=== PATIENT | female | born 1975 | race African-American/Black ===

== ENCOUNTER 2019-11-12 03:53 | Emergency (ER) | payer MEDICAID, SELFPAY ==
[2019-11-12 03:54] VITALS: PULSE 124; RESP 18; TEMP 36.4; O2SAT 97; BMI 33.3
--- NOTE | 2019-11-12 04:14 | EKG12_ITS ---
Test Reason : N AND VOMIT Blood Pressure : / mmHG Vent. Rate : 113 BPM Atrial Rate : 113 BPM P-R Int : 132 ms QRS Dur : 092 ms QT Int : 358 ms P-R-T Axes : 061 042 051 degrees QTc Int : 491 ms Sinus tachycardia Biatrial enlargement Nonspecific ST and T wave abnormality Abnormal ECG Confirmed by SARAH LADD, EILSHA ([id number]), image editor MARSHAL EWING ([id number]) on 11/14/2019 12:24:58 PM Referred By: Stalin Montes De Oca Confirmed By:ELISHA SMITH MD
--- NOTE | 2019-11-12 04:15 | ED.VIS.GEN ---
History of Present Illness Chief Complaint: Weakness Informant: Patient Narrative: She stated she felt lightheaded at home weak and fatigued. Denies vertigo. Came in for further evaluation. She does drink alcohol daily. She drinks approximately 4 to 5 24 ounce cans of beer. That is her normal per patient. She denies any abdominal pain. She had nausea with one episode of emesis upon arrival. She denies headache. She denies any respiratory symptoms. She has not had a cold. Current severity is mild. She feels much better after having emesis. She has had near syncopal dizzy symptoms in the past. She has chronic hypertension and takes medication for this. She stated 2 weeks ago she had dental extractions and has not been eating or drinking well afterwards. She feels like she is dehydrated Past Medical History - Allergies and Home Meds Allergies/Adverse Reactions: Allergies No Known Allergies Allergy (Verified 11/12/19 03:54) Primary Care Physician: Stalin Montes De Oca DO [Primary Care Provider] - Prior records reviewed: Yes Past Medical History: - - Tension, alcoholism Surgical History: - - Dental extractions Lives: With Family Smoking Status: Current every day smoker Alcohol: None Drugs: None Review of Systems General: Denies: Chills, Fever, Sweats Eyes: Denies: Visual changes - bilaterally, Diplopia ENT: Denies: Rhinorrhea, Sore throat Cardiovascular: Denies: Chest pain, Palpitations Respiratory: Denies: Dyspnea, Cough, Dyspnea on exertion Gastrointestinal: Reports: Nausea. Denies: Abdominal pain, Vomiting, Diarrhea, Melena, Hematochezia Genitourinary: Denies: Dysuria, Hematuria, Frequency Musculoskeletal: Denies: Back pain, Extremity Pain Skin: Denies: Rash, Wounds Neurological: Reports: Weakness. Denies: Headache, Numbness Physical Exam Vital Signs/Narrative: Vital Signs Temp Pulse Resp Pulse Ox 11/12/19 03:54 97.5 F L 124 H 18 97 General: Well nourished, Well developed, No Acute Distress Head: Normocephalic, Atraumatic Eyes: Perrl, EOMI ENT: Moist mucous membranes, No rhinorrhea Neck: Supple, Nontender Cardiovascular: Regular rhythm, No murmurs, Tachycardia. Negative for: Regular rate Respiratory: No distress, CTA bilaterally, Chest nontender Abdomen: Soft, Nontender, Nondistended, Normal bowel sounds Back: Nontender, Normal Inspection Extremities: Nontender, No edema Skin: Normal color, No rash Neurological: Alert, Oriented x3, Cranial nerves II-XII grossly intact, Normal Strength, Normal Sensation Psychological: Normal affect, Normal Mood Diagnostic/Tx/Re-eval Laboratory Results 11/12/19 11/12/19 11/12/19 04:08 04:08 04:08 WBC 5.2 RBC 4.43 Hgb 14.5 Hct 39.7 MCV 89.6 MCH 32.7 H MCHC 36.5 H RDW Std Deviation 41.1 RDW Coeff of Paco 12.4 Plt Count 258 MPV 10.7 Immature Gran % (Auto) 0.400 Neut % (Auto) 35.2 L Lymph % (Auto) 52.0 H Glascock % (Auto) 10.1 H Eos % (Auto) 1.9 Baso % (Auto) 0.4 Absolute Neuts (auto) 1.8 L Absolute Lymphs (auto) 2.68 Nucleated RBC % 0 Sodium 128 L Potassium 2.4 L* Chloride 85 L Carbon Dioxide 29.0 Anion Gap 14 BUN 2 L Creatinine 0.80 Estim Creat Clear Calc 66.31 Est GFR (MDRD) Af Amer 100 Est GFR (MDRD) Non-Af 82 BUN/Creatinine Ratio 2.5 L Glucose 222 H Calcium 8.7 Total Bilirubin 0.60 AST 42 H ALT 34 Alkaline Phosphatase 66 Troponin I < 0.015 Total Protein 9.1 H Albumin 3.3 Globulin 5.8 H Albumin/Globulin Ratio 0.6 L Ethyl Alcohol 42.0 - Medical Decision Making Patient given IV fluid bolus and Zofran. Lab work and EKG obtained. Patient has hyponatremia hypochloremia and hypokalemia. I suspect this is from decreased oral intake and drinking alcohol. Patient stated she is been binge drinking over the last few weeks. Patient felt better after 2 L of fluid. She tolerated oral potassium 40 mEq. She stated she supposed to be taking potassium as an outpatient but stated she did not feel like taking it as it made her nauseous intermittently without food. She has not taken it for years. Patient has no renal insufficiency. Slightly elevated AST secondary to her alcohol drinking. At this time I discussed admission with the patient. I also discussed detox. She does not want either these. She would like to go home and take potassium and continue to drink electrolyte beverages. She will try to hold off on drinking alcohol. She will return if she worsens. Her EKG shows sinus tachycardia at 113. No acute arrhythmias. No U waves. On reevaluation her heart rate is down to 89. I suspect her sodium and chloride will have been replaced with IV fluids as well. ED Disposition - Plan for ED Patient: Disposition: Home or Assisted Living Diagnosis: Hypokalemia, Hyponatremia, Hypochloremia, Alcoholism Instructions: Hypokalemia Prescriptions: Potassium Chloride [K-Dur] 20 meq PO BID #15 tab Prescription Printed Ondansetron [Zofran Odt] 4 mg PO Q8H PRN PRN #10 tab PRN Reason: Nausea Prescription Printed Referrals: Stalin Montes De Oca DO [Primary Care Provider] -
[2019-11-12] MEDS: 0.9% Normal Saline 1,000 ML 1000 ML IV ×2 (04:31→05:21)
[2019-11-12] MEDS: Ondansetron 4 MG/2 ML Vial IV (04:31)
[2019-11-12 04:34] LABS: Absolute Lymphocyte Count 2.68 X10^3/uL (0.83-4.51); Absolute Neutrophil Count 1.8 X10^3/uL (2.0-7.7); Basophil# 0.02 X10^3/uL; Basophil% 0.4 % (0-1); Eosinophils% 1.9 % (0-5); Hematocrit 39.7 % (37-47); Hemoglobin 14.5 g/dL (12.0-15.0); Lymphocyte # 2.68 X10^3/ul (4.0); Mean Corp Hgb Conc 36.5 g/dL (32-36); Mean Corpuscular Hgb 32.7 pg (27.0-32.0); Mean Corpuscular Volume 89.6 fL (81-99); Mean Platelet Vol. 10.7 fl (6.2-12.0); Monocyte# 0.52 X10^3/uL; Monocyte% 10.1 % (0-10); NRBC Flagged by Analyzer 0 % (0-5); Neutrophil # 1.81 X10^3/uL (2.7-7.7); Neutrophil % 35.2 % (47-70); Platelet Count 258 K/mm3 (150-450); RBC Distribution Width CV 12.4 % (11.6-14.6); RBC Distribution Width SD 41.1 fl (35.1-43.9); Red Blood Count 4.43 M/mm3 (4.2-5.4); White Blood Count 5.2 K/mm3 (4.4-11.0)
[2019-11-12 05:02] LABS: ALB/GLOB Ratio 0.6 RATIO (0.9-2.4); AST(SGOT) 42 U/L (15-37); Alanine Aminotransfer ALT/SGPT 34 U/L (13-56); Albumin, Serum 3.3 g/dL (3.2-5.0); Alkaline Phosphatase 66 U/L (45-117); Anion Gap 14 (5-15); BUN 2 mg/dL (7-18); BUN/Creat Ratio 2.5 RATIO (10-20); Calcium,Total 8.7 mg/dL (8.5-10.1); Chloride 85 mmol/L (98-107); EST Glomerular Filtration Rate 82 mL/min (>60); Est Glom Filt Rate - Afr Amer 100 mL/min (>60); Estimated Creatinine Clearance 66.31 ml/min; Globulin 5.8 g/dL (2.2-4.2); Glucose 222 mg/dL (74-106); Potassium 2.4 mmol/L (3.5-5.1); Protein, Total 9.1 g/dL (6.4-8.2); Sodium Level 128 mmol/L (136-145)
[2019-11-12 05:54] VITALS: BP 185/98; PULSE 89; RESP 14; O2SAT 94
[2019-11-12 06:16] VITALS: BP 176/92; PULSE 88; RESP 19; O2SAT 95
== END 2019-11-12 06:32 | disposition home or self-care (01) ==
PROVIDERS: Emergency Provider Emergency Medicine; PCP Student in an Organized Health Care Education/Training Program; Referring Provider Student in an Organized Health Care Education/Training Program
DX: E87.6 Hypokalemia (principal); E87.1 Hypo-osmolality and hyponatremia; E87.8 Other disorders of electrolyte and fluid balance, not elsewhere classified; F10.20 Alcohol dependence, uncomplicated; Y90.9 Presence of alcohol in blood, level not specified; Z98.818 Other dental procedure status; I10 Essential (primary) hypertension; Z79.899 Other long term (current) drug therapy; F17.200 Nicotine dependence, unspecified, uncomplicated
CPT/HCPCS: 80053; 80320; 84484; 85025; 93005; 96361; 96374; 99284; J7030; A4216; G0480; J2405

== ENCOUNTER 2021-09-27 21:33 | Emergency (ER) | payer MEDICAID, SELFPAY ==
[2021-09-27 21:33] VITALS: BP 238/110; PULSE 106; RESP 15; TEMP 36.2; O2SAT 97; BMI 34.0
[2021-09-27] MEDS: Acetaminophen 500 MG Tablet 1000 MG PO (22:30)
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
== END 2021-09-27 22:34 | disposition home or self-care (01) ==
LOC: ED 22:21
PROVIDERS: Emergency Provider Emergency Medicine; PCP Student in an Organized Health Care Education/Training Program
DX: S39.012A Strain of muscle, fascia and tendon of lower back, initial encounter (principal); V89.2XXA Person injured in unspecified motor-vehicle accident, traffic, initial encounter; Y93.9 Activity, unspecified; Y92.9 Unspecified place or not applicable; I10 Essential (primary) hypertension; Z79.899 Other long term (current) drug therapy; F17.210 Nicotine dependence, cigarettes, uncomplicated
CPT/HCPCS: 99283

== ENCOUNTER 2021-12-30 16:52 | Emergency (ER) | payer MEDICAID, SELFPAY ==
[2021-12-30 16:53] VITALS: BP 230/117; PULSE 93; RESP 17; TEMP 36.1; O2SAT 96; BMI 37.8
--- NOTE | 2021-12-30 17:53 | EDS_ITS ---
HPI History of Present Illness Chief Complaint: Hypertension Informant: patient Narrative Narrative: Patient Donell with high blood pressure. She checked her blood pressure this morning was very high although she does not recall the numbers. It is 230/117 now. She states she feels absolutely fine. She sometimes gets very anxious but is not anxious now. She does take 50 mg a day of hydrochlorothiazide but sometimes does not take it. She also drinks a fair a mount of beer. She is cut back to low-carb beer because she is also being worked up for diabetes. She had an A1c on a recent blood draw that was 7.2. She showed me these labs. Her blood sugars been running 140. I also found out that she was recently prescribed losartan. This is because her blood pressures were only going down to about 150. But she saw that the losartan just had potassium on it so she stopped taking it because she thought it was just potassium. She does not have headaches dyspnea neurologic symptoms chest pain or other complaints. There is no visual complaints. I also looked at blood work that was done about 2 months ago. She had normal renal function. Overall electrolytes and CBC were normal. Her A1c was about 7.2. [facility] Medical History Hypertension Home Medications hydrochlorothiazide 50 mg PO DAILY 11/12/19 [History Last Taken Unknown] loratadine 10 mg PO PRN PRN 09/27/21 [History Last Taken Unknown] losartan 25 mg PO DAILY 12/30/21 [History Last Taken Unknown] Allergy/AdvReac Type Severity Reaction Status Date / Time No Known Allergies Allergy Verified 12/30/21 16:53 Social History Smoking Status: Current every day smoker tobacco type: cigarettes ROS ROS ED Constitutional Constitutional ED: Denies chills or fever(s) Eyes Eyes: Denies blurry vision, change in vision or diplopia ENT ENT ED: Denies rhinorrhea Cardiovascular Cardiovascular: Denies chest pain, palpitations or racing heartbeat Respiratory/Chest Respiratory/Chest: Denies cough or dyspnea Gastrointestinal Gastrointestinal: Denies nausea or vomiting Genitourinary Genitourinary ED: Denies dysuria, hematuria or urinary frequency Musculoskeletal Musculoskeletal: Denies myalgias Integumentary Denies rash Neurologic Neurologic: Denies headache(s) or weakness Psychiatric Psychiatric: Reports anxiety; Denies depression Endocrine Endocrinology: Denies polydipsia or polyuria Allergic/Immunologic Allergic/Immunologic ED: Denies mouth swelling or urticaria EXAM Physical Exam Const Vital Signs: 12/30/21 16:53 12/30/21 17:39 Temperature 97.0 F L Temperature Source Temporal Pulse Rate 93 Respiratory Rate 17 Respiratory Pattern Normal Blood Pressure 230/117 H Blood Pressure Mean 154 Pulse Ox 96 Oxygen Delivery Method Room Air Positive well nourished and well developed General Appearance ED: well developed and NAD; Negative for cyanotic or diaphoretic HEENT Reports moist mucous membranes Negative for trauma or tenderness Eyes PERRL and EOMs intact bilaterally Neck supple and no JVD Chest Wall inspection of chest normal Resp normal respiratory effort and clear to auscultation bilaterally Effort and Inspection: Negative for pain with movement Auscultation: Negative for rales, rhonchi or wheezes Cardio regular rate and regular rhythm GI normal to inspection, nondistended, normoactive bowel sounds Back/Spine no CVA tenderness Neuro oriented x3 and CN's II-XII intact bilaterally Sensorium / Orientation: alert; Negative for orientation impaired, lethargic or stuporous Motor Exam: strength 5/5 throughout Psych mental status grossly normal Skin no rashes or lesions noted MDM MDM MDM Narrative Medical decision making narrative: I had a long talk with the patient. She has had recent blood work. We discussed that we could repeat this but she would prefer not to. I think the patient needs to take her hydrochlorothiazide and losartan as prescribed. This should bring down her blood pressure medicine appropriately. Evidently was running about 150 when she took the meds. Although it still may need to be lower than that this can be done as an outpatient. I do not think we require x-rays CTs blood work here is the patient is asymptomatic. She is comfortable and would prefer this plan. Discharge Plan Triage Chief Complaint: Hypertension ED Provider: Wale Conde Dx/Rx/DC Orders Clinical Impression: Hypertension, Non compliance w medication regimen Instructions: ED Hypertension, Established Prescriptions: No Action hydrochlorothiazide 25 MG tablet 50 mg PO DAILY RF: 0 loratadine 10 mg tablet 10 mg PO PRN PRN (Reason: Allergic Reaction) RF: 0 losartan 25 mg tablet 25 mg PO DAILY RF: 0 Primary Care Provider: Stalin Montes De Oca Referrals: Stalin Montes De Oca DO [Primary Care Provider] - 3-5 Days Disposition Disposition: Home, Self Care
[2021-12-30 18:13] VITALS: RESP 16
== END 2021-12-30 18:14 | disposition home or self-care (01) ==
PROVIDERS: Emergency Provider Emergency Medicine; PCP Student in an Organized Health Care Education/Training Program; Visit Provider Emergency Medicine
DX: I10 Essential (primary) hypertension (principal); F17.210 Nicotine dependence, cigarettes, uncomplicated; Z91.14 Patient's other noncompliance with medication regimen; Z79.899 Other long term (current) drug therapy
CPT/HCPCS: 99282

== ENCOUNTER 2022-05-03 15:17 | Emergency (ER) | payer MEDICAID, SELFPAY ==
[2022-05-03 15:18] VITALS: BP 168/119; PULSE 105; RESP 16; TEMP 36.9; O2SAT 98; BMI 35.5
--- NOTE | 2022-05-03 15:47 | EDS_ITS ---
HPI History of Present Illness Chief Complaint: General Illness Informant: patient Onset/Context/Timing Onset: Days Context: Gradual Onset Timing: Continuous Current Severity: Mild Maximum Severity: Mild Narrative Narrative: 46-year-old female says she has had sore throat and mild headache for the last 3 days. Headache is resolved with Tylenol. She has history of hypertension diabetes. Also has a nonproductive cough. She denies vomiting or diarrhea. No dysuria. Prior similar symptoms: Yes Recent Illness/Hospitalization: No PFSH PFSH Medical History Hypertension Home Medications hydrochlorothiazide 25 mg tablet 50 mg PO DAILY 11/12/19 [History Last Taken Unknown] loratadine 10 mg tablet 10 mg PO PRN PRN Allergic Reaction 09/27/21 [History Last Taken Unknown] losartan 25 mg tablet 25 mg PO DAILY 12/30/21 [History Last Taken Unknown] Allergy/AdvReac Type Severity Reaction Status Date / Time No Known Allergies Allergy Verified 05/03/22 15:21 Social History Smoking Status: Current every day smoker tobacco type: cigarettes ROS ROS ED ROS Narrative Sore throat. Nonproductive cough. Denies fever. Review of Systems ROS Unobtainable: Denies due to encephalopathy Constitutional Constitutional ED: Denies chills or fever(s) Eyes Eyes: Denies blurry vision ENT ENT ED: Reports sore throat; Denies ear pain or rhinorrhea Cardiovascular Cardiovascular: Denies chest pain Respiratory/Chest Respiratory/Chest: Reports cough; Denies dyspnea Gastrointestinal Gastrointestinal: Denies abdominal pain, constipation, diarrhea, melena, nausea or vomiting Genitourinary Genitourinary ED: Denies dysuria or hematuria Musculoskeletal Musculoskeletal: Denies arthralgias Integumentary Denies abscess Neurologic Neurologic: Reports headache(s) Psychiatric Psychiatric: Denies anxiety Endocrine Endocrinology: Denies cold intolerance Hematologic/Lymphatic Hematologic/Lymphatic: Reports none Allergic/Immunologic Allergic/Immunologic ED: Denies mouth swelling or tongue swelling EXAM Physical Exam Narrative Exam Narrative: 46-year-old female no acute distress. Vital signs stable. Initial blood pressure elevated 168/119 she has a history of hypertension. Pulse ox 90% on room air no hypoxia. H EENT exam posterior pharynx unremarkable. No trouble swallowing or breathing. No significant erythema or exudate. No stridor or drooling. Neck nontender no lymphadenopathy. Lungs are clear equal symmetrical bilaterally. Heart regular rate and rhythm no murmur. Abdomen soft nontender. Otherwise exam unremarkable. Const Vital Signs: 05/03/22 15:18 05/03/22 15:30 Temperature 98.4 F Temperature Source Temporal Pulse Rate 105 H Respiratory Rate 16 Respiratory Effort Normal Non-Labored Respiratory Pattern Normal Blood Pressure 168/119 H Blood Pressure Mean 135 Pulse Ox 98 Oxygen Delivery Method Room Air Positive well nourished and well developed; Negative for cachectic, contractures or unkempt General Appearance ED: well developed; Negative for unkempt, cachectic, contractures or pallor Nutritional Appearance: Negative for cachectic HEENT Reports moist mucous membranes; Denies dry mucous membranes Negative for trauma Mouth ED: No dry mucous membranes Mouth: No dry mucous membranes Eyes PERRL and EOMs intact bilaterally General Eye ED: Negative for pale conjunctiva Neck no lymphadenopathy, supple and no JVD General: Negative for tenderness Chest Wall inspection of chest normal and palpation of chest normal Resp normal respiratory effort and clear to auscultation bilaterally Effort and Inspection: Negative for retractions Auscultation: Negative for rales, rhonchi or wheezes Cardio regular rate, regular rhythm, S1 normal heart sound, S2 normal heart sound and no murmurs Palpation: Negative for palpable S3 Rate: Negative for bradycardia Rhythm: Negative for abnormal rhythm GI normal to inspection, nondistended, normoactive bowel sounds, non-tender, non- distended and no masses Inspection: Negative for abdominal distention Auscultation: normoactive bowel sounds Palpation: soft; Negative for tender, guarding or splenomegaly Back/Spine no CVA tenderness General Back: Negative for CVA tenderness Cervical Spine: Negative for cervical spine tenderness Thoracic Spine / Upper Back: Negative for thoracic spinal tenderness Lumbar Spine / Lower Back: Negative for lumbar spinal tenderness Extremity normal to inspection General Extremety ED: Negative for edema or tenderness General Extremity: Negative for edema Neuro oriented x3 Sensorium / Orientation: alert; Negative for orientation impaired, lethargic or stuporous Motor Exam: strength 5/5 throughout; Negative for general weakness or strength abnormal Psych mental status grossly normal Appearance: Negative for unkempt Attitude: No agitated Mood & Affect: Negative for depressed Skin no rashes or lesions noted and no wounds General Skin Exam: Negative for jaundice or pallor Lesions: No lesion noted Rashes: No rashes noted Trauma: Negative for abrasion Wounds: Negative for wounds noted MDM MDM MDM Narrative Medical decision making narrative: Radial female URI symptoms. COVID test and rapid strep are being obtained. She has to go home to let someone and somata call her with the results. She will be written off work today. Treated as a viral URI. Both the rapid COVID and rapid strep test were negative. Treated as a viral syndrome. I will call the patient with results. Lab Data Attestation: I reviewed the patient's lab results. Lab results narrative: Rapid COVID test was negative. Rapid strep test was negative. Discharge Plan Triage Chief Complaint: General Illness ED Provider: Deuce Back Dx/Rx/DC Orders Clinical Impression: Viral syndrome, History of hypertension, History of diabetes mellitus Instructions: ED Viral Syndrome (Adult) Prescriptions: No Action hydrochlorothiazide 25 MG tablet 50 mg PO DAILY loratadine 10 mg tablet 10 mg PO PRN PRN (Reason: Allergic Reaction) losartan 25 mg tablet 25 mg PO DAILY Label Comments: TAKE 1 TABLET BY MOUTH EVERY DAY Primary Care Provider: Stalin Montes De Oca Referrals: Stalin Montes De Oca, [Primary Care Provider] - As Needed Activity Restrictions/Additional Instructions: Warm salt water gargling. Plenty of fluids and rest. Tylenol and Motrin as needed. Follow-up with your doctor if not improving. Disposition Disposition: Home, Self Care Discharge Date/Time: 05/03/22 16:02
== END 2022-05-03 16:02 | disposition home or self-care (01) ==
PROVIDERS: Emergency Provider Emergency Medicine; PCP Student in an Organized Health Care Education/Training Program; Visit Provider Emergency Medicine
DX: B34.9 Viral infection, unspecified (principal); E11.9 Type 2 diabetes mellitus without complications; F17.210 Nicotine dependence, cigarettes, uncomplicated; R51.9 Headache, unspecified; I10 Essential (primary) hypertension; Z79.899 Other long term (current) drug therapy; J02.9 Acute pharyngitis, unspecified; R05.9 Cough, unspecified
CPT/HCPCS: 87811; 87880; 99281; 99282

== ENCOUNTER 2022-12-31 07:21 | Emergency (ER) | payer MEDICAID, SELFPAY ==
[2022-12-31 07:22] VITALS: BP 148/67; PULSE 71; RESP 14; TEMP 36.1; O2SAT 98; BMI 34.1
--- NOTE | 2022-12-31 07:31 | EKG12_ITS ---
Test Reason : GENERAL WEAKNESS Blood Pressure : / mmHG Vent. Rate : 070 BPM Atrial Rate : 070 BPM P-R Int : 124 ms QRS Dur : 100 ms QT Int : 426 ms P-R-T Axes : 065 062 100 degrees QTc Int : 460 ms Normal sinus rhythm Minimal voltage criteria for LVH, may be normal variant ( Sokolow-Spencer ) ST & T wave abnormality, consider lateral ischemia Prolonged QT Abnormal ECG Confirmed by ROBINSON LADD, CAROL ([id number]), copy editor MARCOS FONSECA ([id number]) on 01/02/2023 6:58:28 AM Referred By: EMILY Confirmed By:PIETER BOWERS MD
--- NOTE | 2022-12-31 07:33 | EDS_ITS ---
HPI History of Present Illness Chief Complaint: General Illness Detail of Chief Complaint: Chest pain, cough, diarrhea Informant: patient Onset/Context/Timing Onset: Days Narrative Narrative: Patient presents with cough and congestion that has been ongoing for about a week. She is bringing up clear-colored phlegm. Over the last 3 days or so she has had burning sensation in her right upper chest. She does not feel short of breath. She has had some chills but no fever. She has had some diarrhea and recently started taking Pepto for this. [facility] Medical History Diabetes mellitus Hx of gastroesophageal reflux (GERD) Hypertension Home Medications hydrochlorothiazide 25 mg tablet 50 mg PO DAILY 11/12/19 [History Last Taken Unknown] loratadine 10 mg tablet 10 mg PO PRN PRN Allergic Reaction 09/27/21 [History Last Taken Unknown] losartan 25 mg tablet 25 mg PO DAILY 12/30/21 [History Last Taken Unknown] doxycycline monohydrate 100 mg capsule 100 mg PO BID #20 CAPSULES 12/31/22 [Rx Last Taken Unknown] Allergy/AdvReac Type Severity Reaction Status Date / Time No Known Allergies Allergy Verified 12/31/22 07:22 Social History Smoking Status: Current every day smoker tobacco type: cigarettes ROS ROS ED Constitutional Constitutional ED: Reports chills; Denies fever(s) Eyes Eyes: Denies change in vision or discharge from eye(s) ENT ENT ED: Denies discharge from eye(s), rhinorrhea or sore throat Cardiovascular Cardiovascular: Reports chest pain; Denies palpitations Respiratory/Chest Respiratory/Chest: Reports cough; Denies dyspnea Gastrointestinal Gastrointestinal: Reports abdominal pain, diarrhea and nausea; Denies vomiting Genitourinary Genitourinary ED: Denies difficulty urinating or dysuria Musculoskeletal Musculoskeletal: Denies back pain or extremity pain Integumentary Denies Abrasions or rash Neurologic Neurologic: Denies headache(s) or weakness Psychiatric Psychiatric: Denies anxiety or depression Allergic/Immunologic Allergic/Immunologic ED: Denies lip swelling or urticaria EXAM Physical Exam Const Vital Signs: 12/31/22 07:22 12/31/22 07:51 Temperature 97 F L Temperature Source Temporal Pulse Rate 71 Respiratory Rate 14 Respiratory Effort Normal Non-Labored Respiratory Pattern Normal Blood Pressure 148/67 H Blood Pressure Mean 94 Pulse Ox 98 Oxygen Delivery Method Room Air Positive well nourished and well developed General Appearance ED: well developed HEENT Reports normocephalic and head/scalp atraumatic Eyes PERRL and EOMs intact bilaterally Neck supple Chest Wall inspection of chest normal and palpation of chest normal Resp normal respiratory effort and clear to auscultation bilaterally Cardio regular rate and regular rhythm GI non-tender Auscultation: hypoactive bowel sounds Palpation: soft Extremity normal to inspection Neuro oriented x3 and no sensory deficits noted Sensorium / Orientation: alert Motor Exam: strength 5/5 throughout Psych Mood & Affect: anxious Skin no rashes or lesions noted MDM MDM MDM Narrative Medical decision making narrative: Patient is placed on fios 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 EKG obtained to evaluate for cardiac arrhythmia/ischemia. Chest x-ray obtained to evaluate for acute lung pathology, cardiac size, or mediastinal abnormality. Labwork obtained to evaluate for leukocytosis, anemia, and electrolyte derangement. Troponin obtained to evaluat e for cardiac ischemia. D-dimer obtained to evaluate for possible blood clot. Swabs for COVID and influenza obtained. Patient treated with Toradol and Zofran along with IV fluids. Lab Data Attestation: I reviewed the patient's lab results. Labs: Laboratory Results - last 24 hr 12/31/22 12/31/22 12/31/22 07:45 07:45 07:45 WBC 6.1 RBC 4.06 L Hgb 13.2 Hct 38.2 MCV 94.1 MCH 32.5 H MCHC 34.6 RDW Std Deviation 43.9 RDW Coeff of Paco 12.7 Plt Count 236 MPV 10.6 Immature Gran % (Auto) 0.300 Neut % (Auto) 51.4 Lymph % (Auto) 34.2 Redwood % (Auto) 11.8 H Eos % (Auto) 2.0 Baso % (Auto) 0.3 Absolute Neuts (auto) 3.2 Absolute Lymphs (auto) 2.09 Nucleated RBC % 0 D-Dimer Quant (PE/DVT) < 0.27 L Sodium 135 L Potassium 3.2 L Chloride 98 Carbon Dioxide 30.0 Anion Gap 7 BUN 8 Creatinine 0.89 Estim Creat Clear Calc 57.70 Est GFR (MDRD) Af Amer 86 Est GFR (MDRD) Non-Af 71 BUN/Creatinine Ratio 8.9 L Glucose 163 H Calcium 9.5 Total Bilirubin 0.60 Direct Bilirubin 0.16 AST 28 ALT 26 Alkaline Phosphatase 68 Troponin I High Sens 25 Total Protein 8.2 Albumin 3.3 Globulin 4.9 H Radiography Chest X-Ray - ED: 1 View, Read by ED Physician, Normal, Heart, Lungs and Mediastinum Diagnostic Testing: Clinical Impression(s) from Imaging Studies Chest X-Ray 12/31/22 08:09 IMPRESSION: No acute cardiopulmonary disease. Electronically Signed: Paulie Castro MD at 8:31 EDT , EKG Initial EKG: Attestation: I personally reviewed and interpreted this EKG as follows: Interpretation: Sinus Rhythm (Sinus at [address] depression in the lateral precordial leads. 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 EKG reveals some chronic changes but no evidence of acute ischemia. CBC and chemistry studies are remarkable only for slightly low potassium at 3.2. This was replaced orally. D-dimer is negative at less than 0.27. Troponin is normal at 25. Chest x-ray shows no evidence of acute infiltrate per my interpretation. Swab for COVID and influenza is negative. Because patient has had symptoms for 5 to 7 days I will treat her with doxycycline for bronchitis. She is comfortable with this plan. Return instructions have been given. Discharge Plan Triage Chief Complaint: General Illness ED Provider: Dinora Denis Dx/Rx/DC Orders Clinical Impression: Bronchitis Instructions: ED Upper Resp Infec Abx Tx Prescriptions: New doxycycline monohydrate 100 mg capsule 100 mg PO BID Qty: 20 0RF No Action hydrochlorothiazide 25 MG tablet 50 mg PO DAILY loratadine 10 mg tablet 10 mg PO PRN PRN (Reason: Allergic Reaction) losartan 25 mg tablet 25 mg PO DAILY Label Comments: TAKE 1 TABLET BY MOUTH EVERY DAY Primary Care Provider: Stalin Montes De Oca Referrals: Stalin Montes De Oca DO [Primary Care Provider] - 1-2 Weeks Disposition Disposition: Home, Self Care
[2022-12-31] MEDS: 0.9% Normal Saline 1,000 ML 150 ML IV (07:46)
[2022-12-31] MEDS: Ondansetron 4 MG/2 ML Vial IV (07:55)
[2022-12-31] MEDS: Ketorolac 15 MG/ML Vial IV (07:55)
[2022-12-31 07:58] LABS: Absolute Lymphocyte Count 2.09 X10^3/uL (0.83-4.51); Absolute Neutrophil Count 3.2 X10^3/uL (2.0-7.7); Basophil# 0.02 X10^3/uL; Basophil% 0.3 % (0-1); Eosinophil# 0.12 X10^3/uL; Hematocrit 38.2 % (37-47); Hemoglobin 13.2 g/dL (12.0-15.0); Lymphocyte # 2.09 X10^3/ul (0.83-4.51); Lymphocyte % 34.2 % (19-41); Mean Corp Hgb Conc 34.6 g/dL (32-36); Mean Corpuscular Hgb 32.5 pg (27.0-32.0); Mean Corpuscular Volume 94.1 fL (81-99); Mean Platelet Vol. 10.6 fl (6.2-12.0); Monocyte# 0.72 X10^3/uL; Monocyte% 11.8 % (0-10); NRBC Flagged by Analyzer 0 % (0-5); Neutrophil # 3.15 X10^3/uL (2.7-7.7); Neutrophil % 51.4 % (47-70); Platelet Count 236 K/mm3 (150-450); RBC Distribution Width CV 12.7 % (11.6-14.6); RBC Distribution Width SD 43.9 fl (35.1-43.9); Red Blood Count 4.06 M/mm3 (4.2-5.4); White Blood Count 6.1 K/mm3 (4.4-11.0)
--- NOTE | 2022-12-31 08:09 | RAD_ITS ---
EXAM: XR CHEST, 1 VIEW CLINICAL INDICATION: pain TECHNIQUE: Frontal view of the chest. This report was created using [employer] report generation technology. COMPARISON: None. FINDINGS: LUNGS AND PLEURAL SPACES: Normal. No consolidation or edema. No pneumothorax. No effusion. HEART: Normal heart size. MEDIASTINUM: No mediastinal or hilar mass. BONES/JOINTS: No acute abnormality. SOFT TISSUES: Normal. RAD/Chest 1 View (Portable) IMPRESSION: No acute cardiopulmonary disease. Electronically Signed: Paulie Castro MD at 8:31 EDT ,
[2022-12-31 08:12] LABS: AST(SGOT) 28 U/L (15-37); Alanine Aminotransfer ALT/SGPT 26 U/L (13-56); Albumin, Serum 3.3 g/dL (3.2-5.0); Alkaline Phosphatase 68 U/L (45-117); Anion Gap 7 (5-15); BUN 8 mg/dL (7-18); BUN/Creat Ratio 8.9 RATIO (10-20); Bilirubin, Direct 0.16 mg/dL (0.00-0.30); Calcium,Total 9.5 mg/dL (8.5-10.1); Chloride 98 mmol/L (98-107); Creatinine, Serum 0.89 mg/dL (0.55-1.02); EST Glomerular Filtration Rate 71 mL/min (>60); Est Glom Filt Rate - Afr Amer 86 mL/min (>60); Globulin 4.9 g/dL (2.2-4.2); Glucose 163 mg/dL (74-106); Potassium 3.2 mmol/L (3.5-5.1); Protein, Total 8.2 g/dL (6.4-8.2); Sodium Level 135 mmol/L (136-145); Troponin-I HS 25 pg/mL (3.0-54.0)
[2022-12-31] MEDS: Potassium Chloride Oral Tablet 20 MEQ 40 MEQ PO (08:18)
[2022-12-31 08:19] LABS: D-Dimer Quantitative (DVT/PE) < 0.27 FEU/ug/m (0.27-0.49)
[2022-12-31 09:59] VITALS: BP 155/84; PULSE 61; RESP 16; O2SAT 99
== END 2022-12-31 10:01 | disposition home or self-care (01) ==
PROVIDERS: Emergency Provider Emergency Medicine; PCP Student in an Organized Health Care Education/Training Program; Visit Provider Emergency Medicine
DX: J40 Bronchitis, not specified as acute or chronic (principal); F17.210 Nicotine dependence, cigarettes, uncomplicated; I10 Essential (primary) hypertension
CPT/HCPCS: 71045; 80048; 80076; 84484; 85025; 85379; 87428; 93005; 96374; 96375; 99285; A4216; J2405

== ENCOUNTER 2023-10-26 02:07 | Emergency (ER) | payer MEDICAID, SELFPAY ==
[2023-10-26] VITALS (7 sets, daily range): BP systolic 136–230; BP diastolic 81–112; PULSE 72–86; RESP 14–16; TEMP 36.4; O2SAT 96–97; BMI 34.1
--- NOTE | 2023-10-26 02:44 | EKG12_ITS ---
Test Reason : Blood Pressure : / mmHG Vent. Rate : 069 BPM Atrial Rate : 069 BPM P-R Int : 134 ms QRS Dur : 120 ms QT Int : 422 ms P-R-T Axes : 061 041 036 degrees QTc Int : 452 ms Normal sinus rhythm Left ventricular hypertrophy with QRS widening ( Sokolow-Spencer , [place] product ) Nonspecific T wave abnormality Abnormal ECG Confirmed by SARAH LADD, ELISHA ([id number]), communications editor MARCOS FONSECA ([id number]) on 10/27/2023 9:55:04 AM Referred By: Confirmed By:ELISHA SMITH MD
--- OUTSIDE RECORDS SUMMARY | 2023-10-26 02:44 | XMS RPT_ITS | CCD ---
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 use: No BP 152/88 Pulse 86 Temp 36.4 C (97.5 F) (Tympanic) Resp 18 Wt 84.4 kg (186 lb) LMP 03/01/2018 SpO2 96% BMI 34.02 kg/m Review of Systems Constitutional: Negative for chills, fever and malaise/fatigue. HENT: Positive for congestion, ear pain and sore throat. Negative for ear discharge and sinus pain. Eyes: Negative for blurred vision, pain, discharge and redness. Respiratory: Negative for cough, hemoptysis, sputum production, shortness of breath, wheezing and stridor. Cardiovascular: Negative for chest pain. Gastrointestinal: Negative for abdominal pain, diarrhea, nausea and vomiting. Musculoskeletal: Negative for myalgias. Skin: Negative for itching and rash. Neurological: Negative for dizziness and headaches. Objective Physical Exam Vitals and nursing note reviewed. Constitutional: General: She is not in acute distress. Appearance: She is not diaphoretic. HENT: Head: Normocephalic and atraumatic. Jaw: No trismus, tenderness, swelling or malocclusion. Right Ear: Hearing, tympanic membrane, ear canal and external ear normal. No decreased hearing noted. No drainage, swelling or tenderness. No mastoid tenderness. Tympanic membrane is not perforated, erythematous or bulging. Left Ear: Hearing, tympanic membrane, ear canal and external ear normal. No decreased hearing noted. No drainage, swelling or tenderness. No mastoid tenderness. Tympanic membrane is not perforated, erythematous or bulging. Ears: Comments: Clear fluid noted behind bilateral TMs. Nose: Congestion and rhinorrhea present. Mouth/Throat: Lips: [place]. Mouth: Mucous membranes are moist. Pharynx: Oropharynx is clear. Uvula midline. Posterior oropharyngeal erythema present. No pharyngeal swelling, oropharyngeal exudate or uvula swelling. Eyes: General: Right eye: No discharge. Left eye: No discharge. Conjunctiva/sclera: Conjunctivae normal. Pupils: Pupils are equal, round, and reactive to light. Cardiovascular: Rate and Rhythm: Normal rate and regular rhythm. Heart sounds: Normal heart sounds. Pulmonary: Effort: Pulmonary effort is normal. No tachypnea, accessory muscle usage or respiratory distress. Breath sounds: Normal breath sounds. No stridor. No wheezing, rhonchi or rales. Chest: Chest wall: No tenderness. Abdominal: Palpations: Abdomen is soft. Tenderness: There is no abdominal tenderness. Musculoskeletal: General: No tenderness. Normal range of motion. Cervical back: Normal range of motion and neck supple. No rigidity or tenderness. Lymphadenopathy: Head: Right side of head: No submental, submandibular, tonsillar, preauricular, posterior auricular or occipital adenopathy. Left side of head: No submental, submandibular, tonsillar, preauricular, posterior auricular or occipital adenopathy. Cervical: No cervical adenopathy. Right cervical: No superficial or posterior cervical adenopathy. Left cervical: No superficial or posterior cervical adenopathy. Skin: General: Skin is warm and dry. Findings: No rash. Neurological: Mental Status: She is alert and oriented to person, place, and time. ASSESSMENT/PLAN: 1. Pharyngitis, unspecified etiology - ICD9: 462, ICD10: J02.9 (primary diagnosis) - STREP A MOLECULAR (POC) 2. Viral illness - ICD9: 079.99, ICD10: B34.9 - COVID WITH FLUA+B, ROUTINE Strep test negative. COVID-19 test ordered. Results pending. Alternative diagnosis discussed. Home quarantining recommended. Work note provided. Patient was educated on supportive therapies. Patient will follow up with primary care provider in 2 to 3 days for repeat evaluation of BP. Atient was instructed to immediately proceed to emergency room for any new, worsening, or symptoms lasting longer than anticipated. The patient's clinical presentation is otherwise unremarkable at this time. Based on exam and clinical finding, the patient is stable for discharge. Plan of care was discussed with patient. Patient verbalizes understanding and agrees to plan of care. This note was generated using [employer] software. It may contain errors in wording, punctuation, or spelling. Channing Benton APRN.RAFA documented in this encounter [facility] documented as of this encounter (statuses as of 02/19/2022) [facility]12-[facility]2012 History of Past illness Narrative* Problem Noted Date Resolved Date Bleeding in early 10/06/201201/2018 Overview: [facility] 10/04: 2087 at [facility], [facility]12 pending U/S 10/06/12: Clots and possible POC in lower segment, cervix. Cervical Os closed today on exam Poor support system complicating 09/0201/20/2018 Overview: 09/02/2012 She no longer has a relationship with the father of the baby. He is unaware that she is because she hasn't decided yet if she wants to keep the baby. He is not the father of any of her other children. I offered to schedule an appointment with Dr. Quach for patient to discuss her options. Patient refused appointment at this time stating that she believes she wanted to continue the , but will call us if she does decide on an . Advanced maternal age in 09/02/2012 01/20/2018 Overview: 09/02/2012 She is 37 years old.Advanced maternal age discussed. [facility] handouts on Genetic Amniocentesis, CVS, Quad marker screen and early screening in given and discussed. Level II ultrasound and 's services discussed. Tobacco use in 09/02/2012 018 Overview: 09/02/2012Pt smokes one pack a day of cigarettes. Discussed risks of smoking during . Advised pt to quit. documented as of this encounter (statuses as of 02/20/2022) [facility] History of Past illness Narrative* Problem Noted Date Resolved Date Bleeding in early 10/06/201201/2018 Overview: [facility] 10/04: 2087 at [facility], [facility]/12 pending U/S 10/06/12: Clots and possible POC in lower segment, cervix. Cervical Os closed today on exam Poor support system complicating 09/0201/20/2018 Overview: 09/02/2012 She no longer has a relationship with the father of the baby. He is unaware that she is because she hasn't decided yet if she wants to keep the baby. He is not the father of any of her other children. I offered to schedule an appointment with Dr. Quach for patient to discuss her options. Patient refused appointment at this time stating that she believes she wanted to continue the , but will call us if she does decide on an . Advanced maternal age in 09/02/2012 01/20/2018 Overview: 09/02/2012 She is 37 years old.Advanced maternal age discussed. [facility] handouts on Genetic Amniocentesis, CVS, Quad marker screen and early screening in given and discussed. Level II ultrasound and 's services discussed. Tobacco use in 09/02/2012 018 Overview: 09/02/2012Pt smokes one pack a day of cigarettes. Discussed risks of smoking during . Advised pt to quit. documented as of this encounter (statuses as of 03/27/2022) [facility] History of Past illness Narrative* Problem Noted Date Resolved Date Bleeding in early 10/06/201201/2018 Overview: [facility] 10/04: 2088 at [facility], Repeat [facility] 10/06/12 pending U/S 10/06/12: Clots and possible POC in lower segment, cervix. Cervical Os closed today on exam Poor support system complicating 09/0201/20/2018 Overview: 09/02/2012 She no longer has a relationship with the father of the baby. He is unaware that she is because she hasn't decided yet if she wants to keep the baby. He is not the father of any of her other children. I offered to schedule an appointment with Dr. Quach for patient to discuss her options. Patient refused appointment at this time stating that she believes she wanted to continue the , but will call us if she does decide on an . Advanced maternal age in 09/02/2012 01/20/2018 Overview: 09/02/2012 She is 37 years old.Advanced maternal age discussed. [facility] handouts on Genetic Amniocentesis, CVS, Quad marker screen and early screening in given and discussed. Level II ultrasound and 's services discussed. Tobacco use in 09/02/2012 018 Overview: 09/02/2012Pt smokes one pack a day of cigarettes. Discussed risks of smoking during . Advised pt to quit. documented as of this encounter (statuses as of 10/31/2022) [facility] History of Past illness Narrative* Problem Noted Date Resolved Date Bleeding in early 10/06/2012 04/0 01/2018 Overview: [facility] 10/04: 2088 at [facility], Repeat [facility] 10/06/12 pending U/S 10/06/12: Clots and possible POC in lower segment, cervix. Cervical Os closed today on exam Poor support system complicating 09/0201/20/2018 Overview: 09/02/2012 She no longer has a relationship with the father of the baby. He is unaware that she is because she hasn't decided yet if she wants to keep the baby. He is not the father of any of her other children. I offered to schedule an appointment with Dr. Quach for patient to discuss her options. Patient refused appointment at this time stating that she believes she wanted to continue the , but will call us if she does decide on an . Advanced maternal age in 09/02/2012 01/20/2018 Overview: 09/02/2012 She is 37 years old.Advanced maternal age discussed. [facility] handouts on Genetic Amniocentesis, CVS, Quad marker screen and early screening in given and discussed. Level II ultrasound and 's services discussed. Tobacco use in 09/02/2012 018 Overview: 09/02/2012Pt smokes one pack a day of cigarettes. Discussed risks of smoking during . Advised pt to quit. documented as of this encounter (statuses as of 12/03/2022) [facility] History of Past illness Narrative* Problem Noted Date Resolved Date Bleeding in early 10/06/201201/2018 Overview: [facility] 10/04: 8 at [facility], Repeat [facility] 10/06/12 pending U/S 10/06/12: Clots and possible POC in lower segment, cervix. Cervical Os closed today on exam Poor support system complicating 09/0201/20/2018 Overview: 09/02/2012 She no longer has a relationship with the father of the baby. He is unaware that she is because she hasn't decided yet if she wants to keep the baby. He is not the father of any of her other children. I offered to schedule an appointment with Dr. Quach for patient to discuss her options. Patient refused appointment at this time stating that she believes she wanted to continue the , but will call us if she does decide on an . Advanced maternal age in 09/02/2012 01/20/2018 Overview: 09/02/2012 She is 37 years old.Advanced maternal age discussed. [facility] handouts on Genetic Amniocentesis, CVS, Quad marker screen and early screening in given and discussed. Level II ultrasound and 's services discussed. Tobacco use in 09/02/2012 018 Overview: 09/02/2012Pt smokes one pack a day of cigarettes. Discussed risks of smoking during . Advised pt to quit. documented as of this encounter (statuses as of 12/15/2022) [facility] History of Past illness Narrative* Problem Noted Date Resolved Date Bleeding in early 10/06/201201/2018 Overview: [facility] 10/04: 8 at [facility], Repeat [facility] 10/06/12 pending U/S 10/06/12: Clots and possible POC in lower segment, cervix. Cervical Os closed today on exam Poor support system complicating 09/0201/20/2018 Overview: 09/02/2012 She no longer has a relationship with the father of the baby. He is unaware that she is because she hasn't decided yet if she wants to keep the baby. He is not the father of any of her other children. I offered to schedule an appointment with Dr. Quach for patient to discuss her options. Patient refused appointment at this time stating that she believes she wanted to continue the , but will call us if she does decide on an . Advanced maternal age in 09/02/2012 01/20/2018 Overview: 09/02/2012 She is 37 years old.Advanced maternal age discussed. [facility] handouts on Genetic Amniocentesis, CVS, Quad marker screen and early screening in given and discussed. Level II ultrasound and 's services discussed. Tobacco use in 09/02/2012 018 Overview: 09/02/2012Pt smokes one pack a day of cigarettes. Discussed risks of smoking during . Advised pt to quit. documented as of this encounter (statuses as of 04/09/2023) [facility] History of Past illness Narrative* Problem Noted Date Diagnosed Date Resolved Date Bleeding in early 10/06/2012 01/20/2018 Overview: [facility] 10/04: 8 at [facility], Repeat [facility] 10/06/12 pending U/S 10/06/12: Clots and possible POC in lower segment, cervix. Cervical Os closed today on exam Poor support system complicating 09/02/2012 01/20/2018 Overview: 09/02/2012 She no longer has a relationship with the father of the baby. He is unaware that she is because she hasn't decided yet if she wants to keep the baby. He is not the father of any of her other children. I offered to schedule an appointment with Dr. Quach for patient to discuss her options. Patient refused appointment at this time stating that she believes she wanted to continue the , but will call us if she does decide on an . Advanced maternal age in 09/02/2012 01/20/2018 Overview: 09/02/2012 She is 37 years old.Advanced maternal age discussed. [facility] handouts on Genetic Amniocentesis, CVS, Quad marker screen and early screening in given and discussed. Level II ultrasound and 's services discussed. Tobacco use in 09/02/201201/2018 Overview: 09/02/2012Pt smokes one pack a day of cigarettes. Discussed risks of smoking during . Advised pt to quit. documented as of this encounter (statuses as of 09/18/2023) [facility]12[facility] History of Past illness Narrative* Problem Noted Date Diagnosed Date Resolved Date Bleeding in early 10/06/2012 01/20/2018 Overview: [facility] 10/04: 2088 at [facility], [facility] 10/[facility]/12 pending U/S 10/06/12: Clots and possible POC in lower segment, cervix. Cervical Os closed today on exam Poor support system complicating 09/02/2012 01/20/2018 Overview: 09/02/2012 She no longer has a relationship with the father of the baby. He is unaware that she is because she hasn't decided yet if she wants to keep the baby. He is not the father of any of her other children. I offered to schedule an appointment with Dr. Quach for patient to discuss her options. Patient refused appointment at this time stating that she believes she wanted to continue the , but will call us if she does decide on an . Advanced maternal age in 09/02/2012 01/20/2018 Overview: 09/02/2012 She is 37 years old.Advanced maternal age discussed. [facility] handouts on Genetic Amniocentesis, CVS, Quad marker screen and early screening in given and discussed. Level II ultrasound and 's services discussed. Tobacco use in 09/02/201201/2018 Overview: 09/02/2012Pt smokes one pack a day of cigarettes. Discussed risks of smoking during . Advised pt to quit. documented as of this encounter (statuses as of 09/29/2023) [facility]12-[facility]-2012 History of Past illness Narrative* Problem Noted Date Diagnosed Date Resolved Date Bleeding in early 10/06/2012 01/20/2018 Overview: [facility] 10/04: 2088 at [facility], Repeat [facility] 10/06/12 pending U/S 10/06/12: Clots and possible POC in lower segment, cervix. Cervical Os closed today on exam Poor support system complicating 09/02/2012 01/20/2018 Overview: 09/02/2012 She no longer has a relationship with the father of the baby. He is unaware that she is because she hasn't decided yet if she wants to keep the baby. He is not the father of any of her other children. I offered to schedule an appointment with Dr. Quach for patient to discuss her options. Patient refused appointment at this time stating that she believes she wanted to continue the , but will call us if she does decide on an . Advanced maternal age in 09/02/2012 01/20/2018 Overview: 09/02/2012 She is 37 years old.Advanced maternal age discussed. [facility] handouts on Genetic Amniocentesis, CVS, Quad marker screen and early screening in given and discussed. Level II ultrasound and 's services discussed. Tobacco use in 09/02/201201/2018 Overview: 09/02/2012Pt smokes one pack a day of cigarettes. Discussed risks of smoking during . Advised pt to quit. documented as of this encounter (statuses as of 10/03/2023) [facility] note* Diagnosis Pharyngitis, unspecified etiology- Primary Viral illness Unspecified viral infection, in conditions classified elsewhere and of unspecified site documented in this encounter [facility] note* Diagnosis New onset type 2 diabetes mellitus (HCC) documented in this encounter [facility] note* Diagnosis Porokeratosis- Primary Other specified congenital anomaly of skin documented in this encounter [facility] note* Diagnosis Encounter for screening mammogram for breast cancer documented in this encounter [facility] note* Diagnosis New onset type 2 diabetes mellitus (HCC)- Primary Well adult exam Routine general medical examination at a health care facility documented in this encounter [facility] note* Diagnosis Acute hip pain, right- Primary Hip tendonitis, right Coxa profunda Atherosclerosis Generalized and unspecified atherosclerosis documented in this encounter [facility] note* Diagnosis Atherosclerosis- Primary Generalized and unspecified atherosclerosis documented in this encounter [facility] note* Diagnosis Inconclusive mammogram- Primary [facility] Diagnostic Procedure Only (Routine) - Pending Review Specialty Diagnoses / Procedures Referred By Burak chang Referred To Contact [facility] Diagnoses Encounter for screening mammogram for breast cancer Procedures YIN SCREENING SCREENING MAMMOGRAPHY BI 2-VIEW BREAST INC CAD Stalin Arora DO [address] [place] [address] [facility] [address] [place] [address] Referral ID Status Reason Start Date Expiration Date Visits Requested Visits Authorized [id number] Pending Review Auto-Generat ed Referral 12/10/2022 01/09/2024 1 1 [facility] Diagnostic Procedure Only (Urgent) - Closed Specialty Diagnoses / Procedures Referred By Burak chang Referred To Contact X[facility] IMAGING Diagnoses Acute hip pain, right Procedures XR HIP GENERAL 3V PELV/AP/LAT RIGHT RADEX HIP UNILATERAL WITH PELVIS 2-3 VIEWS Dariel Escudero MD [address] [place] [address] [place] [address] Referral ID Status Reason Start Date Expiration Date V isits Requested Visits Authorized [id number] Closed Auto-Generate d Referral 09/18/2023 10/17/2024 1 1 [facility] for referral (narrative)* Outpatient Procedure (Routine) - Authorized Specialty Diagnoses / Procedures Referred By Singhac t Referred To Contact [facility] Diagnoses Atherosclerosis Procedures US CAROTID ARTERIES [facility] DUPLEX SCAN EXTRACRANIAL ART COMPL BI STUDY Mary Toledo APRN.[employer] [address] [place] [address] [facility] [place] [address] [place] [address] Referral ID Status Reason Start Date Expiration Date Visits Requested Visits Authorized [id number] Authorized Auto-Generat ed Referral 3 09/27/2024 1 1 [facility] for referral (narrative)* Diagnostic Procedure Only (Routine) - Pending Review Specialty Diagnoses / Procedures Referred By Burak t Referred To Contact [facility] Diagnoses Inconclusive mammogram Procedures US BREAST LTD RIGHT US BREAST UNI REAL TIME WITH IMAGE LIMITED Elvia Cash APRN.[employer] [address] [place] [address] [facility] [address] [place] [address] Referral ID Status Reason Start Date Expiration Date Visits Requested Visits Authorized [id number] Pending Review Auto-Generat ed Referral 3 10/31/2024 1 1 * Diagnostic Procedure Only (Routine) - Pending Review Specialty Diagnoses / Procedures Referred By Burak t Referred To Contact [facility] Diagnoses Inconclusive mammogram Procedures YIN DIAGNOSTIC RIGHT DIAGNOSTIC MAMMOGRAPHY COMPUTER-AIDED DETCJ UNI Elvia Cash APRN.[employer] [address] [place] [address] [facility] [address] [place] [address] Referral ID Status Reason Start Date Expiration Date Visits Requested Visits Authorized [id number] Pending Review Auto-Generat ed Referral 3 10/31/2024 1 1 [facility] Summary Purpose Family History No Family History Records Found Advance Directives No Advanced Directives Records Found Additional Source Comments Source Comments (unrecognize d section and content) In the event this informatio n is protected by the Federal Confidentiality of Alcohol and Drug Abuse Patient Records regulations: The Federal rules restrict any use of the information to criminally investigate or prosecute any alcohol or drug abuse patient.[facility] the event this information is protected by the Federal Confidentiality of Alcohol and Drug Abuse Patient Records regulations: The Federal rules restrict any use of the information to criminally investigate or prosecute any alcohol or drug abuse patient.[facility] the event this information is protected by the Federal Confidentiality of Alcohol and Drug Abuse Patient Records regulations: The Federal rules restrict any use of the information to criminally investigate or prosecute any alcohol or drug abuse patient.[facility] the event this information is protected by the Federal Confidentiality of Alcohol and Drug Abuse Patient Records regulations: The Federal rules restrict any use of the information to criminally investigate or prosecute any alcohol or drug abuse patient.[facility] the event this information is protected by the Federal Confidentiality of Alcohol and Drug Abuse Patient Records regulations: The Federal rules restrict any use of the information to criminally investigate or prosecute any alcohol or drug abuse patient.[facility] Center[facility] the event this information is protected by the Federal Confidentiality of Alcohol and Drug Abuse Patient Records regulations: The Federal rules restrict any use of the information to criminally investigate or prosecute any alcohol or drug abuse patient.[facility] Center[facility] the event this information is protected by the Federal Confidentiality of Alcohol and Drug Abuse Patient Records regulations: The Federal rules restrict any use of the information to criminally investigate or prosecute any alcohol or drug abuse patient.[facility] the event this information is protected by the Federal Confidentiality of Alcohol and Drug Abuse Patient Records regulations: The Federal rules restrict any use of the information to criminally investigate or prosecute any alcohol or drug abuse patient.[facility] CenterIn the event this information is protected by the Federal Confidentiality of Alcohol and Drug Abuse Patient Records regulations: The Federal rules restrict any use of the information to criminally investigate or prosecute any alcohol or drug abuse patient.[facility] CenterIn the event this information is protected by the Federal Confidentiality of Alcohol and Drug Abuse Patient Records regulations: The Federal rules restrict any use of the information to criminally investigate or prosecute any alcohol or drug abuse patient.[facility] Reason for Visit (unrecogniz ed section and content) Reason Comments Results Reason Onset Date Comments Refill Request 03/27/2022 Reason Onset Date Comments Refill Request 10/31/2022 they send 100 ev mark 30 days Reason Comments New Pain Callous Reason Onset Date Comments Refill Request 04/06/2023 Reason Comments Leg Cramps Right leg Reason Comments Results Appointment Care Teams (unrecognized sec tion and content) Clinical Nurse Relationship Specialty Start Date End Date Stalin Arora, DO [address] [place] [address] PCP - General Family Practice 02/10/13 Clinical Nurse Relationship Specialty Start Date End Date Stalin Arora, DO [address] [place] [address] PCP - General Family Practice 02/10/13 Clinical Nurse Relationship Specialty Start Date End Date Stalin Arora, DO [address] [place] [address] PCP - General Family Medicine 02/10/13 Clinical Nurse Relationship Specialty Start Date End Date Stalin Arora, DO [address] [place] [address] PCP - General Family Medicine 02/10/13 Clinical Nurse Relationship Specialty Start Date End Date Stalin Arora, DO [address] [place] [address] PCP - General Family Medicine 02/10/13 Clinical Nurse Relationship Specialty Start Date End Date Stalin Arora, DO [address] [place] [address] PCP - General Family Medicine 02/10/13 Clinical Nurse Relationship Specialty Start Date End Date Stalin Arora DO [address] [place] [address] PCP - General Family Medicine 02/10/13 Clinical Nurse Relationship Specialty Start Date End Date Stalin Arora DO [address] [place] [address] PCP - General Family Medicine 02/10/13 Clinical Nurse Relationship Specialty Start Date End Date Stalin Arora DO [address] [place] [address] PCP - General Family Medicine 02/10/13 INFORMATION SOURCE (unrecogn ized section and content) FOR RECORDS PERTAINING TO PATIENTS WHO ARE OR HAVE BEEN ENROLLED IN A CHEMICAL DEPENDENCY/SUBSTANCEABUSE PROGRAM, SOME INFORMATION MAY BE OMITTED. This clinical summary was aggregated from multiple sources. Caution should be exercised in using it in the provision of clinical care. This summary normalizes information from multiple sources, and as a consequence, information in this document may materially change the coding, format and clinical context of patient data. In addition, data may be omitted in some cases. CLINICAL DECISIONS SHOULD BE BASED ON THE PRIMARY CLINICAL RECORDS. [employer] provides no warranty or guarantee of the accuracy or completeness of information in this document.
[2023-10-26 03:06] LABS: Absolute Lymphocyte Count 2.87 X10^3/uL (0.83-4.51); Absolute Neutrophil Count 1.8 X10^3/uL (2.0-7.7); Basophil# 0.04 X10^3/uL; Basophil% 0.7 % (0-1); Eosinophil# 0.12 X10^3/uL; Eosinophils% 2.2 % (0-5); Hematocrit 37.9 % (37-47); Hemoglobin 13.7 g/dL (12.0-15.0); Lymphocyte # 2.87 X10^3/ul (0.83-4.51); Lymphocyte % 52.7 % (19-41); Mean Corp Hgb Conc 36.1 g/dL (32-36); Mean Corpuscular Hgb 32.8 pg (27.0-32.0); Mean Corpuscular Volume 90.7 fL (81-99); Mean Platelet Vol. 10.5 fl (6.2-12.0); NRBC Flagged by Analyzer 0 % (0-5); Neutrophil # 1.81 X10^3/uL (2.7-7.7); Neutrophil % 33.2 % (47-70); Platelet Count 262 K/mm3 (150-450); RBC Distribution Width CV 12.8 % (11.6-14.6); RBC Distribution Width SD 42.1 fl (35.1-43.9); Red Blood Count 4.18 M/mm3 (4.2-5.4); White Blood Count 5.5 K/mm3 (4.4-11.0)
[2023-10-26] MEDS: cloNIDine HCl 0.1 MG Tablet 0.100000000000000006 MG PO (03:21)
[2023-10-26] MEDS: Labetalol (Prefilled) 20 MG/4 ML 10 MG IV (03:22)
[2023-10-26 03:32] LABS: Anion Gap 7 (5-15); BUN 4 mg/dL (7-18); BUN/Creat Ratio 6.2 RATIO (10-20); Chloride 94 mmol/L (98-107); Creatinine, Serum 0.64 mg/dL (0.55-1.02); EST Glomerular Filtration Rate 104 mL/min (>60); Est Glom Filt Rate - Afr Amer 126 mL/min (>60); Estimated Creatinine Clearance 79.36 ml/min; Glucose 122 mg/dL (74-106); Potassium 2.5 mmol/L (3.5-5.1); Sodium Level 133 mmol/L (136-145); Troponin-I HS 24 pg/mL (3.0-54.0)
--- NOTE | 2023-10-26 04:46 | EDS_ITS ---
HPI History of Present Illness Chief Complaint: Hypertension Informant: patient Narrative Narrative: Patient is a 48-year-old female with past medical history of hypertension who states she takes hydrochlorothiazide twice a day. She states that she used to be on losartan but could not tolerate it so this was stopped. She also reports that she drinks 3-6 beers daily and smokes cigarettes. She states this evening she just felt off and checked her blood pressure at home and it was elevated. She states then she waited a little while but was nervous and anxious and then rechecked it and it was even higher which concerned her and therefore she comes in for evaluation. She denies any headache or change in vision or chest pain associated with this and she denies any excessive stimulant or illicit drug use [facility] Medical History Diabetes mellitus Hx of gastroesophageal reflux (GERD) Hypertension Home Medications hydrochlorothiazide 25 mg tablet 50 mg PO DAILY 11/12/19 [History Last Taken Unknown] loratadine 10 mg tablet 10 mg PO PRN PRN Allergic Reaction 09/27/21 [History Last Taken Unknown] metoprolol succinate 25 mg tablet,extended release 24 hr 25 mg PO DAILY 30 days #30 tabs 10/26/23 [Rx Last Taken Unknown] potassium chloride 20 mEq tablet,extended release 20 meq PO DAILY 30 days #30 tabs 10/26/23 [Rx Last Taken Unknown] Allergy/AdvReac Type Severity Reaction Status Date / Time No Known Allergies Allergy Verified 10/26/23 02:07 Social History Smoking Status: Current every day smoker tobacco type: cigarettes ROS ROS ED Constitutional Constitutional ED: Denies chills or fever(s) Eyes Eyes: Denies change in vision ENT ENT ED: Denies sore throat Cardiovascular Cardiovascular: Denies chest pain or palpitations Respiratory/Chest Respiratory/Chest: Denies cough or dyspnea Gastrointestinal Gastrointestinal: Denies abdominal pain, diarrhea, nausea or vomiting Genitourinary Genitourinary ED: Denies dysuria Musculoskeletal Musculoskeletal: Denies myalgias Integumentary Denies rash Neurologic Neurologic: Denies headache(s), paresthesias or weakness Psychiatric Psychiatric: Reports anxiety Hematologic/Lymphatic Hematologic/Lymphatic: Denies easy bleeding or easy bruising EXAM Physical Exam Const Vital Signs: 10/26/23 02:08 10/26/23 02:11 10/26/23 02:24 Temperature 97.5 F L Temperature Source Temporal Pulse Rate 86 Respiratory Rate 16 Blood Pressure 225/112 H 230/107 H 205/99 H Blood Pressure Mean 149 148 134 Pulse Ox 96 Oxygen Delivery Method 10/26/23 04:03 10/26/23 04:17 10/26/23 04:33 Temperature Temperature Source Pulse Rate 72 Respiratory Rate 15 Blood Pressure 190/91 H 176/82 H 136/81 H Blood Pressure Mean 124 113 99 Pulse Ox 97 Oxygen Delivery Method Room Air 10/26/23 04:57 Temperature Temperature Source Pulse Rate 85 Respiratory Rate 14 Blood Pressure 156/82 H Blood Pressure Mean 106 Pulse Ox 97 Oxygen Delivery Method Positive well nourished, well developed and obese General Appearance ED: well developed Nutritional Appearance: obese HEENT HEENT Narrative: Normocephalic atraumatic Eyes PERRL and EOMs intact bilaterally General Eye ED: Negative for scleral icterus Neck supple Chest Wall palpation of chest normal Resp normal respiratory effort and clear to auscultation bilaterally Cardio regular rate and regular rhythm Rate: other Other Details: No murmurs rubs or gallops noted Radial and carotid pulses are equal and symmetric GI normal to inspection, nondistended, normoactive bowel sounds, non-tender, non- distended and no masses GI Narrative: No pulsatile mass Auscultation: normoactive bowel sounds Palpation: soft Extremity normal to inspection Extremity Narrative: No asymmetric edema no pitting edema negative Homans' sign bilaterally Neuro oriented x3, CN's II-XII intact bilaterally and no sensory deficits noted Neuro Narrative: No pronator drift no dysmetria no truncal ataxia NIH stroke scale score of 0 Sensorium / Orientation: alert Motor Exam: strength 5/5 throughout Psych Psych Narrative: Patient has a nervous/anxious affect Skin no rashes or lesions noted General Skin Exam: Negative for jaundice MDM MDM MDM Narrative Medical decision making narrative: Patient presented to the ER hypertensive but otherwise with stable vitals. Based on her hypertension there is concern for endorgan damage such as acute kidney injury or acute coronary syndrome. She does not have headache change in vision or altered mental status so my concern for hypertensive encephalopathy or acute CVA secondary to hypertension is low and I do not feel there is a need for head CT. An EKG was obtained which revealed no signs of ischemia or cardiac dysrhythmia and basic blood work was obtained which shows no signs of acute kidney injury. Patient's potassium is low at 2.5 but chart review reveals that has been this low in the past and as she is on hydrochlorothiazide and drinks beer daily it is a not uncommon for it to be low. Therefore she was given 40 mEq by mouth in the ER. After being treated with labetalol and clonidine the patient's blood pressure improved to 156/82 which is actually above the 25% threshold and for an reduction in the ER. On reevaluation however she remains awake and alert with normal neurologic exam and reports feeling better with reduction in the hypertension. Therefore at this time as workup reveals no signs of endorgan damage her blood pressure has been reduced and she is not having symptoms from her hypokalemia there is no need for inpatient workup and to be given potassium supplementation and new/additional hypertensive medications and will follow-up with family doctor on an outpatient basis History & Record Review Discussion w/independent historian: Patient Lab Data Attestation: I reviewed the patient's lab results. Labs: Laboratory Results - last 24 hr 10/26/23 02:10 WBC 5.5 RBC 4.18 L Hgb 13.7 Hct 37.9 MCV 90.7 MCH 32.8 H MCHC 36.1 H RDW Std Deviation 42.1 RDW Coeff of Paco 12.8 Plt Count 262 MPV 10.5 Immature Gran % (Auto) 0.200 Neut % (Auto) 33.2 L Lymph % (Auto) 52.7 [place] % (Auto) 11.0 H Eos % (Auto) 2.2 Baso % (Auto) 0.7 Absolute Neuts (auto) 1.8 L Absolute Lymphs (auto) 2.87 Nucleated RBC % 0 Sodium 133 L Potassium 2.5 L* Chloride 94 L Carbon Dioxide 32.0 Anion Gap 7 BUN 4 L Creatinine 0.64 Estim Creat Clear Calc 79.36 Est GFR (MDRD) Af Amer 126 Est GFR (MDRD) Non-Af 104 BUN/Creatinine Ratio 6.2 L Glucose 122 H Calcium 9.0 Troponin I High Sens 24 Discharge Plan Triage Chief Complaint: Hypertension ED Provider: Derian Pimentel Dx/Rx/DC Orders Clinical Impression: Accelerated hypertension, Acute hypokalemia, Alcohol abuse, Tobacco use Instructions: Hypokalemia Dc, ED Hypertension, Established Prescriptions: New potassium chloride 20 mEq tablet extended release 20 meq PO DAILY 30 Days Qty: 30 0RF metoprolol succinate 25 mg tablet extended release 24 hr 25 mg PO DAILY 30 Days Qty: 30 1RF No Action hydrochlorothiazide 25 MG tablet 50 mg PO DAILY loratadine 10 mg tablet 10 mg PO PRN PRN (Reason: Allergic Reaction) Primary Care Provider: Stalin Montes De Oca Referrals: Stalin Montes De Oca, [Primary Care Provider] - Activity Restrictions/Additional Instructions: Please continue your hydrochlorothiazide as directed by your doctor but add the metoprolol once a day in the evening for improved blood pressure control. Because of your persistently low potassium from your hydrochlorothiazide take the potassium supplement once a day as directed. Follow-up with your family doctor for repeat laboratory studies and to discuss refills of your medications if they are helping and return to the ER should you have any further concerns Disposition Disposition: Home, Self Care Discharge Date/Time: 10/26/23 04:57
[2023-10-26] MEDS: Potassium Chloride Oral Tablet 20 MEQ 40 MEQ PO (04:53)
== END 2023-10-26 04:57 | disposition home or self-care (01) ==
PROVIDERS: Emergency Provider Emergency Medicine; PCP Student in an Organized Health Care Education/Training Program; Visit Provider Emergency Medicine
DX: I10 Essential (primary) hypertension (principal); E11.9 Type 2 diabetes mellitus without complications; E87.6 Hypokalemia; F10.10 Alcohol abuse, uncomplicated; F17.210 Nicotine dependence, cigarettes, uncomplicated; Z79.899 Other long term (current) drug therapy
CPT/HCPCS: 80048; 84484; 85025; 93005; 96374; 99283; A4216

== ENCOUNTER 2024-03-09 21:20 | Emergency (ER) | payer MEDICAID, SELFPAY ==
[2024-03-09 21:21] VITALS: BP 218/97; PULSE 114; RESP 18; TEMP 35.8; O2SAT 97; BMI 33.5
--- NOTE | 2024-03-09 22:18 | EKG12_ITS ---
Test Reason : DYSRHYTHMIA Blood Pressure : / mmHG Vent. Rate : 096 BPM Atrial Rate : 096 BPM P-R Int : 134 ms QRS Dur : 120 ms QT Int : 386 ms P-R-T Axes : 059 024 082 degrees QTc Int : 487 ms Normal sinus rhythm Possible Left atrial enlargement Left ventricular hypertrophy with QRS widening ( Sokolow-Spencer , [place] product ) Nonspecific ST and T wave abnormality Abnormal ECG Confirmed by Navjot Dove ([id number]), pictures editor LINWOOD SUERO ([id number]) on 03/10/2024 12:00:27 PM Referred By: JACOB Confirmed By:Navjot Dove
--- NOTE | 2024-03-09 22:19 | EDS_ITS ---
HPI History of Present Illness Chief Complaint: Palpitations Informant: patient Narrative Narrative: 48-year-old female having episodes of palpitations started yesterday, she had 1 episode, today she is been having brief 1 minute or so episodes all day. They have made her lightheaded but no syncope or near syncope, she denies any chest pain, diaphoresis, dyspnea with this, no recent illness or cough/vomiting/diarrhea. She is on blood pressure medicine and recently she was diagnosed with some peripheral arterial disease in her left carotid and as a result within the last month or 2 she was placed on aspirin and a statin medication, she is been having nausea with taking it so she has been pausing it on occasion to see if it helped and her doctor told her to take it at night. She is on metoprolol but not taking that, she states it was only for at night, she is taking HCTZ twice daily. [facility] Medical History Hyperlipidemia Alcohol abuse Hx of gastroesophageal reflux (GERD) Diabetes mellitus Hypertension Home Medications ?Medication ?Instructions ?Recorded ?Last Taken ?Type hydrochlorothiazide 25 mg tablet 50 mg PO DAILY 11/12/19 Unknown History loratadine 10 mg tablet 10 mg PO PRN PRN Allergic Reaction 09/27/21 Unknown History metoprolol succinate 25 mg 25 mg PO DAILY 30 days #30 tabs 10/26/23 Unknown Rx tablet,extended release 24 hr aspirin 81 mg tablet,delayed 81 mg PO DAILY 03/09/24 Unknown History release cholecalciferol (vitamin D3) 1,250 1,250 mcg PO QWEEK 03/09/24 Unknown History mcg (50,000 unit) capsule lisinopril 10 mg tablet 10 mg PO DAILY #30 tabs 03/09/24 Unknown Rx Allergy/AdvReac Type Severity Reaction Status Date / Time No Known Allergies Allergy Verified 03/09/24 21:23 Social History Smoking Status: Current every day smoker tobacco type: cigarettes ROS ROS ED Constitutional Constitutional ED: Denies chills or fever(s) Eyes Eyes: Denies change in vision or diplopia ENT ENT ED: Denies rhinorrhea or sore throat Cardiovascular Cardiovascular: Reports lightheadedness and palpitations; Denies chest pain or syncope Respiratory/Chest Respiratory/Chest: Denies cough or dyspnea Gastrointestinal Gastrointestinal: Denies abdominal pain, diarrhea, nausea or vomiting Genitourinary Genitourinary ED: Denies dysuria or hematuria Musculoskeletal Musculoskeletal: Denies back pain or neck pain Integumentary Denies abscess or rash Neurologic Neurologic: Denies headache(s), paresthesias or weakness Psychiatric Psychiatric: Denies anxiety or suicidal thoughts EXAM Physical Exam Const Vital Signs: 03/09/24 21:21 03/09/24 21:51 03/09/24 22:20 Temperature 96.4 F L Temperature Source Temporal Pulse Rate 114 H 81 Respiratory Rate 18 15 Respiratory Effort Normal Non-Labored Blood Pressure 218/97 H 179/83 H Blood Pressure Mean 137 115 Pulse Ox 97 99 Oxygen Delivery Method Room Air 03/09/24 22:21 03/09/24 23:00 Temperature Temperature Source Pulse Rate 72 Respiratory Rate 17 Respiratory Effort Blood Pressure 159/77 H Blood Pressure Mean 104 Pulse Ox 96 Oxygen Delivery Method Room Air Room Air Positive well nourished and well developed General Appearance ED: well developed and NAD HEENT Reports moist mucous membranes normocephalic and atraumatic Eyes PERRL and EOMs intact bilaterally Neck full ROM and supple Resp normal respiratory effort and clear to auscultation bilaterally Cardio regular rate, regular rhythm and no murmurs GI non-tender and non-distended Auscultation: normoactive bowel sounds Palpation: soft Back/Spine no CVA tenderness General Back: other FROM Extremity normal to inspection General Extremety ED: Negative for edema, pulses abnormal or tenderness General Extremity: Negative for edema or pulses abnormal Neuro oriented x3, CN's II-XII intact bilaterally and no sensory deficits noted Sensorium / Orientation: awake and alert Motor Exam: strength 5/5 throughout Skin no rashes or lesions noted and no wounds MDM MDM MDM Narrative Medical decision making narrative: EKG shows a nonspecific interventricular conduction delay likely related to LVH, it is unchanged compared with her prior. She is having some symptomatic PVCs that are not infrequent, but she is having no runs of them or dysrhythmias. Her sodium and potassium are both low, she does not need be admitted for this, but I did replace her potassium orally and IV over an hour, as it may be contributing to her ectopy. Sodium at least is probably related to her HCTZ. Advised to follow-up with her doctor regarding this. Additionally her blood pressure was very high. 218/97 on triage, and after a couple readings, she was still around 200 systolic. Not actively symptomatic from this, but it may be contributing to the ectopy as well. She has metoprolol on her medication list, so I gave her a dose of metoprolol tartrate 25 mg, and subsequently her blood pressure was 159/77 so we held off on giving her any more medication such as clonidine. Her blood pressure remained more stable. I recommend going back on her metoprolol succinate every night until she follows up with her doctor, holding her hydrochlorothiazide until she follows up, and will Rx her lisinopril 10mg. Lab Data Attestation: I reviewed the patient's lab results. Labs: Laboratory Results - last 24 hr 03/09/24 21:40 WBC 5.3 RBC 3.70 L Hgb 11.8 L Hct 33.4 L MCV 90.3 MCH 31.9 MCHC 35.3 RDW Std Deviation 42.3 RDW Coeff of Paco 12.8 Plt Count 243 MPV 10.6 Immature Gran % (Auto) 0.400 Neut % (Auto) 49.5 Lymph % (Auto) 36.3 [place] % (Auto) 11.9 H Eos % (Auto) 1.3 Baso % (Auto) 0.6 Absolute Neuts (auto) 2.6 Absolute Lymphs (auto) 1.92 Nucleated RBC % 0 Sodium 128 L Potassium 2.9 L Chloride 88 L Carbon Dioxide 27.0 Anion Gap 13 BUN 4 L Creatinine 0.58 Estim Creat Clear Calc 111.50 Est GFR (MDRD) Af Amer 141 Est GFR (MDRD) Non-Af 117 BUN/Creatinine Ratio 6.9 L Glucose 88 Calcium 9.6 Troponin I High Sens 20 Rhythm Strip Rhythm Strip: Sinus Rhythm Rate: 85 Ectopy: PVC(s) (Occasional, causing patient to have recurrent brief symptoms) EKG Initial EKG: Attestation: I personally reviewed and interpreted this EKG as follows: Interpretation: Sinus Rhythm and No Acute Injury Pattern Comments: LVH Prior EKG tracings: available for review Prior: Unchanged Discharge Plan Triage Chief Complaint: Palpitations ED Provider: Grzegorz Beaver Dx/Rx/DC Orders Clinical Impression: Palpitations, Frequent PVCs, Accelerated hypertension, Hyponatremia, Hypokalemia Instructions: PVCs, ED High Blood Pressure Hypertension, ED Hypokalemia Prescriptions: New lisinopril 10 mg tablet 10 mg PO DAILY Qty: 30 0RF Continued loratadine 10 mg tablet 10 mg PO PRN PRN (Reason: Allergic Reaction) metoprolol succinate 25 mg tablet extended release 24 hr 25 mg PO DAILY 30 Days Qty: 30 1RF aspirin 81 mg tablet,delayed release (DR/EC) 81 mg PO DAILY cholecalciferol (vitamin D3) 1,250 mcg (50,000 unit) capsule 1,250 mcg PO QWEEK Held hydrochlorothiazide 25 MG tablet 50 mg PO DAILY Hold Instructions: until you follow up with your doctor Primary Care Provider: Stalin Montes De Oca Referrals: Stalin Montes De Oca, [Primary Care Provider] - As soon as possible Print Language: French Disposition Disposition: Home, Self Care
[2024-03-09 22:20] VITALS: BP 179/83; PULSE 81; RESP 15; O2SAT 99
[2024-03-09 22:34] LABS: Absolute Lymphocyte Count 1.92 X10^3/uL (0.83-4.51); Absolute Neutrophil Count 2.6 X10^3/uL (2.0-7.7); Basophil# 0.03 X10^3/uL; Basophil% 0.6 % (0-1); Eosinophil# 0.07 X10^3/uL; Eosinophils% 1.3 % (0-5); Hematocrit 33.4 % (37-47); Hemoglobin 11.8 g/dL (12.0-15.0); Lymphocyte # 1.92 X10^3/ul (0.83-4.51); Lymphocyte % 36.3 % (19-41); Mean Corp Hgb Conc 35.3 g/dL (32-36); Mean Corpuscular Hgb 31.9 pg (27.0-32.0); Mean Corpuscular Volume 90.3 fL (81-99); Mean Platelet Vol. 10.6 fl (6.2-12.0); Monocyte# 0.63 X10^3/uL; Monocyte% 11.9 % (0-10); NRBC Flagged by Analyzer 0 % (0-5); Neutrophil # 2.62 X10^3/uL (2.7-7.7); Neutrophil % 49.5 % (47-70); Platelet Count 243 K/mm3 (150-450); RBC Distribution Width CV 12.8 % (11.6-14.6); RBC Distribution Width SD 42.3 fl (35.1-43.9); White Blood Count 5.3 K/mm3 (4.4-11.0)
[2024-03-09 23:00] VITALS: BP 159/77; PULSE 72; RESP 17; O2SAT 96
[2024-03-09] MEDS: Metoprolol Tartrate 25 MG Tablet PO (23:02)
[2024-03-09 23:08] LABS: Anion Gap 13 (5-15); BUN 4 mg/dL (7-18); BUN/Creat Ratio 6.9 RATIO (10-20); Calcium,Total 9.6 mg/dL (8.5-10.1); Chloride 88 mmol/L (98-107); Creatinine, Serum 0.58 mg/dL (0.55-1.02); EST Glomerular Filtration Rate 117 mL/min (>60); Est Glom Filt Rate - Afr Amer 141 mL/min (>60); Glucose 88 mg/dL (74-106); Potassium 2.9 mmol/L (3.5-5.1); Sodium Level 128 mmol/L (136-145); Troponin-I HS 20 pg/mL (3.0-54.0)
[2024-03-09] MEDS: Potassium Chloride 10mEq/100mL 10 MEQ/100 ML IV.SOLN. 100 MEQ IV BOLUS (23:45)
[2024-03-09] MEDS: Potassium Chloride Oral Tablet 20 MEQ 40 MEQ PO (23:46)
[2024-03-10] VITALS: BP 181/80; PULSE 65; RESP 17; O2SAT 100
[2024-03-10 00:04] VITALS: BP 181/80; PULSE 66; RESP 15; TEMP 36.6; O2SAT 100
== END 2024-03-10 01:20 | disposition home or self-care (01) ==
PROVIDERS: Emergency Provider Emergency Medicine; PCP Student in an Organized Health Care Education/Training Program; Visit Provider Emergency Medicine
DX: R00.2 Palpitations (principal); E11.9 Type 2 diabetes mellitus without complications; E87.1 Hypo-osmolality and hyponatremia; F17.210 Nicotine dependence, cigarettes, uncomplicated; E87.6 Hypokalemia; I10 Essential (primary) hypertension; E78.5 Hyperlipidemia, unspecified; Z79.899 Other long term (current) drug therapy; Z79.82 Long term (current) use of aspirin
CPT/HCPCS: 80048; 84484; 85025; 93005; 96360; 99285; J7030; A4216

== ENCOUNTER 2025-03-07 01:54 | Emergency (ER) | payer MEDICAID, SELFPAY ==
[2025-03-07 01:55] VITALS: BP 224/70; PULSE 79; RESP 18; TEMP 36.5; O2SAT 100
[2025-03-07 02:00] VITALS: BP 209/69
--- NOTE | 2025-03-07 02:26 | EX.ED.DYSGE1 ---
HPI History of Present Illness Chief Complaint: Numb/Ting Informant: patient Narrative Narrative: Patient is a 49-year-old female with past medical of hypertension and hyperlipidemia. She states that she noticed when she was at work this morning that there was mild numbness/tingling and pain in her left arm. She states she did not think much of it. She states this evening she was lying down to go to sleep and she states that she typically lays on that left side. She states that she noticed as there was more pressure on the left arm/shoulder region that there was increased numbness and pain into the left arm. She states this made her feel anxious and had concern for potential stroke or blood clot and with this she comes in for evaluation. [facility] Medical History Hyperlipidemia Alcohol abuse Hx of gastroesophageal reflux (GERD) Diabetes mellitus Hypertension Home Medications ?Medication ?Instructions ?Recorded ?Last Taken ?Type loratadine 10 mg tablet 10 mg PO PRN PRN Allergic Reaction 09/27/21 Unknown History metoprolol succinate 25 mg 25 mg PO DAILY 30 days #30 tabs 10/26/23 Unknown Rx tablet,extended release 24 hr aspirin 81 mg tablet,delayed 81 mg PO DAILY 03/09/24 Unknown History release cholecalciferol (vitamin D3) 1,250 1,250 mcg PO QWEEK 03/09/24 Unknown History mcg (50,000 unit) capsule atorvastatin 40 mg tablet 40 mg PO QHS cholesterol 03/07/25 Unknown History losartan 50 mg tablet 50 mg PO DAILY 03/07/25 Unknown History Allergy/AdvReac Type Severity Reaction Status Date / Time No Known Allergies Allergy Verified 03/07/25 02:01 Social History Smoking Status: Current every day smoker tobacco type: cigarettes ROS ROS ED Constitutional Constitutional ED: Denies chills or fever(s) Eyes Eyes: Denies blurry vision or change in vision ENT ENT ED: Denies sore throat Cardiovascular Cardiovascular: Denies chest pain, palpitations or racing heartbeat Respiratory/Chest Respiratory/Chest: Denies cough or dyspnea Gastrointestinal Gastrointestinal: Denies abdominal pain, diarrhea, nausea or vomiting Genitourinary Genitourinary ED: Denies dysuria Musculoskeletal Musculoskeletal: Reports other Details: Positive neck stiffness and left arm pain Integumentary Denies Abrasions or rash Neurologic Neurologic: Reports paresthesias; Denies headache(s) or weakness Psychiatric Psychiatric: Reports anxiety Hematologic/Lymphatic Hematologic/Lymphatic: Denies easy bleeding or easy bruising EXAM Physical Exam Const Vital Signs: 03/07/25 01:55 03/07/25 02:00 Temperature 97.7 F L Temperature Source Oral Pulse Rate 79 Respiratory Rate 18 Blood Pressure 224/70 H 209/69 H Blood Pressure Mean 121 115 Pulse Ox 100 Oxygen Delivery Method Room Air Positive well nourished, well developed and obese General Appearance ED: well developed; Negative for pallor Nutritional Appearance: obese HEENT HEENT Narrative: Normocephalic atraumatic Eyes PERRL and EOMs intact bilaterally General Eye ED: Negative for scleral icterus Neck Neck Narrative: No bony deformity or step-off of the cervical spine no midline tenderness to palpation Negative Spurling sign bilaterally There is left paracervical tension and spasm noted Resp normal respiratory effort and clear to auscultation bilaterally Cardio regular rate and regular rhythm Rate: other Other Details: Heart is regular rate and rhythm Radial and carotid pulses are equal and symmetric No carotid bruit Extremity Extremity Narrative: Left upper extremity is neurovascularly intact; AIN/PIN are intact and normal. All compartments are soft and compressible going against compartment syndrome No signs of abscess in the axilla noted. Neuro oriented x3, CN's II-XII intact bilaterally and no sensory deficits noted Neuro Narrative: GCS of 15 Cranial nerves II through XII are grossly intact without focal neurologic deficit No pronator drift no dysmetria no truncal ataxia NIH stroke scale score of 0 Sensorium / Orientation: alert Motor Exam: strength 5/5 throughout Psych Mood & Affect: anxious Skin no rashes or lesions noted and no wounds General Skin Exam: Negative for jaundice or pallor MDM MDM MDM Narrative Medical decision making narrative: Patient arrived to the ER hypertensive but has a past medical history of this. She also reported being anxious which would increase her blood pressure. Otherwise vitals are stable. Her history and exam is most consistent with superficial cervical radiculopathy most likely related to muscle tension and spasm. She denied any recent bouts of vomiting or diarrhea which could indicate an electrolyte abnormality. Pulses in the arm and neck on both sides are equal and symmetric going against a vascular steal syndrome. Compartments are soft and compressible going against compartment syndrome. There is no asymmetric edema or erythema or warmth going against cellulitis abscess or DVT. I discussed with patient that we could perform an EKG to rule out a cardiac event as the cause. We also could check basic labs to ensure that there is no clinically significant electrolyte abnormality. Moreover we could perform a CT scan of the neck to check for cervical compression. The patient states that she does note there is worsening of symptoms with different positions of her left arm and therefore she agrees this is most likely superficial nerve compression from the tight muscles. She states she will continue with [id number] Tylenol and ibuprofen as well as heat. She states that as her exam does not indicate this is cardiac or a DVT or stroke that she does not want any testing performed and would prefer just to be discharged. Therefore at this time patient remains hypertensive but this is improved from initial evaluation. Her neurologic exam is normal and there is no signs of acute infection or loss of neurovascular status. Therefore she will be discharged as requested and can follow-up as an outpatient for continued care History & Record Review Discussion w/independent historian: Patient Discharge Plan Triage Chief Complaint: Numb/Ting Other Complaint: Upper Extremity Injury ED Provider: Derian Pimentel Dx/Rx/DC Orders Clinical Impression: Cervical radiculopathy, Hypertension, Hyperlipidemia Instructions: Cervical Radiculopathy Prescriptions: No Action loratadine 10 mg tablet 10 mg PO PRN PRN (Reason: Allergic Reaction) metoprolol succinate 25 mg tablet extended release 24 hr 25 mg PO DAILY 30 Days Qty: 30 1RF aspirin 81 mg tablet,delayed release (DR/EC) 81 mg PO DAILY cholecalciferol (vitamin D3) 1,250 mcg (50,000 unit) capsule 1,250 mcg PO QWEEK losartan 50 mg tablet 50 mg PO DAILY atorvastatin 40 mg tablet 40 mg PO QHS Primary Care Provider: Stalin Montes De Oca Referrals: Stalin Montes De Oca DO [Primary Care Provider] - Activity Restrictions/Additional Instructions: Your history and exam indicate that you have tight muscles in your neck and shoulder girdle region which have led to superficial compression of the nerves that innervate your arm. This is known as cervical radiculopathy. Continue to stretch and heat the area to reduce pain and speed healing and continue to use [id number] Tylenol and/or Motrin for pain control. Return to the ER should you have any further concerns or worsening of symptoms Print Language: Kazakh Disposition Disposition: Home, Self Care Discharge Date/Time: 03/07/25 02:33
== END 2025-03-07 02:33 | disposition home or self-care (01) ==
PROVIDERS: Emergency Provider Emergency Medicine; PCP Student in an Organized Health Care Education/Training Program; Visit Provider Emergency Medicine
DX: R20.0 Anesthesia of skin (principal); E11.9 Type 2 diabetes mellitus without complications; I10 Essential (primary) hypertension; E78.5 Hyperlipidemia, unspecified; M54.12 Radiculopathy, cervical region; Z79.82 Long term (current) use of aspirin; Z79.899 Other long term (current) drug therapy; F17.210 Nicotine dependence, cigarettes, uncomplicated
CPT/HCPCS: 99283

== ENCOUNTER 2025-04-11 23:06 | Observation (INO) | payer MEDICAID, SELFPAY ==
[2025-04-11 23:06] VITALS: BP 118/84; PULSE 60; RESP 24; TEMP 36.4; O2SAT 99
--- NOTE | 2025-04-11 23:43 | ED.VIS.CHEST ---
HPI History of Present Illness Chief Complaint: Chest Pain Informant: patient Onset/Context/Timing Onset: Today and Hours Activity at onset: sudden Timing: Continuous Quality: Positive for Burning Location: Substernal Worsened By: Nothing Relieved By: Nothing Associated Symptoms: Positive for Diaphoresis, Lightheadedness and Palpitations; Negative for Nausea, Vomiting, Dyspnea, Cough, Fever or Acid Reflux Narrative Narrative: Patient presents with chest pain that began tonight. Patient states it began rather suddenly. Patient states it is constant. Patient describes it as burning. Patient states it is over the substernal area. Patient states nothing makes it worse and nothing makes it better. Patient states she did break into a sweat. Patient also admits to some lightheadedness and palpitations with the pain. Patient denies any fevers or chills. Patient denies any shortness of breath or cough. CVD Risk Factors: Positive for Hypertension, Diabetes and Smoking; Negative for Hypercholesterolemia or Family History 1' </=55 PE Risk Factors: Positive for Prior DVT or PE; Negative for Recent Travel/Surgery, Recent Immobilization, Cancer or OCP + Smoking + >/=35 PFSH [facility] Medical History (Updated 04/12/25 @ 03:[address] Veronika Alves MD) Allergic rhinitis GERD (gastroesophageal reflux disease) Obesity Iron deficiency anemia Hyperlipidemia Alcohol abuse Diabetes mellitus Hypertension Home Medications ?Medication ?Instructions ?Recorded ?Last Taken ?Type loratadine 10 mg tablet 10 mg PO PRN PRN Allergic Reaction 09/27/21 Unknown History metoprolol succinate 25 mg 25 mg PO DAILY 30 days #30 tabs 10/26/23 Unknown Rx tablet,extended release 24 hr aspirin 81 mg tablet,delayed 81 mg PO DAILY 03/09/24 Unknown History release cholecalciferol (vitamin D3) 1,250 1,250 mcg PO QWEEK 03/09/24 Unknown History mcg (50,000 unit) capsule atorvastatin 40 mg tablet 40 mg PO QHS cholesterol 03/07/25 Unknown History losartan 50 mg tablet 50 mg PO DAILY 03/07/25 Unknown History Allergy/AdvReac Type Severity Reaction Status Date / Time No Known Allergies Allergy Verified 04/11/25 23:06 Surgical History no surgical history no surgical history Social History Smoking Status: Current every day smoker tobacco type: cigarettes ROS ROS ED Constitutional Constitutional ED: Denies chills or fever(s) Eyes Eyes: Denies blurry vision or change in vision ENT ENT ED: Denies rhinorrhea or sore throat Cardiovascular Cardiovascular: Reports chest pain and palpitations Respiratory/Chest Respiratory/Chest: Denies cough or dyspnea Gastrointestinal Gastrointestinal: Denies nausea or vomiting Genitourinary Genitourinary ED: Denies dysuria or hematuria Musculoskeletal Musculoskeletal: Denies back pain or neck pain Integumentary Denies abscess or rash Neurologic Neurologic: Reports headache(s); Denies weakness Allergic/Immunologic Allergic/Immunologic ED: Denies mouth swelling or urticaria EXAM Physical Exam Const Vital Signs: 04/11/25 23:06 04/11/25 23:23 04/12/25 00:14 Temperature 97.6 F L Temperature Source Temporal Pulse Rate 60 Respiratory Rate 24 H Respiratory Effort Normal Non-Labored Blood Pressure 118/84 H Blood Pressure Mean 95 Pulse Ox 99 Oxygen Delivery Method Room Air Room Air 04/12/25 01:00 04/12/25 02:00 04/12/25 03:00 Temperature Temperature Source Pulse Rate 71 73 68 Respiratory Rate 16 16 16 Respiratory Effort Blood Pressure 122/70 H 115/63 150/74 H Blood Pressure Mean 87 80 99 Pulse Ox 96 95 97 Oxygen Delivery Method Room Air Room Air Room Air Positive well nourished and well developed General Appearance ED: well developed and NAD HEENT Reports moist mucous membranes Neck supple and no JVD Resp normal respiratory effort and clear to auscultation bilaterally Cardio regular rate and regular rhythm GI soft to palpation, non-tender and non-distended Extremity normal to inspection General Extremety ED: Negative for edema or tenderness General Extremity: Negative for edema Neuro oriented x3, CN's II-XII intact bilaterally and no sensory deficits noted Sensorium / Orientation: awake and alert Motor Exam: strength 5/5 throughout Psych mental status grossly normal Heart Score History: Slightly/Non-Suspicious ECG: Nonspecific Repolarization Age: >45 - <65 years Risk Factors: >/= 3 Risk Factors or History of CAD Score: 4 MDM MDM MDM Narrative Medical decision making narrative: Differential diagnosis includes cardiac dysrhythmia, cardiac ischemia, pneumonia, bronchitis, electrolyte abnormality, pulmonary embolism, gastroesophageal reflux disease, and anxiety. EKG will be obtained to assess for cardiac dysrhythmia and cardiac ischemia. Chest x-ray will be obtained to assess for pneumonia and bronchitis. CBC will be obtained to assess for leukocytosis and anemia. Basic metabolic profile will be obtained to assess for electrolyte abnormality and renal function. High-sensitivity troponin will be obtained to assess for cardiac ischemia. 2-hour repeat high-sensitivity troponin will be obtained to assess for ongoing cardiac ischemia. D-dimer will be obtained to assess for pulmonary embolism. Lab Data Attestation: I reviewed the patient's lab results. Lab results narrative: CBC was reviewed. There is a mild leukocytosis of 12.0. There is a mild anemia with a hemoglobin of 11.3 and hematocrit of 32.9. Platelets were normal. The D-dimer was reviewed and was normal at 0.28. Basic metabolic profile was reviewed. Potassium was slightly low at 3.2. Glucose was slightly elevated at 120. Initial high-sensitivity troponin was reviewed and was less than 6. 2-hour repeat high-sensitivity troponin was reviewed and was slightly elevated at 18. Labs: Laboratory Results - last 24 hr 04/11/25 04/12/25 23:20 02:20 WBC 12.0 H RBC 3.62 L Hgb 11.3 L Hct 32.9 L MCV 90.9 MCH 31.2 MCHC 34.3 RDW Std Deviation 48.2 H RDW Coeff of Paco 14.6 Plt Count 231 MPV 11.6 Immature Gran % (Auto) 0.200 Neut % (Auto) 41.9 L Lymph % (Auto) 47.9 H [place] % (Auto) 7.3 Eos % (Auto) 2.4 Baso % (Auto) 0.3 Absolute Neuts (auto) 5.0 Absolute Lymphs (auto) 5.74 H Nucleated RBC % 0 Atypical Lymphocytes 1+ Platelet Estimate ADEQUATE RBC Morphology NORM C+C D-Dimer Quant (PE/DVT) 0.28 Sodium 137 Potassium 3.2 L Chloride 99 Carbon Dioxide 22.3 Anion Gap 16 H BUN 11 Creatinine 0.73 Est GFR (MDRD) Non-Af 99 BUN/Creatinine Ratio 14.3 Glucose 120 H Calcium 9.6 Troponin T High Sens < 6 Troponin T Hi Sens 2 Hr 18 H Radiography Diagnostic Testing: Clinical Impression(s) from Imaging Studies Chest X-Ray 04/12/25 00:40 IMPRESSION: No evidence for acute abnormality. Reading [facility] [address] Portable 1 view chest x-ray was obtained. On my independent interpretation, lung cramer are clear. There is normal cardiac silhouette. Bony thorax is normal. There is no acute process noted. Radiologist also interpreted the x-ray and agrees. EKG Initial EKG: Attestation: I personally reviewed and interpreted this EKG as follows: Interpretation: Sinus Rhythm (74) and Non-Specific ST Changes Comments: EKG was obtained. On my independent interpretation, it showed a normal sinus rhythm with a rate of 74. ID interval, QRS interval, and QTc intervals were all normal. Dexter was normal. There there is left ventricular hypertrophy with nonspecific ST-T wave changes. Prior EKG tracings: available for review Prior: Unchanged (03/09/2024) Management Discussion w/another healthcare provider: Hospitalist Treatment and Re-Evaluation :: Patient was given aspirin and sublingual nitroglycerin. Patient was advised of her findings. Patient was sleeping on reevaluation. Because of the increase of the troponin, I recommended admission to the hospital. Patient is agreeable with this. Case was discussed with the hospitalist. She will admit the patient to her service. Patient understood and was agreeable with the plan. All questions were answered. Discharge Plan Dx/Rx/DC Orders Clinical Impression: Chest pain, Elevated troponin, Hypertension Disposition Disposition: Acute Care Hospital [facility]
[2025-04-12] VITALS (11 sets, daily range): BP systolic 115–174; BP diastolic 59–82; PULSE 59–76; RESP 15–18; TEMP 36.4–37.1; O2SAT 94–99; BMI 35.4; BMI 31.1; BMI 32.1
--- NOTE | 2025-04-12 00:14 | EKG12_ITS ---
Test Reason : CP Blood Pressure : */* mmHG Vent. Rate : 74 BPM Atrial Rate : 74 BPM P-R Int : 134 ms QRS Dur : 118 ms QT Int : 394 ms P-R-T Axes : 62 49 -75 degrees QTcB Int : 437 ms Normal sinus rhythm Left ventricular hypertrophy with QRS widening and repolarization abnormality ( Sokolow-Spencer ) Abnormal ECG When compared with ECG of 09-Mar-2024 21:28, ST now depressed in Inferior leads ST now depressed in Anterior leads T wave inversion now evident in Inferior leads Confirmed by SARAH LADD, ELISHA ([id number]), international editorial producer MARCOS FONSECA ([id number]) on 04/13/2025 9:54:04 AM Referred By: CAMERON Confirmed By: ELISHA SMITH MD
[2025-04-12 00:28] LABS: Absolute Lymphocyte Count 5.74 X10^3/uL (0.83-4.51); Basophil# 0.03 X10^3/uL; Basophil% 0.3 % (0-1); Differential Indicated SCAN CRITERIA MET; Eosinophil# 0.29 X10^3/uL; Eosinophils% 2.4 % (0-5); Hematocrit 32.9 % (37-47); Hemoglobin 11.3 g/dL (12.0-15.0); Lymphocyte # 5.74 X10^3/ul (0.83-4.51); Lymphocyte % 47.9 % (19-41); Mean Corp Hgb Conc 34.3 g/dL (32-36); Mean Corpuscular Hgb 31.2 pg (27.0-32.0); Mean Corpuscular Volume 90.9 fL (81-99); Mean Platelet Vol. 11.6 fl (6.2-12.0); Monocyte# 0.87 X10^3/uL; Monocyte% 7.3 % (0-10); NRBC Flagged by Analyzer 0 % (0-5); Neutrophil # 5.04 X10^3/uL (2.7-7.7); Neutrophil % 41.9 % (47-70); POSITIVE DIFFERENTIAL YES; POSITIVE MORPHOLOGY YES; Platelet Count 231 K/mm3 (150-450); RBC Distribution Width CV 14.6 % (11.6-14.6); RBC Distribution Width SD 48.2 fl (35.1-43.9); Red Blood Count 3.62 M/mm3 (4.2-5.4)
--- OUTSIDE RECORDS SUMMARY | 2025-04-12 00:30 | XMS RPT_ITS | CCD ---
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 Stalin Montes De Oca DO Primary Care Provider Dr. Derian Pimentel DO Emergency Provider Derian Pimentel Attending Unavailable Stalin Montes De Oca Primary Care Unavailable Ranjeet WIRE FRAME MAKER.Mariaelena CRAIG Unavailable STALIN MONTES DE OCA Referring Unavailable STALIN MONTES DE OCA Primary Care Unavailable KAVITHA HERRING Referring Unavailable STALIN MONTES DE OCA Primary Care Unavailable BETHANY TAVERAS Attending Unavailable TSALIN MONTES DE OCA Primary Care Unavailable MARIELLA SKINNER Attending Unavailable STALIN MONTES DE OCA Primary Care Unavailable ASI, KHALED Referring Unavailable STALIN MONTES DE OCA Primary Care Unavailable STALIN MONTES DE OCA Referring Unavailable STALIN MONTES DE OCA Primary Care Unavailable ABHI FU Attending Unavailable SELF Referring Unavailable STALIN MONTES DE OCA Primary Care Unavailable STALIN MONTES DE OCA Attending Unavailable STALIN MONTES DE OCA Primary Care Unavailable STALIN MONTES DE OCA Primary Care Unavailable STALIN MONTES DE OCA Attending Unavailable STALIN MONTES DE OCA Primary Care Unavailable PODLOGAR, CHEYANNE Attending Unavailable STALIN MONTES DE OCA Primary Care Unavailable KHAILOGCHEYANNE TRUJILLO Referring Unavailable STALIN MONTES DE OCA Primary Care Unavailable STALIN MONTES DE OCA Referring Unavailable STALIN MONTES DE OCA Primary Care Unavailable KAVITHA HERRING Referring Unavailable STALIN MONTES DE OCA Primary Care Unavailable KAVITHA HERRING Referring Unavailable MONTES DE OCASTALIN ASTUDILLO Primary Care Unavailable STALIN MONTES DE OCA Attending Unavailable STALIN MONTES DE OCA Primary Care Unavailable Allergies Allergy Classification Reported Allergen(s) Allergy Type Date of Onset Reaction(s) Facility Angiotensin Converting Enzyme (JEAN PIERRE) Inhibitors (4 sources) Lisinopril Drug Allergy 11-25-2021 Other: See Comments [facility] Work Phone: (20 sources) Lisinopril; Translations: [LISINOPRIL] Drug Allergy 11-25-2021 Other: See Comments [facility] Work Phone: (20 sources) aMILoride / hydroCHLOROthiaz susan; Translations: [AMILORIDE-HYDRO CHLOROTHIAZIDE] Drug Allergy 04-25-2024 Other: See Comments [facility] Medications Current Medications Medication Drug Class(es) Dates Sig (Normalized) Sig (Original) aspirin 81 mg delayed release oral tablet (20 sources) Platelet Aggregation Inhibitor, Nonsteroidal Anti-inflammatory Drug Start: 01-05-2024 End: 04-03-2026 take 1 tablet by mouth once daily aspirin, enteric coated (ASPIRIN, ENTERIC COATED) 81 mg EC tablet Take 1 tablet by mouth once daily. 30 tablet 11 04/03/2025 04/03/2026 Active Comment on above: Take 1 tablet by dee dee th once daily. atorvastatin 40 mg oral tablet (20 sources) HMG-CoA Reductase Inhibitor Start: 08-17-2024 End: 01-18-2025 take 1 tablet by mouth once daily at bedtime for hyperlipidemia atorvastatin (LIPITOR) 40 mg tablet Indications: Dyslipidemia Take 1 tablet by mouth daily at bedtime. For cholesterol. 90 tablet 1 01/18/2025 Active Start: 01-05-2024 End: 08-17-2024 take 1 tablet by mouth once daily atorvastatin (LIPITOR) 80 mg tablet Take 1 tablet by mouth once daily. 90 tablet 3 01/05/2024 08/17/2024 Discontinued Comment on above: Take 1 tablet by dee dee th once daily. B.animalis,bifid,i nfantis,long (PROBIOTIC 4X) 10-15 mg TbEC (3 sources) Start: 04-03-2025 take 1 tablet by mouth once daily B.animalis,bifid,infan tis,long (PROBIOTIC 4X) 10-15 mg TbEC Indications: Chronic constipation Take 1 tablet by mouth once daily. 28 tablet 11 04/03/2025 Active Start: 04-03-2025 End: 04-03-2025 take 1 tablet by mouth once daily B.animalis,bifid,infantis,long (PROBIOTI C 4X) 10-15 mg TbEC Indications: Chronic constipation Take 1 tablet by mouth once daily. 28 tablet 11 04/03/2025 04/03/2025 Discontinued benzonatate 100 mg oral capsule (1 source) Non-narcotic Antitussive Start: 11-23-2024 End: 11-30-2024 take 1 capsule by mouth three times daily as needed for cough benzonatate (TESSALON PERLE) 100 mg capsule Indications: Acute cough Take 1 capsule by mouth three times a day as needed for cough for up to 7 days. 21 capsule 11/23/2024 11/30/2024 Active Blood Pressure Monitor (BLOOD PRESSURE KIT) (20 sources) Start: 11-25-2021 Blood Pressure Monitor (BLOOD PRESSURE KIT) Indications: Essential hypertension 1 Each as directed. Dx: HTN essential 1 Kit 1 11/25/2021 Active Comment on above: 1 Each as directed. Dx: HTN essential Blood-Glucose Meter monitoring kit (1 source) Start: 09-28-2023 End: 09-29-2023 Blood-Glucose Meter monitoring kit Indications: New onset type 2 diabetes mellitus (HCC) Glucose Meter of Choice - Kit - Dx: Type 2 DM - Controlled E11.9 1 Each 0 09/28/2023 09/29/2023 Active Comment on above: Glucose Meter of Cho ice - Kit - Dx: Type 2 DM - Controlled E11.9 cholecalciferol 1.25 mg oral capsule (20 sources) Vitamin D Start: 03-09-2024 take 1 capsule by mouth every week Cholecalciferol (Vitamin D3) 1,250 mcg (50,000 unit) capsule Active 1250 ug PO EVERY WEEK March 09, 2024 12:00am Start: 11-23-2023 End: 12-05-2024 take 1 capsule by mouth every week cholecalciferol, Vitamin D3, (VITAMIN D3) 1,250 mcg (50,000 unit) cap capsule Indications: Vitamin D deficiency Take 1 capsule by mouth one time a week. 12 capsule 1 06/08/2024 Active Comment on above: Take 1 capsule by mo [facility] one time a week. COMPOUNDED PRESCRIPTION (20 sources) Start: 06-08-2019 COMPOUNDED PRESCRIPTION Indications: Essential hypertension BLOOD PRESSURE CUFF FOR HOME USE. DX: LABILE BLOOD PRESSURE 1 Device 06/08/2019 Active Start: 06-08-2019 COMPOUNDED PRE SCRIPTION Indications: Essential hypertension BLOOD PRESSURE CUFF FOR HOME USE. DX: LABILE BLOOD PRESSURE 1 Device 0 06/08/2019 Active Comment on above: BLOOD PRESSURE CUFF FOR HOME USE. DX: LABILE BLOOD PRESSURE IBUPROFEN, BULK, MISC (20 sources) IBUPROFEN, BULK, MISC 200 mg. Active IBUPROFEN, BULK, MISC 200 mg. 0 Active Comment on above: 200 mg. loratadine 10 mg oral tablet (20 sources) Start: End: take 1 tablet by mouth once loratadine (CLARITIN) 10 mg tablet Indications: Environmental allergies Take 1 tablet by mouth every afternoon. 30 tablet 10 01/18/2025 Active Comment on above: Take 1 tablet by dee dee th once daily. TAKE 1 TABLET BY DEE DEE TH EVERY DAY losartan potassium 50 mg oral tablet (20 sources) Angiotensin 2 Receptor Bryan Start: 4 End: 5 take 1 tablet by mouth once daily losartan (COZAAR) 50 mg tablet Indications: Essential hypertension Take 1 tablet by mouth once daily. 90 tablet 1 01/18/2025 Active Start: 12-18-2021 End: 03-07-2025 take 1 tablet by mouth once daily Losartan 25 mg tablet Discontinued 25 mg PO DAILY March 10, 2024 12:00am March 07, 2025 2:01am Comment on above: TAKE 1 TABLET BY DEE DEE TH EVERY DAY Take 1 tablet by dee dee th once daily. magnesium oxide 500 mg oral tablet (3 sources) Start: 04-03-20 End: 04-03-20 take 1 tablet by mouth once daily at bedtime Magnesium Oxide 500 mg magnesium tab Indications: Chronic constipation Take 1 tablet by mouth daily at bedtime. 90 tablet 3 04/03/2025 Active metFORMIN hydrochloride 500 mg oral tablet (20 sources) Biguanide Start: 11-25-19 End: 02-23-20 take 1 tablet by mouth once daily at breakfast metFORMIN (GLUCOPHAGE) 500 mg tablet Indications: Type 2 diabetes mellitus without complication, without long-term current use of insulin (HCC) TAKE 1 TABLET BY MOUTH EVERY DAY WITH BREAKFAST 90 tablet 1 12/23/2023 Active Comment on above: Take 1 tablet by dee dee th daily with breakfast. TAKE 1 TABLET BY DEE DEE TH EVERY DAY WITH BREAKFAST 24 hr metoprolol succinate 50 mg extended release oral tablet (20 sources) beta-Adrenergic Bryan Start: 04-03-20 End: 07-02-20 take 1 tablet by mouth every hour metoprolol succinate ER (TOPROL XL) 50 mg 24 hr tablet Indications: Essential hypertension Take 1 tablet by mouth every afternoon. 90 tablet 1 04/03/2025 07/02/2025 Active Start: 10-26-2023 End: 04-18-2025 take 1 tablet by mouth every hour metoprolol succinate ER (TOPROL XL) 25 mg 24 hr tablet Indications: Essential hypertension Take 1 tablet by mouth every afternoon. 90 tablet 1 04/03/2025 04/03/2025 Discontinued Start: 10-26-2023 take 1 tablet by dee dee th once daily Metoprolol Succinate 25 mg tablet extended release 24 hr Active 25 mg PO DAILY October 26, 2023 1:00am Comment on above: Take 1 tablet by dee dee th every afternoon. metroNIDAZOLE 0.0075 mg/mg vaginal gel (1 source) Nitroimidazole Antimicrobial Start: 11-25-19 End: 11-30-19 metroNIDAZOLE (METROGEL) 0.75 % (37.5mg/5 gram) Vaginal Gel Indications: BV (bacterial vaginosis) Use 1 Applicatorful vaginally daily at bedtime for 5 days. 70 g 0 11/25/2023 11/30/2023 Active Comment on above: Use 1 Applicatorful vaginally daily at bedtime for 5 days. MV and Min#11-Folic Acid 5 mg tab (3 sources) Start: 04-03-20 take 1 tablet by mouth once daily MV and Min#11-Folic Acid 5 mg tab Indications: Chronic constipation Take 1 tablet by mouth once daily. 90 tablet 3 04/03/2025 Active Start: 04-03-2025 End: 04-03-2025 take 1 tablet by mouth once daily MV and Min#11-Folic Acid 5 mg tab Indications: Chronic constipation Take 1 tablet by mouth once daily. 90 tablet 3 04/03/2025 04/03/2025 Discontinued naproxen 500 mg oral tablet (3 sources) Nonsteroidal Anti-inflammatory Drug Start: 09-18-2023 End: 10-03-2023 take 1 tablet by mouth twice daily at mealtime as needed for pain naproxen (NAPROSYN) 500 mg tablet Indications: Acute hip pain, right , Hip tendonitis, right Take 1 tablet by mouth two times a day as needed for pain (for pain/inflammation) for up to 15 days. Take with food. 30 tablet 0 09/18/2023 10/03/2023 Active Comment on above: Take 1 tablet by dee dee th two times a day as needed for pain (for pain/inflammation) for up to 15 days. Take with food. potassium chloride 20 meq extended release oral tablet (20 sources) Start: 10-26-2023 End: 03-09-2024 take 1 tablet by mouth once potassium chloride 20 mEq TbER Take 1 tablet by mouth every afternoon. 10/26/2023 Active Comment on above: Take 1 tablet by dee dee th every afternoon. triamcinolone acetonide 1 mg/ml topical cream (20 sources) Corticosteroid Start: 09-28-2023 triamcinolone acetonide (KENALOG) 0.1 % cream Indications: Arm lesion , Leg lesion Apply 1 application to affected area three times a day. Apply sparingly to area for rash/itching. 80 g 1 09/28/2023 Active Comment on above: Apply 1 application to affected area three times a day. Apply sparingly to area for rash/itching. Completed/Discontinued Medications Medication Drug Class(es) Dates Sig (Normalized) Sig (Original) doxycycline monohydrate 100 mg oral capsule (3 sources) Tetracycline- class Drug Start: 3 End: take 1 capsule by mouth twice daily Doxycycline Monohydrate 100 mg capsule Discontinued 100 mg PO TWICE A DAY December 31, 2022 12:00am October 26, 2023 3:07am hydroCHLOROthiazide 25 mg oral tablet (20 sources) Thiazide Diuretic Start: 3 End: 4 take 2 tablets by mouth once daily hydroCHLOROthiazide 25 mg tablet Indications: Essential hypertension take 2 tablets by mouth every day 60 tablet 10 02/09/2024 04/25/2024 Discontinued (Discontinued by another Health Care Provider) Start: 11-12-2019 End: 03-07-2025 take 2 tablets by mouth once daily hydroCHLOROthiazide (HYDRODIURIL, ESIDRIX) 25 mg tablet Indications: Essential hypertension Take 2 tablets by mouth once daily. 60 tablet 5 11/25/2021 Active Start: 11-12-2019 take 50 mg by mouth once daily Hydrochlorothiazide Active 50 MG PO DAILY November 12, 2019 12:00am Comment on above: Take 2 tablets by mo ut once daily. TAKE 2 TABLETS BY MO [facility] EVERY DAY isopropyl alcohol 0.7 ml/ml medicated pad (10 sources) Start: 03-09-2024 End: 03-09-2024 Alcohol Swabs pads, medicated Discontinued 1 NMA TOPICAL DAILY March 09, 2024 12:00am March 09, 2024 9:58pm Start: 03-27-2022 End: 10-31-2023 alcohol swabs (ALCOHOL PREP PADS) Apply 1 Each to affected area once daily. 100 Each 11 10/31/2022 10/31/2023 Active Comment on above: Apply 1 Each to affe cted area once daily. iv contrast (will be provided with radiology test) (20 sources) Start: 03-11-20 End: 08-17-20 inject 1 dose intravenously once iv contrast (will be provided with radiology test) CTA Head/Neck W No IV access, insert saline lock prior to the sedation, infusion, injection for imaging exam. Discontinue saline lock post exam. If Pt. has a central line or IVAD, may access for administration according to line specific nursing protocol. Once exam is complete flush line and de-access according to line specific nursing protocol in the CT contrast administration guidelines link. 1 Each 03/11/2024 08/17/2024 Discontinued Start: 03-11-2024 inject 1 dose intravenously on ce iv contrast (will be provided with radiology test) CTA Head/Neck W No IV access, insert saline lock prior to the sedation, infusion, injection for imaging exam. Discontinue saline lock post exam. If Pt. has a central line or IVAD, may access for administration according to line specific nursing protocol. Once exam is complete flush line and de-access according to line specific nursing protocol in the CT contrast administration guidelines link. 1 Each 03/11/2024 Active Start: 03-11-2024 inject 1 dose intravenously on ce iv contrast (will be provided with radiology test) CTA Head/Neck W No IV access, insert saline lock prior to the sedation, infusion, injection for imaging exam. Discontinue saline lock post exam. If Pt. has a central line or IVAD, may access for administration according to line specific nursing protocol. Once exam is complete flush line and de-access according to line specific nursing protocol in the CT contrast administration guidelines link. 1 Each 0 03/11/2024 Active Start: 01-05-2024 End: 01-06-2024 inject 1 dose intravenously once iv contrast (will be provided with radiology test) CTA Head/Neck W No IV access, insert saline lock prior to the sedation, infusion, injection for imaging exam. Discontinue saline lock post exam. If Pt. has a central line or IVAD, may access for administration according to line specific nursing protocol. Once exam is complete flush line and de-access according to line specific nursing protocol in the CT contrast administration guidelines link. 1 Each 0 01/05/2024 01/06/2024 Start: 01-05-2024 End: 01-06-2024 inject 1 dose intravenously once iv contrast (will be provided with radiology test) CTA Head/Neck W No IV access, insert saline lock prior to the sedation, infusion, injection for imaging exam. Discontinue saline lock post exam. If Pt. has a central line or IVAD, may access for administration according to line specific nursing protocol. Once exam is complete flush line and de-access according to line specific nursing protocol in the CT contrast administration guidelines link. 1 Each 0 01/05/2024 01/06/2024 Active Comment on above: CTA Head/Neck W No I V access, insert saline lock prior to the sedation, infusion, injection for imaging exam. Discontinue saline lock post exam. If Pt. has a central line or IVAD, may access for administration according to line specific nursing protocol. Once exam is complete flush line and de-access according to line specific nursing protocol in the CT contrast administration guidelines link. 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; Translations: [Cerebral infarction due to unspecified occlusion or stenosis of right carotid arteries] Onset: 4 05-30-2024 Chronic Adjustment disorders (3 sources) Stress; Translations: [Reaction to severe stress, unspecified] Onset: 5 04-03-2025 Chronic Alcohol-related disorders (20 sources) Alcohol abuse; Translations: [Alcohol abuse, uncomplicated] Onset: 2 10-14-2021 Chronic Allergic reactions (2 sources) Environmental allergy; Translations: [Other allergy status, other than to drugs and biological substances] 02-08-2024 Episodic Aortic; peripheral; and visceral artery aneurysms (20 sources) Dissection of carotid artery; Translations: [Dissection of carotid artery] Onset: 4 04-11-2024 Chronic Cardiac dysrhythmias (1 source) Multiple premature ventricular complexes; Translations: [Ventricular premature depolarization] 03-18-2024 Chronic Chronic obstructive pulmonary disease and bronchiectasis (3 sources) Bronchitis; Translations: [Bronchitis, not specified as acute or chronic] 12-31-2022 Episodic Complication of device; implant or graft (1 source) 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; Translations: [Atherosclerosis of autologous vein bypass graft(s) of the extremities with intermittent claudication, bilateral legs] 04-29-2024 Chronic Diabetes mellitus without complication (20 sources) Type 2 diabetes mellitus; Translations: [Type 2 diabetes mellitus without complications] Onset: 2 12-02-2021 Chronic Disorders of lipid metabolism (16 sources) Hyperlipidemia; Translations: [Hyperlipidemia, unspecified] Onset: 4 04-29-2024 Chronic Essential hypertension (20 sources) Essential hypertension; Translations: [Essential (primary) hypertension] Onset: 2 12-02-2021 Chronic Genitourinary symptoms and ill-defined conditions (20 sources) Genuine stress incontinence; Translations: [Stress incontinence (female) (male)] Onset: 3 09-30-2023 Chronic Inflammatory diseases of female pelvic organs (1 source) Bacterial vaginosis; Translations: [Acute vaginitis] 11-25-2023 Episodic Nonmalignant breast conditions (1 source) Abscess of breast; Translations: [Abscess of the breast and nipple] 02-24-2024 Episodic Nutritional deficiencies (18 sources) Vitamin D deficiency; Translations: [Vitamin D deficiency, unspecified] Onset: 4 11-23-2023 Chronic Occlusion or stenosis of precerebral arteries (20 sources) Left carotid artery stenosis; Translations: [Occlusion and stenosis of left carotid artery] Onset: 4 11-13-2023 Chronic Other circulatory disease (4 sources) H/O: hypertension; Translations: [Personal history of other diseases of the circulatory system] 05-11-2022 Episodic Other congenital anomalies (2 sources) Porokeratosis; Translations: [Other specified congenital malformations of skin] Chronic Other connective tissue disease (1 source) Tendinitis of right hip; Translations: [Other specified enthesopathies of right lower limb, excluding foot] 09-18-2023 Episodic Other connective tissue disease (1 source) Pain in left foot; Translations: [Pain in left foot] 11-01-2024 Episodic Other gastrointestinal disorders (3 sources) Chronic constipation; Translations: [Other constipation] Onset: 5 04-03-2025 Episodic Other gastrointestinal disorders (1 source) Other constipation; Translations: [Chronic constipation] Onset: 5 Episodic Other lower respiratory disease (1 source) Dyspnea on exertion; Translations: [Other forms of dyspnea] 04-11-2024 Episodic Other lower respiratory disease (1 source) Cough; Translations: [Acute cough] 11-23-2024 Episodic Other nervous system disorders (1 source) Anesthesia of skin; Translations: [Anesthesia of skin] Onset: 5 Episodic Other non-traumatic joint disorders (1 source) Disorder of hip joint; Translations: [Other specific joint derangements of unspecified hip, not elsewhere classified] 09-18-2023 Chronic Other non-traumatic joint disorders (2 sources) Hip pain; Translations: [Pain in right hip] 09-18-2023 Episodic Other nutritional; endocrine; and metabolic disorders (20 sources) Obesity; Translations: [Obesity, unspecified] Onset: 2 10-14-2021 Chronic Other nutritional; endocrine; and metabolic disorders (4 sources) H/O: diabetes mellitus; Translations: [Personal history of other endocrine, nutritional and metabolic disease] 05-11-2022 Episodic Other skin disorders (1 source) Changes in skin texture; Translations: [Other skin changes] 03-24-2024 Episodic Other upper respiratory infections (2 sources) Pharyngitis; Translations: [Acute pharyngitis, unspecified] Episodic Peripheral and visceral atherosclerosis (20 sources) Arteriosclerotic vascular disease; Translations: [Unspecified atherosclerosis] Onset: 4 09-18-2023 Chronic Residual codes; unclassified (4 sources) Noncompliance with medication regimen; Translations: [Patient's other noncompliance with medication regimen] 01-07-2022 Episodic Residual codes; unclassified (1 source) Tobacco use and exposure - finding; Translations: [Tobacco use] 11-03-2023 Episodic Sickle cell anemia (20 sources) Sickle cell trait; Translations: [Sickle-cell trait] Onset: 2 10-14-2021 Chronic Spondylosis; intervertebral disc disorders; other back problems (1 source) Cervical radiculopathy; Translations: [Radiculopathy, cervical region] 03-07-2025 Episodic Sprains and strains (4 sources) Lower back injury; Translations: [Strain of muscle, fascia and tendon of lower back, initial encounter] 10-05-2021 Episodic Substance-related disorders (1 source) Nicotine dependence; Translations: [Nicotine dependence, unspecified, uncomplicated] 03-03-2024 Chronic Transient cerebral ischemia (2 sources) Multiple AND bilateral precerebral artery stenosis; Translations: [Multiple and bilateral precerebral artery syndromes] 03-11-2024 Chronic Unclassified (1 source) Established Patient Onset: 4 Viral infection (5 sources) Viral disease; Translations: [Viral infection, unspecified] Episodic Past or Other Problems Problem Classification Problem Date Documented Da te Episodic/Chronic Cardiac dysrhythmias (20 sources) Palpitations; Translations: [Palpitations] Onset: 03-03-2024 03-03-2024 Episodic Fluid and electrolyte disorders (20 sources) Hyponatremia; Translations: [Hypo-osmolality and hyponatremia] Onset: 09-30-2023 11-13-2019 Episodic Hemorrhage during ; abruptio placenta; placenta previa (20 sources) Antepartum hemorrhage; Translations: [Hemorrhage in early , unspecified] Onset: 10-06-2012 Resolved: 01-20-2018 10-14-2021 Episodic Other complications of ; puerperium affecting management of mother (20 sources) Advanced maternal age ; Translations: [Advanced maternal age in ] Onset: 09-02-2012 Resolved: 01-20-2018 10-14-2021 Episodic Other complications of (20 sources) High risk ; Translations: [Supervision of high risk due to social problems, unspecified trimester] Onset: 09-02-2012 Resolved: 01-20-2018 10-14-2021 Episodic Other complications of (20 sources) Maternal tobacco use in ; Translations: [Smoking (tobacco) complicating , unspecified trimester] Onset: 09-02-2012 Resolved: 01-20-2018 10-14-2021 Episodic Other screening for suspected conditions (not mental disorders or infectious disease) (20 sources) Patient encounter status; Translations: [Encounter for screening mammogram for malignant neoplasm of breast] Onset: 09-30-2023 Episodic Phlebitis; thrombophlebitis and thromboembolism (20 sources) Thromboembolism of vein; Translations: [Acute embolism and thrombosis of unspecified deep veins of unspecified lower extremity] Onset: 01-21-2013 01-21-2013 Episodic Residual codes; unclassified (20 sources) Tobacco user; Translations: [Tobacco use] Onset: 01-20-2018 01-20-2018 Episodic Results Test Name Value Interpretation Reference Range Facility [facility] CIARA VILLALTA ([id number]) 1975 F Date Time Provider Department 04/05/25 STALIN MONTES DE OCA [facility] During your visit today, we recorded the following information about you: Stalin Montes De Oca, 04/05/2025 10:06 PM Signed Please inform patient that her labs are much improved. Her cholesterol is better, her A1c is at 6.3%. she just needs to increase iron rich foods since her hemoglobin is on the border of anemia. /DO Kari Granados Linda M, LPN 04/06/2025 8:38 AM Signed Left message to return call. Evelin Villafuerte LPN 04/07/2025 9:30 AM Signed Spoke with pt gave information provided. Pt voices understanding. Allergies As of Date: 04/05/2025 Noted Allergy Reaction HCTZ (AMILORIDE-HYDROCHLOROT HIAZI*04/25/2024 14 - Other: See Comments Comments: Hyponatremia LISINOPRIL 11/25/2021 14 - Other: See Comments Comments: Feels terrible Date Reviewed: 04/03/2025 Reviewed by: Shari Perales LPN - Fully Assessed Prescriptions as of 04/07/2025 - metoprolol succinate ER (TOPROL XL) 50 mg 24 hr tablet Take 1 tablet by mouth every afternoon. - MV and Min#11-Folic Acid 5 mg tab Take 1 tablet by mouth once daily. - Magnesium Oxide 500 mg magnesium tab Take 1 tablet by mouth daily at bedtime. - B.animalis,bifid, is,long (PROBIOTIC 4X) 10-15 mg TbEC Take 1 tablet by mouth once daily. - aspirin, enteric coated (ASPIRIN, ENTERIC COATED) 81 mg EC tablet Take 1 tablet by mouth once daily. - atorvastatin (LIPITOR) 40 mg tablet Take 1 tablet by mouth daily at bedtime. For cholesterol. - Lancets Test blood sugar(s) 1 times daily. Dx: Type 2 DM - Controlled E11.9 Insulin: Yes - loratadine (CLARITIN) 10 mg tablet Take 1 tablet by mouth every afternoon. - losartan (COZAAR) 50 mg tablet Take 1 tablet by mouth once daily. - cholecalciferol, Vitamin D3, (VITAMIN D3) 1,250 mcg (50,000 unit) cap capsule Take 1 capsule by mouth one time a week. - IBUPROFEN, BULK, MISC 200 mg. - metFORMIN (GLUCOPHAGE) 500 mg tablet TAKE 1 TABLET BY MOUTH EVERY DAY WITH BREAKFAST - potassium chloride 20 mEq TbER Take 1 tablet by mouth every afternoon. - blood sugar diagnostic (BLOOD GLUCOSE TEST) test strip Test blood sugar(s) 1 times daily. Dx: Type 2 DM - Controlled E11.9 Insulin: Yes - triamcinolone acetonide (KENALOG) 0.1 % cream Apply 1 application to affected area three times a day. Apply sparingly to area for rash/itching. - Blood Pressure Monitor (BLOOD PRESSURE KIT) 1 Each as directed. Dx: HTN essential - COMPOUNDED PRESCRIPTION BLOOD PRESSURE CUFF FOR HOME USE. DX: LABILE BLOOD PRESSURE Problem List As Of Date 04/05/2025 Noted Resolved Poor support system complicating [O09*09/02/2012 01/20/2018 Advanced maternal age in [SGY6446] 09/02/2012 01/20/2018 Alcohol abuse [F10.10] 09/02/2012 Tobacco use in [O99.330] 09/02/2012 01/20/2018 Sickle cell trait (HCC) [D57.3] 09/02/2012 Obesity, unspecified [E66.9] 09/02/2012 Bleeding in early [O20.9] 10/06/2012 01/20/2018 Acute venous embolism and thrombosis of unspeci*01/21/2013 Essential hypertension [I10] Tobacco abuse [Z72.0] 01/20/2018 Type 2 diabetes mellitus without complication, *12/02/2021 Elevated TSH [R79.89] 09/30/2023 Hypokalemia [E87.6] 09/30/2023 Stress incontinence [N39.3] 09/30/2023 Palpitations [R00.2] 03/03/2024 Atherosclerosis of [place] artery of both lower *03/03/2024 Carotid stenosis, asymptomatic, left [I65.22] 03/03/2024 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 Hyponatremia [E87.1] 08/17/2024 Dyslipidemia [E78.5] 08/17/2024 Vitamin D deficiency [E55.9] 08/17/2024 Chronic constipation [K59.09] 04/03/2025 Situational stress [F43.9] 04/03/2025 Encounter Status:Closed by EVELIN VILLAFUERTE on 04/07/25 Normal [facility] 25-hydroxyvitamin D3 [Mass/Vol] 49.3 ng/mL Normal 31.0-80.0 [facility] Comment on above: Order Comment: Jeremy tang Type: BLOOD SPECIMEN Ordering Facility: [facility] Address: [address] [place] [address] Result Comment: Clas sification of 25 [place] Vitamin D status: Deficiency/Insufficiency: < or = 30 ng/ml. Sufficiency/Optimal Levels: 31-80 ng/mL Toxicity: > 100 ng/mL. Test performed by chemiluminescent immunoassay. Performed By: #### 1 989-3 #### [facility] CLIA [id number] [address] [place] [address] [place] ALBUMIN/CREATININE RATIO, UR INEon 04-03-2025 Albumin DL <= 20 mg/L (U) [Mass/Vol] mg/dL Normal [facility] Comment on above: Order Comment: Jeremy tang Type: BLOOD SPECIMEN Ordering Facility: [facility] Address: [address] [place] [address] Performed By: #### 5 7021-8 #### [facility] CLIA [id number] [address] [place] [address] [place] Albumin/Creatinine (U) [Mass ratio] Normal [facility] Comment on above: Order Comment: Jeremy tang Type: BLOOD SPECIMEN Ordering Facility: [facility] Address: [address] [place] [address] Result Comment: Not calculated Adult Male and Female Nephrotic Criteria: <30 mg/g is considered normal to mildly increased 30-300 mg/g is considered moderately increased >300 mg/g is considered severely increased KDIGO. (2013). KDIGO 2012 Clinical Practice Guideline for the Evaluation and Management of Chronic Kidney Disease. Official Journal of the International Society of Nephrology, 3(1), 1-150. Performed By: #### 5 7021-8 #### [facility] CLIA [id number] [address] [place] [address] [place] Creatinine (U) [Mass/Vol] 22.5 mg/dL Normal 20.0-300.0 [facility] Comment on above: Order Comment: Speci men Type: BLOOD SPECIMEN Ordering Facility: [facility] Address: [address] [place] [address] Performed By: #### 5 7021-8 #### [facility] CLIA [id number] [address] [place] [address] [place] [address] [place] CBC W Auto Differential pane l (Bld)on 04-03-2025 Basophils (Bld) [#/Vol] 0.04 10*3/uL [facility] Basophils/100 WBC (Bld) 0.5 % [facility] Differential cell count method Nom (Bld) Auto [facility] Eosinophils (Bld) [#/Vol] 0.23 10*3/uL [facility] Eosinophils/100 WBC (Bld) 3.1 % [facility] Erythrocyte distribution width (RBC) [Ratio] 14.2 % 11.5 - 15.0 % [facility] Hematocrit (Bld) [Volume fraction] 34.8 % Low 36.0 - 46.0 % [facility] Hemoglobin (Bld) [Mass/Vol] 11.7 g/dL 11.5 - 15.5 g/dL [facility] Immature granulocytes (Bld) [#/Vol] [facility] Immature granulocytes/100 WBC (Bld) 0.3 % [facility] Interpretation and review of laboratory results Abnormal [facility] Lymphocytes (Bld) [#/Vol] 2.84 10*3/uL [facility] Lymphocytes/100 WBC (Bld) 38.4 % [facility] MCH (RBC) [Entitic mass] 30.5 pg 26.0 - 34.0 pg [facility] MCHC (RBC) [Mass/Vol] 33.6 g/dL 30.5 - 36.0 g/dL [facility] MCV (RBC) [Entitic vol] 90.6 fL 80.0 - 100.0 fL [facility] Monocytes (Bld) [#/Vol] 0.77 10*3/uL [facility] Monocytes/100 WBC (Bld) 10.4 % [facility] Neutrophils (Bld) [#/Vol] 3.5 10*3/uL [facility] Neutrophils/100 WBC (Bld) 47.3 % [facility] Nucleated RBC (Bld) [#/Vol] NINF [facility] Nucleated RBC/100 WBC (Bld) [Ratio] 0 % /100 WBC [facility] Platelet mean volume (Bld) [Entitic vol] 11.7 fL 9.0 - 12.7 fL [facility] Platelets (Bld) [#/Vol] 268 10*3/uL [facility] RBC (Bld) [#/Vol] 3.84 10*6/uL Low 3.90 - 5.2 0 m/uL [facility] WBC (Bld) [#/Vol] 7.4 10*3/uL [facility] Basophils (Bld) [#/Vol] 0.04 10*3/uL Normal <0.11 [facility] Comment on above: Order Comment: Speci men Type: BLOOD SPECIMEN Ordering Facility: [facility] Address: [address] [place] [address] Performed By: #### 5 7021-8 #### [facility] CLIA [id number] [address] [place] [address] [place] Basophils/100 WBC (Bld) 0.5 % Normal [facility] Comment on above: Order Comment: Speci men Type: BLOOD SPECIMEN Ordering Facility: [facility] Address: [address] [place] [address] Performed By: #### 5 7021-8 #### [facility] CLIA [id number] [address] [place] [address] [place] Differential cell count method Nom (Bld) Auto Normal [facility] Comment on above: Order Comment: Speci men Type: BLOOD SPECIMEN Ordering Facility: [facility] Address: [address] [place] [address] Performed By: #### 5 7021-8 #### [facility] CLIA [id number] [address] [place] [address] [place] Eosinophils (Bld) [#/Vol] 0.23 10*3/uL Normal <0.46 [facility] Comment on above: Order Comment: Speci men Type: BLOOD SPECIMEN Ordering Facility: [facility] Address: [address] [place] [address] Performed By: #### 5 7021-8 #### [facility] CLIA [id number] [address] [place] [address] [place] Eosinophils/100 WBC (Bld) 3.1 % Normal [facility] Comment on above: Order Comment: Speci men Type: BLOOD SPECIMEN Ordering Facility: [facility] Address: [address] [place] [address] Performed By: #### 5 7021-8 #### [facility] CLIA [id number] [address] [place] [address] [place] Erythrocyte distribution width (RBC) [Ratio] 14.2 % Normal 11.5-15.0 [facility] Comment on above: Order Comment: Speci men Type: BLOOD SPECIMEN Ordering Facility: [facility] Address: [address] [place] [address] Performed By: #### 5 7021-8 #### [facility] CLIA [id number] [address] [place] [address] [place] Hematocrit (Bld) [Volume fraction] 34.8 % Low 36.0-46.0 [facility] Comment on above: Order Comment: Speci men Type: BLOOD SPECIMEN Ordering Facility: [facility] Address: [address] [place] [address] Performed By: #### 5 7021-8 #### [facility] CLIA [id number] [address] [place] [address] [place] Hemoglobin (Bld) [Mass/Vol] 11.7 g/dL Normal 11.5-15.5 [facility] Comment on above: Order Comment: Speci men Type: BLOOD SPECIMEN Ordering Facility: [facility] Address: [address] [place] [address] Performed By: #### 5 7021-8 #### [facility] CLIA [id number] [address] [place] [address] [place] Immature granulocytes (Bld) [#/Vol] 10*3/uL Normal <0.10 [facility] Comment on above: Order Comment: Speci men Type: BLOOD SPECIMEN Ordering Facility: [facility] Address: [address] [place] [address] Performed By: #### 5 7021-8 #### [facility] CLIA [id number] [address] [place] [address] [place] Immature granulocytes/100 WBC (Bld) 0.3 % Normal [facility] Comment on above: Order Comment: Speci men Type: BLOOD SPECIMEN Ordering Facility: [facility] Address: [address] [place] [address] Performed By: #### 5 7021-8 #### [facility] CLIA [id number] [address] [place] [address] [place] Lymphocytes (Bld) [#/Vol] 2.84 10*3/uL Normal 1.00-4.00 [facility] Comment on above: Order Comment: Speci men Type: BLOOD SPECIMEN Ordering Facility: [facility] Address: [address] [place] [address] Performed By: #### 5 7021-8 #### [facility] CLIA [id number] [address] [place] [address] [place] Lymphocytes/100 WBC (Bld) 38.4 % Normal [facility] Comment on above: Order Comment: Speci men Type: BLOOD SPECIMEN Ordering Facility: [facility] Address: [address] [place] [address] Performed By: #### 5 7021-8 #### [facility] CLIA [id number] [address] [place] [address] [place] MCH (RBC) [Entitic mass] 30.5 pg Normal 26.0-34.0 [facility] Comment on above: Order Comment: Speci men Type: BLOOD SPECIMEN Ordering Facility: [facility] Address: [address] [place] [address] Performed By: #### 5 7021-8 #### [facility] CLIA [id number] [address] [place] [address] [place] MCHC (RBC) [Mass/Vol] 33.6 g/dL Normal 30.5-36.0 [facility] Comment on above: Order Comment: Speci men Type: BLOOD SPECIMEN Ordering Facility: [facility] Address: [address] [place] [address] Performed By: #### 5 7021-8 #### [facility] CLIA [id number] [address] [place] [address] [place] MCV (RBC) [Entitic vol] 90.6 fL Normal 80.0-100.0 [facility] Comment on above: Order Comment: Speci men Type: BLOOD SPECIMEN Ordering Facility: [facility] Address: [address] [place] [address] Performed By: #### 5 7021-8 #### [facility] CLIA [id number] [address] [place] [address] [place] Monocytes (Bld) [#/Vol] 0.77 10*3/uL Normal <0.87 [facility] Comment on above: Order Comment: Speci men Type: BLOOD SPECIMEN Ordering Facility: [facility] Address: [address] [place] [address] Performed By: #### 5 7021-8 #### [facility] CLIA [id number] [address] [place] [address] [place] Monocytes/100 WBC (Bld) 10.4 % Normal [facility] Comment on above: Order Comment: Speci men Type: BLOOD SPECIMEN Ordering Facility: [facility] Address: [address] [place] [address] Performed By: #### 5 7021-8 #### [facility] CLIA [id number] [address] [place] [address] [place] Neutrophils (Bld) [#/Vol] 3.50 10*3/uL Normal 1.45-7.50 [facility] Comment on above: Order Comment: Speci men Type: BLOOD SPECIMEN Ordering Facility: [facility] Address: [address] [place] [address] Performed By: #### 5 7021-8 #### [facility] CLIA [id number] [address] [place] [address] [place] Neutrophils/100 WBC (Bld) 47.3 % Normal [facility] Comment on above: Order Comment: Speci men Type: BLOOD SPECIMEN Ordering Facility: [facility] Address: [address] [place] [address] Performed By: #### 5 7021-8 #### [facility] CLIA [id number] [address] [place] [address] [place] Nucleated RBC (Bld) [#/Vol] 10*3/uL Normal <0.01 [facility] Comment on above: Order Comment: Speci men Type: BLOOD SPECIMEN Ordering Facility: [facility] Address: [address] [place] [address] Performed By: #### 5 7021-8 #### [facility] CLIA [id number] [address] [place] [address] [place] Nucleated RBC/100 WBC (Bld) [Ratio] 0.0 /100 WBC Normal [facility] Comment on above: Order Comment: Speci men Type: BLOOD SPECIMEN Ordering Facility: [facility] Address: [address] [place] [address] Performed By: #### 5 7021-8 #### [facility] CLIA [id number] [address] [place] [address] [place] Platelet mean volume (Bld) [Entitic vol] 11.7 fL Normal 9.0-12.7 [facility] Comment on above: Order Comment: Speci men Type: BLOOD SPECIMEN Ordering Facility: [facility] Address: [address] [place] [address] Performed By: #### 5 7021-8 #### [facility] CLIA [id number] [address] [place] [address] [place] Platelets (Bld) [#/Vol] 268 10*3/uL Normal 150-400 [facility] Comment on above: Order Comment: Speci men Type: BLOOD SPECIMEN Ordering Facility: [facility] Address: [address] [place] [address] Performed By: #### 5 7021-8 #### [facility] CLIA [id number] [address] [place] [address] [place] RBC (Bld) [#/Vol] 3.84 10*6/uL Low 3.90-5.20 [facility] Comment on above: Order Comment: Speci men Type: BLOOD SPECIMEN Ordering Facility: [facility] Address: [address] [place] [address] Performed By: #### 5 7021-8 #### [facility] CLIA [id number] [address] [place] [address] [place] WBC (Bld) [#/Vol] 7.40 10*3/uL Normal 3.70-11.00 [facility] Comment on above: Order Comment: Speci men Type: BLOOD SPECIMEN Ordering Facility: [facility] Address: [address] [place] [address] Performed By: #### 5 7021-8 #### [facility] CLIA [id number] [address] [place] [address] [place] CNOVon 04-03-2025 CNOV Office Visit (FAMPWS ) CIARA VILLALTA ([id number]) 1975 F Date Time Provider Department 04/03/25 9:20 AM STALIN MONTES DE OCA FAMPWS During your visit today, we recorded the following information about you: Temperature Pulse Respiration Blood pressure 96.3 degrees 64/minute 20/minute 146/80 Weight 85.7 kg Stalin Montes De Oca, DO 04/03/2025 11:07 AM Signed Subjective Ciara Villalta is a 49-year-old female with a history of HTN and diabetes, presenting for follow-up. Hypertension: - Currently taking metoprolol. - Reports episodes of elevated blood pressure associated with stress. - Recent ER visit for left arm pain and paresthesia; BP recorded at 209/69 mmHg. - Denies current arm pain. Diabetes: - Making dietary changes to manage diabetes, including consuming whole grain and keto bread, and preparing homemade salads. - Expresses interest in dietary guidance to improve management. - Denies current use of multivitamins or supplements. 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 - Expresses dissatisfaction with current job and financial stress due to low income. - Considering alternative employment opportunities, including [id number]-jlhu positions. - Receives food assistance through food stamps. - Experiencing stress related to financial difficulties and upcoming travel for father's in May. - Denies depression, suicidal or homicidal ideation, and feels she is managing stress without the need for medication. Gastrointestinal: (+) constipation Psychiatric: (+) stress, (-) depressed mood, (-) suicidal ideation, (-) homicidal ideation Objective Blood pressure 146/80, pulse 64, temperature (!) 35.7 ?C (96.3 ?F), temperature source Left Tympanic, resp. rate 20, weight 85.7 kg (189 lb), last menstrual period 03/01/2018. GENERAL: NAD, alert and oriented SKIN: unremarkable, no rash or skin lesions. HEAD: normocephalic EYES: PERRLA, EOMI, conjunctiva clear EARS: external ears normal, canals clear, TM's normal. NOSE/SINUSES: Nares normal. Septum midline. OROPHARYNX: lips, mucosa, and tongue normal, good dentition. No oral lesions noted. NECK: Supple, no lymphadenopathy, normal thyroid, no carotid bruits. LUNGS: Clear to auscultation bilaterally, no wheezes/rhonchi/rales. HEART: Regular rate and rhythm, no murmurs. No ectopy. EXTREMITIES: Normal, No deformities, No skin discoloration, No edema. NEURO: Awake, alert and oriented x3, cranial nerves II-XII grossly intact, normal gait, no involuntary motions Assessment AND Plan 1. Essential hypertension (I10) - Blood pressure readings have been elevated, with a recent measurement of 146 mmHg systolic in the office and a previous reading of 209/69 mmHg during an ER visit. - Current medication regimen includes Metoprolol at a low dose. - Increased Metoprolol dosage to 50 mg to achieve better blood pressure control and prevent potential complications such as kidney disease and heart disease. - Discussed the importance of maintaining blood pressure within target range to reduce the risk of long-term complications. 2. Type 2 diabetes mellitus without complication, without long-term current use of insulin (HCC) (E11.9) - Diabetes management has shown improvement with dietary changes. - Ordered blood work to assess current glycemic control. - Provided dietary guidelines focusing on low-carbohydrate options, including sourdough bread, keto bread, protein wraps, and egg wraps. - Emphasized the importance of regular monitoring and adherence to dietary recommendations to maintain optimal blood glucose levels. 3. Dyslipidemia (E78.5) - Discussed the role of dietary modifications in managing dyslipidemia. - Provided dietary guidelines that align with both diabetes and dyslipidemia management. - Ordered blood work to assess lipid profile. 4. Vitamin D deficiency (E55.9) - No specific treatment changes discussed during this visit. 5. Hypokalemia (E87.6) - No specific treatment changes discussed during this visit. 6. Hyponatremia (E87.1) - No specific treatment changes discussed during this visit. 7. Elevated TSH (R79.89) - No specific treatment changes discussed during this visit. 8. Chronic constipation (K59.09) - Recent onset of constipation over the past week. - Recommended increasing intake of fruits and vegetables. - Prescribed magnesium supplement to be taken in the evening to aid bowel movements. - Discussed the potential addition of a probiotic if constipation persists. 9. Situational stress (F43.9) - Experiencing stress related to financial concerns, job dissatisfaction, and upcoming family obligations. 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 - Encouraged exploring part-time job opportunities to alleviate financial (more content not included)... Normal [facility] Comprehensive metabolic 2000 panelon 04-03-2025 Albumin [Mass/Vol] 4.2 g/dL Normal 3.9-4.[address] [facility] Comment on above: Order Comment: Speci men Type: BLOOD SPECIMEN Ordering Facility: [facility] Address: [address] [place] [address] Performed By: #### 5 7021-8 #### [facility] CLIA [id number] [address] [place] [address] [place] ALP [Catalytic activity/Vol] 112 U/L Normal 34-123 [facility] Comment on above: Order Comment: Speci men Type: BLOOD SPECIMEN Ordering Facility: [facility] Address: [address] [place] [address] Performed By: #### 5 7021-8 #### [facility] CLIA [id number] [address] [place] [address] [place] ALT [Catalytic activity/Vol] 15 U/L Normal 7-38 [facility] Comment on above: Order Comment: Speci men Type: BLOOD SPECIMEN Ordering Facility: [facility] Address: [address] [place] [address] Performed By: #### 5 7021-8 #### [facility] CLIA [id number] [address] [place] [address] [place] Anion gap [Moles/Vol] 11 mmol/L Normal 8-15 [facility] Comment on above: Order Comment: Speci men Type: BLOOD SPECIMEN Ordering Facility: [facility] Address: [address] [place] [address] Performed By: #### 5 7021-8 #### [facility] CLIA [id number] [address] [place] [address] [place] AST [Catalytic activity/Vol] 19 U/L Normal 13-35 [facility] Comment on above: Order Comment: Speci men Type: BLOOD SPECIMEN Ordering Facility: [facility] Address: [address] [place] [address] Performed By: #### 5 7021-8 #### [facility] CLIA [id number] [address] [place] [address] [place] Bilirubin [Mass/Vol] 0.2 mg/dL Normal 0.2-1.3 [facility] Comment on above: Order Comment: Speci men Type: BLOOD SPECIMEN Ordering Facility: [facility] Address: [address] [place] [address] Performed By: #### 5 7021-8 #### [facility] CLIA [id number] [address] [place] [address] [place] Calcium [Mass/Vol] 9.8 mg/dL Normal 8.5-10.[address] [facility] Comment on above: Order Comment: Speci men Type: BLOOD SPECIMEN Ordering Facility: [facility] Address: [address] [place] [address] Performed By: #### 5 7021-8 #### [facility] CLIA [id number] [address] [place] [address] [place] Chloride [Moles/Vol] 103 mmol/L Normal 98-107 [facility] Comment on above: Order Comment: Speci men Type: BLOOD SPECIMEN Ordering Facility: [facility] Address: [address] [place] [address] Performed By: #### 5 7021-8 #### [facility] CLIA [id number] [address] [place] [address] [place] CO2 [Moles/Vol] 25 mmol/L Normal 22-30 [facility] Comment on above: Order Comment: Speci men Type: BLOOD SPECIMEN Ordering Facility: [facility] Address: [address] [place] [address] Performed By: #### 5 7021-8 #### [facility] CLIA [id number] [address] [place] [address] [place] Creatinine [Mass/Vol] 0.72 mg/dL Normal 0.58-0.96 [facility] Comment on above: Order Comment: Jeremy men Type: BLOOD SPECIMEN Ordering Facility: [facility] Address: [address] [place] [address] Performed By: #### 5 7021-8 #### [facility] CLIA [id number] [address] [place] [address] [place] Creatinine and Glomerular filtration rate.predicted panel (S/P/Bld) 101 mL/min/1.73m??? Normal >=60 [facility] Comment on above: Order Comment: Jeremy tang Type: BLOOD SPECIMEN Ordering Facility: [facility] Address: [address] [place] [address] Result Comment: Dinora mated Glomerular Filtration Rate (eGFR) is calculated using the 2020 CKD-EPI creatinine equation. This equation utilizes serum creatinine, sex, and age as parameters. The creatinine assay has traceable calibration to isotope dilution-mass spectrometry. Refer to KDIGO guidelines for clinical interpretation. In patients with unstable renal function, e.g. those with acute kidney injury, the eGFR may not accurately reflect actual GFR. Performed By: #### 5 7021-8 #### [facility] CLIA [id number] [address] [place] [address] [place] Glucose [Mass/Vol] 124 mg/dL High 74-[address] [facility] Comment on above: Order Comment: Jeremy tang Type: BLOOD SPECIMEN Ordering Facility: [facility] Address: [address] [place] [address] Result Comment: The [place] Diabetes Association (ADA) provides guidance for cutoff values for fasting glucose and random glucose. The ADA defines fasting as no caloric intake for at least 8 hours. Fasting plasma glucose results between 100 to 125 mg/dL indicate increased risk for diabetes (prediabetes). Fasting plasma glucose results greater than or equal to 126 mg/dL meet the criteria for diagnosis of diabetes. In the absence of unequivocal hyperglycemia, results should be confirmed by repeat testing. In a patient with classic symptoms of hyperglycemia or hyperglycemic crisis, random plasma glucose results greater than or equal to 200 mg/dL meet the criteria for diagnosis of diabetes. Reference: Standards of Medical Care in Diabetes 2016, [place] Diabetes Association. Diabetes Care. 2016.39(Suppl 1). Performed By: #### 5 7021-8 #### [facility] CLIA [id number] [address] [place] [address] [place] Potassium [Moles/Vol] 4.5 mmol/L Normal 3.7-5.1 [facility] Comment on above: Order Comment: Speci men Type: BLOOD SPECIMEN Ordering Facility: [facility] Address: [address] [place] [address] Performed By: #### 5 7021-8 #### [facility] CLIA [id number] [address] [place] [address] [place] Protein [Mass/Vol] 8.0 g/dL Normal 6.3-8.[address] [facility] Comment on above: Order Comment: Speci men Type: BLOOD SPECIMEN Ordering Facility: [facility] Address: [address] [place] [address] Performed By: #### 5 7021-8 #### [facility] CLIA [id number] [address] [place] [address] [place] Sodium [Moles/Vol] 139 mmol/L Normal 136-[address] [facility] Comment on above: Order Comment: Speci men Type: BLOOD SPECIMEN Ordering Facility: [facility] Address: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 focal dissection of the left ICA short segment along the C1. Most significant segment is seen on CTA source images series 1 image 327. Etiology for dissection is unclear. No pseudoaneurysm or dissection flap identified. Irregularity of vessels with vascular calcification suggests atherosclerosis. Most significant disease is at cavernous carotids with left supraclinoid ICA 30% luminal narrowing. No additional significant luminal narrowing. Remaining extra/intracranial carotids, vertebrobasilar and cerebral arteries are normal in course, caliber & branching without hemodynamically significant disease. [facility] * * *Final Report* * * DATE OF EXAM: Mar 01 2024 1:51PM [facility] 0024 - CTA NECK W IVCON / PROCEDURE REASON: I65.29-Occlusion and stenosis of unspecified carotid artery * * * * Physician Interpretation * * * * COMPARISON: None. HISTORY: Carotid artery occlusion. TECHNIQUE: Intra/extracranial CTA with contrast. 3-D reconstructions. MQ: CTABPlus_3 Contrast: IV 80 ml of Omnipaque 350 CT Radiation dose: Integrated Dose-length product (DLP) for this visit = 495 mGy*cm CT Dose Reduction Employed: Automated exposure control(AEC) and iterative recon RESULTS: CT ARTERIOGRAM: Age-expected soft tissues, upper lungs, mediastinum & bones. No collections or pathological adenopathy or abnormal enhancement. CIRCULATION: Bovine arch. Direct origin of the left vertebral artery from the aortic arch. These are normal variants of no major clinical significance. Origin of bilateral common carotid, subclavian, vertebral and right innominate arteries are without significant disease. Origins of internal carotid arteries reveal 0% narrowing (by NASCET). Segment of the extracranial carotid arteries is not visualized related to motion. Pathology in that region cannot be excluded. Smooth narrowing at left ICA at C1 level not extending into petrous segment with decrease in caliber of the ICA by approximately 40% which suggests focal dissection of the left ICA short segment along the C1. Most significant segment is seen on CTA source images series 1 image 327. Etiology for dissection is unclear. No pseudoaneurysm or dissection flap identified. Irregularity of vessels with vascular calcification suggests atherosclerosis. Most significant disease is at cavernous carotids with left supraclinoid ICA 30% luminal narrowing. No additional significant luminal narrowing. Remaining extra/intracranial carotids, vertebrobasilar and cerebral arteries are normal in course, caliber & branching without hemodynamically significant disease. IMPRESSION IMPRESSION: 1. 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 2. Additional atherosclerosis. 3. Patent remaining extra/intracranial CTA circulation. Arterial blood flow was measured to detect acute large vessel occlusion by computer aided detection software: Not Performed. Discovery Manager: PSCB Transcribe Date/Time: Mar 01 2024 2:12P Dictated by : IMTIAZ BRASHER MD This examination was interpreted and the report reviewed and electronically signed by: IMTIAZ BRASHER MD on Mar 01 2024 2:18PM [facility] CTA HEAD W IVCONon 4 CTA HEAD W IVCON * * *Final Report* * * DATE OF EXAM: Mar 01 2024 1:51PM [facility] 0022 - CTA HEAD W IVCON / PROCEDURE REASON: I65.29-Occlusion and stenosis of unspecified carotid artery * * * * Physician Interpretation * * * * COMPARISON: None. HISTORY: Carotid artery occlusion. TECHNIQUE: Intra/extracranial CTA with contrast. 3-D reconstructions. MQ: CTABPlus_3 Contrast: IV 80 ml of Omnipaque 350 CT Radiation dose: Integrated Dose-length product (DLP) for this visit = 495 mGy*cm CT Dose Reduction Employed: Automated exposure control(AEC) and iterative recon RESULTS: CT ARTERIOGRAM: Age-expected soft tissues, upper lungs, mediastinum and bones. No collections or pathological adenopathy or abnormal enhancement. CIRCULATION: Bovine arch. Direct origin of the left vertebral artery from the aortic arch. These are normal variants of no major clinical significance. Origin of bilateral common carotid, subclavian, vertebral and right innominate arteries are without significant disease. Origins of internal carotid arteries reveal 0% narrowing (by NASCET). Segment of the extracranial carotid arteries is not visualized related to motion. Pathology in that region cannot be excluded. Smooth narrowing at left ICA at C1 level not extending into petrous segment with decrease in caliber of the ICA by approximately 40% which suggests focal dissection of the left ICA short segment along the C1. Most significant segment is seen on CTA source images series 1 image 327. Etiology for dissection is unclear. No pseudoaneurysm or dissection flap identified. Irregularity of vessels with vascular calcification suggests atherosclerosis. Most significant disease is at cavernous carotids with left supraclinoid ICA 30% luminal narrowing. No additional significant luminal narrowing. Remaining extra/intracranial carotids, vertebrobasilar and cerebral arteries are normal in course, caliber and branching without hemodynamically significant disease. IMPRESSION: 1. 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 2. Additional atherosclerosis. 3. Patent remaining extra/intracranial CTA circulation. Arterial blood flow was measured to detect acute large vessel occlusion by computer aided detection software: Not Performed. Discovery Manager: PSCLencho Transcribe Date/Time: Mar 01 2024 2:12P Dictated by : IMTIAZ BRASHER MD This examination was interpreted and the report reviewed and electronically signed by: IMTIAZ BRASHER MD on Mar 01 2024 2:18PM EST [id number] [facility] CTA Head Arteries W contrast Tameka 03-01-2024 * * *Final Report* * * DATE OF EXAM: Mar 01 2024 1:51PM [facility] 0022 - CTA HEAD W IVCON / PROCEDURE REASON: I65.29-Occlusion and stenosis of unspecified carotid artery * * * * Physician Interpretation * * * * COMPARISON: None. HISTORY: Carotid artery occlusion. TECHNIQUE: Intra/extracranial CTA with contrast. 3-D reconstructions. MQ: CTABPlus_3 Contrast: IV 80 ml of Omnipaque 350 CT Radiation dose: Integrated Dose-length product (DLP) for this visit = 495 mGy*cm CT Dose Reduction Employed: Automated exposure control(AEC) and iterative recon RESULTS: CT ARTERIOGRAM: Age-expected soft tissues, upper lungs, mediastinum & bones. No collections or pathological adenopathy or abnormal enhancement. CIRCULATION: Bovine arch. Direct origin of the left vertebral artery from the aortic arch. These are normal variants of no major clinical significance. Origin of bilateral common carotid, subclavian, vertebral and right innominate arteries are without significant disease. Origins of internal carotid arteries reveal 0% narrowing (by NASCET). Segment of the extracranial carotid arteries is not visualized related to motion. Pathology in that region cannot be excluded. Smooth narrowing at left ICA at C1 level not extending into petrous segment with decrease in caliber of the ICA by approximately 40% which suggests focal dissection of the left ICA short segment along the C1. Most significant segment is seen on CTA source images series 1 image 327. Etiology for dissection is unclear. No pseudoaneurysm or dissection flap identified. Irregularity of vessels with vascular calcification suggests atherosclerosis. Most significant disease is at cavernous carotids with left supraclinoid ICA 30% luminal narrowing. No additional significant luminal narrowing. Remaining extra/intracranial carotids, vertebrobasilar and cerebral arteries are normal in course, caliber & branching without hemodynamically significant disease. [facility] RADIOLOGY Provider, [facility] - 03/01/2024 * * *Final Report* * * DATE OF EXAM: Mar 01 2024 1:51PM [facility] 0022 - CTA HEAD W IVCON / PROCEDURE REASON: I65.29-Occlusion and stenosis of unspecified carotid artery * * * * Physician Interpretation * * * * COMPARISON: None. HISTORY: Carotid artery occlusion. TECHNIQUE: Intra/extracranial CTA with contrast. 3-D reconstructions. MQ: CTABPlus_3 Contrast: IV 80 ml of Omnipaque 350 CT Radiation dose: Integrated Dose-length product (DLP) for this visit = 495 mGy*cm CT Dose Reduction Employed: Automated exposure control(AEC) and iterative recon RESULTS: CT ARTERIOGRAM: Age-expected soft tissues, upper lungs, mediastinum & bones. No collections or pathological adenopathy or abnormal enhancement. CIRCULATION: Bovine arch. Direct origin of the left vertebral artery from the aortic arch. These are normal variants of no major clinical significance. Origin of bilateral common carotid, subclavian, vertebral and right innominate arteries are without significant disease. Origins of internal carotid arteries reveal 0% narrowing (by NASCET). Segment of the extracranial carotid arteries is not visualized related to motion. Pathology in that region cannot be excluded. Smooth narrowing at left ICA at C1 level not extending into petrous segment with decrease in caliber of the ICA by approximately 40% which suggests focal dissection of the left ICA short segment along the C1. Most significant segment is seen on CTA source images series 1 image 327. Etiology for dissection is unclear. No pseudoaneurysm or dissection flap identified. Irregularity of vessels with vascular calcification suggests atherosclerosis. Most significant disease is at cavernous carotids with left supraclinoid ICA 30% luminal narrowing. No additional significant luminal narrowing. Remaining extra/intracranial carotids, vertebrobasilar and cerebral arteries are normal in course, caliber & branching without hemodynamically significant disease. IMPRESSION IMPRESSION: 1. 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 2. Additional atherosclerosis. 3. Patent remaining extra/intracranial CTA circulation. Arterial blood flow was measured to detect acute large vessel occlusion by computer aided detection software: Not Performed. Discovery Manager: PSCB Transcribe Date/Time: Mar 01 2024 2:12P Dictated by : IMTIAZ BRASHER MD This examination was interpreted and the report reviewed and electronically signed by: IMTIAZ BRASHER MD on Mar 01 2024 2:18PM [facility] CTA NECK W IVCONon 4 CTA NECK W IVCON * * *Final Report* * * DATE OF EXAM: Mar 01 2024 1:51PM [facility] 0024 - CTA NECK W IVCON / PROCEDURE REASON: I65.29-Occlusion and stenosis of unspecified carotid artery * * * * Physician Interpretation * * * * COMPARISON: None. HISTORY: Carotid artery occlusion. TECHNIQUE: Intra/extracranial CTA with contrast. 3-D reconstructions. MQ: CTABPlus_3 Contrast: IV 80 ml of Omnipaque 350 CT Radiation dose: Integrated Dose-length product (DLP) for this visit = 495 mGy*cm CT Dose Reduction Employed: Automated exposure control(AEC) and iterative recon RESULTS: CT ARTERIOGRAM: Age-expected soft tissues, upper lungs, mediastinum and bones. No collections or pathological adenopathy or abnormal enhancement. CIRCULATION: Bovine arch. Direct origin of the left vertebral artery from the aortic arch. These are normal variants of no major clinical significance. Origin of bilateral common carotid, subclavian, vertebral and right innominate arteries are without significant disease. Origins of internal carotid arteries reveal 0% narrowing (by NASCET). Segment of the extracranial carotid arteries is not visualized related to motion. Pathology in that region cannot be excluded. Smooth narrowing at left ICA at C1 level not extending into petrous segment with decrease in caliber of the ICA by approximately 40% which suggests focal dissection of the left ICA short segment along the C1. Most significant segment is seen on CTA source images series 1 image 327. Etiology for dissection is unclear. No pseudoaneurysm or dissection flap identified. Irregularity of vessels with vascular calcification suggests atherosclerosis. Most significant disease is at cavernous carotids with left supraclinoid ICA 30% luminal narrowing. No additional significant luminal narrowing. Remaining extra/intracranial carotids, vertebrobasilar and cerebral arteries are normal in course, caliber and branching without hemodynamically significant disease. IMPRESSION: 1. 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 2. Additional atherosclerosis. 3. Patent remaining extra/intracranial CTA circulation. Arterial blood flow was measured to detect acute large vessel occlusion by computer aided detection software: Not Performed. Discovery Manager: PSCB Transcribe Date/Time: Mar 01 2024 2:12P Dictated by : IMTIAZ BRASHER MD This examination was interpreted and the report reviewed and electronically signed by: IMTIAZ BRASHER MD on Mar 01 2024 2:18PM EST [id number] [facility] NURSING PROGon 03-01-2024 NURSING PROG HNO ID: [id number] Author: RADHA NYE RN Service: Nursing Author Type: Registered Nurse Type: Nursing Progress Note Filed: 03/01/2024 13:35 Note Text: Radiology Service Progress Note DATE OF SERVICE: March 01, 2024 TIME: 1:35 PM PATIENT WEIGHT: 182 LBS PATIENT IDENTITY VERIFICATION COMPLETED USING TWO (2) STANDARD IDENTIFIERS: Name and Date of confirmed by patient verbally. FALL SCREENING: Has the patient had 2 falls in the last year or 1 fall with injury or currently using an Ambulatory Assistive Device (Walker, Cane, Wheelchair, Crutches, etc.)? No PATIENT GENDER DATA: Female. status: : No status: NO. ALLERGIES: Reviewed and unchanged CONTRAST ALLERGY: No EXAM: CT -CONTRAST INDUCED NEPHROPATHY RISK FACTORS: Not applicable CREATININE: Creatinine Date Value Ref Range Status 02/29/2024 0.52 (L) 0.58 - 0.96 mg/dL Final 11/11/2023 0.81 0.58 - 0.96 mg/dL Final 10/31/2021 0.63 0.58 - 0.96 mg/dL Final Estimated Glomerular Filtration Rate Date Value Ref Range Status 02/29/2024 113 >=60 mL/min/1.73m? Final Comment: Estimated Glomerular Filtration Rate (eGFR) is calculated using the 2020 CKD-EPI creatinine equation. This equation utilizes serum creatinine, sex, and age as parameters. The creatinine assay has traceable calibration to isotope dilution-mass spectrometry. Refer to KDIGO guidelines for clinical interpretation. In patients with unstable renal function, e.g. those with acute kidney injury, the eGFR may not accurately reflect actual GFR. eGFR- Date Value Ref Range Status 10/31/2021 >60 Final P.O.C.T. RESULTS: POC done: Yes, See Lab Tab March 01, 2024 TREATMENT: N/A IV SITE: Ambulatory: A peripheral IV was started in the Left with a Angio cath: 20 gauge. IV SITE APPEARANCE: Clean,Dry and Intact SIGNATURE: Radha Nye RN PATIENT NAME: Ciara Villalta DATE: March 01, 2024 TIME: 1:35 PM [facility] No Panel Informationon 03-01 IMPRESSION: 1. 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 2. Additional atherosclerosis. 3. Patent remaining extra/intracranial CTA circulation. Arterial blood flow was measured to detect acute large vessel occlusion by computer aided detection software: Not Performed. Discovery Manager: PSCB Transcribe Date/Time: Mar 01 2024 2:12P Dictated by : IMTIAZ BRASHER MD This examination was interpreted and the report reviewed and electronically signed by: IMTIAZ BRASHER MD on Mar 01 2024 2:18PM [facility] RADIOLOGY Radiology Study observation (narrative) [facility] No Panel InformationOrdered By: Ccf Provider on 03-01-2024 [facility] US Breast - right limitedon 02-24-2024 IMPRESSION: BENIGN FINDING There is no sonographic evidence of malignancy. The 4 cm x 0.6 cm x 1.5 cm oval fluid collection resembles an abscess and is benign. The fluid collection is either chronic or recurrent. The patient states that this was aspirated since the prior study. Surgical consultation is suggested. Pam jaquez/tamy:02/24/2024 11:36:27 Inclusion Intern(s): Julia Dickson [facility] Ultrasound BI-RADS: 2 Benign finding Multiple national specialty organizations have released breast cancer screening guidelines for women at average risk for developing breast cancer - guidelines that are based on both evidence and opinion, yet differ on when to start and how often to screen for breast cancer. With representation from Breast Imaging, Internal Medicine, Women's Health, Family Medicine, and Medical/Surgical Oncology, the [facility] has carefully reviewed the data and reached the following consensus: 1) All women should engage in shared decision-making with their providers to decide when to start and how often to screen; 2) All women should have the opportunity to start screening mammography at age 40; 3) For women ages 45-55, we recommend annual screening mammograms; 4) For women ages 55 and over, we support both the transition from an annual to a biennial interval if this aligns more with patient's values and preferences, or continuation with annual screening; 5) All women should discuss with their providers when to stop screening mammograms. Discovery Manager: Tamy Transcribe Date/Time: Feb 24 2024 11:17A Dictated by : PAM PAZ MD This examination was interpreted and the report reviewed and electronically signed by: PAM PAZ MD on Feb 24 2024 11:36AM [facility] DIVISION OF RADIOLOGY * * *Final Report* * * DATE OF EXAM: Feb 24 2024 11:29AM [facility] 0594 - [facility] [employer] BREAST LTD RT / PROCEDURE REASON: Abnormal mammogram * * * * Physician Interpretation * * * * #[id number] - [facility] US BREAST LTD RT LIMITED ULTRASOUND OF RIGHT BREAST: 02/24/2024 HISTORY: Abnormal Mammogram. RESULT: No prior exams were available for comparison. Color flow and real-time ultrasound of the right breast were performed. Mclean scale images of the real-time examination were reviewed. There is a benign 4 cm x 0.6 cm x 1.5 cm oval fluid collection in the right axillary tail. This oval fluid collection is hypoechoic with internal echoes. Color flow imaging demonstrates that there is no vascularity present. DIVISION OF RADIOLOGY Provider, Alex Guidry - 02/24/2024 * * *Final Report* * * DATE OF EXAM: Feb 24 2024 11:29AM U 0594 - [facility] [employer] BREAST LTD RT / PROCEDURE REASON: Abnormal mammogram * * * * Physician Interpretation * * * * #[id number] - [facility] US BREAST LTD RT LIMITED ULTRASOUND OF RIGHT BREAST: 02/24/2024 HISTORY: Abnormal Mammogram. RESULT: No prior exams were available for comparison. Color flow and real-time ultrasound of the right breast were performed. Mclean scale images of the real-time examination were reviewed. There is a benign 4 cm x 0.6 cm x 1.5 cm oval fluid collection in the right axillary tail. This oval fluid collection is hypoechoic with internal echoes. Color flow imaging demonstrates that there is no vascularity present. IMPRESSION IMPRESSION: BENIGN FINDING There is no sonographic evidence of malignancy. The 4 cm x 0.6 cm x 1.5 cm oval fluid collection resembles an abscess and is benign. The fluid collection is either chronic or recurrent. The patient states that this was aspirated since the prior study. Surgical consultation is suggested. Pam jaquez/tamy:02/24/2024 11:36:27 Inclusion Intern(s): Julia Dickson [facility] Ultrasound BI-RADS: 2 Benign finding Multiple national specialty organizations have released breast cancer screening guidelines for women at average risk for developing breast cancer - guidelines that are based on both evidence and opinion, yet differ on when to start and how often to screen for breast cancer. With representation from Breast Imaging, Internal Medicine, Women's Health, Family Medicine, and Medical/Surgical Oncology, the [facility] has carefully reviewed the data and reached the following consensus: 1) All women should engage in shared decision-making with their providers to decide when to start and how often to screen; 2) All women should have the opportunity to start screening mammography at age 40; 3) For women ages 45-55, we recommend annual screening mammograms; 4) For women ages 55 and over, we support both the transition from an annual to a biennial interval if this aligns more with patient's values and preferences, or continuation with annual screening; 5) All women should discuss with their providers when to stop screening mammograms. Discovery Manager: Tamy Transcribe Date/Time: Feb 24 2024 11:17A Dictated by : PAM PAZ MD This examination was interpreted and the report reviewed and electronically signed by: PAM PAZ MD on Feb 24 2024 11:36AM EST [facility] Radiology Study observation (narrative) [facility] US Breast - right limitedOrd ered By: Ccf Provider on 02-24-2024 [facility] Absolute lymphocyte countOrd ered By: Derian Pimentel on 10-26-2023 Lymphocytes Auto (Unsp spec) [#/Vol] 2.87 10*3/uL 0.83-4.51 [facility] Basophil percentageOrdered B y: Derian Pimentel on 10-26-2023 Basophils/100 WBC (Bld) 0.7 % 0-1 [facility] Chloride [Moles/Vol] 94 mmol/L 98-107 [facility] Eosinophils/100 WBC (Bld) 2.2 % 0-5 [facility] Glucose [Mass/Vol] 122 mg/dL 74-106 [facility] Comment on above: Fasting Glucose resu lt from 100 to 125 mg/dL suggests IMPAIRED HOMEOSTASIS per A.D.A. criteria. Neutrophils (Bld) [#/Vol] 1.8 10*3/uL 2.0-7.7 [facility] Neutrophils/100 WBC (Bld) 33.2 % 47-70 [facility] Potassium [Moles/Vol] 2.5 mmol/L 3.5-5.1 [facility] Sodium [Moles/Vol] 133 mmol/L 136-145 [facility] WBC (Bld) [#/Vol] 5.5 10*3/uL 4.4-11.0 [facility] Blood erythrocytes count (nu mber/volume)Ordered By: Derian Pimentel on 10-26-2023 RBC (Bld) [#/Vol] 4.18 10*6/uL 4.2-5.4 [facility] Blood hemoglobin measurement (mass/volume)Ordered By: Derian Pimentel on 10-26-2023 Hemoglobin (Bld) [Mass/Vol] 13.7 g/dL 12.0-15.0 [facility] Blood lymphocytes/100 leukoc ytesOrdered By: Derian Pimentel on 10-26-2023 Lymphocytes/100 WBC (Bld) 52.7 % 19-41 [facility] Blood monocytes/100 leukocyt esOrdered By: Derian Pimentel on 10-26-2023 Monocytes/100 WBC (Bld) 11.0 % 0-10 [facility] Blood platelet mean volumeOr dered By: Derian Pimentel on 10-26-2023 Platelet mean volume (Bld) [Entitic vol] 10.5 fL 6.2-12.0 [facility] Determination of erythrocyte mean corpuscular volume (MCV)Ordered By: Derian Pimentel on 10-26-2023 MCV (RBC) [Entitic vol] 90.7 fL 81-99 [facility] Hematocrit Auto (Bld) [Volum e fraction]Ordered By: Derian Pimentel on 10-26-2023 Hematocrit (Bld) [Volume fraction] 37.9 % 37-47 [facility] Laboratory - Chemistry and C hemistry - challengeOrdered By: Derian Pimentel on 10-26-2023 CO2 [Moles/Vol] 32.0 mmol/L 21.0-32.0 [facility] Urea nitrogen/Creatinine [Mass ratio] 6.2 mg/mg 10-20 [facility] Laboratory - Hematology and Cell countsOrdered By: Derian Pimentel on 10-26-2023 Erythrocyte distribution width (RBC) [Entitic vol] 42.1 fL 35.1-43.9 [facility] Erythrocyte distribution width (RBC) [Ratio] 12.8 % 11.6-14.6 [facility] Immature granulocytes/100 WBC (Bld) 0.200 % 0.0-0.9 [facility] Comment on above: IG% - Immature Granu locytes (promyelocytes, myelocytes and metamyelocytes) > 1% indicates that a LEFT SHIFT is Present. MCH (RBC) [Entitic mass] 32.8 pg 27.0-32.0 [facility] Nucleated RBC/100 WBC (Bld) [Ratio] 0 % 0-5 [facility] MCHC Auto (RBC) [Mass/Vol]Or dered By: Derian Pimentel on 10-26-2023 MCHC (RBC) [Mass/Vol] 36.1 g/dL 32-36 [facility] No Panel InformationOrdered By: Derian Pimentel on 10-26-2023 Estimated Creatinine Clearance Calc 79.36 ml/min [facility] Estimated GFR (MDRD) Amer 126 mL/min >60 [facility] Comment on above: GFR Calc Estimated GFR (MDRD) Non-Af Amer 104 mL/min >60 [facility] Comment on above: Non- GFR Calc Troponin I High Sensitivity 24 pg/mL 3.0-54.0 [facility] Comment on above: Critical Result(s) C alled at: 03:31:23 10/26/2023 by: Juan Rosas. to LSparr RN (ed) Results read back by same. Please Note: New Test Units and Gender Specific Reference Ranges. For more information see Policy Stat Procedure [place] High Sensitivity Troponin (TNIH) and attachments. Platelets bldOrdered By: Kin Pimentel on 10-26-2023 Platelets (Bld) [#/Vol] 262 10*3/uL 150-450 [facility] Serum or plasma calcium aleks urement (mass/volume)Ordered By: Derian Pimentel on 10-26-2023 Calcium [Mass/Vol] 9.0 mg/dL 8.5-10.1 [facility] Serum or plasma creatinine m easurement (mass/volume)Ordered By: Derian Pimentel on 10-26-2023 Creatinine [Mass/Vol] 0.64 mg/dL 0.55-1.02 [facility] Comment on above: The validity of the calculated GFR & GFRAA in patients over 70 years has not been determined. Clinical correlation is essential. Serum or plasma urea nitroge n measurement (mass/volume)Ordered By: Derian Pimentel on 10-26-2023 Urea nitrogen [Mass/Vol] 4 mg/dL 7-18 [facility] Thin prep Papanicolaou smear with manual screeningOrdered By: Derian Pimentel on 10-26-2023 Thin prep Papanicolaou smear with manual screening 7 5-15 [facility] XR HIP GENERAL 3V PELV/AP/LA T RIGHTon 09-18-2023 [facility] XR Pelvis and Hip - right AP and Lateral frogon 09-18-2023 IMPRESSION: No acute osseous findings. 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 Acute hip pain, right . TECHNIQUE: XR HIP 3V PELV+ AP/LAT RT Laterality: RIGHT Number of different views (projections): 3 M: XB_1 COMPARISON: None RESULT: 3 images. No identified acute osseous abnormality or femoral head avascular necrosis. Slight rotational distortion but apparent bilateral coxa profunda more obvious on the right than the left. Unremarkable SI joints and pubic symphysis. Prominent intramuscular fat planes diffusely. There is a coarse 15 mm linear calcification soft tissues adjacent to the base of the right femoral neck medially. Severe atherosclerosis. DIVISION OF RADIOLOGY Provider, [facility] - 09/18/2023 * * *Final Report* * * DATE OF EXAM: Sep 18 2023 2:54PM [facility]OX [id number] - XR HIP 3V PELV+ AP/LAT RT / PROCEDURE REASON: Acute hip pain, right * * * * Physician Interpretation * * * * EXAMINATION: XR HIP 3V PELV+ AP/LAT RT HISTORY: Acute right hip pain, no known injury. Acute hip pain, right . TECHNIQUE: XR HIP 3V PELV+ AP/LAT RT Laterality: RIGHT Number of different views (projections): 3 M: XB_1 COMPARISON: None RESULT: 3 images. No identified acute osseous abnormality or femoral head avascular necrosis. Slight rotational distortion but apparent bilateral coxa profunda more obvious on the right than the left. Unremarkable SI joints and pubic symphysis. Prominent intramuscular fat planes diffusely. There is a coarse 15 mm linear calcification soft tissues adjacent to the base of the right femoral neck medially. Severe atherosclerosis. IMPRESSION IMPRESSION: No acute osseous findings. 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 Denis on 12-31-2022 Lymphocytes Auto (Unsp spec) [#/Vol] 2.09 10*3/uL 0.83-4.51 [facility] Basophil percentageOrdered B y: Dr. Denis on 12-31-2022 Basophils/100 WBC (Bld) 0.3 % 0-1 [facility] Bilirubin [Mass/Vol] 0.60 mg/dL 0.20-1.00 [facility] Comment on above: For patients on eltr ombopag therapy, use of Dimension [place] TBIL is not recommended. Chloride [Moles/Vol] 98 mmol/L 98-107 [facility] Eosinophils/100 WBC (Bld) 2.0 % 0-5 [facility] Glucose [Mass/Vol] 163 mg/dL 74-106 [facility] Comment on above: Fasting Glucose resu lt greater than or equal to 126 mg/dL suggests DIABETES MELLITUS per A.D.A. criteria. Neutrophils (Bld) [#/Vol] 3.2 10*3/uL 2.0-7.7 [facility] Neutrophils/100 WBC (Bld) 51.4 % 47-70 [facility] Potassium [Moles/Vol] 3.2 mmol/L 3.5-5.1 [facility] Protein [Mass/Vol] 8.2 g/dL 6.4-8.2 [facility] Sodium [Moles/Vol] 135 mmol/L 136-145 [facility] WBC (Bld) [#/Vol] 6.1 10*3/uL 4.4-11.0 [facility] Blood erythrocytes count (nu mber/volume)Ordered By: Dr. Denis on 12-31-2022 RBC (Bld) [#/Vol] 4.06 10*6/uL 4.2-5.4 [facility] Blood hemoglobin measurement (mass/volume)Ordered By: Dr. Denis on 12-31-2022 Hemoglobin (Bld) [Mass/Vol] 13.2 g/dL 12.0-15.0 [facility] Blood lymphocytes/100 leukoc ytesOrdered By: Dr. Denis on 12-31-2022 Lymphocytes/100 WBC (Bld) 34.2 % 19-41 [facility] Blood monocytes/100 leukocyt esOrdered By: Dr. Denis on 12-31-2022 Monocytes/100 WBC (Bld) 11.8 % 0-10 [facility] Blood platelet mean volumeOr dered By: Dr. Denis on 12-31-2022 Platelet mean volume (Bld) [Entitic vol] 10.6 fL 6.2-12.0 [facility] Determination of erythrocyte mean corpuscular volume (MCV)Ordered By: Dr. Denis on 12-31-2022 MCV (RBC) [Entitic vol] 94.1 fL 81-99 [facility] Direct bilirubinOrdered By: Dr. Denis on 12-31-2022 Bilirubin.direct [Mass/Vol] 0.16 mg/dL 0.00-0.30 [facility] Hematocrit Auto (Bld) [Volum e fraction]Ordered By: Dr. Denis on 12-31-2022 Hematocrit (Bld) [Volume fraction] 38.2 % 37-47 [facility] Influenza virus A and B and SARS-CoV-2 (COVID-19) Ag panel - Upper respiratory specimOrdered By: Dr. Denis on 12-31-2022 SARS-CoV-2 (COVID-19) RNA TRINA+probe Ql (Resp) [facility] Laboratory - Chemistry and C hemistry - challengeOrdered By: Dr. Denis on 12-31-2022 ALP [Catalytic activity/Vol] 68 U/L 45-117 [facility] ALT [Catalytic activity/Vol] 26 U/L 13-56 [facility] CO2 [Moles/Vol] 30.0 mmol/L 21.0-32.0 [facility] Globulin (S) [Mass/Vol] 4.9 g/dL 2.2-4.2 [facility] Urea nitrogen/Creatinine [Mass ratio] 8.9 mg/mg 10-20 [facility] Laboratory - Hematology and Cell countsOrdered By: Dr. Denis on 12-31-2022 Erythrocyte distribution width (RBC) [Entitic vol] 43.9 fL 35.1-43.9 [facility] Erythrocyte distribution width (RBC) [Ratio] 12.7 % 11.6-14.6 [facility] Immature granulocytes/100 WBC (Bld) 0.300 % 0.0-0.9 [facility] Comment on above: IG% - Immature Granu locytes (promyelocytes, myelocytes and metamyelocytes) > 1% indicates that a LEFT SHIFT is Present. MCH (RBC) [Entitic mass] 32.5 pg 27.0-32.0 [facility] Nucleated RBC/100 WBC (Bld) [Ratio] 0 % 0-5 [facility] MCHC Auto (RBC) [Mass/Vol]Or dered By: Dr. Denis on 12-31-2022 MCHC (RBC) [Mass/Vol] 34.6 g/dL 32-36 [facility] No Panel InformationOrdered By: Dr. Denis on 12-31-2022 D-Dimer Quantitative (PE/DVT) < 0.27 FEU/ug/m 0.27-0.49 [facility] Comment on above: NORMAL D-Dimer level (<0.50) indicates no DVT or PE. Estimated Creatinine Clearance Calc 57.70 ml/min [facility] Estimated GFR (MDRD) Amer 86 mL/min >60 [facility] Comment on above: GFR Calc Estimated GFR (MDRD) Non-Af Amer 71 mL/min >60 [facility] Comment on above: Non- GFR Calc Troponin I High Sensitivity 25 pg/mL 3.0-54.0 [facility] Comment on above: Please Note: [place] t Units and Gender Specific Reference Ranges. For more information see Policy Stat Procedure [place] High Sensitivity Troponin (TNIH) and attachments. Platelets bldOrdered By: Dr. Denis on 12-31-2022 Platelets (Bld) [#/Vol] 236 10*3/uL 150-450 [facility] Serum or plasma albumin aleks urement (mass/volume)Ordered By: Dr. Denis on 12-31-2022 Albumin [Mass/Vol] 3.3 g/dL 3.2-5.0 [facility] Serum or plasma calcium aleks urement (mass/volume)Ordered By: Dr. Denis on 12-31-2022 Calcium [Mass/Vol] 9.5 mg/dL 8.5-10.1 [facility] Serum or plasma creatinine m easurement (mass/volume)Ordered By: Dr. Denis on 12-31-2022 Creatinine [Mass/Vol] 0.89 mg/dL 0.55-1.02 [facility] Comment on above: The validity of the calculated GFR & GFRAA in patients over 70 years has not been determined. Clinical correlation is essential. Serum or plasma urea nitroge n measurement (mass/volume)Ordered By: Dr. Denis on 12-31-2022 Urea nitrogen [Mass/Vol] 8 mg/dL 05-05 [facility] Thin prep Papanicolaou smear with manual screeningOrdered By: Dr. Denis on 12-31-2022 Thin prep Papanicolaou smear with manual screening 28 U/L [facility] Thin prep Papanicolaou smear with manual screening 7 03-02 [facility] STREP A MOLECULAR (POC)on Procedural Control Valid [facility] Strep A (POCT) Negative Negative [facility] Vital Signs Date Time Vital Sign Value Performing Clinician Facility 04-03-2025 09:24-0400 Body mass index (BMI) [Ratio] 34.34 kg/m2 Stalin Montes De Oca DO Work Phone: [facility] 04-03-2025 09:24-0400 Body temperature 96.3 [degF] Stalin Montes De Oca DO Work Phone: [facility] 04-03-2025 09:24-0400 Body weight 85.73 kg Stalin Montes De Oca DO Work Phone: [facility] 04-03-2025 09:24-0400 Diastolic blood pressure 80 mm[Hg] Stalin Montes De Oca DO Work Phone: [facility] 04-03-2025 09:24-0400 Heart rate 64 /min Stalin Montes De Oca DO Work Phone: [facility] 04-03-2025 09:24-0400 Respiratory rate 20 /min Stalin Montes De Oca DO Work Phone: [facility] 04-03-2025 09:24-0400 Systolic blood pressure 146 mm[Hg] Stalin Montes De Oca DO Work Phone: [facility] 03-07-2025 14:00-0400 Diastolic blood pressure 69 mm[Hg] Dr. Stalin Montes De Oca DO Work Phone: [facility] 03-07-2025 14:00-0400 Systolic blood pressure 209 mm[Hg] Dr. Stalin Montes De Oca DO Work Phone: [facility] 03-07-2025 01:55-0400 Body height 154.[address] Stalin Montes De Oca DO Work Phone: [facility] 03-07-2025 01:55-0400 Body temperature 97.7 [degF] Dr. Stalin Montes De Oca DO Work Phone: [facility] 03-07-2025 01:55-0400 Heart rate 79 /min Dr. Stalin Montes De Oca DO Work Phone: [facility] 03-07-2025 01:55-0400 Respiratory rate 18 /min Dr. Stalin Montes De Oca DO Work Phone: [facility] 03-07-2025 01:55-0400 SaO2% (BldA) [Mass fraction] 100 % Dr. Stalin Montes De Oca DO Work Phone: [facility] 11-23-2024 08:27-0500 Body mass index (BMI) [Ratio] 33.73 kg/m2 Matthew Whitehead APRN.[employer] Work Phone: [facility] 11-23-2024 08:27-0500 Body temperature 98.71 [degF] Matthew Whitehead APRN.[employer] Work Phone: [facility] 11-23-2024 08:27-0500 Body weight 84.2 kg Matthew Whitehead APRN.[employer] Work Phone: [facility] 11-23-2024 08:27-0500 Diastolic blood pressure 82 mm[Hg] Matthew Whitehead APRN.[employer] Work Phone: [facility] 11-23-2024 08:27-0500 Heart rate 113 /min Matthew Whitehead APRN.[employer] Work Phone: [facility] 11-23-2024 08:27-0500 Respiratory rate 18 /min Matthew Whitehead APRN.[employer] Work Phone: [facility] 11-23-2024 08:27-0500 SaO2% (BldA) [Mass fraction] 95 % Matthew Whitehead APRN.[employer] Work Phone: [facility] 11-23-2024 08:27-0500 Systolic blood pressure 132 mm[Hg] Matthew Whitehead APRN.[employer] Work Phone: [facility] 11-01-2024 11:06-0500 Diastolic blood pressure 80 mm[Hg] Stalin Montes De Oca DO Work Phone: [facility] 11-01-2024 11:06-0500 Systolic blood pressure 144 mm[Hg] Stalin Montes De Oca DO Work Phone: [facility] 11-01-2024 09:49-0500 Body height 158 cm Stalin Montes De Oca DO Work Phone: [facility] 11-01-2024 09:49-0500 Body mass index (BMI) [Ratio] 33.43 kg/m2 Stalin Montes De Oca DO Work Phone: [facility] 11-01-2024 09:49-0500 Body temperature 98.01 [degF] Stalin Montes De Oca DO Work Phone: [facility] 11-01-2024 09:49-0500 Body weight 83.46 kg Stalin Montes De Oca DO Work Phone: [facility] 11-01-2024 09:49-0500 Heart rate 84 /min Stalin Montes De Oca DO Work Phone: [facility] 11-01-2024 09:49-0500 Respiratory rate 16 /min Stalin Montes De Oca DO Work Phone: [facility] 08-17-2024 08:26-0400 Body height 156.5 cm Stalin Montes De Oca DO Work Phone: [facility] 08-17-2024 08:26-0400 Body mass index (BMI) [Ratio] 33.64 kg/m2 Stalin Montes De Oca DO Work Phone: [facility] 08-17-2024 08:26-0400 Body temperature 97.3 [degF] Stalin Montes De Oca DO Work Phone: [facility] 08-17-2024 08:26-0400 Body weight 82.4 kg Stalin Montes De Oca DO Work Phone: [facility] 08-17-2024 08:26-0400 Diastolic blood pressure 80 mm[Hg] Stalin Montes De Oca DO Work Phone: [facility] 08-17-2024 08:26-0400 Heart rate 80 /min Stalin Montes De Oca DO Work Phone: [facility] 08-17-2024 08:26-0400 Respiratory rate 20 /min Stalin Montes De Oca DO Work Phone: [facility] 08-17-2024 08:26-0400 Systolic blood pressure 146 mm[Hg] Stalin Montes De Oca DO Work Phone: [facility] 05-11-2024 10:08-0400 Diastolic blood pressure 92 mm[Hg] Mariella Shailesh [employer] Work Phone: [facility] Comment on above: recheck 05-11-2024 10:08-0400 Systolic blood pressure 146 mm[Hg] Mariella Shailesh [employer] Work Phone: [facility] Comment on above: recheck 05-11-2024 09:25-0400 Body mass index (BMI) [Ratio] 34.62 kg/m2 Mariella Shailesh [employer] Work Phone: [facility] 05-11-2024 09:25-0400 Body weight 83.1 kg Mariella Shailesh [employer] Work Phone: [facility] 05-11-2024 09:25-0400 Heart rate 89 /min Mariella Tsangman [employer] Work Phone: [facility] 05-11-2024 09:25-0400 Respiratory rate 16 /min Mariella Tsangman [employer] Work Phone: [facility] 05-11-2024 09:25-0400 SaO2% (BldA) [Mass fraction] 98 % Mariella Skinner [employer] Work Phone: [facility] 04-28-2024 14:45-0400 Diastolic blood pressure 96 mm[Hg] Bethany Taveras MD Work Phone: [facility] 04-28-2024 14:45-0400 Heart rate 94 /min Bethany Taveras MD Work Phone: [facility] 04-28-2024 14:45-0400 Systolic blood pressure 178 mm[Hg] Bethany Taveras MD Work Phone: [facility] 04-25-2024 11:35-0400 Diastolic blood pressure 88 mm[Hg] Cheyanne Podlogar [employer] Work Phone: [facility] Comment on above: TASHI BP 04-25-2024 11:35-0400 Heart rate 84 /min Cheyanne Podlogar [employer] Work Phone: [facility] 04-25-2024 11:35-0400 Systolic blood pressure 172 mm[Hg] Cheyanne Podlogar [employer] Work Phone: [facility] Comment on above: TASHI BP 04-25-2024 11:11-0400 Body mass index (BMI) [Ratio] 34.58 kg/m2 Cheyanne Podlogar [employer] Work Phone: [facility] 04-25-2024 11:11-0400 Body weight 83.01 kg Cheyanne Podlogar [employer] Work Phone: [facility] 04-25-2024 11:11-0400 Respiratory rate 18 /min Cheyanne Dowd [employer] Work Phone: [facility] 04-25-2024 11:11-0400 SaO2% (BldA) [Mass fraction] 94 % Cheyanne Dowd [employer] Work Phone: [facility] 04-11-2024 11:08-0400 Body height 154.9 cm Jake Darnell MD Work Phone: [facility] Comment on above: Patient reports. 04-11-2024 11:08-0400 Body mass index (BMI) [Ratio] 34.24 kg/m2 Jake Darnell MD Work Phone: [facility] 04-11-2024 11:08-0400 Body weight 82.19 kg Jake Darnell MD Work Phone: [facility] Comment on above: Fully clothed with shoes on. 04-11-2024 11:08-0400 Diastolic blood pressure 90 mm[Hg] Jake Darnell MD Work Phone: [facility] 04-11-2024 11:08-0400 Heart rate 103 /min Jake Darnell MD Work Phone: [facility] 04-11-2024 11:08-0400 SaO2% (BldA) [Mass fraction] 96 % Jake Darnell MD Work Phone: [facility] 04-11-2024 11:08-0400 Systolic blood pressure 154 mm[Hg] Jake Darnell MD Work Phone: [facility] 03-22-2024 10:05-0400 Body height 154.9 cm Evelin Chacon MD Work Phone: [facility] 03-22-2024 10:05-0400 Body mass index (BMI) [Ratio] 33.48 kg/m2 Evelin Chacon MD Work Phone: [facility] 03-22-2024 10:05-0400 Body temperature 97.3 [degF] Evelin Chacon MD Work Phone: [facility] 03-22-2024 10:05-0400 Body weight 80.38 kg Evelin Chacon MD Work Phone: [facility] 03-22-2024 10:05-0400 Diastolic blood pressure 98 mm[Hg] Evelin Chacon MD Work Phone: [facility] 03-22-2024 10:05-0400 Heart rate 129 /min Evelin Chacon MD Work Phone: [facility] 03-22-2024 10:05-0400 SaO2% (BldA) [Mass fraction] 98 % Evelin Chacon MD Work Phone: [facility] 03-22-2024 10:05-0400 Systolic blood pressure 162 mm[Hg] Evelin Chacon MD Work Phone: [facility] 03-03-2024 10:04-0400 Diastolic blood pressure 84 mm[Hg] Jake Darnell MD Work Phone: [facility] Comment on above: nurse recheck 03-03-2024 10:04-0400 Systolic blood pressure 182 mm[Hg] Jake Darnell MD Work Phone: [facility] Comment on above: nurse recheck 03-03-2024 10:03-0400 Heart rate 110 /min Jake Darnell MD Work Phone: [facility] 03-03-2024 10:03-0400 SaO2% (BldA) [Mass fraction] 98 % Jake Darnell MD Work Phone: [facility] 01-05-2024 10:59-0400 Diastolic blood pressure 104 mm[Hg] Kavitha Herring DO Work Phone: [facility] 01-05-2024 10:59-0400 Systolic blood pressure 220 mm[Hg] Kavitha Herring DO Work Phone: [facility] 01-05-2024 10:57-0400 Heart rate 95 /min Kavithasaira Lernerle DO Work Phone: [facility] 01-05-2024 10:57-0400 SaO2% (BldA) [Mass fraction] 98 % Kavitha Herring DO Work Phone: [facility] 10-26-2023 04:57-0500 Diastolic blood pressure 82 mm[Hg] [facility] 10-26-2023 04:57-0500 Heart rate 85 /min [facility] 10-26-2023 04:57-0500 Respiratory rate 14 /min [facility] 10-26-2023 04:57-0500 SaO2% (BldA) [Mass fraction] 97 % [facility] 10-26-2023 04:57-0500 Systolic blood pressure 156 mm[Hg] [facility] 10-26-2023 02:08-0500 Body height 154.94 cm [facility] 10-26-2023 02:08-0500 Body mass index (BMI) [Ratio] 34.1 kg/m2 [facility] 10-26-2023 02:08-0500 Body temperature 97.5 [degF] [facility] 10-26-2023 02:08-0500 Body weight 81.9 kg [facility] 09-18-2023 14:20-0500 Body temperature 98.1 [degF] Dariel Escudero MD Work Phone: [facility] 09-18-2023 14:20-0500 Body weight 82.19 kg Dariel Escudero MD Work Phone: [facility] 09-18-2023 14:20-0500 Diastolic blood pressure 90 mm[Hg] Dariel Escudero MD Work Phone: [facility] 09-18-2023 14:20-0500 Heart rate 106 /min Dariel Escudero MD Work Phone: [facility] 09-18-2023 14:20-0500 Respiratory rate 18 /min Dariel Escudero MD Work Phone: [facility] 09-18-2023 14:20-0500 SaO2% (BldA) [Mass fraction] 97 % Dariel Escudero MD Work Phone: [facility] 09-18-2023 14:20-0500 Systolic blood pressure 148 mm[Hg] Dariel Escudero MD Work Phone: [facility] 12-31-2022 09:59-0400 Diastolic blood pressure 84 mm[Hg] [facility] 12-31-2022 09:59-0400 Heart rate 61 /min [facility] 12-31-2022 09:59-0400 Respiratory rate 16 /min [facility] 12-31-2022 09:59-0400 SaO2% (BldA) [Mass fraction] 99 % [facility] 12-31-2022 09:59-0400 Systolic blood pressure 155 mm[Hg] [facility] 12-31-2022 07:22-0400 Body height 154.94 cm [facility] 12-31-2022 07:22-0400 Body mass index (BMI) [Ratio] 34.1 kg/m2 [facility] 12-31-2022 07:22-0400 Body temperature 97 [degF] [facility] 12-31-2022 07:22-0400 Body weight 81.9 kg [facility] 05-03-2022 15:18-0400 Body height 154.94 cm [facility] Work Phone: 05-03-2022 15:18-0400 Body mass index (BMI) [Ratio] 35.5 kg/m2 [facility] Work Phone: 05-03-2022 15:18-0400 Body temperature 98.4 [degF] [facility] Work Phone: 05-03-2022 15:18-0400 Body weight 85.27 kg [facility] Work Phone: 05-03-2022 15:18-0400 Diastolic blood pressure 119 mm[Hg] [facility] Work Phone: 05-03-2022 15:18-0400 Heart rate 105 /min [facility] Work Phone: 05-03-2022 15:18-0400 Respiratory rate 16 /min [facility] Work Phone: 05-03-2022 15:18-0400 SaO2% (BldA) [Mass fraction] 98 % [facility] Work Phone: 05-03-2022 15:18-0400 Systolic blood pressure 168 mm[Hg] [facility] Work Phone: 02-19-2022 14:38-0400 Body temperature 97.5 [degF] Channing Pendlebury [employer] Work Phone: [facility] 02-19-2022 14:38-0400 Body weight 84.37 kg Channing Pendlebury [employer] Work Phone: [facility] 02-19-2022 14:38-0400 Diastolic blood pressure 88 mm[Hg] Channing Pendlebury [employer] Work Phone: [facility] 02-19-2022 14:38-0400 Heart rate 86 /min Channing Pendlebury [employer] Work Phone: [facility] 02-19-2022 14:38-0400 Respiratory rate 18 /min Channing Pendlebury [employer] Work Phone: [facility] 02-19-2022 14:38-0400 SaO2% (BldA) [Mass fraction] 96 % Channing Pendlebury [employer] Work Phone: [facility] 02-19-2022 14:38-0400 Systolic blood pressure 152 mm[Hg] Channing Pendlebury [employer] Work Phone: [facility] Encounters Encounter Date Encounter Type Care Provider Facility Start: 04-05-2025 End: 04-07-2025 Telephone encounter Stalin Montes De Oca DO Work Phone: [facility] Start: 04-03-2025 End: 04-03-2025 ambulatory STALIN JERNIGANON Facility:[facility] Start: 04-03-2025 End: 04-03-2025 ambulatory STALIN L MONTES DE OCA Facility:[facility] Start: 04-03-2025 End: 04-03-2025 Patient encounter procedure Stalin Boothrison DO Work Phone: [facility] Comment on above: Type 2 diabetes jennifer itus without complication, without long- term current use of insulin (HCC) (Primary Dx); Essential hypertension; Dyslipidemia; Vitamin D deficiency; Hypokalemia; Hyponatremia; Elevated TSH; Chronic constipation; Situational stress Start: 03-07-2025 End: 03-07-2025 Emergency department patient visit Dr. Stalin Montes De Oca DO Work Phone: -Emergency Department Work Phone: Start: 01-31-2025 End: 01-31-2025 Refill Stalin Montes De Oca DO Work Phone: [facility] Comment on above: Refill Request Start: 01-18-2025 End: 01-18-2025 Refill Stalin Montes De Oca DO Work Phone: [facility] Comment on above: Refill Request Start: 11-23-2024 End: 11-23-2024 ambulatory STALIN MONTES DE OCA Facility:[facility] Start: 11-23-2024 End: 11-23-2024 Patient encounter procedure Matthew Whitehead APRN.[employer] ASSISTANT [employer]ET[employer] Work Phone: [facility] Comment on above: URI, acute (Primary Dx); Acute cough Start: 11-01-2024 End: 11-01-2024 Patient encounter status Stalin Esther Montes De Oca DO Work Phone: [facility] Start: 11-01-2024 End: 11-01-2024 ambulatory STALIN MONTES DE OCA Facility:[facility] Start: 11-01-2024 Encounter for genera l adult medical examination without abnormal findings STALIN MONTES DE OCA [facility] Start: 11-01-2024 End: 11-01-2024 ambulatory ABHI FU Facility:[facility] Start: 11-01-2024 End: 11-01-2024 Patient encounter procedure Stalin Montes De Oca DO Work Phone: [facility] [place] Comment on above: Well adult exam ([facility] Dx); Vitamin D deficiency; Hyponatremia; Hypokalemia; Essential hypertension; Type 2 diabetes mellitus without complication, without long-term current use of insulin (HCC); Elevated TSH; Dyslipidemia Porokeratosis (Prima ry Dx); Left foot pain Start: 09-30-2024 End: 09-30-2024 ambulatory STALIN BOOTHRISON Facility:[facility] Start: 09-30-2024 End: 09-30-2024 Subsequent hospital visit by physician Screen Mammo [facility] Comment on above: Encounter for screen ing mammogram for malignant neoplasm of breast [Z12.31] Start: 08-18-2024 End: 08-18-2024 Telephone encounter Stalin Montes De Oca DO Work Phone: [facility] [place] Start: 08-17-2024 End: 08-17-2024 ambulatory STALIN MONTES DE OCA Facility:[facility] Start: 08-17-2024 End: 08-17-2024 ambulatory STALIN BOOTHRISON Facility:[facility] Start: 08-17-2024 End: 08-17-2024 Patient encounter procedure Stalin Jerniganon DO Work Phone: [facility] [place] Comment on above: Type 2 diabetes jennifer itus without complication, without long- term current use of insulin (HCC) (Primary Dx); Essential hypertension; Hyponatremia; Hypokalemia; Vitamin D deficiency; Elevated TSH; Dyslipidemia; Encounter for screening mammogram for malignant neoplasm of breast; Stenosis of left carotid artery Start: 06-16-2024 End: 06-16-2024 ambulatory KAREN MOONEY Facility:[facility] Start: 06-16-2024 End: 06-16-2024 Subsequent hospital visit by physician Mri Radio [facility] (I-Stat/1.5t) Work Phone: Radiology Comment on above: 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) [I63.231] Start: 06-08-2024 End: 06-08-2024 Refill Mariella Skinner APRN.CNP Work Phone: [facility] [place] Comment on above: Refill Request Start: 06-08-2024 End: 06-08-2024 Refill Stalin Montes De Oca DO Work Phone: Family Medicine [place] Comment on above: Refill Request Start: 05-30-2024 End: 05-30-2024 ambulatory KAREN MOONEY Facility:[facility] Start: 05-30-2024 End: 05-30-2024 Office outpatient new 30 minutes Karen Mooney MD Work Phone: NEUROLOGY Comment on above: 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) (Primary Dx); Stenosis of left internal carotid artery Start: 05-16-2024 Telephone encounter Neurology Provid er Neurology Comment on above: Future Appointment ( [facility] any) Start: 05-16-2024 End: 05-16-2024 ambulatory KAVITHA HERRING Facility:[facility] Start: 05-16-2024 ambulatory KAVITHA HERRING Facili ty:[facility] Start: 05-16-2024 End: 05-16-2024 Subsequent hospital visit by physician Injection Nm [facility] Work Phone: Nuclear Medicine Comment on above: Encounter for screen ing for cardiovascular disorders [Z13.6] Start: 05-11-2024 End: 05-11-2024 ambulatory MARIELLA SKINNER Facility:[facility] Start: 05-11-2024 End: 05-11-2024 Patient encounter procedure Mariella Skinner APRN.[employer] ASS[employer] Work Phone: Family Medicine [place] Comment on above: Essential hypertensi on (Primary Dx) Start: 05-10-2024 ambulatory Nurse Card Adm in [facility] Work Phone: Cardiology Comment on above: Stress Test Instruct ions for 05/16/24 Start: 05-10-2024 E-mail encounter fro m caregiver Nurse Card Admin [facility] Work Phone: Cardiology Start: 05-09-2024 Refill Mariella mcclain WIRE FRAME MAKER.[employer] ASSISTANT [employer]ET[employer] Work Phone: Family Medicine [place] Comment on above: Refill Request Start: 04-28-2024 End: 04-28-2024 ambulatory BETHANY TAVERAS Facility:[facility] Start: 04-28-2024 End: 04-28-2024 Office outpatient visit 25 minutes Bethany Taveras MD Work Phone: Vascular Surg Dept Comment on above: Stenosis of left car otid artery (Primary Dx); Tobacco abuse; ETOH abuse; Primary hypertension; Hyperlipidemia, unspecified hyperlipidemia type; Controlled type 2 diabetes mellitus without complication, without long-term current use of insulin (HCC); 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) Start: 04-25-2024 End: 04-25-2024 Patient encounter procedure Cheyanne Sternlogabimael WIRE FRAME MAKERWaqasPROMOTIONS ASSISTANT SALES MARKETING Work Phone: [facility] [place] Comment on above: Essential hypertensi on (Primary Dx); Hyponatremia; Hypokalemia Start: 04-25-2024 End: 04-25-2024 ambulatory CHEYANNE STERNLOGABIMAEL Facility:[facility] Start: 04-19-2024 Telephone encounter Stalin gonzalez DO Work Phone: [facility] [place] Comment on above: Patient Question Rx sent to wrong pha rmacy; Pt asking for new medication Start: 04-18-2024 Refill Stalin choe DO Work Phone: [facility] [place] Comment on above: Refill Request Start: 04-11-2024 Patient encounter status Jake Darnell MD Work Phone: [facility] Start: 04-11-2024 Telephone encounter Jake choe MD Work Phone: [facility] Comment on above: Plastic Surgery Coordinator - O ther Start: 04-11-2024 End: 04-11-2024 ambulatory JAKE DARNELL Facility:[facility] Start: 04-11-2024 End: 04-11-2024 Patient encounter procedure Jake Darnell MD Work Phone: [facility] Comment on above: Atherosclerosis of n ative artery of both lower extremities with intermittent claudication (HCC) (Primary Dx); Essential hypertension; Tobacco abuse; Carotid stenosis, asymptomatic, left; Dissection of intracranial carotid artery (HCC) Start: 04-07-2024 Telephone encounter Jake choe MD Work Phone: Vascular Surgery Start: 04-01-2024 End: 04-01-2024 Subsequent hospital visit by physician Ct [facility] (I-Stat) Work Phone: Cat Scan Comment on above: Occlusion and stenos is of unspecified carotid artery [I65.29] Start: 03-22-2024 End: 03-22-2024 Patient encounter procedure Evelin Chacon MD Work Phone: General Surgery Comment on above: Abnormal ultrasound of breast; Postinflammatory skin changes Start: 03-11-2024 Telephone encounter Chapito Joseph [facility] [place] Comment on above: Patient Update 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); Occlusion and stenosis of unspecified carotid artery Start: 03-09-2024 ambulatory Tomeka Rashid RN [facility] [place] Comment on above: Procedure Instructio ns 03/11/2024 Start: 03-09-2024 E-mail encounter romaine reyes caregiver Tome[facility] [place] Start: 03-09-2024 Telephone encounter [facility] Comment on above: Smoking Cessation Start: 03-03-2024 End: 03-03-2024 Patient encounter procedure Jake Darnell MD Work Phone: Vascular Surgery Comment on above: Carotid artery steno sis, asymptomatic, bilateral (Primary Dx); Atherosclerosis of [place] artery of both lower extremities with intermittent claudication (HCC); Palpitations; Nicotine use disorder; Essential hypertension; Tobacco abuse; Type 2 diabetes mellitus without complication, without long-term current use of insulin (HCC); Alcohol abuse Start: 03-01-2024 ambulatory KAVITHA Mendoza ty:[facility] Start: 03-01-2024 End: 03-01-2024 Subsequent hospital visit by physician [facility] Radiology Comment on above: Occlusion and stenos is of unspecified carotid artery [I65.29] Start: 02-24-2024 Admission to [facility] Jake Darnell MD Work Phone: Vascular Surgery Comment on above: CTA testing Start: 02-24-2024 E-mail encounter romaine reyes caregiver Jake Darnell MD Work Phone: Vascular Surgery Start: 02-24-2024 Telephone encounter Mariella Newman APRN.CNP Work Phone: [facility] Comment on above: Results; Appointment Start: 02-24-2024 End: 02-24-2024 Subsequent hospital visit by physician [facility] Work Phone: Radiology Comment on above: Abnormal mammogram [ R92.8] Start: 02-08-2024 Refill Shelley carey PA-C Work Phone: [facility] Comment on above: Refill Request Start: 01-21-2024 Telephone encounter Kavitha Isabella Herring DO Work Phone: Vascular Surgery Comment on above: Orders Start: 01-05-2024 Telephone encounter Kaivtha Isabella Herring DO Work Phone: Vascular Surgery Comment on above: Patient Update Start: 01-05-2024 End: 01-05-2024 Patient encounter procedure Kavitha Isabella Herring DO Work Phone: Vascular Surgery Comment on above: Occlusion and stenos is of unspecified carotid artery (Primary Dx); Stenosis of left carotid artery; Encounter for screening for cardiovascular disorders; Primary hypertension; Peripheral arterial disease (HCC); Screening for nephropathy Start: 12-23-2023 Refill Mariella mcclain WIRE FRAME MAKER.[employer] ASSISTANT [employer] MARKETING Work Phone: [facility] Comment on above: Med Change Request Start: 11-23-[address] bowser WIRE FRAME MAKER.[employer] ASSISTANT [employer] MARKETING Work Phone: [facility] Comment on above: Results Start: 11-13-[address] bowser WIRE FRAME MAKER.[employer]OT[employer] ASSISTANT [employer] MARKETING Work Phone: [facility] Comment on above: Results; Appointment Start: 10-26-2023 End: 10-26-2023 Emergency department patient visit [facility] Work Phone: Start: 10-02-[address] bowser WIRE FRAME MAKER.[employer] ASSISTANT [employer] MARKETING Work Phone: [facility] Comment on above: Results; Appointment Start: 09-28-2023 Orders Only Mary Toledo WIRE FRAME MAKER.PROMOT[employer] ASSISTANT [employer] MARKETING Work Phone: [facility] Comment on above: Atherosclerosis (Sanjuana zaheer Dx) Start: 09-18-2023 End: 09-18-2023 Subsequent hospital visit by physician Xr [facility] Work Phone: Radiology Comment on above: Acute hip pain, righ t [M25.551] Start: 09-18-2023 End: 09-18-2023 Patient encounter procedure Dariel Escudero MD Work Phone: [facility] Comment on above: Acute hip pain, righ t (Primary Dx); Hip tendonitis, right; Coxa profunda; Atherosclerosis Start: 04-06-2023 Patient encounter status Mila Montes De Oca DO Work Phone: [facility] Start: 04-06-2023 Refill Stalin choe DO Work Phone: [facility] Comment on above: Refill Request Start: 12-31-2022 End: 12-31-2022 [facility] Start: 12-10-2022 ambulatory Stalin Hicks son DO Work Phone: Internal Medicine [facility] Start: 12-03-2022 End: 12-03-2022 Patient encounter procedure Abhi Fu Work Phone: Podiatry Comment on above: Porokeratosis (Prima ry Dx) Start: 10-31-2022 Refill Stalin Hicks son DO Work Phone: [facility] Comment on above: Refill Request (they send 100 every 30 days) Start: 05-03-2022 End: 05-03-2022 [facility] Start: 03-27-2022 Refill Stalin Hicks son DO Work Phone: [facility] Comment on above: Refill Request Start: 02-20-2022 Telephone encounter Stalin gonzalez DO Work Phone: [facility] Comment on above: Results Start: 02-19-2022 End: 02-19-2022 Office outpatient visit 15 minutes Channing Benton APRN.PROMOTIONS ASSISTANT [employer] MARKETING Work Phone: [facility] Comment on above: Pharyngitis, unspeci fied etiology (Primary Dx); Viral illness Procedures Date Procedure Procedure Detail Performing Clinician Start: 06-16-2024 Mri brain brain stem w/o contrast material Karen Mooney MD Work Phone: Start: 04-01-2024 Ct angiography head w/contrast/noncontrast Jake Darnell MD Work Phone: Start: 04-01-2024 Ct angiography neck w/contrast/noncontrast aJke Darnell MD Work Phone: Start: 03-01-2024 Ct angiography head w/contrast/noncontrast Kavitha Herring DO Work Phone: Start: 03-01-2024 Ct angiography neck w/contrast/noncontrast Kavitha Herring DO Work Phone: Start: 02-24-2024 Us breast uni real t abdi with image limited Mariella Weeksutzman WIRE FRAME MAKER.[employer] ASSISTANT [employer] MARKETING Work Phone: Start: 09-18-2023 Radex hip unilateral with pelvis 2-3 views Dariel Escudero MD Work Phone: Start: 12-31-2022 Plain chest X-ray Start: 02-19-2022 STREP A MOLECULAR (POC) Channing Benton APRN.[employer] ASSISTANT [employer] MARKETING Work Phone: Start: 01-22-2021 Adult depression scr eening assessment Channing Benton APRN.[employer]OT[employer] ASSISTANT [employer] MARKETING Work Phone: Start: 05-27-2019 Mammography Channing sauceda WIRE FRAME MAKER.[employer]OTIONS ASSISTANT SAL[employer] MARKETING Work Phone: SARS-CoV-2 & FLU Ant igen (Rapid) Plan of Treatment Date Care Activity Detail Author Start: 11-11-2028 Screening for malignant neoplasm of cervix [facility] Start: 11-20-2026 Screening for malignant neoplasm of colon [facility] Start: 04-03-2026 Annual PCP Team Chronic Disease Visit Annual PCP Team Chronic Disease Visit [facility] Start: 04-03-2026 Hepatitis B screening Urine Albumin:Creatinine Ratio [facility] Start: 04-03-2026 Hepatitis B surface antibody level LDL Cholesterol [facility] Start: 11-01-2025 Annual PCP Team Chronic Disease Visit Annual PCP Team Chronic Disease Visit [facility] Start: 11-01-2025 Diabetic foot examination Diabetic Foot Exam [facility] Start: 10-03-2025 Hemoglobin A1c measurement HbA1C [facility] Start: 09-30-2025 Screening for malignant neoplasm of breast Mammogram Screening [facility] Start: 08-29-2025 End: 08-29-2025 Patient encounter procedure 08/29/2025 1:40 PM EST Office Visit [facility] [place] [address] [place] [address] Stalin Montes De Oca DO [address] [place] [address] 6 month follow up [facility] [place] Comment on above: 6 month follow up Start: 08-17-2025 Annual PCP Team Chronic Disease Visit Annual PCP Team Chronic Disease Visit [facility] Start: 07-04-2025 End: 10-03-2025 Cobalamin (Vitamin B12) [Mass/volume] in Serum or Plasma VITAMIN B12 Lab Routine Type 2 diabetes mellitus without complication, without long-term current use of insulin (HCC) Expected: 07/04/2025, Expires: 10/03/2025 [facility] Comment on above: Expected: 07/04/2025, Expires: Start: 07-04-2025 End: 07-04-2025 ambulatory 07/04/2025 12:15 PM EDT Results Only [facility] [address] [place] [address] [facility] Start: 06-19-2025 Influenza vaccination Influenza Vaccine (Season Ended) [facility] Start: 05-11-2025 Annual PCP Team Chronic Disease Visit Annual PCP Team Chronic Disease Visit [facility] Start: 04-25-2025 Annual PCP Team Chronic Disease Visit Annual PCP Team Chronic Disease Visit [facility] Start: 04-17-2025 Influenza vaccination Influenza Vaccine (#1) [facility] Comment on above: Postponed from 06/19/2024 (Declined at t his time) Start: 04-03-2025 End: 2025 Thyroxine (T4) free [Mass/volume] in Serum or Plasma [facility] Work Phone: Comment on above: Expected: 04/03/2025, Expires: Start: 03-07-2025 [facility] Start: 02-15-2025 Hemoglobin A1c measurement HbA1C [facility]onia Start: 02-08-2025 End: 02-08-2025 Patient encounter procedure 02/08/2025 12:40 PM EDT Office Visit [facility] [place] [address] [facility], [place] [id number] Stalin Montes De Oca DO [address] [facility], [place] [address] 3 month follow up [facility] Comment on above: 3 month follow up Start: 01-30-2025 End: 05-01-2025 25-hydroxyvitamin D3 [Mass/volume] in Serum or Plasma VITAMIN D 25 HYDROXY Lab Routine Type 2 diabetes mellitus without complication, without long-term current use of insulin (HCC) Expected: 01/30/2025, Expires: 05/01/2025 [facility] Comment on above: Expected: 01/30/2025, Expires: Start: 01-30-2025 End: 05-01-2025 CBC panel - Blood by Automated count COMPLETE BLOOD COUNT Lab Routine Essential hypertension Type 2 diabetes mellitus without complication, without long-term current use of insulin (HCC) Dyslipidemia Expected: 01/30/2025, Expires: 05/01/2025 [facility] Comment on above: Expected: 01/30/2025, Expires: Start: 01-30-2025 End: 05-01-2025 Comprehensive metabolic 2000 panel - Serum or Plasma COMPREHENSIVE METABOLIC PANEL Lab Routine Essential hypertension Type 2 diabetes mellitus without complication, without long-term current use of insulin (HCC) Dyslipidemia Expected: 01/30/2025, Expires: 05/01/2025 [facility] Work Phone: Comment on above: Expected: 01/30/2025, Expires: Start: 01-30-2025 End: 05-01-2025 Hemoglobin A1c in Blood HEMOGLOBIN A1C Lab Routine Type 2 diabetes mellitus without complication, without long-term current use of insulin (HCC) Expected: 01/30/2025, Expires: 05/01/2025 [facility] Comment on above: Expected: 01/30/2025, Expires: Start: 01-30-2025 End: 05-01-2025 Lipid 1996 panel - Serum or Plasma LIPID PANEL BASIC Lab Routine Dyslipidemia Expected: 01/30/2025, Expires: 05/01/2025 [facility] Comment on above: Expected: 01/30/2025, Expires: Start: 01-30-2025 End: 05-01-2025 Magnesium [Mass/volume] in Serum or Plasma MAGNESIUM Lab Routine Type 2 diabetes mellitus without complication, without long-term current use of insulin (HCC) Expected: 01/30/2025, Expires: 05/01/2025 [facility] Comment on above: Expected: 01/30/2025, Expires: Start: 01-30-2025 End: 05-01-2025 Microalbumin/Creatinine [Mass Ratio] in Urine ALBUMIN/CREATININE RATIO, URINE Lab Routine Type 2 diabetes mellitus without complication, without long-term current use of insulin (HCC) Expected: 01/30/2025, Expires: 05/01/2025 [facility] Comment on above: Expected: 01/30/2025, Expires: Start: 01-30-2025 End: 05-01-2025 Thyrotropin [Units/volume] in Serum or Plasma THYROID STIMULATING HORMONE Lab Routine Type 2 diabetes mellitus without complication, without long-term current use of insulin (HCC) Expected: 01/30/2025, Expires: 05/01/2025 [facility] Comment on above: Expected: 01/30/2025, Expires: Start: 11-11-2024 Annual PCP Team Chronic Disease Visit Annual PCP Team Chronic Disease Visit [facility] Start: 11-11-2024 Hepatitis B screening Urine Albumin:Creatinine Ratio [facility] Start: 11-11-2024 Hepatitis B surface antibody level LDL Cholesterol [facility] Start: 11-01-2024 End: 11-01-2024 Patient encounter procedure 11/01/2024 10:00 AM EST Office Visit [facility] [place] [address] [facility] [place] [address] Stalin Montes De Oca DO [address] [place] [address] Physical Family Medicine [place] Comment on above: Physical Start: 09-30-2024 Pneumococcal vaccination Pneumococcal Vaccine (1 of 2 - PCV) [facility] Comment on above: Postponed from 1979 (Declined at t his time) Start: 09-30-2024 Shingrix Vaccine (1 of 2) Shingrix Vaccine (1 of 2) [facility] Comment on above: Postponed from 2023 (Declined at t his time) Start: 09-30-2024 Urine microalbumin profile DTaP,Tdap,Td Vaccine (1 - Tdap) [facility] Comment on above: Postponed from 1992 (Declined at t his time) Start: 09-30-2024 End: 09-30-2024 Patient encounter procedure 09/30/2024 9:30 AM EST Appointment Mammogram [address] [place] [address] Encounter for screening mammogram for malignant neoplasm of breast [Z12.31] Mammogram Comment on above: Encounter for screening mammogram for ma lignant neoplasm of breast [Z12.31] Start: 09-29-2024 Screening for malignant neoplasm of breast Mammogram Screening [facility] Start: 09-28-2024 3 comp foot exam completed Diabetic Foot Exam [facility] Start: 09-28-2024 Annual PCP Team Chronic Disease Visit Annual PCP Team Chronic Disease Visit [facility] Start: 09-28-2024 Diabetic foot examination [facility]abetic Foot Ex[facility] Start: 08-17-2024 End: 11-16-2024 Comprehensive metabolic 2000 panel - Serum or Plasma [facility] Comment on above: Expected: 08/17/2024, Expires: Start: 08-17-2024 End: 11-16-[address] in Blood [facility] Work Phone: Comment on above: Expected: 08/17/2024, Expires: Start: 08-17-2024 End: 11-16-2024 Thyrotropin [Units/volume] in Serum or Plasma [facility] Comment on above: Expected: 08/17/2024, Expires: Start: 08-17-2024 End: 11-16-2024 Thyroxine (T4) free [Mass/volume] in Serum or Plasma [facility] Comment on above: Expected: 08/17/2024, Expires: Start: 08-17-2024 End: 11-16-2024 Triiodothyronine (T3) Free [Mass/volume] in Serum or Plasma [facility] Comment on above: Expected: 08/17/2024, Expires: Start: 08-17-2024 End: 08-17-2024 Patient encounter procedure 08/17/2024 8:20 AM EDT Office Visit [facility] [place] [address] [place] [address] Stalin Montes De Oca DO [address] [place] [address] Yearly, BP check [facility] [place] Comment on above: Yearly, BP check Start: 06-19-2024 Influenza vaccination [facility] Start: 06-16-2024 End: 06-16-2024 Patient encounter procedure 06/16/2024 10:40 AM EDT Appointment Radiology [address] [place] [address] MRI BRAIN WO IVCON Radiology Comment on above: MRI BRAIN WO IVCON Start: 05-30-2024 End: 05-30-2024 Patient encounter procedure 05/30/2024 10:00 AM EDT Office Visit NEUROLOGY [address] [id number] Karen Mooney MD [address] [place], [place] [id number] new Carotid artery disease per pt , lesion on brain needing stent NEUROLOGY Comment on above: new Carotid artery disease per pt , lesi on on brain needing stent Start: 05-16-2024 End: 05-16-2024 Nursing evaluation of patient and report 05/16/2024 9:45 AM EDT Nurse Visit Cardiology [address] [place] [id number] Wstr, Nurse Card Admin [facility] [address] [place] [address] Encounter for screening for cardiovascular disorders [Z13.6] Cardiology Comment on above: Encounter for screening for cardiovascul ar disorders [Z13.6] Start: 05-16-2024 End: 05-16-2024 Patient encounter procedure Nuclear Medi [facility] Comment on above: Encounter for screening for cardiovascul ar disorders [Z13.6] Start: 05-11-2024 Hemoglobin A1c measurement HbA1C [facility] Start: 05-11-2024 End: 05-11-2024 Patient encounter procedure 05/11/2024 9:20 AM EDT Office Visit [facility] [place] [address] [facility] [address] Mariella Skinner, WIRE FRAME MAKER.[employer] ASSIST[employer] [address] [place] [address] 2 week BP check Family Medicine [place] Comment on above: 2 week BP check Start: 05-10-2024 End: 05-10-2024 Patient encounter procedure 05/10/2024 8:40 AM EDT Office Visit Family Medicine [place] [address] [facility] [place] [address] Mariella Skinner, WIRE FRAME MAKER.[employer] ASSIST[employer] [address] [place] [address] 2 week BP check Family Medicine [place] Comment on above: 2 week BP check Start: 04-28-2024 End: 04-28-2024 Patient encounter procedure 04/28/2024 9:45 AM EDT Office Visit Vascular Surg Dept [address] [place] [address] Bethany Taveras MD [address] [place] [address] second opinion on cta results Vascular Surg Dept Comment on above: second opinion on cta results Start: 04-25-2024 End: 07-25-2024 Comprehensive metabolic 2000 panel - Serum or Plasma [facility] Work Phone: Comment on above: Expected: 04/25/2024, Expires: Start: 04-25-2024 End: 04-25-2024 Patient encounter procedure 04/25/2024 11:20 AM EDT Office Visit Family Medicine [place] [address] [place] [address] Cheyanne Dowd APRN.[employer] ASSIST[employer] [address] [place] [address] [facility] increased BP Family Medicine [place] Comment on above: [facility] increased BP Start: 04-20-2024 End: 04-20-2024 Patient encounter procedure 04/20/2024 9:40 AM EDT Office Visit Family [facility] [place] [address] [place] [address] Mariella Skinner APRN.[employer] [address] [place] [address] results Family Medicine [place] Comment on above: Discuss CT results Start: 04-17-2024 Influenza vaccination Influenza Vaccine (#1) [facility] Comment on above: Postponed from 06/19/2023 (Declined at t his time) Start: 04-07-2024 End: 04-07-2024 Patient encounter procedure 04/07/2024 10:15 AM EDT Office Visit Vascular Surgery [address] [address] Jake Darnell MD [address] [place] [address] FOLLOW UP TO CTA RESULTS Vascular Surgery Comment on above: FOLLOW UP TO CTA RESULTS Start: 04-01-2024 End: 04-01-2024 Patient encounter procedure 04/01/2024 8:40 AM EDT Appointment Cat Scan [address] [place] [address] CTA HEAD W IVCON Cat Scan Comment on above: CTA HEAD W IVCON Start: 03-28-2024 End: 03-28-2024 Patient encounter procedure Cardiology Comment on above: ECHO WITH AGITATED SALINE CONTRAST CCN APPROVED Start: 03-22-2024 End: 03-22-2024 Patient encounter procedure 03/22/2024 10:00 AM EDT Office Visit General Surgery [address] [place], [place] [address] Evelin Chacon MD [address] [place] [id number] R Breast consult General Surgery Comment on above: R Breast consult Start: 03-21-2024 End: 03-21-2024 Patient encounter procedure 03/21/2024 12:30 PM EDT Office Visit Pulmonary Medicine [address] [address] Bell Garcia, JANAE.[employer] ASSISTANT [employer] [address] [place] [address] Atherosclerosis of [place] artery of both lower extremities with intermittent claudication (HCC) [I70.213] Pulmonary Medicine Comment on above: Atherosclerosis of [place] artery of both lower extremities with intermittent claudication (HCC) [I70.213] Start: 03-11-2024 End: 03-11-2024 Slctv cath intrnl carotid art angio intrcrnl art SELECTIVE CATH PLACEMENT INTERNAL CAROTID ARTERY UNILATERAL W/ ANGIOGRAPHY OF THE IPSILATERAL INTRACRANIAL CAROTID CIRCULATION W/ ANGIOGRAPHY OF THE EXTRACRANIAL CAROTID AND CERVICOCEREBRAL ARCH Internal carotid artery stenosis, left 03/11/2024 8:01 PM EDT [facility] [place] Start: 03-11-2024 End: 03-11-2024 Slctv cath vertebral art angio vertebral artery SELECTIVE CATH PLACEMENT VERTEBRAL ARTERY UNILATERAL W/ ANGIOGRAPHY OF THE IPSILATERAL VERTEBRAL CIRCULATION W/ ANGIOGRAPHY OF THE CERVICOCEREBRAL ARCH Internal carotid artery stenosis, left 03/11/2024 8:01 PM EDT [facility] [place] Start: 03-11-2024 End: 03-11-2024 Admission to same day surgery center 03/11/2024 12:24 PM EDT - 03/11/2024 2:13 PM EDT Surgery [place] [address] Kayla Pathak MD [address] [place] [address] SELECTIVE CATH PLACEMENT VERTEBRAL ARTERY UNILATERAL W/ ANGIOGRAPHY OF THE IPSILATERAL VERTEBRAL CIRCULATION W/ ANGIOGRAPHY OF THE CERVICOCEREBRAL ARCH [facility] Comment on above: SELECTIVE CATH PLACEMENT VERTEBRAL ARTER Y UNILATERAL W/ ANGIOGRAPHY OF THE IPSILATERAL VERTEBRAL CIRCULATION W/ ANGIOGRAPHY OF THE CERVICOCEREBRAL ARCH Start: 03-11-2024 End: 03-11-2024 Slctv cath intrnl carotid art angio intrcrnl art [facility] Start: 03-11-2024 End: 03-11-2024 Slctv cath vertebral art angio vertebral artery [facility] Start: 03-11-2024 Subsequent hospital visit by physician 03/11/2024 12:24 PM EDT Hospital Encounter [place] [address] Kayla Pathak MD [address] [place] [address] Internal carotid artery stenosis, left [I65.22] [facility] Comment on above: Internal carotid artery stenosis, left [ I65.22] Start: 03-10-2024 End: 03-10-2024 Patient encounter procedure 03/10/2024 10:00 AM EDT Office Visit Pulmonary Medicine [address] [address] Julia Leblanc, WIRE FRAME MAKER.[employer] ASSISTANT [employer] [address] [address] Atherosclerosis of [place] artery of both lower extremities with intermittent claudication (HCC) [I70.213] Pulmonary Medicine Comment on above: Atherosclerosis of [place] artery of both lower extremities with intermittent claudication (HCC) [I70.213] Start: 03-03-2024 End: 03-03-2024 Patient encounter procedure 03/03/2024 9:30 AM EDT Office Visit Vascular Surgery [address] [address] Jake Darnell MD [address] [place] [address] follow up after testing Vascular Surgery Comment on above: follow up after testing Start: 03-01-2024 End: 03-01-2024 Patient encounter procedure 03/01/2024 1:30 PM EDT Appointment Radiology [address] [place] [address] Occlusion and stenosis of unspecified carotid artery [I65.29] Radiology Comment on above: Occlusion and stenosis of unspecified ca rotid artery [I65.29] Start: 02-24-2024 End: 02-24-2024 Patient encounter procedure 02/24/2024 11:30 AM EDT Appointment Radiology [address] [place] [address] Abnormal mammogram [R92.8] Radiology Comment on above: Abnormal mammogram [R92.8] Start: 01-05-2024 End: 04-05-2024 CREATININE BLD CREATININE BLD Lab Routine Screening for nephropathy Expected: 01/05/2024, Expires: 04/05/2024 [facility] Work Phone: Comment on above: Expected: 01/05/2024, Expires: Start: 10-26-2023 [facility] Start: 10-20-2023 Glaucoma screening Dilated Retinal Exam [facility] Start: 10-20-2023 Hepatitis C antibody, confirmatory test Dilated Retinal Exam [facility] Start: 10-19-2023 Behavioral Health Screening Behavioral Health Screening [facility] Start: 10-19-2023 Depression Assessment Depression Assessment [facility] Start: 2023 Shingrix Vaccine (1 of 2) Shingrix Vaccine (1 of 2) [facility] Start: 06-19-2023 Influenza vaccination [facility] Start: 04-06-2023 End: 08-18-2023 CBC W Auto Differential panel - Blood CBC + DIFF Lab Routine New onset type 2 diabetes mellitus (HCC) Expected: 04/06/2023 (Approximate), Expires: 08/18/2023 [facility] Work Phone: Comment on above: Expected: 04/06/2023 (Approximate), Expi res: 08/18/2023 Start: 04-06-2023 End: 08-18-2023 Comprehensive metabolic 2000 panel - Serum or Plasma COMP METABOLIC PANEL Lab Routine New onset type 2 diabetes mellitus (HCC) Expected: 04/06/2023 (Approximate), Expires: 08/18/2023 [facility] Work Phone: Comment on above: Expected: 04/06/2023 (Approximate), Expi res: 08/18/2023 Start: 04-06-2023 End: 08-18-2023 Hemoglobin A1c in Blood HGB A1C Lab Routine New onset type 2 diabetes mellitus (HCC) Expected: 04/06/2023 (Approximate), Expires: 08/18/2023 [facility] Work Phone: Comment on above: Expected: 04/06/2023 (Approximate), Expi res: 08/18/2023 Start: 04-06-2023 End: 08-18-2023 Lipid 1996 panel - Serum or Plasma LIPID PANEL BASIC Lab Routine New onset type 2 diabetes mellitus (HCC) Expected: 04/06/2023 (Approximate), Expires: 08/18/2023 [facility] Work Phone: Comment on above: Expected: 04/06/2023 (Approximate), Expi res: 08/18/2023 Start: 04-06-2023 End: 08-18-2023 Thyrotropin [Units/volume] in Serum or Plasma TSH BLD Lab Routine New onset type 2 diabetes mellitus (HCC) Expected: 04/06/2023 (Approximate), Expires: 08/18/2023 [facility] Work Phone: Comment on above: Expected: 04/06/2023 (Approximate), Expi res: 08/18/2023 Start: 11-25-2022 ANNUAL PCP TEAM CHRONIC DISEASE VISIT ANNUAL PCP TEAM CHRONIC DISEASE VISIT [facility] Start: 10-31-2022 Hepatitis B surface antibody level LDL CHOLESTEROL [facility] Start: 10-19-2022 DEPRESSION ASSESSMENT DEPRESSION ASSESSMENT [facility] Start: 06-19-2022 Influenza vaccination [facility] Start: 04-30-2022 Hemoglobin A1c measurement HbA1C [facility] Start: 04-30-2022 Hemoglobin A1c/Hemoglobin.total in Blood HBA1C [facility] Start: 01-22-2022 Adult depression screening assessment DEPRESSION SCREENING [facility] Start: 06-11-2020 HPV TESTING HPV TESTING [facility] Start: 06-11-2020 PAP TESTING PAP TESTING [facility] Start: 06-11-2020 Screening for malignant neoplasm of cervix [facility] Start: 05-27-2020 Mammography [facility] Start: 2018 COLOGUARD (FIT-DNA) COLOGUARD (FIT-DNA) [facility] Start: 2018 Colonoscopy COLONOSCOPY [facility] Start: 2018 COLORECTAL CANCER SCREENING COLORECTAL CANCER SCREENING [facility] Start: [address] COLONOGRAPHY [facility] Start: 2018 FECAL OCCULT BLOOD FECAL OCCULT BLOOD [facility] Start: 2018 Screening for malignant neoplasm of colon [facility] Start: 2018 SIGMOIDOSCOPY SIGMOIDOSCOPY [facility] Start: 1992 HEPATITIS B (1 of 3 - Risk 3-dose series) HEPATITIS B (1 of 3 - Risk 3-dose series) [facility] Start: 1992 Pneumococcal Vaccine: 50+ (1 of 2 - PCV) Pneumococcal Vaccine: 50+ (1 of 2 - PCV) [facility] Start: 1992 Urine microalbumin profile [facility] Start: 1991 Anxiety Screening Anxiety Screening [facility] Start: 1991 BP CONTROLLED (<130/80) BP CONTROLLED (<130/80) [facility] Start: 1991 Depression Screening Depression Screening [facility] Start: 1991 HEPATITIS C SCREENING HEPATITIS C SCREENING [facility] Start: 1991 Hepatitis C screening Hepatitis C Screening [facility] Start: 1989 ONE PNEUMOVAX PRIOR TO AGE 63 ONE PNEUMOVAX PRIOR TO AGE 63 [facility] Start: 1983 3 comp foot exam completed DIABETIC FOOT EXAM [facility] Start: 1983 Hepatitis B screening URINE ALBUMIN:CREATININE RATIO [facility] Start: 1983 Hepatitis C antibody, confirmatory test DILATED RETINAL EXAM [facility] Start: 1979 PNEUMOCOCCAL (1 - PCV) PNEUMOCOCCAL (1 - PCV) [facility] Start: 1979 Pneumococcal vaccination Pneumococcal Vaccine (1 - PCV) [facility] Start: 1978 COVID-19 VACCINE (#1) COVID-19 VACCINE (#1) [facility] Start: 1978 COVID-19 VACCINE (1) COVID-19 VACCINE (1) [facility] Start: 1973 COVID-19 VACCINE (#1) COVID-19 VACCINE (#1) [facility] Start: 1973 HEPATITIS B (1 of 3 - 3-dose series) HEPATITIS B (1 of 3 - 3-dose series) [facility] Start: 1973 Hepatitis B Vaccine (1 of 3 - 3-dose series) Hepatitis B Vaccine (1 of 3 - 3-dose series) [facility] End: 02-03-2025 CT Neck W contrast IV CTA NECK W IVCON Radiology Routine Occlusion and stenosis of unspecified carotid artery 1 Occurrences starting 01/05/2024 until 02/03/2025 [facility] Work Phone: Comment on above: 1 Occurrences starting 01/05/2024 until 02/03/2025 End: 04-10-2025 CT Neck W contrast IV CTA NECK W IVCON Radiology Routine Multiple and bilateral precerebral artery syndromes 1 Occurrences starting 03/11/2024 until 04/10/2025 [facility] Comment on above: 1 Occurrences starting 03/11/2024 until 04/10/2025 End: 02-03-2025 CTA Head Arteries W contrast IV CTA HEAD W IVCON Radiology Routine Occlusion and stenosis of unspecified carotid artery 1 Occurrences starting 01/05/2024 until 02/03/2025 [facility] Work Phone: Comment on above: 1 Occurrences starting 01/05/2024 until 02/03/2025 End: 04-10-2025 CTA Head Arteries W contrast IV CTA HEAD W IVCON Radiology Routine Occlusion and stenosis of unspecified carotid artery 1 Occurrences starting 03/11/2024 until 04/10/2025 [facility] Work Phone: Comment on above: 1 Occurrences starting 03/11/2024 until 04/10/2025 End: 09-16-2025 DBT Breast - bilateral screening YIN SCREENING W ZOFIA Radiology Routine Encounter for screening mammogram for malignant neoplasm of breast 1 Occurrences starting 08/17/2024 until 09/16/2025 [facility] Comment on above: 1 Occurrences starting 08/17/2024 until 09/16/2025 DBT Breast - bilater al screening YIN SCREENING W ZOFIA Radiology Routine Encounter for screening mammogram for malignant neoplasm of breast 09/30/2024 9:[address] [facility] Work Phone: End: 03-03-2025 ECHO WITH AGITATED SALINE CONTRAST ECHO WITH AGITATED SALINE CONTRAST Cardiology Routine Palpitations Essential hypertension 1 Occurrences starting 03/03/2024 until 03/03/2025 [facility] Comment on above: 1 Occurrences starting 03/03/2024 until 03/03/2025 Group A Streptococcu s Rapid Screen Group A Streptococcus Rapid Screen [facility] Work Phone: Influenza virus A an d B RNA and SARS-CoV-2 (COVID-19) N gene panel - Respiratory specimen by TRINA with probe detection COVID WITH FLUA+B, ROUTINE Microbiology Routine Viral illness Ordered: 02/19/2022 [facility] Work Phone: Comment on above: Ordered: 02/19/2022 End: 10-31-2024 YIN DIAGNOSTIC RIGHT YIN DIAGNOSTIC RIGHT Radiology Routine Inconclusive mammogram 1 Occurrences starting 10/02/2023 until 10/31/2024 [facility] Work Phone: Comment on above: 1 Occurrences starting 10/02/2023 until 10/31/2024 End: 01-09-2024 YIN SCREENING YIN SCREENING Radiology Routine Encounter for screening mammogram for breast cancer 1 Occurrences starting 12/10/2022 until 01/09/2024 [facility] Work Phone: Comment on above: 1 Occurrences starting 12/10/2022 until 01/09/2024 End: 06-29-2025 MR Brain WO contrast MRI BRAIN WO IVCON Radiology Routine 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) 1 Occurrences starting 05/30/2024 until 06/29/2025 [facility] Work Phone: Comment on above: 1 Occurrences starting 05/30/2024 until 06/29/2025 End: 02-03-2025 NM Heart Perfusion W multiple states of exercise NM CARDIAC PERF STRESS/EXERCISE Radiology Routine Encounter for screening for cardiovascular disorders Primary hypertension 1 Occurrences starting 01/05/2024 until 02/03/2025 [facility] Work Phone: Comment on above: 1 Occurrences starting 01/05/2024 until 02/03/2025 Patient Education [facility] Work Phone: Patient referral [facility] Work Phone: RFA Carotid artery - bilateral and Cerebral artery - bilateral Views W contrast IA IR CEREBRAL ANGIOGRAM CONSULT Radiology Routine Carotid artery stenosis, asymptomatic, bilateral Ordered: 03/03/2024 [facility] Work Phone: Comment on above: Ordered: 03/03/2024 SARS-CoV-2 (COVID-19 ) Ag [Presence] in Respiratory specimen by Rapid immunoassay [facility] Work Phone: SARS-CoV-2 Antigen (Rapid) SARS- CoV-2 Antigen (Rapid) [facility] Work Phone: Streptococcus pyogen es Ag [Presence] in Throat by Immunofluorescence [facility] Work Phone: End: 10-31-2024 US BREAST LTD RIGHT US BREAST LTD RIGHT Radiology Routine Inconclusive mammogram 1 Occurrences starting 10/02/2023 until 10/31/2024 [facility] Work Phone: Comment on above: 1 Occurrences starting 10/02/2023 until 10/31/2024 End: 09-28-2024 US CAROTID ARTERIES [facility] US CAROTID ARTERIES [facility] Vascular Lab Routine Atherosclerosis 1 Occurrences starting 09/28/2023 until 09/28/2024 [facility] Work Phone: Comment on above: 1 Occurrences starting 09/28/2023 until 09/28/2024 End: 01-04-2025 US Lower extremity artery - bilateral PVR LEG [facility] Vascular Lab Routine Peripheral arterial disease (HCC) 1 Occurrences starting 01/05/2024 until 01/04/2025 [facility] Work Phone: Comment on above: 1 Occurrences starting 01/05/2024 until 01/04/2025 [facility] Immunizations Immunization Date Immunization Notes Care Provider Shai butts 09-02-2012 influenza virus vaccine, unspecified formulation Channing Benton APRN.[facility] Work Phone: [facility] Work Phone: Payers Date Payer Category Payer Self-pay [id number] 2022 Unknown [id number] 2021 Medicaid [place] [employer] [employer] [id number] 2021-Present [phone] [address] Medicaid [id number] 2021 Medicaid [id number] Unknown [id number] Unknown [id number] Social History Date Type Detail Facility Start: 09-02-2012 End: 08-17-2024 Tobacco smoking status NHIS Smokes tobacco daily [facility] Work Phone: Start: 09-02-2012 End: 05-28-2023 Cigarettes smoked current (pack per day) - Reported 1 [facility] Start: 09-02-2012 End: 08-17-2024 Tobacco use and exposure Smokeless tobacco non-user [facility] Work Phone: Start: 02-19-2022 End: 04-03-2025 Alcohol intake Current drinker of alcohol (finding) [facility] Start: 01-22-2021 History SDOH Alcohol Frequency 5 [facility] Start: 01-22-2021 History SDOH Alcohol Std Drinks 2 [facility] Start: 06-11-2015 History SDOH Alcohol Comment 3- 24ounce beers per day. [facility] Start: 01-22-2021 History SDOH Social Connections Get Together 3 [facility] Start: 01-22-2021 History SDOH Social Connections Temple 1 [facility] Start: 01-22-2021 History SDOH Social Connections Living 7 [facility] Start: 01-22-2021 History SDOH Physica l Activity DPW 4 [facility] Start: 01-22-2021 History SDOH Physica l Activity MPS 6 [facility] Start: 1975 Sex Assigned At Female [facility] Start: 02-09-2022 End: 02-19-2022 Exposure to SARS-CoV-2 (event) Not sure [facility] Work Phone: Start: 03-15-2022 End: 03-25-2022 Exposure to SARS-CoV-2 (event) Unable to assess [facility] Work Phone: Start: 05-03-2022 End: 10-26-2023 Tobacco smoking status NHIS Unknown if ever smoked [facility] Start: 11-12-2019 None [facility] Start: 11-12-2019 With Family [facility] History of tobacco use Cigarette Smoker C [facility] Work Phone: Start: 01-22-2021 End: 05-28-2023 Social connection and isolation panel [facility] Active Member of [facility] bs or Organizations Not on file [facility] Are you now , , , , never or living with a partner? Never [facility] How often to you hav e a drink containing alcohol? 4 or more times a week [facility] How many standard drinks containing alcohol do you have on a typical day? 3 or 4 [facility] How often do you hav e 6 or more drinks on 1 occasion? Less than monthly [facility] Do you feel stress - tense, restless, nervous, or anxious, or unable to sleep at night because your mind is troubled all the time - these days [OSQ] Only a little [facility] The food that (I/we) bought just didn't last, and (I/we) didn't have money to get more. Sometimes true [facility] At any time in the p ast 12 months, were you homeless or living in residential [including now]? No [facility] Start: 11-25-2021 Gender identity Identifies as female gender (finding) [facility] Start: 11-25-2021 Sexual orientation Heterosexual (richi dodson) [facility] [facility] Has the [employer], or [employer] threatened to shut off services in your home in past 12Mo Yes [facility] How often do you hav e 6 or more drinks on 1 occasion? Daily or almost daily [facility] How hard is it for y ou to pay for the very basics like food, housing, medical care, and heating Somewhat hard [facility] Do you feel stress - tense, restless, nervous, or anxious, or unable to sleep at night because your mind is troubled all the time - these days [OSQ] To some extent [facility] NEGATED: Highlighted row [facility] Medical Equipment Procedure Code Equipment Code Equipment Original Text Equipment Identifier Dates [id number], [id number], [id number] Start: 11-25-2021 End: 01-18-2025 Comment on above: Test blood sugar(s) 1 times daily. Dx: Type 2 DM - Controlled E11.9 Insulin: No Use as instructed USE TO TEST BLOOD MCKAY GAR DAILY DIRECTED Test blood sugar(s) 1 times daily. Dx: Type 2 DM - Controlled E11.9 Insulin: Yes Goals Date Patient Goal Desired Activity /State Personal health goal Functional Status Date Assessment Result Facility 05-16-2015 Are you deaf, or do you have serious difficulty hearing No 05/16/2015 9:03 AM Stacia Watkins LPN No [facility] 05-16-2015 Are you blind, or do you have serious difficulty seeing, even when wearing glasses No 05/16/2015 9:03 AM Stacia Watkins LPN No [facility] 05-16-2015 Do you have serious difficulty walking or climbing stairs No 05/16/2015 9:03 AM EDT Stacia Be LPN No [facility] 05-16-2015 Do you have difficul ty dressing or bathing No 05/16/2015 9:03 AM EDT Stacia Be LPN No [facility] 05-16-2015 Because of a physica l, mental, or emotional condition, do you have difficulty doing errands alone such as visiting a physician's office or shopping No 05/16/2015 9:03 AM EDT Stacia Be LPN No [facility] Mental Status Date Assessment Result Facility 03-07-2025 Cognitive function Voice/Name [facility] Work Phone: 10-26-2023 Cognitive function Level Of Cons ciousness Awake;Alert;Appropriate [facility] Work Phone: 05-03-2022 Cognitive function Level Of Cons ciousness Awake;Alert;Appropriate [facility] Work Phone: 05-16-2015 Because of a physica l, mental, or emotional condition, do you have serious difficulty concentrating, remembering, or making decisions No 05/16/2015 9:03 AM EDT Stacia Be LPN No [facility] Clinical Notes 10-06-2012 to 04-07-2025 Telephone Encounter - Evelin Villafuerte LPN - 04/07/2025 9:29 AM EDTTelephone Encounter - Evelin Villafuerte LPN - 04/07/2025 9:29 AM EDTTelephone Encounter - Evelin Villafuerte LPN - 04/06/2025 8:16 AM EDT Note Date & Type Note Facility 04-07-2025 Telephone encounter Note Spoke with pt gave information provided. Pt voices understanding. [facility] 04-07-2025 Miscellaneous Notes Spoke with pt gave information provided. Pt voices understanding. Left message to return call. Please inform patient that her labs are much improved. Her cholesterol is better, her A1c is at 6.3%. she just needs to increase iron rich foods since her hemoglobin is on the border of anemia. /Stalin Montes De Oca DO documented in this encounter [facility] 04-06-2025 Telephone encounter Note Left message to return call. [facility] 04-05-2025 Telephone encounter Note Please inform patient that her labs are much improved. Her cholesterol is better, her A1c is at 6.3%. she just needs to increase iron rich foods since her hemoglobin is on the border of anemia. /Stalin Montes De Oca DO [facility] 04-03-2025 Note HNO ID: [id number] Author: STALIN MONTES DE OCA DO Service: ? Author Type: Physician Type: Progress Notes Filed: 04/03/2025 11:07 Note Text: Viki Villalta is a 49-year-old female with a history of HTN and diabetes, presenting for follow-up. Hypertension: - Currently taking metoprolol. - Reports episodes of elevated blood pressure associated with stress. - Recent ER visit for left arm pain and paresthesia; BP recorded at 209/69 mmHg. - Denies current arm pain. Diabetes: - Making dietary changes to manage diabetes, including consuming whole grain and keto bread, and preparing homemade salads. - Expresses interest in dietary guidance to improve management. - Denies current use of multivitamins or supplements. 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 - Expresses dissatisfaction with current job and financial stress due to low income. - Considering alternative employment opportunities, including [id number]-qfgt positions. - Receives food assistance through food stamps. - Experiencing stress related to financial difficulties and upcoming travel for father's in May. - Denies depression, suicidal or homicidal ideation, and feels she is managing stress without the need for medication. Gastrointestinal: (+) constipation Psychiatric: (+) stress, (-) depressed mood, (-) suicidal ideation, (-) homicidal ideation Objective Blood pressure 146/80, pulse 64, temperature (!) 35.7 ?C (96.3 ?F), temperature source Left Tympanic, resp. rate 20, weight 85.7 kg (189 lb), last menstrual period 03/01/2018. GENERAL: NAD, alert and oriented SKIN: unremarkable, no rash or skin lesions. HEAD: normocephalic EYES: PERRLA, EOMI, conjunctiva clear EARS: external ears normal, canals clear, TM's normal. NOSE/SINUSES: Nares normal. Septum midline. OROPHARYNX: lips, mucosa, and tongue normal, good dentition. No oral lesions noted. NECK: Supple, no lymphadenopathy, normal thyroid, no carotid bruits. LUNGS: Clear to auscultation bilaterally, no wheezes/rhonchi/rales. HEART: Regular rate and rhythm, no murmurs. No ectopy. EXTREMITIES: Normal, No deformities, No skin discoloration, No edema. NEURO: Awake, alert and oriented x3, cranial nerves II-XII grossly intact, normal gait, no involuntary motions Assessment AND Plan 1. Essential hypertension (I10) - Blood pressure readings have been elevated, with a recent measurement of 146 mmHg systolic in the office and a previous reading of 209/69 mmHg during an ER visit. - Current medication regimen includes Metoprolol at a low dose. - Increased Metoprolol dosage to 50 mg to achieve better blood pressure control and prevent potential complications such as kidney disease and heart disease. - Discussed the importance of maintaining blood pressure within target range to reduce the risk of long-term complications. 2. Type 2 diabetes mellitus without complication, without long-term current use of insulin (HCC) (E11.9) - Diabetes management has shown improvement with dietary changes. - Ordered blood work to assess current glycemic control. - Provided dietary guidelines focusing on low-carbohydrate options, including sourdough bread, keto bread, protein wraps, and egg wraps. - Emphasized the importance of regular monitoring and adherence to dietary recommendations to maintain optimal blood glucose levels. 3. Dyslipidemia (E78.5) - Discussed the role of dietary modifications in managing dyslipidemia. - Provided dietary guidelines that align with both diabetes and dyslipidemia management. - Ordered blood work to assess lipid profile. 4. Vitamin D deficiency (E55.9) - No specific treatment changes discussed during this visit. 5. Hypokalemia (E87.6) - No specific treatment changes discussed during this visit. 6. Hyponatremia (E87.1) - No specific treatment changes discussed during this visit. 7. Elevated TSH (R79.89) - No specific treatment changes discussed during this visit. 8. Chronic constipation (K59.09) - Recent onset of constipation over the past week. - Recommended increasing intake of fruits and vegetables. - Prescribed magnesium supplement to be taken in the evening to aid bowel movements. - Discussed the potential addition of a probiotic if constipation persists. 9. Situational stress (F43.9) - Experiencing stress related to financial concerns, job dissatisfaction, and upcoming family obligations. 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 - Encouraged exploring part-time job opportunities to alleviate financial stress. - Provided emotional support and validation of feelings. Recording using [employer] software for draft documentation of the visit was discussed with the patient/authorized territory account representative; all questions welcomed and answered. Patient/authorized territory account representative agreed to proceed [facility] 04-03-2025 History of Present illness Narrative Subjective Ciara Villalta is a 49-year-old female with a history of HTN and diabetes, presenting for follow-up. Hypertension: - Currently taking metoprolol. - Reports episodes of elevated blood pressure associated with stress. - Recent ER visit for left arm pain and paresthesia; BP recorded at 209/69 mmHg. - Denies current arm pain. Diabetes: - Making dietary changes to manage diabetes, including consuming whole grain and keto bread, and preparing homemade salads. - Expresses interest in dietary guidance to improve management. - Denies current use of multivitamins or supplements. 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 - Expresses dissatisfaction with current job and financial stress due to low income. - Considering alternative employment opportunities, including sraw-xqfe-nyeb positions. - Receives food assistance through food stamps. - Experiencing stress related to financial difficulties and upcoming travel for father's in May. - Denies depression, suicidal or homicidal ideation, and feels she is managing stress without the need for medication. Gastrointestinal: (+) constipation Psychiatric: (+) stress, (-) depressed mood, (-) suicidal ideation, (-) homicidal ideation Objective Blood pressure 146/80, pulse 64, temperature (!) 35.7 C (96.3 F), temperature source Left Tympanic, resp. rate 20, weight 85.7 kg (189 lb), last menstrual period 03/01/2018. GENERAL: NAD, alert and oriented SKIN: unremarkable, no rash or skin lesions. HEAD: normocephalic EYES: PERRLA, EOMI, conjunctiva clear EARS: external ears normal, canals clear, TM's normal. NOSE/SINUSES: Nares normal. Septum midline. OROPHARYNX: lips, mucosa, and tongue normal, good dentition. No oral lesions noted. NECK: Supple, no lymphadenopathy, normal thyroid, no carotid bruits. LUNGS: Clear to auscultation bilaterally, no wheezes/rhonchi/rales. HEART: Regular rate and rhythm, no murmurs. No ectopy. EXTREMITIES: Normal, No deformities, No skin discoloration, No edema. NEURO: Awake, alert and oriented x3, cranial nerves II-XII grossly intact, normal gait, no involuntary motions Assessment & Plan 1. Essential hypertension (I10) - Blood pressure readings have been elevated, with a recent measurement of 146 mmHg systolic in the office and a previous reading of 209/69 mmHg during an ER visit. - Current medication regimen includes Metoprolol at a low dose. - Increased Metoprolol dosage to 50 mg to achieve better blood pressure control and prevent potential complications such as kidney disease and heart disease. - Discussed the importance of maintaining blood pressure within target range to reduce the risk of long-term complications. 2. Type 2 diabetes mellitus without complication, without long-term current use of insulin (HCC) (E11.9) - Diabetes management has shown improvement with dietary changes. - Ordered blood work to assess current glycemic control. - Provided dietary guidelines focusing on low-carbohydrate options, including sourdough bread, keto bread, protein wraps, and egg wraps. - Emphasized the importance of regular monitoring and adherence to dietary recommendations to maintain optimal blood glucose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 malignant neoplasm of breast Other screening mammogram [facility] Diagnosis Well adult exam- Primary Routine general medical examination at a health care facility Vitamin D deficiency Unspecified vitamin D deficiency Hyponatremia Hyposmolality and/or hyponatremia Hypokalemia Hypopotassemia Essential hypertension Unspecified essential hypertension Type 2 diabetes mellitus without complication, without long-term current use of insulin (HCC) Elevated TSH Nonspecific abnormal results of thyroid function study Dyslipidemia Other and unspecified hyperlipidemia documented [facility] this [facility] Diagnosis Porokeratosis- Primary Other specified congenital anomaly of skin Left foot pain Pain in limb documented [facility] this [facility] Diagnosis URI, acute- Primary Acute upper respiratory infections of unspecified site Acute cough documented [facility] this [facility] Diagnosis Dyslipidemia Other and unspecified hyperlipidemia Type 2 diabetes mellitus without complication, without long-term current use of insulin (HCC) Environmental allergies Other allergy, other than to medicinal agents Essential hypertension Unspecified essential hypertension documented in this encounter [facility] Diagnosis Type 2 diabetes mellitus without complication, without long-term current use of insulin (HCC)- Primary Essential hypertension Unspecified essential hypertension Dyslipidemia Other and unspecified hyperlipidemia Vitamin D deficiency Unspecified vitamin D deficiency Hypokalemia Hypopotassemia Hyponatremia Hyposmolality and/or hyponatremia Elevated TSH Nonspecific abnormal results of thyroid function study Chronic constipation Unspecified constipation Situational stress Other psychological or physical stress, not elsewhere classified documented [facility] this encounter [facility] Additional Instructions Warm salt water gargling. Plenty of fluids and rest. Tylenol and Motrin as needed. Follow-up with your doctor if not improving.[facility] Work Phone: Hospital Discharge instructions Additional Instructions Please continue your hydrochlorothiazide as directed by your doctor but add the metoprolol once a day in the evening for improved blood pressure control. Because of your persistently low potassium from your hydrochlorothiazide take the potassium supplement once a day as directed. Follow-up with your family doctor for repeat laboratory studies and to discuss refills of your medications if they are helping and return to the ER should you have any further concernsWMer[facility] Work Phone: Hospital Discharge instructions Additional Instructions Your history and exam indicate that you have tight muscles in your neck and shoulder girdle region which have led to superficial compression of the nerves that innervate your arm. This is known as cervical radiculopathy. Continue to stretch and heat the area to reduce pain and speed healing and continue to use [id number] Tylenol and/or Motrin for pain control. Return to the ER should you have any further concerns or worsening of symptomsWMercy Health [facility] Work Phone: Reason for referral (narrative)* Diagnostic Procedure Only (Routine) - Pending Review Specialty Diagnoses / Procedures Referred By Burak chang Referred To Contact BR IMAGING Diagnoses Encounter for screening mammogram for breast cancer Procedures YIN SCREENING SCREENING MAMMOGRAPHY BI 2-VIEW BREAST INC Stalin Hardy, [address] [place] [address] Br Imaging [address] [place] [address] Referral ID Status Reason Start Date Expiration Date Visits Requested Visits Authorized [id number] Pending Review Auto-Generat ed Referral 12/10/2022 01/09/2024 1 1 [facility] for referral (narrative)* Diagnostic Procedure Only (Urgent) - Closed Specialty Diagnoses / Procedures Referred By Burak t Referred To Contact XR IMAGING Diagnoses Acute hip pain, right Procedures XR HIP GENERAL 3V PELV/AP/LAT RIGHT RADEX HIP UNILATERAL WITH PELVIS 2-3 VIEWS Dariel Escudero MD [address] [place] [address] [place] [address] Referral ID Status Reason Start Date Expiration Date V isits Requested Visits Authorized [id number] Closed Auto-Generate d Referral 09/18/2023 10/17/2024 1 1 [facility] for referral (narrative)* Outpatient Procedure (Routine) - Authorized Specialty Diagnoses / Procedures [facility] Ref[facility] To [facility] Diagnoses Atherosclerosis Procedures US CAROTID ARTERIES [facility] DUPLEX SCAN EXTRACRANIAL ART COMPL BI STUDY Mary Toledo, WIRE FRAME [employer]KER.[employer] [address] [place] [address] [facility] [place] [address] [place] [id number] Referral ID Status Reason Start Date Expiration Date Visits Requested Visits Authorized [id number] Authorized Auto-Generat ed Referral 09/27/2024 1 1 [facility] for referral (narrative)* Diagnostic Procedure Only (Routine) - Pending Review Specialty Diagnoses / Procedures [facility] Referred To Contact BR IMAGING Diagnoses Inconclusive mammogram Procedures US BREAST LTD RIGHT US BREAST UNI REAL TIME WITH IMAGE LIMITED Mariella Skinner APRN.[employer] [address] [place] [address] Br Imaging [address] [place] [address] Referral ID Status Reason Start Date Expiration Date Visits Requested Visits Authorized [id number] Pending Review Auto-Generat ed Referral 3 10/31/2024 1 1 * Diagnostic Procedure Only (Routine) - Pending Review Specialty Diagnoses / Procedures Referred By Contac t Referred To Contact BR IMAGING Diagnoses Inconclusive mammogram Procedures YIN DIAGNOSTIC RIGHT DIAGNOSTIC MAMMOGRAPHY COMPUTER-AIDED [facility]CJ [facility] Mariella Skinner APRN.CNP [address] [place] [address] Br Imaging [address] [place] [address] Referral ID Status Reason Start Date Expiration Date Visits Requested Visits Authorized [id number] Pending Review Auto-Generat ed Referral 3 10/31/2024 1 1 [facility] for referral (narrative)* Outpatient Procedure (Routine) - Authorized Specialty Diagnoses / Procedures Referred By Contac t Referred To Contact [facility] Diagnoses Peripheral arterial disease (HCC) Procedures PVR LEG [facility] NON-INVASIVE PHYSIOLOGIC STUDY EXTREMITY 3 RAZA Kavitha Herring DO [address] [place] [address] [facility] [address] [place] [address] Referral ID Status Reason Start Date Expiration Date Visits Requested Visits Authorized [id number] Authorized Auto-Generat ed Referral 01/05/2024 01/04/2025 1 1 * Diagnostic Procedure Only (Routine) - Pending Review Specialty Diagnoses / Procedures Referred By Contac t Referred To Contact MOLECULAR & FUNCTIONAL IMAGING Diagnoses Encounter for screening for cardiovascular disorders Primary hypertension Procedures NM CARDIAC PERF STRESS/EXERCISE MYOCARDIAL SPECT MULTIPLE STUDIES Kavitha Herring DO [address] [place] [address] [facility] [address] [place] [address] Referral ID Status Reason Start Date Expiration Date Visits Requested Visits Authorized [id number] Pending Review Auto-Generat ed Referral 01/05/2024 02/03/2025 1 1 * MRI/CT (Routine) - Pending Review Specialty Diagnoses / Procedures Referred By Singhac t Referred To Contact CT IMAGING Diagnoses Occlusion and stenosis of unspecified carotid artery Procedures CTA NECK W IVCON CT ANGIOGRAPHY NECK W/CONTRAST/NONCONTRAST Kavitha Herring DO [address] [place] [address] [place] [address] Referral ID Status Reason Start Date Expiration Date Visits Requested Visits Authorized [id number] Pending Review Auto-Generat ed Referral 01/05/2024 02/03/2025 1 1 * MRI/CT (Routine) - Pending Review Specialty Diagnoses / Procedures Referred By Burak t Referred To Contact CT IMAGING Diagnoses Occlusion and stenosis of unspecified carotid artery Procedures CTA HEAD W IVCON CT ANGIOGRAPHY HEAD W/CONTRAST/NONCONTRAST Kavitha Herring DO [address] [place] [address] [place] [address] Referral ID Status Reason Start Date Expiration Date Visits Requested Visits Authorized [id number] Pending Review Auto-Generat ed Referral 01/05/2024 02/03/2025 1 1 [facility] for referral (narrative)* Diagnostic Procedure Only (Routine) - Closed Specialty Diagnoses / Procedures Referred By Burak t Referred To Contact BR IMAGING Diagnoses Abnormal mammogram Procedures US BREAST LTD RIGHT US BREAST UNI REAL TIME WITH IMAGE LIMITED Mariella Skinner, JANAE.[employer] [address] [place] [address] Br Imaging [address] [place] [address] Referral ID Status Reason Start Date Expiration Date V isits Requested Visits Authorized [id number] Closed Auto-Generate d Referral 02/03/2024 12/03/2024 1 1 [facility] for referral (narrative)* Outpatient Procedure (Routine) - Pending Review Specialty Diagnoses / Procedures Referred By Singhac t Referred To Contact [facility] Diagnoses Palpitations Essential hypertension Procedures ECHO WITH AGITATED SALINE CONTRAST ECHO TRANSTHORAC R-T 2D W/WO M-MODE REC COMP Jake Darnell MD [address] [place] [address] [facility] [place]Note 2] Vascular [address] [address] Referral ID Status Reason Start Date Expiration Date Visits Requested Visits Authorized [id number] Pending Review Auto-Generat ed Referral 03/03/2024 03/03/2025 1 1 [facility] for referral (narrative)* Diagnostic Procedure Only (Urgent) - Closed Specialty Diagnoses / Procedures Referred By Burak Referred To Contact XR IMAGING Diagnoses Acute hip pain, right Procedures XR HIP GENERAL 3V PELV/AP/LAT RIGHT RADEX HIP UNILATERAL WITH PELVIS 2-3 VIEWS Dariel Escudero MD [address] [place] [address] [place] [address] Referral ID Status Reason Start Date Expiration Date V isits Requested Visits Authorized [id number] Closed Auto-Generate d Referral 09/18/2023 10/17/2024 1 1 [facility] for referral (narrative)* Diagnostic Procedure Only (Routine) - Authorized Specialty Diagnoses / Procedures Referred By Burak t Referred To Contact BR IMAGING Diagnoses Encounter for screening mammogram for malignant neoplasm of breast Procedures YIN SCREENING W ZOFIA SCREENING DIGITAL BREAST TOMOSYNTHESIS BI SCREENING MAMMOGRAPHY BI 2-VIEW BREAST INC CAD Stalin Montes De Oca DO [address] [place] [address] Br Imaging [address] [place] [address] Referral ID Status Reason Start Date Expiration Date Visits Requested Visits Authorized [id number] Authorized Auto-Generat ed Referral 09/16/2025 1 1 [facility] for referral (narrative)No reason for referral information availableWMercy Health St[facility] Work Phone: [facility] Narrative* Diagnostic Procedure Only (Routine) - Closed Specialty Diagnoses / Procedures Referred By Contac t Referred To Contact MOLECULAR & FUNCTIONAL IMAGING Diagnoses Encounter for screening for cardiovascular disorders Primary hypertension Procedures NM CARDIAC PERF STRESS/EXERCISE MYOCARDIAL SPECT MULTIPLE STUDIES Kavitha Herring DO [address] [place] [address] Molecular [facility] Functional Imaging [address] [place] [address] Referral ID Status Reason Start Date Expiration Date V isits Requested Visits Authorized [id number] Closed Auto-Generate d Referral 05/02/2024 06/01/2024 1 1 [facility] for visit Narrative* Diagnostic Procedure Only (Urgent) - Closed Specialty Diagnoses / Procedures Referred By Burak t Referred To Contact XR IMAGING Diagnoses Acute hip pain, right Procedures XR HIP GENERAL 3V PELV/AP/LAT RIGHT RADEX HIP UNILATERAL WITH PELVIS 2-3 VIEWS Dariel Escudero MD [address] [place] [address] [place] [address] Referral ID Status Reason Start Date Expiration Date V isits Requested Visits Authorized [id number] Closed Auto-Generate d Referral 09/18/2023 10/17/2024 1 1 [facility] for visit Narrative* Diagnostic Procedure Only (Routine) - Closed Specialty Diagnoses / Procedures Referred By Contac t Referred To Contact BR IMAGING Diagnoses Encounter for screening mammogram for malignant neoplasm of breast Procedures YIN SCREENING W ZOFIA SCREENING DIGITAL BREAST TOMOSYNTHESIS BI SCREENING MAMMOGRAPHY BI 2-VIEW BREAST INC Stalin Hardy DO [address] [place] [address] Br Imaging [address] [place] [address] Referral ID Status Reason Start Date Expiration Date V isits Requested Visits Authorized [id number] Closed Auto-Generate d Referral 08/17/2024 09/16/2025 1 1 [facility] Chief Complaint and Reason for Visit Chief Complaint GENERAL ILLNESS Chief Complaint GENERAL Chief Complaint HTN Chief Complaint Admit Date left arm pain March 07, 2025 1:54a m Advance Directives No Advanced Directives Records Found Advance Directive Response Recorded Date/ Time Living Will No May 03, 2022 3:29pm Power of Garbage Collection Supervisor No May 03 3:29pm Advance Directive Response Recorded Date/ Time Living Will No December 31, 2022 7:51am Power of Garbage Collection Supervisor No December 31 7:51am Advance Directive Response Recorded Date/ Time Living Will No October 26 2:08am Power of Garbage Collection Supervisor No October 26 2:08am Advance Directive Response Recorded Date/ Time Do you have a Healthcare Power of Garbage Collection Supervisor? No March 07, 2025 2:03am Reason for Referral Specialty Diagnoses / Procedures Referred By Contac t Referred To Contact Vascular Surgery Diagnoses Stenosis of left carotid artery Procedures CONSULT TO VASCULAR SURGERY OFFICE/OUTPATIENT [facility] 60 MINUTES Mariella Skinner, [employer] [address] [place] [address] Referral ID Status Reason Start Date Expiration Date Visits Requested Visits Authorized [id number] Authorized PCP Requested Referral 11/13/2023 11/12/2024 1 1 Specialty Diagnoses / Procedures Referred By Contac t Referred To Contact General Surgery Diagnoses Abscess of breast, right Procedures CONSULT TO GENERAL SURGERY OFFICE/OUTPATIENT [facility] 60 MINUTES Mariella Skinner, [employer]KER.[employer] [address] [place] [address] Referral ID Status Reason Start Date Expiration Date Visits Requested Visits Authorized [id number] Authorized PCP Requested Referral 02/24/2024 02/23/2025 1 1 Specialty Diagnoses / Procedures Referred By Contac t Referred To Contact CT IMAGING Diagnoses Occlusion and stenosis of unspecified carotid artery Procedures CTA NECK W IVCON CT ANGIOGRAPHY NECK W/CONTRAST/NONCONTRAST Kavitha Herring, DO [address] [place] [address] Ct Imaging [facility] Referral ID Status Reason Start Date Expiration Date V isits Requested Visits Authorized [id number] Closed Auto-Generate d Referral 03/01/2024 03/26/2024 1 1 Specialty Diagnoses / Procedures Referred By Contac t Referred To Contact CT IMAGING Diagnoses Occlusion and stenosis of unspecified carotid artery Procedures CTA HEAD W IVCON CT ANGIOGRAPHY HEAD W/CONTRAST/NONCONTRAST Kavitha Herring, DO [address] [facility] [place] [id number] [facility] [place] [address] Referral ID Status Reason Start Date Expiration Date V isits Requested Visits Authorized [id number] Closed Auto-Generate d Referral 03/01/2024 03/26/2024 1 1 Specialty Diagnoses / Procedures Referred By Contac t Referred To Contact CT IMAGING Diagnoses Multiple and bilateral precerebral artery syndromes Procedures CTA NECK W IVCON CT ANGIOGRAPHY NECK W/CONTRAST/NONCONTRAST Jake Darnell MD [address] [place] [address] [address] [address] [facility] Referral ID Status Reason Start Date Expiration Date Visits Requested Visits Authorized [id number] Pending Review Auto-Generat ed Referral 03/11/2024 04/10/2025 1 1 Specialty Diagnoses / Procedures Referred By Contac t Referred To Contact CT IMAGING Diagnoses Occlusion and stenosis of unspecified carotid artery Procedures CTA HEAD W IVCON CT ANGIOGRAPHY HEAD W/CONTRAST/NONCONTRAST Jake Darnell MD [address] [place] [address] [address] [address] [facility] Referral ID Status Reason Start Date Expiration Date Visits Requested Visits Authorized [id number] Pending Review Auto-Generat ed Referral 03/11/2024 04/10/2025 1 1 Referral ID Status Reason Start Date Expiration Date V isits Requested Visits Authorized [id number] Closed Auto-Generate d Referral 03/22/2024 04/21/2024 1 1 Referral ID Status Reason Start Date Expiration Date V isits Requested Visits Authorized [id number] Closed Auto-Generate d Referral 03/22/2024 04/21/2024 1 1 Specialty Diagnoses / Procedures Referred By Burak chang Referred To Contact MR IMAGING Diagnoses 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) Procedures MRI BRAIN WO IVCON MRI BRAIN BRAIN STEM W/O CONTRAST MATERIAL Karen Mooney MD [address] [place] [address] [place] [address] Referral ID Status Reason Start Date Expiration Date Visits Requested Visits Authorized [id number] New Request Auto-Generat ed Referral 05/30/2024 06/29/2025 1 1 Referral ID Status Reason Start Date Expiration Date V isits Requested Visits Authorized [id number] Closed Auto-Generate d Referral 06/03/2024 2024 1 1 Summary Purpose Family History No Family History Records FoundNo Family History Records FoundNo Family History Records FoundNo Family History Records Found Additional Source Comments Source Comments (unrecognize d section and content) In the event this informatio n is protected by the Federal Confidentiality of Alcohol and Drug Abuse Patient Records regulations: The Federal rules restrict any use of the information to criminally investigate or prosecute any alcohol or drug abuse patient.[facility] the event this information is protected by the Federal Confidentiality of Alcohol and Drug Abuse Patient Records regulations: The Federal rules restrict any use of the information to criminally investigate or prosecute any alcohol or drug abuse patient.[facility] the event this information is protected by the Federal Confidentiality of Alcohol and Drug Abuse Patient Records regulations: The Federal rules restrict any use of the information to criminally investigate or prosecute any alcohol or drug abuse patient.[facility] the event this information is protected by the Federal Confidentiality of Alcohol and Drug Abuse Patient Records regulations: The Federal rules restrict any use of the information to criminally investigate or prosecute any alcohol or drug abuse patient.[facility] the event this information is protected by the Federal Confidentiality of Alcohol and Drug Abuse Patient Records regulations: The Federal rules restrict any use of the information to criminally investigate or prosecute any alcohol or drug abuse patient.[facility] the event this information is protected by the Federal Confidentiality of Alcohol and Drug Abuse Patient Records regulations: The Federal rules restrict any use of the information to criminally investigate or prosecute any alcohol or drug abuse patient.[facility] the event this information is protected by the Federal Confidentiality of Alcohol and Drug Abuse Patient Records regulations: The Federal rules restrict any use of the information to criminally investigate or prosecute any alcohol or drug abuse patient.[facility] the event this information is protected by the Federal Confidentiality of Alcohol and Drug Abuse Patient Records regulations: The Federal rules restrict any use of the information to criminally investigate or prosecute any alcohol or drug abuse patient.[facility] the event this information is protected by the Federal Confidentiality of Alcohol and Drug Abuse Patient Records regulations: The Federal rules restrict any use of the information to criminally investigate or prosecute any alcohol or drug abuse patient.[facility] the event this information is protected by the Federal Confidentiality of Alcohol and Drug Abuse Patient Records regulations: The Federal rules restrict any use of the information to criminally investigate or prosecute any alcohol or drug abuse patient.[facility]In the event this information is protected by the Federal Confidentiality of Alcohol and Drug Abuse Patient Records regulations: The Federal rules restrict any use of the information to criminally investigate or prosecute any alcohol or drug abuse patient.[facility]In the event this information is protected by the Federal Confidentiality of Alcohol and Drug Abuse Patient Records regulations: The Federal rules restrict any use of the information to criminally investigate or prosecute any alcohol or drug abuse patient.[facility]In the event this information is protected by the Federal Confidentiality of Alcohol and Drug Abuse Patient Records regulations: The Federal rules restrict any use of the information to criminally investigate or prosecute any alcohol or drug abuse patient.[facility] Hospital[facility] the event this information is protected by the Federal Confidentiality of Alcohol and Drug Abuse Patient Records regulations: The Federal rules restrict any use of the information to criminally investigate or prosecute any alcohol or drug abuse patient.[facility] the event this information is protected by the Federal Confidentiality of Alcohol and Drug Abuse Patient Records regulations: The Federal rules restrict any use of the information to criminally investigate or prosecute any alcohol or drug abuse patient.[facility] the event this information is protected by the Federal Confidentiality of Alcohol and Drug Abuse Patient Records regulations: The Federal rules restrict any use of the information to criminally investigate or prosecute any alcohol or drug abuse patient.[facility] the event this information is protected by the Federal Confidentiality of Alcohol and Drug Abuse Patient Records regulations: The Federal rules restrict any use of the information to criminally investigate or prosecute any alcohol or drug abuse patient.[facility]In the event this information is protected by the Federal Confidentiality of Alcohol and Drug Abuse Patient Records regulations: The Federal rules restrict any use of the information to criminally investigate or prosecute any alcohol or drug abuse patient.[facility]In the event this information is protected by the Federal Confidentiality of Alcohol and Drug Abuse Patient Records regulations: The Federal rules restrict any use of the information to criminally investigate or prosecute any alcohol or drug abuse patient.[facility]In the event this information is protected by the Federal Confidentiality of Alcohol and Drug Abuse Patient Records regulations: The Federal rules restrict any use of the information to criminally investigate or prosecute any alcohol or drug abuse patient.[facility]In the event this information is protected by the Federal Confidentiality of Alcohol and Drug Abuse Patient Records regulations: The Federal rules restrict any use of the information to criminally investigate or prosecute any alcohol or drug abuse patient.[facility]In the event this information is protected by the Federal Confidentiality of Alcohol and Drug Abuse Patient Records regulations: The Federal rules restrict any use of the information to criminally investigate or prosecute any alcohol or drug abuse patient.[facility]In the event this information is protected by the Federal Confidentiality of Alcohol and Drug Abuse Patient Records regulations: The Federal rules restrict any use of the information to criminally investigate or prosecute any alcohol or drug abuse patient.[facility]In the event this information is protected by the Federal Confidentiality of Alcohol and Drug Abuse Patient Records regulations: The Federal rules restrict any use of the information to criminally investigate or prosecute any alcohol or drug abuse patient.[facility] HospitalIn the event this information is protected by the Federal Confidentiality of Alcohol and Drug Abuse Patient Records regulations: The Federal rules restrict any use of the information to criminally investigate or prosecute any alcohol or drug abuse patient.[facility]In the event this information is protected by the Federal Confidentiality of Alcohol and Drug Abuse Patient Records regulations: The Federal rules restrict any use of the information to criminally investigate or prosecute any alcohol or drug abuse patient.[facility]In the event this information is protected by the Federal Confidentiality of Alcohol and Drug Abuse Patient Records regulations: The Federal rules restrict any use of the information to criminally investigate or prosecute any alcohol or drug abuse patient.[facility] HospitalIn the event this information is protected by the Federal Confidentiality of Alcohol and Drug Abuse Patient Records regulations: The Federal rules restrict any use of the information to criminally investigate or prosecute any alcohol or drug abuse patient.[facility] HospitalIn the event this information is protected by the Federal Confidentiality of Alcohol and Drug Abuse Patient Records regulations: The Federal rules restrict any use of the information to criminally investigate or prosecute any alcohol or drug abuse patient.[facility] HospitalIn the event this information is protected by the Federal Confidentiality of Alcohol and Drug Abuse Patient Records regulations: The Federal rules restrict any use of the information to criminally investigate or prosecute any alcohol or drug abuse patient.[facility] HospitalIn the event this information is protected by the Federal Confidentiality of Alcohol and Drug Abuse Patient Records regulations: The Federal rules restrict any use of the information to criminally investigate or prosecute any alcohol or drug abuse patient.[facility] HospitalIn the event this information is protected by the Federal Confidentiality of Alcohol and Drug Abuse Patient Records regulations: The Federal rules restrict any use of the information to criminally investigate or prosecute any alcohol or drug abuse patient.[facility] HospitalIn the event this information is protected by the Federal Confidentiality of Alcohol and Drug Abuse Patient Records regulations: The Federal rules restrict any use of the information to criminally investigate or prosecute any alcohol or drug abuse patient.[facility] HospitalIn the event this information is protected by the Federal Confidentiality of Alcohol and Drug Abuse Patient Records regulations: The Federal rules restrict any use of the information to criminally investigate or prosecute any alcohol or drug abuse patient.[facility] HospitalIn the event this information is protected by the Federal Confidentiality of Alcohol and Drug Abuse Patient Records regulations: The Federal rules restrict any use of the information to criminally investigate or prosecute any alcohol or drug abuse patient.[facility] HospitalIn the event this information is protected by the Federal Confidentiality of Alcohol and Drug Abuse Patient Records regulations: The Federal rules restrict any use of the information to criminally investigate or prosecute any alcohol or drug abuse patient.[facility] HospitalIn the event this information is protected by the Federal Confidentiality of Alcohol and Drug Abuse Patient Records regulations: The Federal rules restrict any use of the information to criminally investigate or prosecute any alcohol or drug abuse patient.[facility] HospitalIn the event this information is protected by the Federal Confidentiality of Alcohol and Drug Abuse Patient Records regulations: The Federal rules restrict any use of the information to criminally investigate or prosecute any alcohol or drug abuse patient.[facility] HospitalIn the event this information is protected by the Federal Confidentiality of Alcohol and Drug Abuse Patient Records regulations: The Federal rules restrict any use of the information to criminally investigate or prosecute any alcohol or drug abuse patient.[facility] HospitalIn the event this information is protected by the Federal Confidentiality of Alcohol and Drug Abuse Patient Records regulations: The Federal rules restrict any use of the information to criminally investigate or prosecute any alcohol or drug abuse patient.[facility] HospitalIn the event this information is protected by the Federal Confidentiality of Alcohol and Drug Abuse Patient Records regulations: The Federal rules restrict any use of the information to criminally investigate or prosecute any alcohol or drug abuse patient.[facility] HospitalIn the event this information is protected by the Federal Confidentiality of Alcohol and Drug Abuse Patient Records regulations: The Federal rules restrict any use of the information to criminally investigate or prosecute any alcohol or drug abuse patient.[facility] HospitalIn the event this information is protected by the Federal Confidentiality of Alcohol and Drug Abuse Patient Records regulations: The Federal rules restrict any use of the information to criminally investigate or prosecute any alcohol or drug abuse patient.[facility] HospitalIn the event this information is protected by the Federal Confidentiality of Alcohol and Drug Abuse Patient Records regulations: The Federal rules restrict any use of the information to criminally investigate or prosecute any alcohol or drug abuse patient.[facility] HospitalIn the event this information is protected by the Federal Confidentiality of Alcohol and Drug Abuse Patient Records regulations: The Federal rules restrict any use of the information to criminally investigate or prosecute any alcohol or drug abuse patient.[facility] HospitalIn the event this information is protected by the Federal Confidentiality of Alcohol and Drug Abuse Patient Records regulations: The Federal rules restrict any use of the information to criminally investigate or prosecute any alcohol or drug abuse patient.[facility] HospitalIn the event this information is protected by the Federal Confidentiality of Alcohol and Drug Abuse Patient Records regulations: The Federal rules restrict any use of the information to criminally investigate or prosecute any alcohol or drug abuse patient.[facility] HospitalIn the event this information is protected by the Federal Confidentiality of Alcohol and Drug Abuse Patient Records regulations: The Federal rules restrict any use of the information to criminally investigate or prosecute any alcohol or drug abuse patient.[facility] HospitalIn the event this information is protected by the Federal Confidentiality of Alcohol and Drug Abuse Patient Records regulations: The Federal rules restrict any use of the information to criminally investigate or prosecute any alcohol or drug abuse patient.[facility] HospitalIn the event this information is protected by the Federal Confidentiality of Alcohol and Drug Abuse Patient Records regulations: The Federal rules restrict any use of the information to criminally investigate or prosecute any alcohol or drug abuse patient.[facility] HospitalIn the event this information is protected by the Federal Confidentiality of Alcohol and Drug Abuse Patient Records regulations: The Federal rules restrict any use of the information to criminally investigate or prosecute any alcohol or drug abuse patient.[facility] HospitalIn the event this information is protected by the Federal Confidentiality of Alcohol and Drug Abuse Patient Records regulations: The Federal rules restrict any use of the information to criminally investigate or prosecute any alcohol or drug abuse patient.[facility] HospitalIn the event this information is protected by the Federal Confidentiality of Alcohol and Drug Abuse Patient Records regulations: The Federal rules restrict any use of the information to criminally investigate or prosecute any alcohol or drug abuse patient.[facility] HospitalIn the event this information is protected by the Federal Confidentiality of Alcohol and Drug Abuse Patient Records regulations: The Federal rules restrict any use of the information to criminally investigate or prosecute any alcohol or drug abuse patient.[facility] HospitalIn the event this information is protected by the Federal Confidentiality of Alcohol and Drug Abuse Patient Records regulations: The Federal rules restrict any use of the information to criminally investigate or prosecute any alcohol or drug abuse patient.[facility] HospitalIn the event this information is protected by the Federal Confidentiality of Alcohol and Drug Abuse Patient Records regulations: The Federal rules restrict any use of the information to criminally investigate or prosecute any alcohol or drug abuse patient.[facility] HospitalIn the event this information is protected by the Federal Confidentiality of Alcohol and Drug Abuse Patient Records regulations: The Federal rules restrict any use of the information to criminally investigate or prosecute any alcohol or drug abuse patient.[facility] Reason for Visit (unrecogniz ed section and content) Reason Comments Ear Pain left ear pain and ST x 1 day Reason Comments Results Reason Onset Date Comments Refill Request 03/27/2022 Reason Onset Date Comments Refill Request 10/31/2022 they send 100 ev mark 30 days Reason Comments New Pain Callous Reason Onset Date Comments Refill Request 04/06/2023 Reason Comments Leg Cramps Right leg Reason Comments Results Appointment Reason Comments Results Appointment Reason Comments Med Change Request Reason Comments Patient Update Reason Comments New Patient Specialty Diagnoses / Procedures Referred By Burak chang Referred To Contact Vascular Surgery Diagnoses Stenosis of left carotid artery Procedures CONSULT TO VASCULAR SURGERY OFFICE/OUTPATIENT NEW HIGH MDM 60 MINUTES Mariella Skinner, JANAE.[employer]IST[employer] [address] [place] [address] Referral ID Status Reason Start Date Expiration Date V isits Requested Visits Authorized [id number] Closed PCP Requested Referral 11/13/2023 11/12/2024 1 1 Reason Comments Orders Reason Comments Refill Request Reason Comments Radiology US Specialty Diagnoses / Procedures Referred By Burak chang Referred To Contact BR IMAGING Diagnoses Abnormal mammogram Procedures US BREAST LTD RIGHT US BREAST UNI REAL TIME WITH IMAGE LIMITED Mariella Skinner APRN.[employer] [address] [place] [address] Br Imaging [address] [place] [address] Referral ID Status Reason Start Date Expiration Date V isits Requested Visits Authorized [id number] Closed Auto-Generate d Referral 02/03/2024 12/03/2024 1 1 Specialty Diagnoses / Procedures Referred By Contac t Referred To Contact CT IMAGING Diagnoses Occlusion and stenosis of unspecified carotid artery Procedures CTA NECK W IVCON CT ANGIOGRAPHY NECK W/CONTRAST/NONCONTRAST Kavitha Herring DO [address] [place] [address] Ct Imaging [facility] Referral ID Status Reason Start Date Expiration Date V isits Requested Visits Authorized [id number] Closed Auto-Generate d Referral 03/01/2024 03/26/2024 1 1 Reason Comments Established Patient Reason Comments Smoking Cessation Reason Comments Consult Right breast consult Specialty Diagnoses / Procedures Referred By Contac t Referred To Contact General Surgery Diagnoses Abscess of breast, right Procedures CONSULT TO GENERAL SURGERY OFFICE/OUTPATIENT [facility] 60 MINUTES Mariella Skinner, WIRE FRAME MAKER.[employer] [address] [place] [address] Referral ID Status Reason Start Date Expiration Date V isits Requested Visits Authorized [id number] Closed PCP Requested Referral 02/24/2024 02/23/2025 [address] Specialty Diagnoses / Procedures Referred By Contac t Referred To Contact CT IMAGING Diagnoses Multiple and bilateral precerebral artery syndromes Procedures CTA NECK W IVCON CT ANGIOGRAPHY NECK W/CONTRAST/NONCONTRAST Jake Darnell MD [address] [place] [address] [address] [address] [place] [address] Referral ID Status Reason Start Date Expiration Date V isits Requested Visits Authorized [id number] Closed Auto-Generate d Referral 03/22/2024 04/21/2024 1 1 Reason Comments Established Patient Follow Up Review testing Stenosis Carotid artery steno sis Reason Comments Plastic Surgery Coordinator - Other Reason Onset Date Comments Refill Request 04/18/2024 Reason Comments Patient Question Reason Comments Rx sent to wrong pharmacy; Pt asking for new medication Reason Comments ER F/U Seen in February for High BP at [facility] Reason Comments Established Patient Reason Comments BP Check Pt did take losartan today Reason Comments Radiology NM Specialty Diagnoses / Procedures Referred By Contac t Referred To Contact MOLECULAR & FUNCTIONAL IMAGING Diagnoses Encounter for screening for cardiovascular disorders Primary hypertension Procedures NM CARDIAC PERF STRESS/EXERCISE MYOCARDIAL SPECT MULTIPLE STUDIES Kavitha Herring DO [address] [place] [address] Molecular & Functional Imaging [address] [place] [address] Referral ID Status Reason Start Date Expiration Date V isits Requested Visits Authorized [id number] Closed Auto-Generate d Referral 05/02/2024 06/01/2024 1 1 Reason Comments Future Appointment [place] any Reason Comments carotid artery stenosis Specialty Diagnoses / Procedures Referred By Burak chang Referred To Contact Neurology / NEUROSURGERY Diagnoses new Carotid artery disease per pt , lesion on brain needing stent Procedures EST NI PATIENT Karen Mooney MD [address] [place] [address] Karen Mooney MD [address] [place] [address] Referral ID Status Reason Start Date Expiration Date V isits Requested Visits Authorized [id number] New Request 05/30/2024 07/29/2024 1 1 Reason Onset Date Comments Refill Request 06/08/2024 Specialty Diagnoses / Procedures Referred By Burak chang Referred To Contact MR IMAGING Diagnoses 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) Procedures MRI BRAIN WO IVCON MRI BRAIN BRAIN STEM W/O CONTRAST MATERIAL Karen Mooney MD [address] [place] [address] Mr Imaging [place] [address] Referral ID Status Reason Start Date Expiration Date V isits Requested Visits Authorized [id number] Closed Auto-Generate d Referral 06/03/2024 2024 1 1 Reason Comments Yearly Exam Reason Comments Yearly Exam Reason Comments Pain Callous Established Patient Follow Up Reason Comments Cough Cough, chest congest ion, sinus, congestion, runny nose and [place] x 2 days Reason Onset Date Comments Refill Request 01/18/2025 Reason Onset Date Comments Refill Request 01/31/2025 Reason Comments F/U 3 Month Care Teams (unrecognized sec tion and content) Import Clerk Relationship Specialty Start Date End Date Stalin Montes De Oca, DO [address] [place] [address] PCP - General Family Practice 02/10/13 Import Clerk Relationship Specialty Start Date End Date Stalin Montes De Oca, DO [address] [place] [address] PCP - General Family Practice 02/10/13 Import Clerk Relationship Specialty Start Date End Date Stalin Montes De Oca, DO [address] [place] [address] PCP - General Family Practice 02/10/13 Import Clerk Relationship Specialty Start Date End Date Stalin Montes De Oca DO [address] [place] [address] PCP - General Family Medicine 02/10/13 Import Clerk Relationship Specialty Start Date End Date Stalin Montes De Oca DO [address] [place] [address] PCP - General Family Medicine 02/10/13 Import Clerk Relationship Specialty Start Date End Date Stalin Montes De Oca DO [address] [place] [address] PCP - General Family Medicine 02/10/13 Team Status: Active Member Role Status Dates Dr. Stalin Montes De Oca DO Family Provider Active Dr. Stalin Montes De Oca DO Primary Care Provider Active Team Status: Inactive Member Role Status Dates Dr. Stalin Montes De Oca DO Primary Care Provider Active Dr. Dinora Denis MD Emergency Provider Active Import Clerk Relationship Specialty Start Date End Date Stalin Montes De Oca DO [address] [place] [address] PCP - General Family Medicine 02/10/13 Import Clerk Relationship Specialty Start Date End Date Stalin Montes De Oca DO [address] [place] [address] PCP - General Family Medicine 02/10/13 Import Clerk Relationship Specialty Start Date End Date Stalin Montes De Oca DO [address] [facility] [place] [address] PCP - General Family Medicine 02/10/13 Import Clerk Relationship Specialty Start Date End Date Stalin Montes De Oca DO [address] [facility] [place] [address] PCP - General Family Medicine 02/10/13 Team Status: Inactive Member Role Status Dates Dr. Stalin Montes De Oca , DO Primary Care Provider Active Dr. Derian Pimentel , DO Emergency Provider Active Import Clerk Relationship Specialty Start Date End Date Stalin Montes De Oca DO [address] [facility] [place] [address] PCP - General Family Medicine 02/10/13 Import Clerk Relationship Specialty Start Date End Date Stalin Montes De Oca DO [address] [facility] [place] [address] PCP - General Family Medicine 02/10/13 Import Clerk Relationship Specialty Start Date End Date Stalin Montes De Oca DO [address] [facility] [place] [address] PCP - General Family Medicine 02/10/13 Import Clerk Relationship Specialty Start Date End Date Stalin Montes De Oca DO [address] [facility] [place] [address] PCP - General Family Medicine 02/10/13 Import Clerk Relationship Specialty Start Date End Date Stalin Montes De Oca DO [address] [facility] [place] [address] PCP - General Family Medicine 02/10/13 Import Clerk Relationship Specialty Start Date End Date Stalin Montes De Oca, [address] [place] [address] PCP - General Family Medicine 02/10/13 Import Clerk Relationship Specialty Start Date End Date Stalin Montes De Oca, [address] [place] [address] PCP - General Family Medicine 02/10/13 Import Clerk Relationship Specialty Start Date End Date Stalin Montes De Oca, [address] [place] [address] PCP - General Family Medicine 02/10/13 Import Clerk Relationship Specialty Start Date End Date Stalin Montes De Oca, [address] [place] [address] PCP - General Family Medicine 02/10/13 Import Clerk Relationship Specialty Start Date End Date Stalin Montes De Oca, [address] [place] [address] PCP - General Family Medicine 02/10/13 Import Clerk Relationship Specialty Start Date End Date Stalin Montes De Oca, [address] [place] [address] PCP - General Family Medicine 02/10/13 Import Clerk Relationship Specialty Start Date End Date Stalin Montes De Oca DO [address] [place] [address] PCP - General Family Medicine 02/10/13 Import Clerk Relationship Specialty Start Date End Date Stalin Montes De Oca, [address] [place] [address] PCP - General Family Medicine 02/10/13 Import Clerk Relationship Specialty Start Date End Date Stalin Montes De Oca DO [address] [place] [address] PCP - General Family Medicine 02/10/13 Import Clerk Relationship Specialty Start Date End Date Stalin Montes De Oca DO [address] [place] [address] PCP - General Family Medicine 02/10/13 Import Clerk Relationship Specialty Start Date End Date Stalin Montes De Oca DO [address] [place] [address] PCP - General Family Medicine 02/10/13 Import Clerk Relationship Specialty Start Date End Date Stalin Montes De Oca DO [address] [place] [address] PCP - General Family Medicine 02/10/13 Import Clerk Relationship Specialty Start Date End Date Stalin Montes De Oca DO [address] [place] [address] PCP - General Family Medicine 02/10/13 Import Clerk Relationship Specialty Start Date End Date Stalin Montes De Oca DO [address] [place] [address] PCP - General Family Medicine 02/10/13 Import Clerk Relationship Specialty Start Date End Date Stalin Montes De Oca DO [address] [place] [address] PCP - General Family Medicine 02/10/13 Import Clerk Relationship Specialty Start Date End Date Stalin Montes De Oca DO [address] [place] [address] PCP - General Family Medicine 02/10/13 Import Clerk Relationship Specialty Start Date End Date Stalin Montes De Oca DO [address] [place] [address] PCP - General Family Medicine 02/10/13 Import Clerk Relationship Specialty Start Date End Date Stalin Montes De Oca DO [address] [place] [address] PCP - General Family Medicine 02/10/13 Mary Toledo, WIRE FRAME MAKER.[employer] ASSIST[employer] [address] [place] [address] Formation Fracturing Operator Family Medicine 09/25/24 Mariella Skinner, WIRE FRAME MAKER.[employer] [address] [place] [address] Formation Fracturing Operator Family Medicine 09/25/24 Import Clerk Relationship Specialty Start Date End Date Stalin Montes De Oca DO [address] [place] [address] PCP - General Family Medicine 02/10/13 Mary Toledo, WIRE FRAME MAKER.[employer] ASSIST[employer] [address] [place] [address] Formation Fracturing Operator Family Medicine 09/25/24 Mariella Skinner, WIRE FRAME MAKER.[employer] ASSIST[employer] [address] [place] [address] Formation Fracturing Operator Family Medicine 09/25/24 Import Clerk Relationship Specialty Start Date End Date Stalin Montes De Oca DO [address] [place] [address] PCP - General Family Medicine 02/10/13 Mary Toledo, WIRE FRAME MAKER.[employer] ASSIST[employer] [address] [place] [address] Formation Fracturing Operator Family [facility] 09/25/24 ShaileshMariella, WIRE FRAME MAKER.[employer] ASSIST[employer] [address] [place] [address] [facility] 09/[facility] Import Clerk Relationship Specialty Start Date End Date Stalin Montes De Oca DO [address] [place] [address] PCP - General Family Medicine 02/10/13 Mary Toledo, WIRE FRAME MAKER.[employer] ASSISTANT [employer] MARKET[employer] [address] [place] [address] [facility] 09/25/24 ShaileshMariella, WIRE FRAME MAKER.[employer] ASSIST[employer] [address] [place] [address] Formation [facility] 09/25/24 Import Clerk Relationship Specialty Start Date End Date Stalin Montes De Oca DO [address] [place] [address] PCP - General Family Medicine 02/10/13 ShaileshMariella, WIRE FRAME MAKER.[employer] ASSISTANT [employer] [address] [place] [address] [facility] 09/25/24 Import Clerk Relationship Specialty Start Date End Date Stalin Montes De Oca DO [address] [place] [address] PCP - General Family Medicine 02/10/13 ShaileshMariella, WIRE FRAME MAKER.[employer] ASSISTANT [employer] MARKET[employer] [address] [facility], [place] [address] Formation F[facility]uring [facility] 09/25/24 Team Status: Active Member Role Status Dates Dr. Stalin Montes De Oca DO Primary Care Provider Active Team Status: Inactive Member Role Status Dates Dr. Stalin Montes De Oca DO Primary Care Provider Active Start: March 07, 2025 End: March 07, 2025 Dr. Derian Pimentel DO Emergency Provider Active Start: March 07, 2025 End: March 07, 2025 Import Clerk Relationship Specialty Start Date End Date Stalin Montes De Oca DO [address] [facility] [place] [address] PCP - General Family Medicine 02/10/13 [facility] WIRE FRAME [employer]ER.[employer] [address] [facility] [place] [address] [facility] 09/25/24 Mariaelena Pollack, WIRE FRAME MAKER.[employer] ASSIST[employer] [address] [place] [address] [facility] 04/03/25 Import Clerk Relationship Specialty Start Date End Date Stalin Montes De Oca DO [address] [facility] [place] [address] PCP - General Family Medicine 02/10/13 ShaileshMariella, WIRE FRAME MAKER.[employer] ASSISTANT [employer] [address] [facility] [place] [address] [facility] 09/25/24 Mariaelena Pollack, WIRE FRAME MAKER.[employer] ASSISTANT [employer] [address] [place] [address] [facility] 04/03/25 Goals (unrecognized section and content) Goals may be documented in a n alternate sectionGoals may be documented in an alternate sectionGoals may be documented in an alternate sectionGoals may be documented in an alternate section INFORMATION SOURCE (unrecogn ized section and content) DATE CREATED AUTHOR 03/03/2024 [facility] DATE CREATED AUTHOR AUTHOR'S ORGANIZ ATION 06/04/2024 [facility] DATE CREATED AUTHOR AUTHOR'S ORGANIZ ATION 03/16/2025 [facility] DATE CREATED AUTHOR AUTHOR'S ORGANIZ ATION 04/10/2025 [facility] FOR RECORDS PERTAINING TO PATIENTS WHO ARE [...] BE BASED ON THE PRIMARY CLINICAL RECORDS. [employer] [facility]. provides no warranty or guarantee of the accuracy or completeness of information in this document.
[2025-04-12] MEDS: Aspirin 81 MG TAB.CHEW 324 MG PO (00:33)
--- NOTE | 2025-04-12 00:40 | RAD_ITS ---
PROCEDURE: CHEST 1 VIEW (PORTABLE) 04/12/2025 REASON FOR EXAM: CHEST PAIN TECHNIQUE: Frontal view of the chest. COMPARISON: 12/31/2022. FINDINGS: The lungs are expanded. There is no demonstrated parenchymal abnormality. There is no demonstrated pleural abnormality. Normal heart and pericardium. Normal mediastinum and marleen. Normal visualized pulmonary arteries. Normal visualized aortic arch and descending thoracic aorta. Normal visualized thoracic spine. Normal visualized ribs, clavicles, and shoulders. There is no demonstrated abnormality of the visualized soft tissue structures of the upper abdomen. RAD/Chest 1 View (Portable) IMPRESSION: No evidence for acute abnormality. [facility]
[2025-04-12 00:42] LABS: D-Dimer Quantitative (DVT/PE) 0.28 FEU/ug/m (0.27-0.49)
[2025-04-12 01:13] LABS: Anion Gap 16 (5-15); BUN 11 mg/dL (4-19); BUN/Creat Ratio 14.3 RATIO (10-20); Calcium,Total 9.6 mg/dL (7.6-11.0); Carbon Dioxide 22.3 mmol/L (21.0-32.0); Chloride 99 mmol/L (98-108); Creatinine, Serum 0.73 mg/dL (0.70-1.20); EST Glomerular Filtration Rate 99 (>60); Glucose 120 mg/dL (70-99); Potassium 3.2 mmol/L (3.3-5.1); Sodium Level 137 mmol/L (133-145); Troponin T High Sensitivity < 6 ng/L (<=14)
[2025-04-12 01:45] LABS: Atypical Lymphocyte 1+ %; Platelet Estimate ADEQUATE (ADEQ); Red Cell Morphology NORM C+C NORMAL (NORM C&C)
[2025-04-12] MEDS: Potassium Chloride Oral Tablet 20 MEQ 40 MEQ PO (01:52)
[2025-04-12 02:54] LABS: Troponin T High Sens 2 HR 18 ng/L (<=14)
--- NOTE | 2025-04-12 03:15 | PCM.HP.STD ---
HPI - General General Date of Service: 04/12/25 Chief Complaint: Chest pain. HPI Narrative The patient is a 49 y/o F w/ PMHx: Hx VTE (DVT remotely 2012), Obesity, HTN, HLD, GERD, Chronic anemia/Fe deficiency anemia, Allergic rhinitis, Hx alcohol abuse, Diabetes mellitus type II, Tobacco use who presents to the [facility] ED on 04/12/2025 with history of onset chest discomfort starting on the evening prior to presentation coming on rather suddenly and remaining constant described as a burning/aching sensation in the substernal region with no improving or worsening factors with diaphoresis, mild lightheadedness, palpitations with no nausea, emesis or dyspnea but given persistence prompted eventual ED evaluation. She rated the pain 8-9 out of 10 in severity when it was occurring. She is currently chest pain-free. Work-up in the ED included T97.6 Temporal, heart rate 60, BP 118/84, respiratory rate 24, 99% on room air with most recent repeat vitals heart rate 68, BP 150/74, respiratory rate 16, 97% on room air, CBC with WBC 12, hemoglobin 11.3, MCV 90.9, platelet 231 with lymphocytosis, D-dimer normal, BMP with potassium 3.2, anion gap 16, BUN/creatinine 11/0.73, GFR 99, glucose 120, troponin initial less than 6 with repeat delta 18, chest x-ray with no acute cardiopulmonary findings, EKG with sinus rhythm with nonspecific ST-T wave changes unchanged from previous. In the ED patient ministered full-strength aspirin therapy, potassium 40 mill equivalent p.o. x 1 and sublingual nitroglycerin. [facility] Medical History (Updated 04/12/25 @ 04:[address] Veronika Alves MD) History of alcohol abuse Allergic rhinitis GERD (gastroesophageal reflux disease) Obesity Iron deficiency anemia Hyperlipidemia Diabetes mellitus Hypertension Home Medications ?Medication ?Instructions ?Recorded ?Last Taken ?Type loratadine 10 mg tablet 10 mg PO PRN PRN Allergic Reaction 09/27/21 Unknown History aspirin 81 mg tablet,delayed 81 mg PO DAILY 03/09/24 Unknown History release cholecalciferol (vitamin D3) 1,250 1,250 mcg PO QWEEK 03/09/24 Unknown History mcg (50,000 unit) capsule atorvastatin 40 mg tablet 40 mg PO QHS cholesterol 03/07/25 Unknown History losartan 50 mg tablet 50 mg PO DAILY 03/07/25 Unknown History metoprolol succinate 25 mg 25 mg PO QHS 04/12/25 Unknown History tablet,extended release 24 hr Allergy/AdvReac Type Severity Reaction Status Date / Time No Known Allergies Allergy Verified 04/11/25 23:06 Family History (Updated 04/12/25 @ 04:[address] Veronika Alves MD) Mother COPD (chronic obstructive pulmonary disease) Father CAD (coronary artery disease) Heart disease Hypertension Myocardial infarction Surgical History (Updated 04/12/25 @ 04:[address] Veronika Alves MD) No history of previous surgery Surgical History no surgical history Social History (Updated 04/12/25 @ 04:[address] Veronika Alves MD) household members: none Smoking Status: Current every day smoker tobacco type: cigarettes Smoking packs per day: 1 Smoking cigarettes per day: 20.0 alcohol intake: current alcohol intake frequency: a few times a month Alcohol type: beer details: Prior heavy intake with 3-6 beers/daily, now down to occasional, 1 beer/wk. substance use type: does not use ROS ROS Narrative Admission Review of Systems: CONSTITUTIONAL: No weight loss, fever, chills, + weakness or fatigue. HEENT: Eyes: No visual loss, blurred vision, double vision or yellow sclerae. Ears, Nose, Throat: No hearing loss, sneezing, congestion, runny nose or sore throat. SKIN: No rash or itching, lesions, wounds. CARDIOVASCULAR: + Chest pain, palpitations. No edema, orthopnea, syncopal events. RESPIRATORY: + Dyspnea. No cough or sputum, wheezing, hemoptysis. GASTROINTESTINAL: No anorexia, nausea, vomiting or diarrhea, abdominal pain, melena, BRBPR. GENITOURINARY: No dysuria, frequency, urgency or retention. NEUROLOGICAL: No headache, dizziness, syncope, paralysis, ataxia, numbness or tingling in the extremities, focal weakness, change in bowel or bladder control, seizure. MUSCULOSKELETAL: + muscle, back pain, joint pain or stiffness. HEMATOLOGIC: + Chronic anemia, easy bleeding/bruising. LYMPHATICS: No enlarged nodes. No history of splenectomy. PSYCHIATRIC: + History of anxiety and depression. ENDOCRINOLOGIC: + History of diaphoresis. No cold or heat intolerance. No polyuria or polydipsia. ALLERGIES: + History of allergic rhinitis. Vital Signs Vital Signs Vital Signs: 04/11/25 23:06 04/11/25 23:23 04/12/25 00:14 Temperature 97.6 F L Temperature Source Temporal Pulse Rate 60 Respiratory Rate 24 H Respiratory Effort Normal Non-Labored Blood Pressure 118/84 H Blood Pressure Mean 95 Pulse Ox 99 Oxygen Delivery Method Room Air Room Air 04/12/25 01:00 04/12/25 02:00 04/12/25 03:00 Temperature Temperature Source Pulse Rate 71 73 68 Respiratory Rate 16 16 16 Respiratory Effort Blood Pressure 122/70 H 115/63 150/74 H Blood Pressure Mean 87 80 99 Pulse Ox 96 95 97 Oxygen Delivery Method Room Air Room Air Room Air Weight Weight: 194 lb Body Mass Index (BMI) 35.4 Physical Exam Narrative Physical Examination: General: Awake, alert, oriented x 3 and cooperative, laying in the ED bed, fatigued. Skin: Normal color, normal turgor, no icterus, no cyanosis. HEENT: AT/NC, EOMI, PERRLA, MMM, no carotid bruits or JVD noted. Lungs: Mildly diminished, greater bases, appropriate effort, no rales, ronchi or wheezing. Heart: Regular rate and rhythm; no gallop, rub audible. Abdomen: Soft, obese, NTTP, mildly hyperactive BS, difficult to discern distention and HSM given habitus. Extremities: No cyanosis, no clubbing, mild ankle not markedly pitting edema bilaterally Neurological: Patient awake, alert, oriented as noted, cognitive function intact; pupils equally reactive to light and accommodation, cranial nerves gross normal, moving all 4 extremities, no focal deficits, strength preserved. Psychiatric: Affect appears fatigued otherwise normal, no acute evidence of depressive or anxiety feelings but does have underlying history. Results Lab / Micro Data 04/11/25 23:20 04/11/25 23:20 Labs: Laboratory Results - last 24 hr 04/11/25 23:20: WBC 12.0 H, RBC 3.62 L, Hgb 11.3 L, Hct 32.9 L, MCV 90.9, MCH 31.2, MCHC 34.3, RDW Std Deviation 48.2 H, RDW Coeff of Paco 14.6, Plt Count 231, MPV 11.6, Immature Gran % (Auto) 0.200, Neut % (Auto) 41.9 L, Lymph % (Auto) 47.9 H, [place] % (Auto) 7.3, Eos % (Auto) 2.4, Baso % (Auto) 0.3, Absolute Neuts (auto) 5.0, Absolute Lymphs (auto) 5.74 H, Nucleated RBC % 0, Atypical Lymphocytes 1+, Platelet Estimate ADEQUATE, RBC Morphology NORM C+C, D-Dimer Quant (PE/DVT) 0.28, Sodium 137, Potassium 3.2 L, Chloride 99, Carbon Dioxide 22.3, Anion Gap 16 H, BUN 11, Creatinine 0.73, Est GFR (MDRD) Non-Af 99, BUN/Creatinine Ratio 14.3, Glucose 120 H, Calcium 9.6, Troponin T High Sens < 6 04/12/25 02:20: Troponin T Hi Sens 2 Hr 18 H Imaging Radiology Impression Chest X-Ray 04/12/25 00:40 IMPRESSION: No evidence for acute abnormality. Reading [facility] [address] Assessment & Plan Assessment/Plan (1) Chest pain: PLAN: Plan The patient is a 49 y/o F w/ PMHx: Hx VTE (DVT remotely 2012), Obesity, HTN, HLD, GERD, Chronic anemia/Fe deficiency anemia, Allergic rhinitis, Hx of alcohol abuse, diabetes mellitus type II, Tobacco use who presents to the [facility] ED on 04/12/2025 with history of onset chest discomfort starting on the evening prior to presentation coming on rather suddenly and remaining constant described as a burning/aching sensation in the substernal region with no improving or worsening factors with diaphoresis, mild lightheadedness, palpitations with no nausea, emesis or dyspnea but given persistence prompted eventual ED evaluation. #1. Chest Pain: EKG in ED with sinus rhythm with nonspecific ST-T wave changes with no acute evidence of ischemia, CXR w/ no acute cardiopulmonary finding, initial trop less than 6 with repeat delta 18. Will admit to PCU, place on a monitored bed to assure no acute myocardial infarction with serial cardiac enzymes and EKGs. If repeat serial cardiac enzymes remain fairly similar with no EKG changes then we will pursue a.m. cardiac stress testing otherwise may require cardiology involvement. Magnesium level requested. FLP in AM. NG paste x 1. NPO after midnight, maintain on judicious IV fluids. #2. Hypokalemia: Admission K+ 3.2, magnesium level requested, supplementation given, repeat level in AM. #3. Hypertension: Continue home regimen including metoprolol, losartan, PRN hydralazine. #4. Hyperlipidemia: Continue home statin regimen. AM FLP. #5. Diabetes mellitus type II: Noted history, not on current regimen per current list but clarifying, once allowed will transition to ADA diet, maintain on accu checks w/ ISS. #6. Allergic rhinitis: Will continue patient on loratadine regimen #7. Chronic normocytic anemia/iron deficiency anemia: Admission hemoglobin 11.3, MCV 90.9, baseline hemoglobin most recently 03/09/2024 similar however previously in 2023 patient normal range 13, continue iron supplementation, trend CBC. #8. Former EtOH Abuse: In the past per records patient with alcohol intake of at least 3-6 beers per day. Currently she notes only intermittently and maybe 1 beer per week maximum. Encourage sobriety. Case management consulted. #9. History of VTE: Patient with history of remote DVT, not chronically anticoagulated, will maintain on chemoprophylaxis as noted. #10. Obesity: Weight loss and lifestyle changes encouraged. #11. GERD: Per current list not on regimen, will have as needed Mylanta regimen. #12. DVT prophylaxis: Lovenox. Charges/Coding Visit Charges Inpatient E&M: 42244 Init Hosp L2
[2025-04-12 03:50] LABS: Magnesium 1.7 mg/dL (1.5-2.2); Phosphorus 4.3 mg/dL (2.7-4.5)
--- NOTE | 2025-04-12 04:35 | EKG12_ITS ---
Test Reason : cp admit Blood Pressure : */* mmHG Vent. Rate : 63 BPM Atrial Rate : 63 BPM P-R Int : 124 ms QRS Dur : 108 ms QT Int : 424 ms P-R-T Axes : 61 39 -8 degrees QTcB Int : 433 ms Normal sinus rhythm with sinus arrhythmia Moderate voltage criteria for LVH, may be normal variant ( Sokolow-Spencer , [place] product ) Nonspecific T wave abnormality Abnormal ECG When compared with ECG of 11-Apr-2025 23:16, MANUAL COMPARISON REQUIRED DATA IS UNCONFIRMED Confirmed by SARAH LADD, ELISHA ([id number]), index editor MARCOS FONSECA ([id number]) on 04/12/2025 1:21:13 PM Referred By: Confirmed By: ELISHA SMITH MD
--- OUTSIDE RECORDS SUMMARY | 2025-04-12 04:40 | XMS RPT_ITS | CCD ---
Author Organization [facility] Inform ion [facility] Care Team Providers Care Preschool Education Director Name Role Phone Stalin Montes De Oca DO Primary Care Provider KAVITHA HERRING Referring Unavailable STALIN MONTES DE OCA Primary Care Unavailable Stalin Montes De Oca DO Primary Care Provider JAKE DARNELL Attending Unavailable STALIN MONTES DE OCA Primary Care Unavailable ASI, KHALED Referring Unavailable ASI, MIKAYLAALED Attending Unavailable STALIN MONTES DE OCA Primary Care Unavailable [place] WHEEL AND PINION INSPECTOR.INDUSTRIAL NURSEMary Unavailable Shailesh WHEEL AND PINION INSPECTOR.Mariella CRAIG Unavailable Dr. Stalin Montes De Oca DO Primary Care Provider Dr. Derian Pimentel DO Emergency Provider Derian Pimentel Attending Unavailable Stalin Montes De Oca Primary Care Unavailable Ranjeet WHEEL AND PINION INSPECTOR.Mariaelena CRAIG Unavailable STALIN MONTES DE OCA Referring Unavailable STALIN MONTES DE OCA Primary Care Unavailable KAVITHA HERRING Referring Unavailable STALIN MONTES DE OCA Primary Care Unavailable BETHANY TAVERAS Attending Unavailable STALIN MONTES DE OCA Primary Care Unavailable MARIELLA [...] Lisinopril Drug Allergy 11-25-2021 Other: See Comments [facility] Work Phone: (20 sources) Lisinopril; Translations: [LISINOPRIL] Drug Allergy 11-25-2021 Other: See Comments [facility] Work Phone: (20 sources) aMILoride / hydroCHLOROthiaz susan; Translations: [AMILORIDE-HYDRO CHLOROTHIAZIDE] Drug Allergy 04-25-2024 Other: See Comments [facility] Medications Current Medications Medication Drug Class(es) [...] on above: Take 1 capsule by mo [facility] one time a week. COMPOUNDED PRESCRIPTION (20 [...] once daily. TAKE 2 TABLETS BY MO [facility] EVERY DAY isopropyl alcohol 0.7 ml/ml medicated [...] Test Name Value Interpretation Reference Range Facility [facility] CIARA VILLALTA ([id number]) 1975 F Date Time Provider Department 04/05/25 STALIN MONTES DE OCA [facility] During your visit today, we recorded the [...] complicating [O09*09/02/2012 01/20/2018 Advanced maternal age in [REC6286] 09/02/2012 01/20/2018 Alcohol abuse [F10.10] 09/02/2012 Tobacco [...] [N39.3] 09/30/2023 Palpitations [R00.2] 03/03/2024 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 25-hydroxyvitamin D3 [Mass/Vol] 49.3 ng/mL Normal 31.0-80.[address] [facility] Comment on above: Order Comment: Jeremy tang Type: BLOOD SPECIMEN [facility]ing [facility] Address: [address] [place] [address] Result Comment: Clas sification of 25 [place] Vitamin D status: Deficiency/Insufficiency: < or = 30 ng/ml. Sufficiency/Optimal Levels: 31-80 ng/mL Toxicity: > 100 ng/mL. Test performed by chemiluminescent immunoassay. Performed By: #### 1 989-3 #### [facility] CLIA [id number] [address] [place] [address] [place] ALBUMIN/CREATININE RATIO, UR INEon 04-03-2025 Albumin DL <= 20 mg/L (U) [Mass/Vol] mg/dL Normal [facility] Comment on above: Order Comment: Jeremy tang Type: BLOOD SPECIMEN [facility]ing Facility: [facility] Address: [address] [place] [address] Performed By: #### 5 7021-8 #### [facility] CLIA [id number] [address] [place] [address] [place] Albumin/Creatinine (U) [Mass ratio] Normal [facility] Comment on above: Order Comment: Jeremy tang Type: BLOOD SPECIMEN [facility]ing Facility: [facility] Address: [address] [place] [address] Result Comment: Not calculated Adult Male and Female Nephrotic Criteria: <30 mg/g is considered normal to mildly increased 30-300 mg/g is considered moderately increased >300 mg/g is considered severely increased KDIGO. (2013). KDIGO 2012 Clinical Practice Guideline for the Evaluation and Management of Chronic Kidney Disease. Official Journal of the International Society of Nephrology, 3(1), 1-150. Performed By: #### 5 7021-8 #### [facility] CLIA [id number] [address] [place] [address] [place] Creatinine (U) [Mass/Vol] 22.5 mg/dL Normal 20.0-300.[address] [facility] Comment on above: Order Comment: Speci men Type: BLOOD SPECIMEN [facility]ing Facility: [facility] Address: [address] [place] [address] Performed By: #### 5 7021-8 #### [facility] CLIA [id number] [address] [place] [address] [place] [address] [place] CBC W Auto Differential pane l (Bld)on 04-03-2025 Basophils (Bld) [#/Vol] 0.04 10*3/uL [facility] Basophils/100 WBC (Bld) 0.5 % [facility] Differential cell count method Nom (Bld) Auto [facility] Eosinophils (Bld) [#/Vol] 0.23 10*3/uL [facility] Eosinophils/100 WBC (Bld) 3.1 % [facility] Erythrocyte distribution width (RBC) [Ratio] 14.2 % 11.5 - 15.0 % [facility] Hematocrit (Bld) [Volume fraction] 34.8 % Low 36.0 - 46.0 % [facility] Hemoglobin (Bld) [Mass/Vol] 11.7 g/dL 11.5 - 15.5 g/dL [facility] Immature granulocytes (Bld) [#/Vol] [facility] Immature granulocytes/100 WBC (Bld) 0.3 % [facility] Interpretation and review of laboratory results Abnormal [facility] Lymphocytes (Bld) [#/Vol] 2.84 10*3/uL [facility] Lymphocytes/100 WBC (Bld) 38.4 % [facility] MCH (RBC) [Entitic mass] 30.5 pg 26.0 - 34.0 pg [facility] MCHC (RBC) [Mass/Vol] 33.6 g/dL 30.5 - 36.0 g/dL [facility] MCV (RBC) [Entitic vol] 90.6 fL 80.0 - 100.0 fL [facility] Monocytes (Bld) [#/Vol] 0.77 10*3/uL [facility] Monocytes/100 WBC (Bld) 10.4 % [facility] Neutrophils (Bld) [#/Vol] 3.5 10*3/uL [facility] Neutrophils/100 WBC (Bld) 47.3 % [facility] Nucleated RBC (Bld) [#/Vol] NINF [facility] Nucleated RBC/100 WBC (Bld) [Ratio] 0 % /100 WBC [facility] Platelet mean volume (Bld) [Entitic vol] 11.7 fL 9.0 - 12.7 fL [facility] Platelets (Bld) [#/Vol] 268 10*3/uL [facility] RBC (Bld) [#/Vol] 3.84 10*6/uL Low 3.90 - 5.2 0 m/uL [facility] WBC (Bld) [#/Vol] 7.4 10*3/uL [facility] Basophils (Bld) [#/Vol] 0.04 10*3/uL Normal <0.[address] [facility] Comment on above: Order Comment: Speci men Type: BLOOD SPECIMEN [facility]ing Facility: [facility] Address: [address] [place] [address] Performed By: #### 5 7021-8 #### [facility] CLIA [id number] [address] [place] [address] [place] Basophils/100 WBC (Bld) 0.5 % Normal [facility] Comment on above: Order Comment: Speci men Type: BLOOD SPECIMEN Ordering Facility: [facility] Address: [address] [place] [address] Performed By: #### 5 7021-8 #### [facility] CLIA [id number] [address] [place] [address] [place] Differential cell count method Nom (Bld) Auto Normal [facility] Comment on above: Order Comment: Speci men Type: BLOOD SPECIMEN Ordering Facility: [facility] Address: [address] [place] [address] Performed By: #### 5 7021-8 #### [facility] CLIA [id number] [address] [place] [address] [place] Eosinophils (Bld) [#/Vol] 0.23 10*3/uL Normal <0.[address] [facility] Comment on above: Order Comment: Speci men Type: BLOOD SPECIMEN Ordering Facility: [facility] Address: [address] [place] [address] Performed By: #### 5 7021-8 #### [facility] CLIA [id number] [address] [place] [address] [place] Eosinophils/100 WBC (Bld) 3.1 % Normal [facility] Comment on above: Order Comment: Speci men Type: BLOOD SPECIMEN Ordering Facility: [facility] Address: [address] [place] [address] Performed By: #### 5 7021-8 #### [facility] CLIA [id number] [address] [place] [address] [place] Erythrocyte distribution width (RBC) [Ratio] 14.2 % Normal 11.5-15.[address] [facility] Comment on above: Order Comment: Speci men Type: BLOOD SPECIMEN Ordering [facility]: [facility] Address: [address] [place] [address] Performed By: #### 5 7021-8 #### [facility] CLIA [id number] [address] [place] [address] [place] Hematocrit (Bld) [Volume fraction] 34.8 % Low 36.0-46.[address] [facility] Comment on above: Order Comment: Speci men Type: BLOOD SPECIMEN Ordering Facility: [facility] Address: [address] [place] [address] Performed By: #### 5 7021-8 #### [facility] CLIA [id number] [address] [place] [address] [place] Hemoglobin (Bld) [Mass/Vol] 11.7 g/dL Normal 11.5-15.[address] [facility] Comment on above: Order Comment: Speci men Type: BLOOD SPECIMEN Ordering [facility]: [facility] Address: [address] [place] [address] Performed By: #### 5 7021-8 #### [facility] CLIA [id number] [address] [place] [address] [place] Immature granulocytes (Bld) [#/Vol] 10*3/uL Normal <0.[address] [facility] Comment on above: Order Comment: Speci men Type: BLOOD SPECIMEN Ordering Facility: [facility] Address: [address] [place] [address] Performed By: #### 5 7021-8 #### [facility] CLIA [id number] [address] [place] [address] [place] Immature granulocytes/100 WBC (Bld) 0.3 % Normal [facility] Comment on above: Order Comment: Speci men Type: BLOOD SPECIMEN Ordering Facility: [facility] Address: [address] [place] [address] Performed By: #### 5 7021-8 #### [facility] CLIA [id number] [address] [place] [address] [place] Lymphocytes (Bld) [#/Vol] 2.84 10*3/uL Normal 1.00-4.[address] [facility] Comment on above: Order Comment: Speci men Type: BLOOD SPECIMEN Ordering [facility]: [facility] Address: [address] [place] [address] Performed By: #### 5 7021-8 #### [facility] CLIA [id number] [address] [place] [address] [place] Lymphocytes/100 WBC (Bld) 38.4 % Normal [facility] Comment on above: Order Comment: Speci men Type: BLOOD SPECIMEN Ordering Facility: [facility] Address: [address] [place] [address] Performed By: #### 5 7021-8 #### [facility] CLIA [id number] [address] [place] [address] [place] MCH (RBC) [Entitic mass] 30.5 pg Normal 26.0-34.[address] [facility] Comment on above: Order Comment: Speci men Type: BLOOD SPECIMEN Ordering Facility: [facility] Address: [address] [place] [address] Performed By: #### 5 7021-8 #### [facility] CLIA [id number] [address] [place] [address] [place] MCHC (RBC) [Mass/Vol] 33.6 g/dL Normal 30.5-36.0 [facility] Comment on above: Order Comment: Speci men Type: BLOOD SPECIMEN Ordering Facility: [facility] Address: [address] [place] [address] Performed By: #### 5 7021-8 #### [facility] CLIA [id number] [address] [place] [address] [place] MCV (RBC) [Entitic vol] 90.6 fL Normal 80.0-100.[address] [facility] Comment on above: Order Comment: Speci men Type: BLOOD SPECIMEN Ordering Facility: [facility] Address: [address] [place] [address] Performed By: #### 5 7021-8 #### [facility] CLIA [id number] [address] [place] [address] [place] Monocytes (Bld) [#/Vol] 0.77 10*3/uL Normal <0.[address] [facility] Comment on above: Order Comment: Speci men Type: BLOOD SPECIMEN Ordering Facility: [facility] Address: [address] [place] [address] Performed By: #### 5 7021-8 #### [facility] CLIA [id number] [address] [place] [address] [place] Monocytes/100 WBC (Bld) 10.4 % Normal [facility] Comment on above: Order Comment: Speci men Type: BLOOD SPECIMEN Ordering Facility: [facility] Address: [address] [place] [address] Performed By: #### 5 7021-8 #### [facility] CLIA [id number] [address] [place] [address] [place] Neutrophils (Bld) [#/Vol] 3.50 10*3/uL Normal 1.45-7.[address] [facility] Comment on above: Order Comment: Speci men Type: BLOOD SPECIMEN Ordering Facility: [facility] Address: [address] [place] [address] Performed By: #### 5 7021-8 #### [facility] CLIA [id number] [address] [place] [address] [place] Neutrophils/100 WBC (Bld) 47.3 % Normal [facility] Comment on above: Order Comment: Speci men Type: BLOOD SPECIMEN Ordering Facility: [facility] Address: [address] [place] [address] Performed By: #### 5 7021-8 #### [facility] CLIA [id number] [address] [place] [address] [place] Nucleated RBC (Bld) [#/Vol] 10*3/uL Normal <0.[address] [facility] Comment on above: Order Comment: Speci men Type: BLOOD SPECIMEN Ordering Facility: [facility] Address: [address] [place] [address] Performed By: #### 5 7021-8 #### [facility] CLIA [id number] [address] [place] [address] [place] Nucleated RBC/100 WBC (Bld) [Ratio] 0.0 /100 WBC Normal [facility] Comment on above: Order Comment: Speci men Type: BLOOD SPECIMEN Ordering Facility: [facility] Address: [address] [place] [address] Performed By: #### 5 7021-8 #### [facility] CLIA [id number] [address] [place] [address] [place] Platelet mean volume (Bld) [Entitic vol] 11.7 fL Normal 9.0-12.[address] [facility] Comment on above: Order Comment: Speci men Type: BLOOD SPECIMEN Ordering Facility: [facility] Address: [address] [place] [address] Performed By: #### 5 7021-8 #### [facility] CLIA [id number] [address] [place] [address] [place] Platelets (Bld) [#/Vol] 268 10*3/uL Normal 150-[address] [facility] Comment on above: Order Comment: Speci men Type: BLOOD SPECIMEN Ordering Facility: [facility] Address: [address] [place] [address] Performed By: #### 5 7021-8 #### [facility] CLIA [id number] [address] [place] [address] [place] RBC (Bld) [#/Vol] 3.84 10*6/uL Low 3.90-5.20 [facility] Comment on above: Order Comment: Speci men Type: BLOOD SPECIMEN [facility]ing [facility]: [facility] Address: [address] [place] [address] Performed By: #### 5 7021-8 #### [facility] CLIA [id number] [address] [place] [address] [place] WBC (Bld) [#/Vol] 7.40 10*3/uL Normal 3.70-11.00 [facility] Comment on above: Order Comment: Speci men Type: BLOOD SPECIMEN Ordering Facility: [facility] Address: [address] [place] [address] Performed By: #### 5 7021-8 #### [facility] CLIA [id number] [address] [place] [address] [place] CNOVon 04-03-2025 CNOV Office Visit (FAMPWS ) CIARA VILLALTA ([id number]) 1975 F Date Time Provider Department 04/03/25 [...] multivitamins or supplements. 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 - Expresses dissatisfaction with current job and financial stress due to low income. - Considering alternative employment opportunities, including sxuy-yfii-jvuy positions. 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 - Encouraged exploring part-time job opportunities to alleviate financial (more content not included)... Normal [facility] Comprehensive metabolic 2000 panelon 04-03-2025 Albumin [Mass/Vol] 4.2 g/dL Normal 3.9-4.9 [facility] Comment on above: Order Comment: Speci men Type: BLOOD SPECIMEN [facility] Address: [address] [place] [address] Performed By: #### 5 7021-8 #### [facility] CLIA [id number] [address] [place] [address] [place] ALP [Catalytic activity/Vol] 112 U/L Normal 34-[address] [facility] Comment on above: Order Comment: Speci men Type: BLOOD SPECIMEN Ordering [facility]: [facility] Address: [address] [place] [address] Performed By: #### 5 7021-8 #### [facility] CLIA [id number] [address] [place] [address] [place] ALT [Catalytic activity/Vol] 15 U/L Normal 7-[address] [facility] Comment on above: Order Comment: Speci men Type: BLOOD SPECIMEN Ordering [facility]: [facility] Address: [address] [place] [address] Performed By: #### 5 7021-8 #### [facility] CLIA [id number] [address] [place] [address] [place] Anion gap [Moles/Vol] 11 mmol/L Normal 8-15 [facility] Comment on above: Order Comment: Speci men Type: BLOOD SPECIMEN Ordering [facility] Address: [address] [place] [address] Performed By: #### 5 7021-8 #### [facility] CLIA [id number] [address] [place] [address] [place] AST [Catalytic activity/Vol] 19 U/L Normal 13-[address] [facility] Comment on above: Order Comment: Speci men Type: BLOOD SPECIMEN Ordering [facility]: [facility] Address: [address] [place] [address] Performed By: #### 5 7021-8 #### [facility] CLIA [id number] [address] [place] [address] [place] Bilirubin [Mass/Vol] 0.2 mg/dL Normal 0.2-1.3 [facility] Comment on above: Order Comment: Speci men Type: BLOOD SPECIMEN [facility] Address: [address] [place] [address] Performed By: #### 5 7021-8 #### [facility] CLIA [id number] [address] [place] [address] [place] Calcium [Mass/Vol] 9.8 mg/dL Normal 8.5-10.2 [facility] Comment on above: Order Comment: Speci men Type: BLOOD SPECIMEN Ordering [facility] Address: [address] [place] [address] Performed By: #### 5 7021-8 #### [facility] CLIA [id number] [address] [place] [address] [place] Chloride [Moles/Vol] 103 mmol/L Normal 98-107 [facility] Comment on above: Order Comment: Speci men Type: BLOOD SPECIMEN Ordering [facility] Address: [address] [place] [address] Performed By: #### 5 7021-8 #### [facility] CLIA [id number] [address] [place] [address] [place] CO2 [Moles/Vol] 25 mmol/L Normal 22-[address] [facility] Comment on above: Order Comment: Speci men Type: BLOOD SPECIMEN [facility] Address: [address] [place] [address] Performed By: #### 5 7021-8 #### [facility] CLIA [id number] [address] [place] [address] [place] Creatinine [Mass/Vol] 0.72 mg/dL Normal 0.58-0.96 [facility] Comment on above: Order Comment: Jeremy men Type: BLOOD SPECIMEN [facility] Address: [address] [place] [address] Performed By: #### 5 7021-8 #### [facility] CLIA [id number] [address] [place] [address] [place] Creatinine and Glomerular filtration rate.predicted panel (S/P/Bld) 101 mL/min/1.73m??? Normal >=[address] [facility] Comment on above: Order Comment: Jeremy tang Type: BLOOD SPECIMEN [facility] Address: [address] [place] [address] Result Comment: Dinora mated Glomerular Filtration Rate [...] GFR. Performed By: #### 5 7021-8 #### [facility] CLIA [id number] [address] [place] [address] [place] Glucose [Mass/Vol] 124 mg/dL High 74-99 [facility] Comment on above: Order Comment: Jeremy tang Type: BLOOD SPECIMEN [facility] Address: [address] [place] [address] Result Comment: The [place] Diabetes Association (ADA) provides guidance for cutoff [...] Standards of Medical Care in Diabetes 2016, [place] Diabetes Association. Diabetes Care. 2016.39(Suppl 1). Performed By: #### 5 7021-8 #### [facility] CLIA [id number] [address] [place] [address] [place] Potassium [Moles/Vol] 4.5 mmol/L Normal 3.7-5.1 [facility] Comment on above: Order Comment: Speci men Type: BLOOD SPECIMEN Ordering [facility]: [facility] Address: [address] [place] [address] Performed By: #### 5 7021-8 #### [facility] CLIA [id number] [address] [place] [address] [place] Protein [Mass/Vol] 8.0 g/dL Normal 6.3-8.0 [facility] Comment on above: Order Comment: Speci men Type: BLOOD SPECIMEN Ordering Facility[facility] Address: [address] [place] [address] Performed By: #### 5 7021-8 #### [facility] CLIA [id number] [address] [place] [address] [place] Sodium [Moles/Vol] 139 mmol/L Normal 136-144 [facility] Comment on above: Order Comment: Speci men Type: BLOOD SPECIMEN Ordering Facility: [facility] Address: [address] [place] [address] Performed By: #### 5 7021-8 #### [facility] CLIA [id number] [address] [place] [address] [place] Urea nitrogen [Mass/Vol] 15 mg/dL Normal 7-[address] [facility] Comment on above: Order Comment: Jeremy tang Type: BLOOD SPECIMEN [facility]ing [facility]: [facility] Address: [address] [place] [address] Performed By: #### 5 7021-8 #### [facility] CLIA [id number] [address] [place] [address] [place] HbA1c (Bld)on 04-03-2025 Average glucose Estimated from glycated hemoglobin (Bld) [Mass/Vol] 134 mg/dL Normal [facility] Comment on above: Order Comment: Jeremy tang Type: BLOOD SPECIMEN [facility]ing Facility: [facility] Address: [address] [place] [address] Result Comment: eAG: (Estimated average glucose) is a calculated value from HgbA1c and is outside medical sales representative of the average blood glucose level in the last 2-3 month period. Performed By: #### 5 7021-8 #### [facility] CLIA [id number] [address] [place] [address] [place] HbA1c (Bld) [Mass fraction] 6.3 % High 4.3-5.[address] [facility] Comment on above: Order Comment: Jeremy tang Type: BLOOD SPECIMEN [facility] Facility: [facility] Address: [address] [place] [address] Result Comment: A he terozygous hemoglobin variant was possibly detected. Most heterozygous hemoglobin variants do not interfere with this assay. However, interpret this hemoglobin A1c result within the patient's clinical context, as the lifespan of red blood cells may be altered. If identification of a previously unidentified hemoglobin variant is clinically indicated, consider ordering the hemoglobin evaluation cascade test. [place] Diabetes Association guidelines indicate that patients with HgbA1c in the range 5.7-6.4% are at increased risk for development of diabetes, and intervention by lifestyle modification may be beneficial. HgbA1c greater or equal to 6.5% is considered diagnostic of diabetes. Performed By: #### 5 7021-8 #### [facility] CLIA [id number] [address] [place] [address] [place] Lipid 1996 panelon 5 Cholesterol [Mass/Vol] 131 mg/dL Normal <200 [facility] Comment on above: Order Comment: Jeremy tang Type: BLOOD SPECIMEN [facility]ing Facility: [facility] Address: [address] [place] [address] Result Comment: <200 mg/dL, Desirable 200-239 mg/dL, Borderline high >239 mg/dL, High Performed By: #### 5 7021-8 #### [facility] CLIA [id number] [address] [place] [address] [place] Cholesterol in HDL [Mass/Vol] 40 mg/dL Normal >[address] [facility] Comment on above: Order Comment: Jeremy tang Type: BLOOD SPECIMEN [facility]: [facility] Address: [address] [place] [address] Result Comment: 40-5 9 mg/dL, Acceptable >59 mg/dL, High: Negative risk factor for coronary heart disease <40 mg/dL, Low: Positive risk factor for coronary heart disease Performed By: #### 5 7021-8 #### [facility] CLIA [id number] [address] [place] [address] [place] Cholesterol in LDL [Mass/Vol] 80 mg/dL Normal <[address] [facility] Comment on above: Order Comment: Jeremy tang Type: BLOOD SPECIMEN [facility]: [facility] Address: [address] [place] [address] Result Comment: <100 mg/dL, Optimal 100-129 mg/dL, Near optimal/above optimal 130-159 mg/dL, Borderline high 160-189 mg/dL, High >189 mg/dL, Very high Secondary prevention optimal LDL Cholesterol levels are recommended to be <70 mg/dL LDL cholesterol is calculated using the Staton-NIH equation. Performed By: #### 5 7021-8 #### [facility] CLIA [id number] [address] [place] [address] [place] Cholesterol in LDL/Cholesterol in HDL [Mass ratio] 2.00 {ratio} Normal <2.[address] [facility] Comment on above: Order Comment: Jeremy tang Type: BLOOD SPECIMEN [facility]: [facility] Address: [address] [place] [address] Result Comment: Braydon chinchilla: 1. National Cholesterol Education Program ATP III Guideline At-A-Glance Quick Desk Reference: National Heart, Lung, and Blood [place]. National Institutes of Health. 2001: NIH Publication No. 01-3305. 2. An International Atherosclerosis Society position paper: global recommendations for the management of dyslipidemia: executive summary, Atherosclerosis. 2014: 232(2):410-413. Performed By: #### 5 7021-8 #### [facility] CLIA [id number] [address] [place] [address] [place] Cholesterol in VLDL [Mass/Vol] 7 mg/dL Normal <[address] [facility] Comment on above: Order Comment: Jeremy tang Type: BLOOD SPECIMEN [facility] Address: [address] [place] [address] Performed By: #### 5 7021-8 #### [facility] CLIA [id number] [address] [place] [address] [place] Cholesterol non HDL [Mass/Vol] 91 mg/dL Normal <[address] [facility] Comment on above: Order Comment: Jeremy tang Type: BLOOD SPECIMEN [facility]ing [facility]: [facility] Address: [address] [place] [address] Result Comment: <130 mg/dL, Optimal 130-159 mg/dL, Near optimal/above optimal 160-189 mg/dL, Borderline high 190-219 mg/dL, High >219 mg/dL, Very high Secondary prevention optimal non HDL Cholesterol levels are recommended to be <100 mg/dL Performed By: #### 5 7021-8 #### [facility] CLIA [id number] [address] [place] [address] [place] Cholesterol.total/Chol esterol in HDL [Mass ratio] 3.28 {ratio} Normal <5.[address] [facility] Comment on above: Order Comment: Jeremy clyde Type: BLOOD SPECIMEN [facility]ing [facility]: [facility] Address: [address] [place] [address] Performed By: #### 5 7021-8 #### [facility] CLIA [id number] [address] [place] [address] [place] FASTING TIME 8 hrs Normal [facility] Comment on above: Order Comment: Speci men Type: BLOOD SPECIMEN [facility]ing [facility]: [facility] Address: [address] [place] [address] Performed By: #### 5 7021-8 #### [facility] CLIA [id number] [address] [place] [address] [place] Triglyceride [Mass/Vol] 48 mg/dL Normal <[address] [facility] Comment on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 organizations have released breast cancer screening guidelines for women at average risk for developing breast cancer - guidelines that are based on both evidence and opinion, yet differ on when to start and how often to screen for breast cancer. With representation from Breast Imaging, Internal Medicine, Women's Health, Family Medicine, and Medical/Surgical Oncology, the [facility] has carefully reviewed the data and [...] their providers when to stop screening mammograms. Hotbed Operator: Tamy Transcribe Date/Time: Feb 24 2024 11:17A Dictated by : PAM PAZ MD This examination was interpreted and the report reviewed and electronically signed by: PAM PAZ MD on Feb 24 2024 11:36AM EST [facility] Radiology Study observation (narrative) [facility] US Breast - right limitedOrd ered By: Ccf Provider on 02-24-2024 [facility] Absolute lymphocyte countOrd ered By: Derian Pimentel on 10-26-2023 Lymphocytes Auto (Unsp spec) [#/Vol] 2.87 10*3/uL 0.83-4.51 [facility] Basophil percentageOrdered B y: Derian Pimentel on 10-26-2023 Basophils/100 WBC (Bld) 0.7 % 0-1 [facility] Chloride [Moles/Vol] 94 mmol/L 98-107 [facility] Eosinophils/100 WBC (Bld) 2.2 % 0-5 [facility] Glucose [Mass/Vol] 122 mg/dL 74-106 [facility] Comment on above: Fasting Glucose resu lt from 100 to 125 mg/dL suggests IMPAIRED HOMEOSTASIS per A.D.A. criteria. Neutrophils (Bld) [#/Vol] 1.8 10*3/uL 2.0-7.7 [facility] Neutrophils/100 WBC (Bld) 33.2 % 47-70 [facility] Potassium [Moles/Vol] 2.5 mmol/L 3.5-5.1 [facility] Sodium [Moles/Vol] 133 mmol/L 136-145 [facility] WBC (Bld) [#/Vol] 5.5 10*3/uL 4.4-11.0 [facility] Blood erythrocytes count (nu mber/volume)Ordered By: Derian Pimentel on 10-26-2023 RBC (Bld) [#/Vol] 4.18 10*6/uL 4.2-5.[address] [facility] Blood hemoglobin measurement (mass/volume)Ordered By: Derian Pimentel on 10-26-2023 Hemoglobin (Bld) [Mass/Vol] 13.7 g/dL 12.0-15.0 [facility] Blood lymphocytes/100 leukoc ytesOrdered By: Derian Pimentel on 10-26-2023 Lymphocytes/100 WBC (Bld) 52.7 % 19-41 [facility] Blood monocytes/100 leukocyt esOrdered By: Derian Pimentel on 10-26-2023 Monocytes/100 WBC (Bld) 11.0 % 0-10 [facility] Blood platelet mean volumeOr dered By: Derian Pimentel on 10-26-2023 Platelet mean volume (Bld) [Entitic vol] 10.5 fL 6.2-12.0 [facility] Determination of erythrocyte mean corpuscular volume (MCV)Ordered By: Derian Pimentel on 10-26-2023 MCV (RBC) [Entitic vol] 90.7 fL 81-99 [facility] Hematocrit Auto (Bld) [Volum e fraction]Ordered By: Derian Pimentel on 10-26-2023 Hematocrit (Bld) [Volume fraction] 37.9 % 37-47 [facility] Laboratory - Chemistry and C hemistry - challengeOrdered By: Derian Pimentel on 10-26-2023 CO2 [Moles/Vol] 32.0 mmol/L 21.0-32.0 [facility] Urea nitrogen/Creatinine [Mass ratio] 6.2 mg/mg 10-20 [facility] Laboratory - Hematology and Cell countsOrdered By: Derian Pimentel on 10-26-2023 Erythrocyte distribution width (RBC) [Entitic vol] 42.1 fL 35.1-43.9 [facility] Erythrocyte distribution width (RBC) [Ratio] 12.8 % 11.6-14.6 [facility] Immature granulocytes/100 WBC (Bld) 0.200 % 0.0-0.9 [facility] Comment on above: IG% - Immature Granu locytes (promyelocytes, myelocytes and metamyelocytes) > 1% indicates that a LEFT SHIFT is Present. MCH (RBC) [Entitic mass] 32.8 pg 27.0-32.0 [facility] Nucleated RBC/100 WBC (Bld) [Ratio] 0 % 0-5 [facility] MCHC Auto (RBC) [Mass/Vol]Or dered By: Derian Pimentel on 10-26-2023 MCHC (RBC) [Mass/Vol] 36.1 g/dL 32-36 [facility] No Panel InformationOrdered By: Derian Pimentel on 10-26-2023 Estimated Creatinine Clearance Calc 79.36 ml/min [facility] Estimated GFR (MDRD) Amer 126 mL/min >60 [facility] Comment on above: GFR Calc Estimated GFR (MDRD) Non-Af Amer 104 mL/min >60 [facility] Comment on above: Non- GFR Calc Troponin I High Sensitivity 24 pg/mL 3.0-54.0 [facility] Comment on above: Critical Result(s) C alled at: 03:31:23 10/26/2023 by: Juan Rosas. to LSparr RN (ed) Results read back by same. Please Note: New Test Units and Gender Specific Reference Ranges. For more information see Policy Stat Procedure [place] High Sensitivity Troponin (TNIH) and attachments. Platelets bldOrdered By: Kin Pimentel on 10-26-2023 Platelets (Bld) [#/Vol] 262 10*3/uL 150-450 [facility] Serum or plasma calcium aleks urement (mass/volume)Ordered By: Derian Pimentel on 10-26-2023 Calcium [Mass/Vol] 9.0 mg/dL 8.5-10.1 [facility] Serum or plasma creatinine m easurement (mass/volume)Ordered By: Derian Pimentel on 10-26-2023 Creatinine [Mass/Vol] 0.64 mg/dL 0.55-1.02 [facility] Comment on above: The validity of the calculated GFR & GFRAA in patients over 70 years has not been determined. Clinical correlation is essential. Serum or plasma urea nitroge n measurement (mass/volume)Ordered By: Derian Pimentel on 10-26-2023 Urea nitrogen [Mass/Vol] 4 mg/dL 7-18 [facility] Thin prep Papanicolaou smear with manual screeningOrdered By: Derian Pimentel on 10-26-2023 Thin prep Papanicolaou smear with manual screening 7 5-15 [facility] XR HIP GENERAL 3V PELV/AP/LA T RIGHTon 09-18-2023 [facility] XR Pelvis and Hip - right AP and Lateral frogon 09-18-2023 IMPRESSION: No acute osseous findings. 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 Severe atherosclerosis. 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 Denis on 12-31-2022 Lymphocytes Auto (Unsp spec) [#/Vol] 2.09 10*3/uL 0.83-4.51 [facility] Basophil percentageOrdered B y: Dr. Denis on 12-31-2022 Basophils/100 WBC (Bld) 0.3 % 0-1 [facility] Bilirubin [Mass/Vol] 0.60 mg/dL 0.20-1.00 [facility] Comment on above: For patients on eltr ombopag therapy, use of Dimension [place] TBIL is not recommended. Chloride [Moles/Vol] 98 mmol/L 98-107 [facility] Eosinophils/100 WBC (Bld) 2.0 % 0-5 [facility] Glucose [Mass/Vol] 163 mg/dL 74-106 [facility] Comment on above: Fasting Glucose resu lt greater than or equal to 126 mg/dL suggests DIABETES MELLITUS per A.D.A. criteria. Neutrophils (Bld) [#/Vol] 3.2 10*3/uL 2.0-7.7 [facility] Neutrophils/100 WBC (Bld) 51.4 % 47-70 [facility] Potassium [Moles/Vol] 3.2 mmol/L 3.5-5.1 [facility] Protein [Mass/Vol] 8.2 g/dL 6.4-8.2 [facility] Sodium [Moles/Vol] 135 mmol/L 136-145 [facility] WBC (Bld) [#/Vol] 6.1 10*3/uL 4.4-11.0 [facility] Blood erythrocytes count (nu mber/volume)Ordered By: Dr. Denis on 12-31-2022 RBC (Bld) [#/Vol] 4.06 10*6/uL 4.2-5.[address] [facility] Blood hemoglobin measurement (mass/volume)Ordered By: Dr. Denis on 12-31-2022 Hemoglobin (Bld) [Mass/Vol] 13.2 g/dL 12.0-15.0 [facility] Blood lymphocytes/100 leukoc ytesOrdered By: Dr. Denis on 12-31-2022 Lymphocytes/100 WBC (Bld) 34.2 % 19-41 [facility] Blood monocytes/100 leukocyt esOrdered By: Dr. Denis on 12-31-2022 Monocytes/100 WBC (Bld) 11.8 % 0-10 [facility] Blood platelet mean volumeOr dered By: Dr. Denis on 12-31-2022 Platelet mean volume (Bld) [Entitic vol] 10.6 fL 6.2-12.0 [facility] Determination of erythrocyte mean corpuscular volume (MCV)Ordered By: Dr. Denis on 12-31-2022 MCV (RBC) [Entitic vol] 94.1 fL 81-99 [facility] Direct bilirubinOrdered By: Dr. Denis on 12-31-2022 Bilirubin.direct [Mass/Vol] 0.16 mg/dL 0.00-0.30 [facility] Hematocrit Auto (Bld) [Volum e fraction]Ordered By: Dr. Denis on 12-31-2022 Hematocrit (Bld) [Volume fraction] 38.2 % 37-47 [facility] Influenza virus A and B and SARS-CoV-2 (COVID-19) Ag panel - Upper respiratory specimOrdered By: Dr. Denis on 12-31-2022 SARS-CoV-2 (COVID-19) RNA TRINA+probe Ql (Resp) [facility] Laboratory - Chemistry and C hemistry - challengeOrdered By: Dr. Denis on 12-31-2022 ALP [Catalytic activity/Vol] 68 U/L 45-117 [facility] ALT [Catalytic activity/Vol] 26 U/L 13-56 [facility] CO2 [Moles/Vol] 30.0 mmol/L 21.0-32.0 [facility] Globulin (S) [Mass/Vol] 4.9 g/dL 2.2-4.2 [facility] Urea nitrogen/Creatinine [Mass ratio] 8.9 mg/mg 10-20 [facility] Laboratory - Hematology and Cell countsOrdered By: Dr. Denis on 12-31-2022 Erythrocyte distribution width (RBC) [Entitic vol] 43.9 fL 35.1-43.9 [facility] Erythrocyte distribution width (RBC) [Ratio] 12.7 % 11.6-14.6 [facility] Immature granulocytes/100 WBC (Bld) 0.300 % 0.0-0.9 [facility] Comment on above: IG% - Immature Granu locytes (promyelocytes, myelocytes and metamyelocytes) > 1% indicates that a LEFT SHIFT is Present. MCH (RBC) [Entitic mass] 32.5 pg 27.0-32.0 [facility] Nucleated RBC/100 WBC (Bld) [Ratio] 0 % 0-5 [facility] MCHC Auto (RBC) [Mass/Vol]Or dered By: Dr. Denis on 12-31-2022 MCHC (RBC) [Mass/Vol] 34.6 g/dL 32-36 [facility] No Panel InformationOrdered By: Dr. Denis on 12-31-2022 D-Dimer Quantitative (PE/DVT) < 0.27 FEU/ug/m 0.27-0.49 [facility] Comment on above: NORMAL D-Dimer level (<0.50) indicates no DVT or PE. Estimated Creatinine Clearance Calc 57.70 ml/min [facility] Estimated GFR (MDRD) Amer 86 mL/min >60 [facility] Comment on above: GFR Calc Estimated GFR (MDRD) Non-Af Amer 71 mL/min >60 [facility] Comment on above: Non- GFR Calc Troponin I High Sensitivity 25 pg/mL 3.0-54.0 [facility] Comment on above: Please Note: New [place] t Units and Gender Specific Reference Ranges. For more information see Policy Stat Procedure [place] High Sensitivity Troponin (TNIH) and attachments. Platelets bldOrdered By: Dr. Denis on 12-31-2022 Platelets (Bld) [#/Vol] 236 10*3/uL 150-450 [facility] Serum or plasma albumin aleks urement (mass/volume)Ordered By: Dr. Denis on 12-31-2022 Albumin [Mass/Vol] 3.3 g/dL 3.2-5.0 [facility] Serum or plasma calcium aleks urement (mass/volume)Ordered By: Dr. Denis on 12-31-2022 Calcium [Mass/Vol] 9.5 mg/dL 8.5-10.1 [facility] Serum or plasma creatinine m easurement (mass/volume)Ordered By: Dr. Denis on 12-31-2022 Creatinine [Mass/Vol] 0.89 mg/dL 0.55-1.02 [facility] Comment on above: The validity of the calculated GFR & GFRAA in patients over 70 years has not been determined. Clinical correlation is essential. Serum or plasma urea nitroge n measurement (mass/volume)Ordered By: Dr. Denis on 12-31-2022 Urea nitrogen [Mass/Vol] 8 mg/dL 05-05 [facility] Thin prep Papanicolaou smear with manual screeningOrdered By: Dr. Denis on 12-31-2022 Thin prep Papanicolaou smear with manual screening 28 U/L [facility] Thin prep Papanicolaou smear with manual screening 7 03-02 [facility] STREP A MOLECULAR (POC)on Procedural Control Valid [facility] Strep A (POCT) Negative Negative [facility] Vital Signs Date Time Vital Sign Value Performing Clinician Facility 04-03-2025 09:24-0400 Body mass index (BMI) [Ratio] 34.34 kg/m2 Stalin Montes De Oca DO Work Phone: [facility] 04-03-2025 09:24-0400 Body temperature 96.3 [degF] Stalin Montes De Oca DO Work Phone: [facility] 04-03-2025 09:24-0400 Body weight 85.73 kg Stalin Montes De Oca DO Work Phone: [facility] 04-03-2025 09:24-0400 Diastolic blood pressure 80 mm[Hg] Stalin Montes De Oca DO Work Phone: [facility] 04-03-2025 09:24-0400 Heart rate 64 /min Stalin Montes De Oca DO Work Phone: [facility] 04-03-2025 09:24-0400 Respiratory rate 20 /min Stalin Montes De Oca DO Work Phone: [facility] 04-03-2025 09:24-0400 Systolic blood pressure 146 mm[Hg] Stalin Montes De Oca DO Work Phone: [facility] 03-07-2025 14:00-0400 Diastolic blood pressure 69 mm[Hg] Dr. Stalin Montes De Oca DO Work Phone: [facility] 03-07-2025 14:00-0400 Systolic blood pressure 209 mm[Hg] Dr. Stalin Montes De Oca DO Work Phone: [facility] 03-07-2025 01:55-0400 Body height 154.[address] Stalin Montes De Oca DO Work Phone: [facility] 03-07-2025 01:55-0400 Body temperature 97.7 [degF] Dr. Stalin Montes De Oca DO Work Phone: [facility] 03-07-2025 01:55-0400 Heart rate 79 /min Dr. Stalin Montes De Oca DO Work Phone: [facility] 03-07-2025 01:55-0400 Respiratory rate 18 /min Dr. Stalin Montes De Oca DO Work Phone: [facility] 03-07-2025 01:55-0400 SaO2% (BldA) [Mass fraction] 100 % Dr. Stalin Montes De Oca DO Work Phone: [facility] 11-23-2024 08:27-0500 Body mass index (BMI) [Ratio] 33.73 kg/m2 Matthew Whitehead APRN.INDUSTRIAL NURSE Work Phone: [facility] 11-23-2024 08:27-0500 Body temperature 98.71 [degF] Matthew Whitehead APRN.INDUSTRIAL NURSE Work Phone: [facility] 11-23-2024 08:27-0500 Body weight 84.2 kg Matthew Whitehead APRN.INDUSTRIAL NURSE Work Phone: [facility] 11-23-2024 08:27-0500 Diastolic blood pressure 82 mm[Hg] Matthew Whitehead APRN.INDUSTRIAL NURSE Work Phone: [facility] 11-23-2024 08:27-0500 Heart rate 113 /min Matthew Whitehead APRN.INDUSTRIAL NURSE Work Phone: [facility] 11-23-2024 08:27-0500 Respiratory rate 18 /min Matthew Whitehead APRN.INDUSTRIAL NURSE Work Phone: [facility] 11-23-2024 08:27-0500 SaO2% (BldA) [Mass fraction] 95 % Matthew Whitehead APRN.INDUSTRIAL NURSE Work Phone: [facility] 11-23-2024 08:27-0500 Systolic blood pressure 132 mm[Hg] Matthew Whitehead APRN.INDUSTRIAL NURSE Work Phone: [facility] 11-01-2024 11:06-0500 Diastolic blood pressure 80 mm[Hg] Stalin Montes De Oca DO Work Phone: [facility] 11-01-2024 11:06-0500 Systolic blood pressure 144 mm[Hg] Stalin Montes De Oca DO Work Phone: [facility] 11-01-2024 09:49-0500 Body height 158 cm Stalin Montes De Oca DO Work Phone: [facility] 11-01-2024 09:49-0500 Body mass index (BMI) [Ratio] 33.43 kg/m2 Stalin Montes De Oca DO Work Phone: [facility] 11-01-2024 09:49-0500 Body temperature 98.01 [degF] Stalin Montes De Oca DO Work Phone: [facility] 11-01-2024 09:49-0500 Body weight 83.46 kg Stalin Montes De Oca DO Work Phone: [facility] 11-01-2024 09:49-0500 Heart rate 84 /min Stalin Montes De Oca DO Work Phone: [facility] 11-01-2024 09:49-0500 Respiratory rate 16 /min Stalin Montes De Oca DO Work Phone: [facility] 08-17-2024 08:26-0400 Body height 156.5 cm Stalin Montes De Oca DO Work Phone: [facility] 08-17-2024 08:26-0400 Body mass index (BMI) [Ratio] 33.64 kg/m2 Stalin Montes De Oca DO Work Phone: [facility] 08-17-2024 08:26-0400 Body temperature 97.3 [degF] Stalin Montes De Oca DO Work Phone: [facility] 08-17-2024 08:26-0400 Body weight 82.4 kg Stalin Montes De Oca DO Work Phone: [facility] 08-17-2024 08:26-0400 Diastolic blood pressure 80 mm[Hg] Stalin Montes De Oca DO Work Phone: [facility] 08-17-2024 08:26-0400 Heart rate 80 /min Stalin Montes De Oca DO Work Phone: [facility] 08-17-2024 08:26-0400 Respiratory rate 20 /min Stalin Montes De Oca DO Work Phone: [facility] 08-17-2024 08:26-0400 Systolic blood pressure 146 mm[Hg] Stalin Montes De Oca DO Work Phone: [facility] 05-11-2024 10:08-0400 Diastolic blood pressure 92 mm[Hg] Mariella Shailesh WHEEL AND PINION INSPECTOR.INDUSTRIAL NURSE Work Phone: [facility] Comment on above: recheck 05-11-2024 10:08-0400 Systolic blood pressure 146 mm[Hg] Mariella Shailesh WHEEL AND PINION INSPECTOR.INDUSTRIAL NURSE Work Phone: [facility] Comment on above: recheck 05-11-2024 09:25-0400 Body mass index (BMI) [Ratio] 34.62 kg/m2 Mariella Shailesh WHEEL AND PINION INSPECTOR.INDUSTRIAL NURSE Work Phone: [facility] 05-11-2024 09:25-0400 Body weight 83.1 kg Mariella Shailesh WHEEL AND PINION INSPECTOR.INDUSTRIAL NURSE Work Phone: [facility] 05-11-2024 09:25-0400 Heart rate 89 /min Mariella Tsangman WHEEL AND PINION INSPECTOR.INDUSTRIAL NURSE Work Phone: [facility] 05-11-2024 09:25-0400 Respiratory rate 16 /min Mariella Tsangman WHEEL AND PINION INSPECTOR.INDUSTRIAL NURSE Work Phone: [facility] 05-11-2024 09:25-0400 SaO2% (BldA) [Mass fraction] 98 % Mariella Skinner WHEEL AND PINION INSPECTOR.INDUSTRIAL NURSE Work Phone: [facility] 04-28-2024 14:45-0400 Diastolic blood pressure 96 mm[Hg] Bethany Taveras MD Work Phone: [facility] 04-28-2024 14:45-0400 Heart rate 94 /min Bethany Taveras MD Work Phone: [facility] 04-28-2024 14:45-0400 Systolic blood pressure 178 mm[Hg] Bethany Taveras MD Work Phone: [facility] 04-25-2024 11:35-0400 Diastolic blood pressure 88 mm[Hg] Cheyanne Podlogar WHEEL AND PINION INSPECTOR.INDUSTRIAL NURSE Work Phone: [facility] Comment on above: TASHI BP 04-25-2024 11:35-0400 Heart rate 84 /min Cheyanne Podlogar WHEEL AND PINION INSPECTOR.INDUSTRIAL NURSE Work Phone: [facility] 04-25-2024 11:35-0400 Systolic blood pressure 172 mm[Hg] Cheyanne Podlogar WHEEL AND PINION INSPECTOR.INDUSTRIAL NURSE Work Phone: [facility] Comment on above: TASHI BP 04-25-2024 11:11-0400 Body mass index (BMI) [Ratio] 34.58 kg/m2 Cheyanne Podlogar WHEEL AND PINION INSPECTOR.INDUSTRIAL NURSE Work Phone: [facility] 04-25-2024 11:11-0400 Body weight 83.01 kg Cheyanne Podlogar WHEEL AND PINION INSPECTOR.INDUSTRIAL NURSE Work Phone: [facility] 04-25-2024 11:11-0400 Respiratory rate 18 /min Cheyanne Dowd WHEEL AND PINION INSPECTOR.INDUSTRIAL NURSE Work Phone: [facility] 04-25-2024 11:11-0400 SaO2% (BldA) [Mass fraction] 94 % Cheyanne Dowd WHEEL AND PINION INSPECTOR.INDUSTRIAL NURSE Work Phone: [facility] 04-11-2024 11:08-0400 Body height 154.9 cm Jake Darnell MD Work Phone: [facility] Comment on above: Patient reports. 04-11-2024 11:08-0400 Body mass index (BMI) [Ratio] 34.24 kg/m2 Jake Darnell MD Work Phone: [facility] 04-11-2024 11:08-0400 Body weight 82.19 kg Jake Darnell MD Work Phone: [facility] Comment on above: Fully clothed with shoes on. 04-11-2024 11:08-0400 Diastolic blood pressure 90 mm[Hg] Jake Darnell MD Work Phone: [facility] 04-11-2024 11:08-0400 Heart rate 103 /min Jake Darnell MD Work Phone: [facility] 04-11-2024 11:08-0400 SaO2% (BldA) [Mass fraction] 96 % Jake Darnell MD Work Phone: [facility] 04-11-2024 11:08-0400 Systolic blood pressure 154 mm[Hg] Jake Darnell MD Work Phone: [facility] 03-22-2024 10:05-0400 Body height 154.9 cm Evelin Chacon MD Work Phone: [facility] 03-22-2024 10:05-0400 Body mass index (BMI) [Ratio] 33.48 kg/m2 Evelin Chacon MD Work Phone: [facility] 03-22-2024 10:05-0400 Body temperature 97.3 [degF] Evelin Chacon MD Work Phone: [facility] 03-22-2024 10:05-0400 Body weight 80.38 kg Evelin Chacon MD Work Phone: [facility] 03-22-2024 10:05-0400 Diastolic blood pressure 98 mm[Hg] Evelin Chacon MD Work Phone: [facility] 03-22-2024 10:05-0400 Heart rate 129 /min Evelin Chacon MD Work Phone: [facility] 03-22-2024 10:05-0400 SaO2% (BldA) [Mass fraction] 98 % Evelin Chacon MD Work Phone: [facility] 03-22-2024 10:05-0400 Systolic blood pressure 162 mm[Hg] Evelin Chacon MD Work Phone: [facility] 03-03-2024 10:04-0400 Diastolic blood pressure 84 mm[Hg] Jake Darnell MD Work Phone: [facility] Comment on above: nurse recheck 03-03-2024 10:04-0400 Systolic blood pressure 182 mm[Hg] Jake Darnell MD Work Phone: [facility] Comment on above: nurse recheck 03-03-2024 10:03-0400 Heart rate 110 /min Jake Darnell MD Work Phone: [facility] 03-03-2024 10:03-0400 SaO2% (BldA) [Mass fraction] 98 % Jake Darnell MD Work Phone: [facility] 01-05-2024 10:59-0400 Diastolic blood pressure 104 mm[Hg] Kavitha Herring DO Work Phone: [facility] 01-05-2024 10:59-0400 Systolic blood pressure 220 mm[Hg] Kavitha Herring DO Work Phone: [facility] 01-05-2024 10:57-0400 Heart rate 95 /min Kavithasaira Lernerle DO Work Phone: [facility] 01-05-2024 10:57-0400 SaO2% (BldA) [Mass fraction] 98 % Kavitha Herring DO Work Phone: [facility] 10-26-2023 04:57-0500 Diastolic blood pressure 82 mm[Hg] [facility] 10-26-2023 04:57-0500 Heart rate 85 /min [facility] 10-26-2023 04:57-0500 Respiratory rate 14 /min [facility] 10-26-2023 04:57-0500 SaO2% (BldA) [Mass fraction] 97 % [facility] 10-26-2023 04:57-0500 Systolic blood pressure 156 mm[Hg] [facility] 10-26-2023 02:08-0500 Body height 154.94 cm [facility] 10-26-2023 02:08-0500 Body mass index (BMI) [Ratio] 34.1 kg/m2 [facility] 10-26-2023 02:08-0500 Body temperature 97.5 [degF] [facility] 10-26-2023 02:08-0500 Body weight 81.9 kg [facility] 09-18-2023 14:20-0500 Body temperature 98.1 [degF] Dariel Escudero MD Work Phone: [facility] 09-18-2023 14:20-0500 Body weight 82.19 kg Dariel Escudero MD Work Phone: [facility] 09-18-2023 14:20-0500 Diastolic blood pressure 90 mm[Hg] Dariel Escudero MD Work Phone: [facility] 09-18-2023 14:20-0500 Heart rate 106 /min Dariel Escudero MD Work Phone: [facility] 09-18-2023 14:20-0500 Respiratory rate 18 /min Dariel Escudero MD Work Phone: [facility] 09-18-2023 14:20-0500 SaO2% (BldA) [Mass fraction] 97 % Dariel Escudero MD Work Phone: [facility] 09-18-2023 14:20-0500 Systolic blood pressure 148 mm[Hg] Dariel Escudero MD Work Phone: [facility] 12-31-2022 09:59-0400 Diastolic blood pressure 84 mm[Hg] [facility] 12-31-2022 09:59-0400 Heart rate 61 /min [facility] 12-31-2022 09:59-0400 Respiratory rate 16 /min [facility] 12-31-2022 09:59-0400 SaO2% (BldA) [Mass fraction] 99 % [facility] 12-31-2022 09:59-0400 Systolic blood pressure 155 mm[Hg] [facility] 12-31-2022 07:22-0400 Body height 154.94 cm [facility] 12-31-2022 07:22-0400 Body mass index (BMI) [Ratio] 34.1 kg/m2 [facility] 12-31-2022 07:22-0400 Body temperature 97 [degF] [facility] 12-31-2022 07:22-0400 Body weight 81.9 kg [facility] 05-03-2022 15:18-0400 Body height 154.94 cm [facility] Work Phone: 05-03-2022 15:18-0400 Body mass index (BMI) [Ratio] 35.5 kg/m2 [facility] Work Phone: 05-03-2022 15:18-0400 Body temperature 98.4 [degF] [facility] Work Phone: 05-03-2022 15:18-0400 Body weight 85.27 kg [facility] Work Phone: 05-03-2022 15:18-0400 Diastolic blood pressure 119 mm[Hg] [facility] Work Phone: 05-03-2022 15:18-0400 Heart rate 105 /min [facility] Work Phone: 05-03-2022 15:18-0400 Respiratory rate 16 /min [facility] Work Phone: 05-03-2022 15:18-0400 SaO2% (BldA) [Mass fraction] 98 % [facility] Work Phone: 05-03-2022 15:18-0400 Systolic blood pressure 168 mm[Hg] [facility] Work Phone: 02-19-2022 14:38-0400 Body temperature 97.5 [degF] Channing Pendlebury WHEEL AND PINION INSPECTOR.INDUSTRIAL NURSE Work Phone: [facility] 02-19-2022 14:38-0400 Body weight 84.37 kg Channing Pendlebury WHEEL AND PINION INSPECTOR.INDUSTRIAL NURSE Work Phone: [facility] 02-19-2022 14:38-0400 Diastolic blood pressure 88 mm[Hg] Channing Pendlebury WHEEL AND PINION INSPECTOR.INDUSTRIAL NURSE Work Phone: [facility] 02-19-2022 14:38-0400 Heart rate 86 /min Channing Pendlebury WHEEL AND PINION INSPECTOR.INDUSTRIAL NURSE Work Phone: [facility] 02-19-2022 14:38-0400 Respiratory rate 18 /min Channing Pendlebury WHEEL AND PINION INSPECTOR.INDUSTRIAL NURSE Work Phone: [facility] 02-19-2022 14:38-0400 SaO2% (BldA) [Mass fraction] 96 % Channing Pendlebury WHEEL AND PINION INSPECTOR.INDUSTRIAL NURSE Work Phone: [facility] 02-19-2022 14:38-0400 Systolic blood pressure 152 mm[Hg] Channing Pendlebury WHEEL AND PINION INSPECTOR.INDUSTRIAL NURSE Work Phone: [facility] Encounters Encounter Date Encounter Type Care Provider Facility Start: 04-05-2025 End: 04-07-2025 Telephone encounter Stalin Montes De Oca DO Work Phone: [facility] [place] Start: 04-03-2025 End: 04-03-2025 ambulatory STALIN JERNIGANON Facility:[facility] Start: 04-03-2025 End: 04-03-2025 ambulatory STALIN L MONTES DE OCA Facility:[facility] Start: 04-03-2025 End: 04-03-2025 Patient encounter procedure Stalin Boothrison DO Work Phone: [facility] Comment on above: Type 2 [...] Stalin Montes De Oca DO Work Phone: [facility] Comment on above: Refill Request Start: 01-18-2025 End: 01-18-2025 Refill Stalin Montes De Oca DO Work Phone: [facility] Comment on above: Refill Request Start: 11-23-2024 End: 11-23-2024 ambulatory STALIN MONTES DE OCA Facility:[facility] Start: 11-23-2024 End: 11-23-2024 Patient encounter procedure Matthew Whitehead APRN.INDUSTRIAL NURSE Work Phone: [facility] Comment on above: URI, acute (Primary Dx); Acute cough Start: 11-01-2024 End: 11-01-2024 Patient encounter status Stalin Esther Montes De Oca DO Work Phone: [facility] Start: 11-01-2024 End: 11-01-2024 ambulatory STALIN MONTES DE OCA Facility:[facility] Start: 11-01-2024 Encounter for genera l adult medical examination without abnormal findings STALIN MONTES DE OCA [facility] Start: 11-01-2024 End: 11-01-2024 ambulatory ABHI FU Facility:[facility] Start: 11-01-2024 End: 11-01-2024 Patient encounter procedure Stalin Montes De Oca DO Work Phone: [facility] Comment on above: Well adult exam ([facility] Dx); Vitamin D deficiency; Hyponatremia; Hypokalemia; Essential hypertension; Type 2 diabetes mellitus without complication, without long-term current use of insulin (HCC); Elevated TSH; Dyslipidemia Porokeratosis (Prima ry Dx); Left foot pain Start: 09-30-2024 End: 09-30-2024 ambulatory STALIN BOOTHRISON Facility:[facility] Start: 09-30-2024 End: 09-30-2024 Subsequent hospital visit by physician Screen Mammo [facility] Comment on above: Encounter for screen ing mammogram for malignant neoplasm of breast [Z12.31] Start: 08-18-2024 End: 08-18-2024 Telephone encounter Stalin Montes De Oca DO Work Phone: [facility] Start: 08-17-2024 End: 08-17-2024 ambulatory STALIN MONTES DE OCA Facility:[facility] Start: 08-17-2024 End: 08-17-2024 ambulatory STALIN BOOTHRISON Facility:[facility] Start: 08-17-2024 End: 08-17-2024 Patient encounter procedure Stalin Jerniganon DO Work Phone: [facility] [place] Comment on above: Type 2 diabetes jennifer itus without complication, without long- term current use of insulin (HCC) (Primary Dx); Essential hypertension; Hyponatremia; Hypokalemia; Vitamin D deficiency; Elevated TSH; Dyslipidemia; Encounter for screening mammogram for malignant neoplasm of breast; Stenosis of left carotid artery Start: 06-16-2024 End: 06-16-2024 ambulatory KAREN MOONEY Facility:[facility] Start: 06-16-2024 End: 06-16-2024 Subsequent hospital visit by physician Mri [employer] [facility] (I-Stat/1.5t) Work Phone: Radiology Comment on above: 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) [I63.231] Start: 06-08-2024 End: 06-08-2024 Refill Mariella Skinner APRN.CNP Work Phone: [facility] [place] Comment on above: Refill Request Start: 06-08-2024 End: 06-08-2024 Refill Stalin Montes De Oca DO Work Phone: Family Medicine [place] Comment on above: Refill Request Start: 05-30-2024 End: 05-30-2024 ambulatory KAREN MOONEY Facility:[facility] Start: 05-30-2024 End: 05-30-2024 Office outpatient new 30 minutes Karen Mooney MD Work Phone: NEUROLOGY Comment on above: 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) (Primary Dx); Stenosis of left internal carotid artery Start: 05-16-2024 Telephone encounter Neurology Provid er Neurology Comment on above: Future Appointment ( [facility] any) Start: 05-16-2024 End: 05-16-2024 ambulatory KAVITHA HERRING Facility:[facility] Start: 05-16-2024 ambulatory KAVITHA HERRING Facili ty:[facility] Start: 05-16-2024 End: 05-16-2024 Subsequent hospital visit by physician Injection Nm [facility] Work Phone: Nuclear Medicine Comment on above: Encounter for screen ing for cardiovascular disorders [Z13.6] Start: 05-11-2024 End: 05-11-2024 ambulatory MARIELLA SKINNER Facility:[facility] Start: 05-11-2024 End: 05-11-2024 Patient encounter procedure Mariella Skinner APRN.INDUSTRIAL NURSE Work Phone: Family Medicine [place] Comment on above: Essential hypertensi on (Primary Dx) Start: 05-10-2024 ambulatory Nurse Card Adm in [facility] Work Phone: Cardiology Comment on above: Stress Test Instruct ions for 05/16/24 Start: 05-10-2024 E-mail encounter fro m caregiver Nurse Card Admin [facility] Work Phone: Cardiology Start: 05-09-2024 Refill Mariella mcclain WHEEL AND PINION INSPECTOR.INDUSTRIAL NURSE Work Phone: Family Medicine [place] Comment on above: Refill Request Start: 04-28-2024 End: 04-28-2024 ambulatory BETHANY TAVERAS Facility:[facility] Start: 04-28-2024 End: 04-28-2024 Office outpatient visit [...] End: 04-25-2024 Patient encounter procedure Cheyanne Sternlogabimael WHEEL AND PINION INSPECTORWaqasINDUSTRIAL NURSE Work Phone: [facility] [place] Comment on above: Essential hypertensi on (Primary Dx); Hyponatremia; Hypokalemia Start: 04-25-2024 End: 04-25-2024 ambulatory CHEYANNE STERNLOGABIMAEL Facility:[facility] Start: 04-19-2024 Telephone encounter Stalin gonzalez DO Work Phone: [facility] [place] Comment on above: Patient Question Rx sent to wrong pha rmacy; Pt asking for new medication Start: 04-18-2024 Refill Stalin choe DO Work Phone: [facility] [place] Comment on above: Refill Request Start: 04-11-2024 Patient encounter status Jake Darnell MD Work Phone: [facility] Start: 04-11-2024 Telephone encounter Jake choe MD Work Phone: [facility] Comment on above: Cat Swamper - O ther Start: 04-11-2024 End: 04-11-2024 ambulatory JAKE DARNELL Facility:[facility] Start: 04-11-2024 End: 04-11-2024 Patient encounter [...] 04-01-2024 Subsequent hospital visit by physician Ct [facility] (I-Stat) Work Phone: Cat Scan Comment [...] [facility] [facility] [place] Start: 03-09-2024 Telephone encounter [facility] [place] Comment on above: Smoking Cessation Start: 03-03-2024 End: 03-03-2024 Patient encounter procedure Jake Darnell MD Work Phone: Vascular Surgery Comment on above: Carotid artery steno sis, asymptomatic, bilateral (Primary Dx); 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 with intermittent claudication (HCC); Palpitations; Nicotine use disorder; Essential hypertension; Tobacco abuse; Type 2 diabetes mellitus without complication, without long-term current use of insulin (HCC); Alcohol abuse Start: 03-01-2024 ambulatory KAVITHA Mendoza ty:[facility] Start: 03-01-2024 End: 03-01-2024 Subsequent hospital visit by physician Ct [facility] Radiology Comment on above: Occlusion and stenos is of unspecified carotid artery [I65.29] Start: 02-24-2024 Admission to [facility] Jake Darnell MD Work Phone: Vascular Surgery Comment on above: CTA testing Start: 02-24-2024 E-mail encounter romaine reyes caregiver Jake Darnell MD Work Phone: Vascular Surgery Start: 02-24-2024 Telephone encounter Mariella Newman APRN.CNP Work Phone: [facility] Comment on above: Results; Appointment Start: 02-24-2024 End: 02-24-2024 Subsequent hospital visit by physician [facility] 1 Work Phone: Radiology Comment on above: Abnormal mammogram [ R92.8] Start: 02-08-2024 Refill Shelley carey PA-C Work Phone: [facility] Comment on above: Refill Request Start: 01-21-2024 Telephone encounter Kavitha Isabella Herring DO Work Phone: Vascular Surgery Comment on above: Orders Start: 01-05-2024 Telephone encounter Kavitha Isabella Herring DO Work [...] for nephropathy Start: 12-23-2023 Refill Mariella mcclain WHEEL AND PINION INSPECTOR.INDUSTRIAL NURSE Work Phone: [facility] Comment on above: Med Change Request Start: 11-23-[address] bowser WHEEL AND PINION INSPECTOR.INDUSTRIAL NURSE Work Phone: [facility] Comment on above: Results Start: 11-13-[address] bowser WHEEL AND PINION INSPECTOR.INDUSTRIAL NURSE Work Phone: [facility] Comment on above: Results; Appointment Start: 10-26-2023 End: 10-26-2023 Emergency department patient visit [facility] Work Phone: Start: 10-02-[address] bowser WHEEL AND PINION INSPECTOR.INDUSTRIAL NURSE Work Phone: [facility] Comment on above: Results; Appointment Start: 09-28-2023 Orders Only Mary Toledo WHEEL AND PINION INSPECTOR.INDUSTRIAL NURSE Work Phone: [facility] Comment on above: Atherosclerosis (Sanjuana zaheer Dx) Start: 09-18-2023 End: 09-18-2023 Subsequent hospital visit by physician [facility] Work Phone: Radiology Comment on above: Acute hip pain, righ t [M25.551] Start: 09-18-2023 End: 09-18-2023 Patient encounter procedure Dariel Escudero MD Work Phone: [facility] Comment on above: Acute hip pain, righ t (Primary Dx); Hip tendonitis, right; Coxa profunda; Atherosclerosis Start: 04-06-2023 Patient encounter status Mila Montes D eOca DO Work Phone: [facility] Start: 04-06-2023 Refill Stalin choe DO Work Phone: [facility] Comment on above: Refill Request Start: 12-31-2022 End: 12-31-2022 [facility] Start: 12-10-2022 ambulatory Stalin Hicks son DO Work Phone: Internal Medicine [facility] Start: 12-03-2022 End: 12-03-2022 Patient encounter procedure Abhi Fu Work Phone: Podiatry Comment on above: Porokeratosis (Prima ry Dx) Start: 10-31-2022 Refill Stalin Hicks son DO Work Phone: [facility] Comment on above: Refill Request (they send 100 every 30 days) Start: 05-03-2022 End: 05-03-2022 [facility] Start: 03-27-2022 Refill Stalin Hicks son DO Work Phone: [facility] Comment on above: Refill Request Start: 02-20-2022 Telephone encounter Stalin gonzalez DO Work Phone: [facility] Comment on above: Results Start: 02-19-2022 End: 02-19-2022 Office outpatient visit 15 minutes Channing Benton APRN.INDUSTRIAL NURSE Work Phone: [facility] Comment on above: Pharyngitis, unspeci fied etiology (Primary Dx); Viral illness Procedures Date Procedure Procedure Detail Performing Clinician Start: 06-16-2024 Mri brain brain stem w/o contrast material Karen Mooney MD Work Phone: Start: 04-01-2024 Ct angiography head w/contrast/noncontrast Jake Darnell MD Work Phone: Start: 04-01-2024 Ct angiography neck w/contrast/noncontrast Jake Darnell MD Work Phone: Start: 03-01-2024 Ct angiography head w/contrast/noncontrast Kavitha Herring DO Work Phone: Start: 03-01-2024 Ct angiography neck w/contrast/noncontrast Kavitha Herring DO Work Phone: Start: 02-24-2024 Us breast uni real t abdi with image limited Mariella Weeksutzman WHEEL AND PINION INSPECTOR.INDUSTRIAL NURSE Work Phone: Start: 09-18-2023 Radex hip unilateral with pelvis 2-3 views Dariel Escudero MD Work Phone: Start: 12-31-2022 Plain chest X-ray Start: 02-19-2022 STREP A MOLECULAR (POC) Channing Benton APRN.INDUSTRIAL NURSE Work Phone: Start: 01-22-2021 Adult depression scr eening assessment Channing Benton APRN.INDUSTRIAL NURSE Work Phone: Start: 05-27-2019 Mammography Channing sauceda WHEEL AND PINION INSPECTOR.INDUSTRIAL NURSE Work Phone: SARS-CoV-2 & FLU Ant igen (Rapid) Plan of Treatment Date Care Activity Detail Author Start: 11-11-2028 Screening for malignant neoplasm of cervix [facility] Start: 11-20-2026 Screening for malignant neoplasm of colon [facility] Start: 04-03-2026 Annual PCP Team Chronic Disease Visit Annual PCP Team Chronic Disease Visit [facility] Start: 04-03-2026 Hepatitis B screening Urine Albumin:Creatinine Ratio [facility] Start: 04-03-2026 Hepatitis B surface antibody level LDL Cholesterol [facility] Start: 11-01-2025 Annual PCP Team Chronic Disease Visit Annual PCP Team Chronic Disease Visit [facility] Start: 11-01-2025 Diabetic foot examination Diabetic Foot Exam [facility] Start: 10-03-2025 Hemoglobin [facility]c [facility] Start: 09-30-2025 Screening for malignant neoplasm of breast Mammogram Screening [facility] Start: 08-29-2025 End: 08-29-2025 Patient encounter procedure 08/29/2025 1:40 PM EST Office Visit Family Medicine [place] [address] [place] [address] Stalin Montes De Oca DO [address] [place] [address] 6 month follow up Family Medicine [place] Comment on above: 6 month follow up Start: 08-17-2025 Annual PCP Team Chronic Disease Visit Annual PCP Team Chronic Disease Visit [facility] Start: 07-04-2025 End: 10-03-2025 Cobalamin (Vitamin B12) [Mass/volume] in Serum or Plasma VITAMIN B12 Lab Routine Type 2 diabetes mellitus without complication, without long-term current use of insulin (HCC) Expected: 07/04/2025, Expires: 10/03/2025 [facility] Comment on above: Expected: 07/04/2025, Expires: Start: 07-04-2025 End: 07-04-2025 ambulatory 07/04/2025 12:15 PM EDT Results Only [place] [facility] Draw Station [address] [place] [address] [facility] Start: 06-19-2025 Influenza vaccination Influenza Vaccine (Season Ended) [facility] Start: 05-11-2025 Annual PCP Team Chronic Disease Visit Annual PCP Team Chronic Disease Visit [facility] Start: 04-25-2025 Annual PCP Team Chronic Disease Visit Annual PCP Team Chronic Disease Visit [facility] Start: 04-17-2025 Influenza vaccination Influenza Vaccine (#1) [facility] Comment on above: Postponed from 06/19/2024 (Declined at t his time) Start: 04-03-2025 End: 2025 Thyroxine (T4) free [Mass/volume] in Serum or Plasma [facility] Work Phone: Comment on above: Expected: 04/03/2025, Expires: Start: 03-07-2025 [facility] Start: 02-15-2025 Hemoglobin A1c measurement HbA1C [facility]onia Start: 02-08-2025 End: 02-08-2025 Patient encounter procedure 02/08/2025 12:40 PM EDT Office Visit Family Medicine [place] [address] [facility], [place] [id number] Stalin Montes De Oca DO [address] [facility], [place] [id number] 3 month follow up [facility] Comment on above: 3 month follow up Start: 01-30-2025 End: 05-01-2025 25-hydroxyvitamin D3 [Mass/volume] in Serum or Plasma VITAMIN D 25 HYDROXY Lab Routine Type 2 diabetes mellitus without complication, without long-term current use of insulin (HCC) Expected: 01/30/2025, Expires: 05/01/2025 [facility] Comment on above: Expected: 01/30/2025, Expires: Start: 01-30-2025 End: 05-01-2025 CBC panel - Blood by Automated count COMPLETE BLOOD COUNT Lab Routine Essential hypertension Type 2 diabetes mellitus without complication, without long-term current use of insulin (HCC) Dyslipidemia Expected: 01/30/2025, Expires: 05/01/2025 [facility] Comment on above: Expected: 01/30/2025, Expires: Start: 01-30-2025 End: 05-01-2025 Comprehensive metabolic 2000 panel - Serum or Plasma COMPREHENSIVE METABOLIC PANEL Lab Routine Essential hypertension Type 2 diabetes mellitus without complication, without long-term current use of insulin (HCC) Dyslipidemia Expected: 01/30/2025, Expires: 05/01/2025 [facility] Work Phone: Comment on above: Expected: 01/30/2025, Expires: Start: 01-30-2025 End: 05-01-2025 Hemoglobin A1c in Blood HEMOGLOBIN A1C Lab Routine Type 2 diabetes mellitus without complication, without long-term current use of insulin (HCC) Expected: 01/30/2025, Expires: 05/01/2025 [facility] Comment on above: Expected: 01/30/2025, Expires: Start: 01-30-2025 End: 05-01-2025 Lipid 1996 panel - Serum or Plasma LIPID PANEL BASIC Lab Routine Dyslipidemia Expected: 01/30/2025, Expires: 05/01/2025 [facility] Comment on above: Expected: 01/30/2025, Expires: Start: 01-30-2025 End: 05-01-2025 Magnesium [Mass/volume] in Serum or Plasma MAGNESIUM Lab Routine Type 2 diabetes mellitus without complication, without long-term current use of insulin (HCC) Expected: 01/30/2025, Expires: 05/01/2025 [facility] Comment on above: Expected: 01/30/2025, Expires: Start: 01-30-2025 End: 05-01-2025 Microalbumin/Creatinine [Mass Ratio] in Urine ALBUMIN/CREATININE RATIO, URINE Lab Routine Type 2 diabetes mellitus without complication, without long-term current use of insulin (HCC) Expected: 01/30/2025, Expires: 05/01/2025 [facility] Comment on above: Expected: 01/30/2025, Expires: Start: 01-30-2025 End: 05-01-2025 Thyrotropin [Units/volume] in Serum or Plasma THYROID STIMULATING HORMONE Lab Routine Type 2 diabetes mellitus without complication, without long-term current use of insulin (HCC) Expected: 01/30/2025, Expires: 05/01/2025 [facility] Comment on above: Expected: 01/30/2025, Expires: Start: 11-11-2024 Annual PCP Team Chronic Disease Visit Annual PCP Team Chronic Disease Visit [facility] Start: 11-11-2024 Hepatitis B screening Urine Albumin:Creatinine Ratio [facility] Start: 11-11-2024 Hepatitis B surface antibody level LDL Cholesterol [facility] Start: 11-01-2024 End: 11-01-2024 Patient encounter procedure 11/01/2024 10:00 AM EST Office Visit Family Medicine [place] [address] [facility] [place] [address] Stalin Montes De Oca DO [address] [place] [address] Physical Family Medicine [place] Comment on above: Physical Start: 09-30-2024 Pneumococcal vaccination Pneumococcal Vaccine (1 of 2 - PCV) [facility] Comment on above: Postponed from 1979 (Declined at t his time) Start: 09-30-2024 Shingrix Vaccine (1 of 2) Shingrix Vaccine (1 of 2) [facility] Comment on above: Postponed from 2023 (Declined at t his time) Start: 09-30-2024 Urine microalbumin profile DTaP,Tdap,Td Vaccine (1 - Tdap) [facility] Comment on above: Postponed from 1992 (Declined at t his time) Start: 09-30-2024 End: 09-30-2024 Patient encounter procedure 09/30/2024 9:30 AM EST Appointment Mammogram [address] [place] [address] Encounter for screening mammogram for malignant neoplasm of breast [Z12.31] Mammogram Comment on above: Encounter for screening mammogram for ma lignant neoplasm of breast [Z12.31] Start: 09-29-2024 Screening for malignant neoplasm of breast Mammogram Screening [facility] Start: 09-28-2024 3 comp foot exam completed Diabetic Foot Exam [facility] Start: 09-28-2024 Annual PCP Team Chronic Disease Visit Annual PCP Team Chronic Disease Visit [facility] Start: 09-28-2024 Diabetic foot examination [facility]abetic Foot Ex[facility] Start: 08-17-2024 End: 11-16-2024 Comprehensive metabolic 2000 panel - Serum or Plasma [facility] Comment on above: Expected: 08/17/2024, Expires: Start: 08-17-2024 End: 11-16-2024 Hemoglobin A1c in Blood [facility] Work Phone: Comment on above: Expected: 08/17/2024, Expires: Start: 08-17-2024 End: 11-16-2024 Thyrotropin [Units/volume] in Serum or Plasma [facility] Comment on above: Expected: 08/17/2024, Expires: Start: 08-17-2024 End: 11-16-2024 Thyroxine (T4) free [Mass/volume] in Serum or Plasma [facility] Comment on above: Expected: 08/17/2024, Expires: Start: 08-17-2024 End: 11-16-2024 Triiodothyronine (T3) Free [Mass/volume] in Serum or Plasma [facility] Comment on above: Expected: 08/17/2024, Expires: Start: 08-17-2024 End: 08-17-2024 Patient encounter procedure 08/17/2024 8:20 AM EDT Office Visit Family Medicine [place] [address] [place] [address] Stalin Montes De Oca DO [address] [place] [address] Yearly, BP check Family Medicine [place] Comment on above: Yearly, BP check Start: 06-19-2024 Influenza vaccination [facility] Start: 06-16-2024 End: 06-16-2024 Patient encounter procedure 06/16/2024 10:40 AM EDT Appointment Radiology [address] [place] [address] MRI BRAIN WO IVCON Radiology Comment on above: MRI BRAIN WO IVCON Start: 05-30-2024 End: 05-30-2024 Patient encounter procedure 05/30/2024 10:00 AM EDT Office Visit NEUROLOGY [address] [id number] Karen Mooney MD [address] [place], [place] [id number] new Carotid artery disease per pt , lesion on brain needing stent NEUROLOGY Comment on above: new Carotid artery disease per pt , lesi on on brain needing stent Start: 05-16-2024 End: 05-16-2024 Nursing evaluation of patient and report 05/16/2024 9:45 AM EDT Nurse Visit Cardiology [address] [place] [phone] Wstr, Nurse Card Admin [facility] [address] [place] [address] Encounter for screening for cardiovascular disorders [Z13.6] Cardiology Comment on above: Encounter for screening for cardiovascul ar disorders [Z13.6] Start: 05-16-2024 End: 05-16-2024 Patient encounter procedure Nuclear Medi cine Comment on above: Encounter for screening for cardiovascul ar disorders [Z13.6] Start: 05-11-2024 Hemoglobin A1c measurement HbA1C [facility] Start: 05-11-2024 End: 05-11-2024 Patient encounter procedure 05/11/2024 9:20 AM EDT Office Visit Family Medicine [place] [address] [facility] [place] [address] Mariella Skinner, WHEEL AND PINION INSPECTOR.INDUSTRIAL NURSE [address] [place] [address] 2 week BP check Family Medicine [place] Comment on above: 2 week BP check Start: 05-10-2024 End: 05-10-2024 Patient encounter procedure 05/10/2024 8:40 AM EDT Office Visit Family Medicine [place] [address] [facility] [place] [address] Mariella Skinner, WHEEL AND PINION INSPECTOR.INDUSTRIAL NURSE [address] [place] [address] 2 week BP check Family Medicine [place] Comment on above: 2 week BP check Start: 04-28-2024 End: 04-28-2024 Patient encounter procedure 04/28/2024 9:45 AM EDT Office Visit Vascular Surg Dept [address] [place] [address] Bethany Taveras MD [address] [place] [address] second opinion on cta results Vascular Surg Dept Comment on above: second opinion on cta results Start: 04-25-2024 End: 07-25-2024 Comprehensive metabolic 2000 panel - Serum or Plasma [facility] Work Phone: Comment on above: Expected: 04/25/2024, Expires: Start: 04-25-2024 End: 04-25-2024 Patient encounter procedure 04/25/2024 11:20 AM EDT Office Visit Family Medicine [place] [address] [place] [address] Cheyanne Dowd APRN.INDUSTRIAL NURSE [address] [place] [address] [facility] ER FU increased BP Family Medicine [place] Comment on above: [facility] ER FU increased BP Start: 04-20-2024 End: 04-20-2024 Patient encounter procedure 04/20/2024 9:40 AM EDT Office Visit Family [facility] [place] [address] [place] [address] Mariella Skinner APRN.INDUSTRIAL NURSE [address] [place] [address] results Family Medicine [place] Comment on above: Discuss CT results Start: 04-17-2024 Influenza vaccination Influenza Vaccine (#1) [facility] Comment on above: Postponed from 06/19/2023 (Declined at t his time) Start: 04-07-2024 End: 04-07-2024 Patient encounter procedure 04/07/2024 10:15 AM EDT Office Visit Vascular Surgery [address] [address] Jake Darnell MD [address] [place] [address] FOLLOW UP TO CTA RESULTS Vascular Surgery Comment on above: FOLLOW UP TO CTA RESULTS Start: 04-01-2024 End: 04-01-2024 Patient encounter procedure 04/01/2024 8:40 AM EDT Appointment Cat Scan [address] [place] [address] CTA HEAD W IVCON Cat Scan Comment on above: CTA HEAD W IVCON Start: 03-28-2024 End: 03-28-2024 Patient encounter procedure Cardiology Comment on above: ECHO WITH AGITATED SALINE CONTRAST CCN APPROVED Start: 03-22-2024 End: 03-22-2024 Patient encounter procedure 03/22/2024 10:00 AM EDT Office Visit General Surgery [address] [place], [place] [address] Evelin Chacon MD [address] [place] [phone] R Breast consult General Surgery Comment on above: R Breast consult Start: 03-21-2024 End: 03-21-2024 Patient encounter procedure 03/21/2024 12:30 PM EDT Office Visit Pulmonary Medicine [address] [address] Bell Garcia, JANAE.INDUSTRIAL NURSE [address] [place] [address] 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 with intermittent claudication (HCC) [I70.213] Pulmonary Medicine Comment on above: 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 with intermittent [...] artery stenosis, left 03/11/2024 8:01 PM EDT [facility] Start: 03-11-2024 End: 03-11-2024 Admission to same day surgery center 03/11/2024 12:24 PM EDT - 03/11/2024 2:13 PM EDT Surgery [facility] [place] [address] Kayla Pathak MD [address] [place] [address] SELECTIVE CATH PLACEMENT VERTEBRAL ARTERY UNILATERAL W/ ANGIOGRAPHY OF THE IPSILATERAL VERTEBRAL CIRCULATION W/ ANGIOGRAPHY OF THE CERVICOCEREBRAL ARCH [facility] Comment on above: SELECTIVE CATH PLACEMENT VERTEBRAL ARTER Y UNILATERAL W/ ANGIOGRAPHY OF THE IPSILATERAL VERTEBRAL CIRCULATION W/ ANGIOGRAPHY OF THE CERVICOCEREBRAL ARCH Start: 03-11-2024 End: 03-11-2024 Slctv cath intrnl carotid art angio intrcrnl art [facility] [place] Start: 03-11-2024 End: 03-11-2024 Slctv cath vertebral art angio vertebral artery [place] [facility] [place] Start: 03-11-2024 Subsequent hospital visit by physician 03/11/2024 12:24 PM EDT Hospital Encounter [facility][1] [place] [address] Kayla Pathak MD [address] [place] [address] Internal carotid artery stenosis, left [I65.22] [facility][1] Comment on above: Internal carotid artery stenosis, left [ I65.22] Start: 03-10-2024 End: 03-10-2024 Patient encounter procedure 03/10/2024 10:00 AM EDT Office Visit Pulmonary Medicine [address] [address] Julia Leblanc, WHEEL AND PINION INSPECTOR.INDUSTRIAL NURSE [address] [address] 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 with intermittent claudication (HCC) [I70.213] Pulmonary Medicine Comment on above: 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 with intermittent claudication (HCC) [I70.213] Start: 03-03-2024 End: 03-03-2024 Patient encounter procedure 03/03/2024 9:30 AM EDT Office Visit Vascular Surgery [address] [address] Jake Darnell MD [address] [place] [address] follow up after testing Vascular Surgery Comment on above: follow up after testing Start: 03-01-2024 End: 03-01-2024 Patient encounter procedure 03/01/2024 1:30 PM EDT Appointment Radiology [address] [place] [address] Occlusion and stenosis of unspecified carotid artery [I65.29] Radiology Comment on above: Occlusion and stenosis of unspecified ca rotid artery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 History of Present illness Narrative [...] PATIENT PRESENTS WITH AN IMPLANTABLE OR ATTACHED HIDES INSPECTOR: No RADIOLOGY DEPARTMENT: Ultrasound PERIPHERAL IV DATA: Not applicable SIGNED BY: Julia Dickson RDMS RVT February 24, 2024 4:25 PM documented in this encounter [facility] 02-09-2024 Telephone encounter Note Patient has [...] Please advise. Thank you. Cali Camejo LPN. [facility] 02-09-2024 Miscellaneous Notes Patient has been [...] Cali Camejo LPN. documented in this encounter [facility] 01-21-2024 Miscellaneous Notes Patient no showed to PVR appt in [place] and the order was cancelled. Please place new PVR order and we will call her to reschedule documented in this encounter [facility] 01-05-2024 Miscellaneous Notes Called to f/u regarding BP concerns from this am. Per patient she was able to take her BP medication and rechecked her BP to home was 176 systolic but could not recall diastolic Advised patient to continue to monitor and contact pcp with any ongoing concerns Education on concerning symptoms. She voices understanding documented in this encounter [facility] 01-05-2024 History of Present illness Narrative Images from the original note were not included. [facility] [place] DEPARTMENT OF VASCULAR SURGERY OUTPATIENT VISIT DATE January 05, 2024 OUTPATIENT VISIT TYPE CONSULTATION SERVICE DATE: 01/05/2024 SERVICE TIME: 10:34 AM PRIMARY CARE PHYSICIAN: Stalin Montes De Oca DO REFERRING PROVIDER: Mariella Skinner [address] [facility] [address] Consult requested for an opinion regarding the evaluation and treatment of the above. My final impression and recommendations will be communicated back to the requesting physician by way of the shared medical record or letter via US mail. CHIEF COMPLAINT: Carotid artery stenosis HISTORY OF PRESENT ILLNESS: Vascular consultation at the request of Dr. Mariella kSinner. A copy of this consultation note will [...] lesions, rash, and itching. PHYSICAL EXAM: VITALS: [facility] 03/01/2018 General: Alert and oriented Integumentary: [...] TIME: 10:34 AM documented in this encounter [facility] 12-23-2023 Miscellaneous Notes Patient has been [...] Cali Camejo LPN. documented in this encounter [facility] 11-25-2023 Miscellaneous Notes Left detailed message [...] informed, verbalized understanding. Please send metformin to [facility] in [place]. Pt reports she was [...] MARIELLA SKINNER APRN.CNP documented in this encounter [facility] 11-13-2023 Miscellaneous Notes Spoke with pt gave information provided. Pt voices understanding. Please assist in scheduling with vascular dept. Please let her know that her left carotid artery has significant stenosis. She needs to see a vascular specialist for further evaluation, please assist her to schedule. Mariella Skinner APRN.RAFA documented in this encounter [facility] 10-02-2023 Miscellaneous Notes Patient notified of results and provider's instructions. Patient verbalizes understanding. Anaya Breaux RN Please let her know that there is an area in her right breast that the radiologist would like to take a look at. Please assist her to schedule this imaging. Mariella Skinner APRN.CNP documented in this encounter [facility] 09-28-2023 History of Present illness Narrative New order placed for vas lab carotid US as requested. Thank you, Mary Toledo APRN.CNP documented in this encounter [facility] 09-18-2023 History of Present illness Narrative [...] (HCC) Tobacco abuse MEDICATIONS: blood sugar diagnostic (WannadoTOUCH ULTRA TEST) test strip USE TO TEST [...] Dariel Escudero MD documented in this encounter [facility] 04-07-2023 Miscellaneous Notes 1st attempt: LVM [...] Last Labs: 10/31/2021 documented in this encounter [facility] 12-03-2022 Instructions Abhi Fu - 12/03/2022 [...] Powerstep Original Full length. Can purchase at [employer] here in [place], [employer] in [place] or [place]. Also can find in [employer] in [facility]. Powersteps can also be purchased online, starting [...] fits well together documented in this encounter [facility] 12-03-2022 History of Present illness Narrative [...] Abhi Fu DPM Podiatry [address] [facility] [address] Dept: [phone] Dept AMB ROOMING INTAKE FLOWSHEET DATA Pain [...] 5 days ago. documented in this encounter [facility] 10-31-2022 Miscellaneous Notes Patient has been identified by name and date of : Yes Requested Prescriptions Pending Prescriptions Disp Refills alcohol swabs (ALCOHOL PREP PADS) 100 Each 11 Sig: Apply 1 Each to affected area once daily. RX INSTRUCTIONS: Per [facility], she stated the alcohol swabs come in packaged boxes of 100 and the patient get one box every month. Please send the way they are requesting this. Pharmacy initiated this request. No need to notify patient. Jessica Fermin documented in this encounter [facility] 03-27-2022 Miscellaneous Notes Patient has been [...] patient verified that she is switching to [facility] and requested refills. Date of last [...] Lakesha Keyes RN documented in this encounter [facility] 02-20-2022 Miscellaneous Notes Pt called in and was notified she was negative for Covid, Influenza A/B, and Strep A. Pt verbalized understanding. Deandra Kruse RN documented in this encounter [facility] 02-19-2022 Instructions Channing Benton APRN.INDUSTRIAL NURSE - 02/19/2022 2:59 PM EDT How to [...] concerning to you. documented in this encounter [facility] 02-19-2022 History of Present illness Narrative [...] Nose: Congestion and rhinorrhea present. Mouth/Throat: Lips: [place]. Mouth: Mucous membranes are moist. Pharynx: Oropharynx [...] of care. This note was generated using Vo[employer]te software. It may contain errors in wording, punctuation, or spelling. Channing Benton APRN.RAFA documented in this encounter [facility] 10-06-2012 History of Past i llness Narrative Problem Noted Date Resolved Date Bleeding in early 10/06/201201/2018 [place]: [facility] [place] 20[facility] at [facility], Repeat [facility] [place]/06[place]12 pending U/S 10/06/12: Clots and possible [...] of this encounter (statuses as of 02/19/2022) [facility] History of Past illness Narrative* Problem Noted Date Resolved Date Bleeding in early 10/06/201201/2018 Overview: [facility] [place]/04: 2087 at [facility], Repeat [facility] 10/06/12 pending U/S 10/06/12: Clots and possible [...] of this encounter (statuses as of 02/20/2022) [facility] History of Past illness Narrative* Problem Noted Date Resolved Date Bleeding in early 10/06/201201/2018 Overview: [facility] [place]/04: 2088 at [facility], Repeat [facility] 10/06/12 pending U/S 10/06/12: Clots and possible [...] of this encounter (statuses as of 03/27/2022) [facility] of Past [facility] Narrative* Problem Noted Date Resolved Date Bleeding in early 10/06/2012 04/01/2018 Overview: [facility] [place]04: 2088 at [facility], Repeat [facility] [place]/06/12 pending U/S 10/06/12: Clots and possible [...] of this encounter (statuses as of 10/31/2022) [facility] History of Past illness Narrative* Problem Noted Date Resolved Date Bleeding in early 10/06/2012 04/0 01/2018 Overview: C 10/04: 2088 at [facility], Repeat CG 10/06/12 pending U/S [...] of this encounter (statuses as of 12/03/2022) [facility] History of Past illness Narrative* Problem Noted Date Resolved Date Bleeding in early 10/06/2012/01/2018 Overview: [facility] 10/04: 2088 at [facility], Repeat [facility] 10/06/12 pending U/S [...] of this encounter (statuses as of 12/15/2022) [facility] of Past illness Narrative* Problem Noted Date Resolved Date Bleeding in early 10/06/201201/2018 Overview: [facility] [place]04: 2087 at [facility], Repeat [facility] [place]/06[place]12 pending U/S 10/06/12: Clots and possible [...] of this encounter (statuses as of 04/09/2023) [facility] of Past [facility] Narrative* Problem Noted Date Diagnosed Date Resolved Date Bleeding in early 10/06/2012 01/20/2018 Overview: [facility] [place]/04: 2087 at [facility], Repeat [facility] 10/06/12 pending U/S 10/06/12: Clots and possible [...] of this encounter (statuses as of 09/18/2023) [facility] of Past illness Narrative* Problem Noted Date Diagnosed Date Resolved Date Bleeding in early 10/06/2012 01/20/2018 Overview: C 10/04: 2088 at [facility], Repeat [facility] 10/06/12 pending U/S 10/06/12: Clots and possible [...] of this encounter (statuses as of 09/29/2023) [facility] of Past illness Narrative* Problem Noted Date Diagnosed Date Resolved Date Bleeding in early 10/06/2012 01/20/2018 Overview: [facility] 10/04: 2088 at [facility], Repeat [facility] 10/06/12 pending U/S [...] of this encounter (statuses as of 10/03/2023) [facility] History of Past illness Narrative* Problem Noted Date Diagnosed Date Resolved Date Bleeding in early 10/06/2012 01/20/2018 Overview: [facility] 10/04: 2088 at [facility], Repeat [facility] 10/06/12 pending U/S [...] of this encounter (statuses as of 11/26/2023) [facility] History of Past illness Narrative* Problem Noted Date Diagnosed Date Resolved Date Bleeding in early 10/06/2012 01/20/2018 Overview: [facility] [place]/[facility]: 8 at [facility], Repeat [facility] 10/06/12 pending U/S 10/06/12: Clots and possible [...] of this encounter (statuses as of 12/17/2023) [facility] of Past [facility] Narrative* Problem Noted Date Diagnosed Date Resolved Date Bleeding in early 10/06/2012 01/20/2018 Overview: [facility] [place]: 8 at [facility], Repeat [facility] 10/06/12 pending U/S 10/06/12: Clots and possible [...] of this encounter (statuses as of 12/23/2023) [facility] of Past [facility] Narrative* Problem Noted Date Diagnosed Date Resolved Date Bleeding in early 10/06/2012 01/20/2018 Overview: [facility] 10/04: 2088 at [facility], Repeat CG 10/06/12 pending U/S [...] of this encounter (statuses as of 01/05/2024) [facility] of Past illness Narrative* Problem Noted Date Diagnosed Date Resolved Date Bleeding in early 10/06/2012 01/20/2018 Overview: [facility] 10/04: 8 at [facility], Repeat [facility] 10/06/12 pending U/S [...] of this encounter (statuses as of 01/12/2024) [facility] of Past illness Narrative* Problem Noted Date Diagnosed Date Resolved Date Bleeding in early 10/06/2012 01/20/2018 Overview: [facility] [place]/04: 2087 at [facility], Repeat [facility] [place]/06/12 pending U/S 10/06/12: Clots and possible [...] of this encounter (statuses as of 01/22/2024) [facility] Diagnosis Pharyngitis, unspecified etiology- Primary Viral illness Unspecified viral infection, in conditions classified elsewhere and of unspecified site [facility] Diagnosis New onset type 2 diabetes mellitus (HCC) [facility] noteNo assessment information availableWPremier Health [facility] Work Phone: Evaluation note* Diagnosis Porokeratosis- Primary Other specified congenital anomaly of skin [facility] Diagnosis Encounter for screening mammogram for breast cancer [facility] Diagnosis New onset type 2 diabetes mellitus (HCC)- Primary Well adult exam Routine general medical examination at a health care facility [facility]* Diagnosis Acute hip pain, right- Primary Hip tendonitis, right Coxa profunda Atherosclerosis Generalized and unspecified atherosclerosis [facility] [place] [facility]* Diagnosis Atherosclerosis- Primary Generalized and unspecified atherosclerosis [facility]* Diagnosis Inconclusive mammogram- Primary [facility]* Diagnosis Vitamin D deficiency- Primary Unspecified vitamin D deficiency Type 2 diabetes mellitus without complication, without long-term current use of insulin (HCC) BV (bacterial vaginosis) Vaginitis and vulvovaginitis, unspecified [facility] [place] [facility]* Diagnosis Stenosis of left carotid artery- Primary Occlusion and stenosis of carotid artery without mention of cerebral infarction [facility] [place] [facility]* Diagnosis Type 2 diabetes mellitus without complication, without long-term current use of insulin (HCC) [facility]* Diagnosis Occlusion and stenosis of unspecified carotid artery- Primary Stenosis of left carotid artery Occlusion and stenosis of carotid artery without mention of cerebral infarction Encounter for screening for cardiovascular disorders Screening for other and unspecified cardiovascular conditions Primary hypertension Unspecified essential hypertension Peripheral arterial disease (HCC) Peripheral vascular disease, unspecified Screening for nephropathy [facility] [place] [facility]* Diagnosis Environmental allergies Other allergy, other than to medicinal agents Essential hypertension Unspecified essential hypertension [facility] [place] [facility]* Diagnosis Abscess of breast, right- Primary Inflammatory disease of breast [facility]* Diagnosis Abnormal mammogram Abnormal mammogram, unspecified [facility]* Diagnosis Occlusion and stenosis of unspecified carotid artery [facility] [facility] Carotid artery stenosis, asymptomatic, bilateral- Primary 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 with intermittent claudication (HCC) Atherosclerosis of ambler arteries of the extremities with intermittent claudication Palpitations Nicotine use disorder Tobacco use disorder Essential hypertension Unspecified essential hypertension Tobacco abuse Tobacco use disorder Type 2 diabetes mellitus without complication, without long-term current use of insulin (HCC) Alcohol abuse Alcohol abuse, unspecified [facility] 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 Occlusion and stenosis of multiple and bilateral precerebral arteries without mention of cerebral infarction Occlusion and stenosis of unspecified carotid artery [facility] Diagnosis Abnormal ultrasound of breast Other (abnormal) findings on radiological examination of breast Postinflammatory skin changes Changes in skin texture [facility] Diagnosis Occlusion and stenosis of unspecified carotid artery Multiple and bilateral precerebral artery syndromes Occlusion and stenosis of multiple and bilateral precerebral arteries without mention of cerebral infarction [facility] Diagnosis 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 with intermittent claudication (HCC)- Primary Atherosclerosis of ambler arteries of the extremities with intermittent claudication Essential hypertension Unspecified essential hypertension Tobacco abuse Tobacco use disorder Carotid stenosis, asymptomatic, left Dissection of intracranial carotid artery (HCC) [facility] Diagnosis Essential hypertension- Primary Unspecified essential hypertension Tobacco abuse Tobacco use disorder Preoperative testing Preoperative examination, unspecified Abnormal EKG Nonspecific abnormal electrocardiogram (ECG) (EKG) Dyspnea on exertion Other dyspnea and respiratory abnormality [facility] Diagnosis Essential hypertension- Primary Unspecified essential hypertension Hyponatremia Hyposmolality and/or hyponatremia Hypokalemia Hypopotassemia [facility] Diagnosis Stenosis of left carotid [...] graft of extremities [facility] Diagnosis Vitamin D deficiency Unspecified vitamin D deficiency [facility] Diagnosis Essential hypertension- Primary Unspecified essential hypertension [facility] Diagnosis Encounter for screening for cardiovascular disorders Screening for other and unspecified cardiovascular conditions Primary hypertension Unspecified essential hypertension [facility] [place] [facility] Diagnosis 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)- Primary Stenosis of left internal carotid artery [facility] [place] [facility]* Diagnosis Vitamin D deficiency Unspecified vitamin D deficiency [facility] [place] [facility]* Diagnosis Vitamin D deficiency Unspecified vitamin D deficiency [facility] [place] [facility]* Diagnosis 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) documented [facility] [place] [facility]* Diagnosis Acute hip pain, right [facility] [place] [facility]* Diagnosis Type 2 diabetes mellitus without [...] of cerebral infarction [facility] [place] [facility]* Diagnosis Encounter for screening mammogram for malignant neoplasm of breast Other screening mammogram [facility] [place] [facility]* Diagnosis Well adult exam- Primary Routine [...] and unspecified hyperlipidemia [facility] [place] [facility]* Diagnosis Porokeratosis- Primary Other specified congenital anomaly of skin Left foot pain Pain in limb [facility] [place] [facility]* Diagnosis URI, acute- Primary Acute upper respiratory infections of unspecified site Acute cough [facility] [place] [facility]* Diagnosis Dyslipidemia Other and unspecified hyperlipidemia Type 2 diabetes mellitus without complication, without long-term current use of insulin (HCC) Environmental allergies Other allergy, other than to medicinal agents Essential hypertension Unspecified essential hypertension documented [facility] [place] [facility]* Diagnosis Type 2 diabetes mellitus without [...] not elsewhere classified [facility] Additional Instructions Warm salt water gargling. Plenty of fluids and rest. Tylenol and Motrin as needed. Follow-up with your doctor if not improving.[facility] Work Phone: Hospital Discharge instructions Additional Instructions [...] the ER should you have any further concernsWPremier [facility] Work Phone: Hospital Discharge instructions Additional Instructions Your history and exam indicate that you have tight muscles in your neck and shoulder girdle region which have led to superficial compression of the nerves that innervate your arm. This is known as cervical radiculopathy. Continue to stretch and heat the area to reduce pain and speed healing and continue to use [id number] Tylenol and/or Motrin for pain control. Return to the ER should you have any further concerns or worsening of symptomsWPremier [facility] Work Phone: Reason for referral (narrative)* Diagnostic Procedure Only (Routine) - Pending Review Specialty Diagnoses / Procedures Referred By Burak chang Referred To Contact BR IMAGING Diagnoses Encounter for screening mammogram for breast cancer Procedures YIN SCREENING SCREENING MAMMOGRAPHY BI 2-VIEW BREAST INC Stalin Hardy, [address] [place] [address] Br Imaging [address] [place] [address] Referral ID Status Reason Start Date Expiration Date Visits Requested Visits Authorized [id number] Pending Review Auto-Generat ed Referral 12/10/2022 01/09/2024 1 1 [facility] for referral (narrative)* Diagnostic Procedure Only (Urgent) - Closed Specialty Diagnoses / Procedures Referred By Burak t Referred To Contact XR IMAGING Diagnoses Acute hip pain, right Procedures XR HIP GENERAL 3V PELV/AP/LAT RIGHT RADEX HIP UNILATERAL WITH PELVIS 2-3 VIEWS Dariel Escudero MD [address] [place] [address] [place] [address] Referral ID Status Reason Start Date Expiration Date V isits Requested Visits Authorized [id number] Closed Auto-Generate d Referral 09/18/2023 10/17/2024 1 1 [facility] for referral (narrative)* Outpatient Procedure (Routine) - Authorized Specialty Diagnoses / Procedures [facility] Referred To [facility] Diagnoses Atherosclerosis Procedures US CAROTID ARTERIES [facility] DUPLEX SCAN EXTRACRANIAL ART COMPL BI STUDY Mary [place], WHEEL AND PINION INSPECTOR.INDUSTRIAL NURSE [address] [place] [address] [facility] [place] [address] [place] [address] Referral ID Status Reason Start Date Expiration Date Visits Requested Visits Authorized [id number] Authorized Auto-Generat ed Referral 09/27/2024 1 1 [facility] for referral (narrative)* Diagnostic Procedure Only (Routine) - Pending Review Specialty Diagnoses / Procedures [facility] Referred To Contact BR IM[facility] Diagnoses Inconclusive mammogram Procedures US BREAST LTD RIGHT US BREAST UNI REAL TIME WITH IMAGE LIMITED Mariella Skinner APRN.INDUSTRIAL NURSE [address] [place] [address] Br Imaging [address] [place] [address] Referral ID Status Reason Start Date Expiration Date Visits Requested Visits Authorized [id number] Pending Review Auto-Generat ed Referral 3 10/31/2024 1 1 * Diagnostic Procedure Only (Routine) - Pending Review Specialty Diagnoses / Procedures Referred By Contac t Referred To Contact BR IMAGING Diagnoses Inconclusive mammogram Procedures YIN DIAGNOSTIC RIGHT DIAGNOSTIC MAMMOGRAPHY COMPUTER-AIDED [facility] Mariella Skinner APRN.CNP [address] [place] [address] Br Imaging [address] [place] [address] Referral ID Status Reason Start Date Expiration Date Visits Requested Visits Authorized [id number] Pending Review Auto-Generat ed Referral 3 10/31/2024 1 1 [facility] for referral (narrative)* Outpatient Procedure (Routine) - Authorized Specialty Diagnoses / Procedures Referred By Contac t Referred To Contact [facility] Diagnoses Peripheral arterial disease (HCC) Procedures PVR LEG [facility] NON-INVASIVE PHYSIOLOGIC STUDY EXTREMITY 3 RAZA Kavitha Herring DO [address] [place] [address] [facility] [address] [place] [address] Referral ID Status Reason Start Date Expiration Date Visits Requested Visits Authorized [id number] Authorized Auto-Generat ed Referral 01/05/2024 01/04/2025 1 1 * Diagnostic Procedure Only (Routine) - Pending Review Specialty Diagnoses / Procedures Referred By Contac t Referred To Contact MOLECULAR & FUNCTIONAL IMAGING Diagnoses Encounter for screening for cardiovascular disorders Primary hypertension Procedures NM CARDIAC PERF STRESS/EXERCISE MYOCARDIAL SPECT MULTIPLE STUDIES Kavitha Herring DO [address] [place] [address] [facility] [address] [place] [address] Referral ID Status Reason Start Date Expiration Date Visits Requested Visits Authorized [id number] Pending Review Auto-Generat ed Referral 01/05/2024 02/03/2025 1 1 * MRI/CT (Routine) - Pending Review Specialty Diagnoses / Procedures Referred By Singhac t Referred To Contact CT IMAGING Diagnoses Occlusion and stenosis of unspecified carotid artery Procedures CTA NECK W IVCON CT ANGIOGRAPHY NECK W/CONTRAST/NONCONTRAST Kavitha Herring DO [address] [place] [address] [place] [address] Referral ID Status Reason Start Date Expiration Date Visits Requested Visits Authorized [id number] Pending Review Auto-Generat ed Referral 01/05/2024 02/03/2025 1 1 * MRI/CT (Routine) - Pending Review Specialty Diagnoses / Procedures Referred By Burak t Referred To Contact CT IMAGING Diagnoses Occlusion and stenosis of unspecified carotid artery Procedures CTA HEAD W IVCON CT ANGIOGRAPHY HEAD W/CONTRAST/NONCONTRAST Kavitha Herring DO [address] [place] [address] [place] [address] Referral ID Status Reason Start Date Expiration Date Visits Requested Visits Authorized [id number] Pending Review Auto-Generat ed Referral 01/05/2024 02/03/2025 1 1 [facility] for referral (narrative)* Diagnostic Procedure Only (Routine) - Closed Specialty Diagnoses / Procedures Referred By Burak t Referred To Contact BR IMAGING Diagnoses Abnormal mammogram Procedures US BREAST LTD RIGHT US BREAST UNI REAL TIME WITH IMAGE LIMITED Mariella Skinner, JANAE.INDUSTRIAL NURSE [address] [place] [address] Br Imaging [address] [place] [address] Referral ID Status Reason Start Date Expiration Date V isits Requested Visits Authorized [id number] Closed Auto-Generate d Referral 02/03/2024 12/03/2024 1 1 [facility] for referral (narrative)* Outpatient Procedure (Routine) - Pending Review Specialty Diagnoses / Procedures Referred By Singhac t Referred To Contact [facility] Diagnoses Palpitations Essential hypertension Procedures ECHO WITH AGITATED SALINE CONTRAST ECHO TRANSTHORAC R-T 2D W/WO M-MODE REC COMP Jake Darnell MD [address] [place] [address] [facility] [address] [address] Referral ID Status Reason Start Date Expiration Date Visits Requested Visits Authorized [id number] Pending Review Auto-Generat ed Referral 03/03/2024 03/03/2025 1 1 [facility] for referral (narrative)* Diagnostic Procedure Only (Urgent) - Closed Specialty Diagnoses / Procedures Referred By Burak Referred To Contact XR IMAGING Diagnoses Acute hip pain, right Procedures XR HIP GENERAL 3V PELV/AP/LAT RIGHT RADEX HIP UNILATERAL WITH PELVIS 2-3 VIEWS Dariel Escudero MD [address] [place] [address] [place] [address] Referral ID Status Reason Start Date Expiration Date V isits Requested Visits Authorized [id number] Closed Auto-Generate d Referral 09/18/2023 10/17/2024 1 1 [facility] for referral (narrative)* Diagnostic Procedure Only (Routine) - Authorized Specialty Diagnoses / Procedures Referred By Burak t Referred To Contact BR IMAGING Diagnoses Encounter for screening mammogram for malignant neoplasm of breast Procedures YIN SCREENING W ZOFIA SCREENING DIGITAL BREAST TOMOSYNTHESIS BI SCREENING MAMMOGRAPHY BI 2-VIEW BREAST INC CAD Stalin Montes De Oca DO [address] [place] [address] Br Imaging [address] [place] [address] Referral ID Status Reason Start Date Expiration Date Visits Requested Visits Authorized [id number] Authorized Auto-Generat ed Referral 09/16/2025 1 1 [facility] for referral (narrative)No reason for referral information availableWPremier Health [facility] Work Phone: [facility] Narrative* Diagnostic Procedure Only (Routine) - Closed Specialty Diagnoses / Procedures Referred By Contac t Referred To Contact MOLECULAR & FUNCTIONAL IMAGING Diagnoses Encounter for screening for cardiovascular disorders Primary hypertension Procedures NM CARDIAC PERF STRESS/EXERCISE MYOCARDIAL SPECT MULTIPLE STUDIES aKvitha Herring DO [address] [place] [address] Molecular [facility] Functional Imaging [address] [place] [address] Referral ID Status Reason Start Date Expiration Date V isits Requested Visits Authorized [id number] Closed Auto-Generate d Referral 05/02/2024 06/01/2024 1 1 [facility] for visit Narrative* Diagnostic Procedure Only (Urgent) - Closed Specialty Diagnoses / Procedures Referred By Burak t Referred To Contact XR IMAGING Diagnoses Acute hip pain, right Procedures XR HIP GENERAL 3V PELV/AP/LAT RIGHT RADEX HIP UNILATERAL WITH PELVIS 2-3 VIEWS Dariel Escudero MD [address] [place] [address] [place] [address] Referral ID Status Reason Start Date Expiration Date V isits Requested Visits Authorized [id number] Closed Auto-Generate d Referral 09/18/2023 10/17/2024 1 1 [facility] for visit Narrative* Diagnostic Procedure Only (Routine) - Closed Specialty Diagnoses / Procedures Referred By Contac t Referred To Contact BR IMAGING Diagnoses Encounter for screening mammogram for malignant neoplasm of breast Procedures YIN SCREENING W ZOFIA SCREENING DIGITAL BREAST TOMOSYNTHESIS BI SCREENING MAMMOGRAPHY BI 2-VIEW BREAST INC Stalin Hardy DO [address] [place] [address] Br Imaging [address] [place] [address] Referral ID Status Reason Start Date Expiration Date V isits Requested Visits Authorized [id number] Closed Auto-Generate d Referral 08/17/2024 09/16/2025 1 1 [facility] Chief Complaint and Reason for Visit Chief Complaint GENERAL ILLNESS Chief Complaint GENERAL Chief Complaint HTN Chief Complaint Admit Date left arm pain March 07, 2025 1:54a m Advance Directives No Advanced Directives Records Found Advance Directive Response Recorded Date/ Time Living Will No May 03, 2022 3:29pm Power of Button Reclaimer No May 03 3:29pm Advance Directive Response Recorded Date/ Time Living Will No December 31, 2022 7:51am Power of Button Reclaimer No December 31 7:51am Advance Directive Response Recorded Date/ Time Living Will No October 26 2:08am Power of Button Reclaimer No October 26 2:08am Advance Directive Response Recorded Date/ Time Do you have a Healthcare Power of Button Reclaimer? No March 07, 2025 2:03am Reason for Referral Specialty Diagnoses / Procedures Referred By Contac t Referred To Contact Vascular Surgery Diagnoses Stenosis of left carotid artery Procedures CONSULT TO VASCULAR SURGERY OFFICE/OUTPATIENT [facility] 60 MINUTES Mariella Skinner, WHEEL AND PINION INSPECTOR.INDUSTRIAL NURSE [address] [place] [address] Referral ID Status Reason Start Date Expiration Date Visits Requested Visits Authorized [id number] Authorized PCP Requested Referral 11/13/2023 11/12/2024 1 1 Specialty Diagnoses / Procedures Referred By Contac t Referred To Contact General Surgery Diagnoses Abscess of breast, right Procedures CONSULT TO GENERAL SURGERY OFFICE/OUTPATIENT [facility] 60 MINUTES Mariella Skinner, WHEEL AND PINION INSPECTOR.INDUSTRIAL NURSE [address] [place] [address] Referral ID Status Reason Start Date Expiration Date Visits Requested Visits Authorized [id number] Authorized PCP Requested Referral 02/24/2024 02/23/2025 1 1 Specialty Diagnoses / Procedures Referred By Contac t Referred To Contact CT IMAGING Diagnoses Occlusion and stenosis of unspecified carotid artery Procedures CTA NECK W IVCON CT ANGIOGRAPHY NECK W/CONTRAST/NONCONTRAST Kavitha Herring, DO [address] [place] [address] Ct Imaging [id number] Referral ID Status Reason Start Date Expiration Date V isits Requested Visits Authorized [id number] Closed Auto-Generate d Referral 03/01/2024 03/26/2024 1 1 Specialty Diagnoses / Procedures Referred By Contac t Referred To Contact CT IMAGING Diagnoses Occlusion and stenosis of unspecified carotid artery Procedures CTA HEAD W IVCON CT ANGIOGRAPHY HEAD W/CONTRAST/NONCONTRAST Kavitha Herring, DO [address] [facility] [place] [id number] [facility] [place] [address] Referral ID Status Reason Start Date Expiration Date V isits Requested Visits Authorized [id number] Closed Auto-Generate d Referral 03/01/2024 03/26/2024 1 1 Specialty Diagnoses / Procedures Referred By Contac t Referred To Contact CT IMAGING Diagnoses Multiple and bilateral precerebral artery syndromes Procedures CTA NECK W IVCON CT ANGIOGRAPHY NECK W/CONTRAST/NONCONTRAST Jake Darnell MD [address] [place] [address] [address] [address] [id number] Referral ID Status Reason Start Date Expiration Date Visits Requested Visits Authorized [id number] Pending Review Auto-Generat ed Referral 03/11/2024 04/10/2025 1 1 Specialty Diagnoses / Procedures Referred By Contac t Referred To Contact CT IMAGING Diagnoses Occlusion and stenosis of unspecified carotid artery Procedures CTA HEAD W IVCON CT ANGIOGRAPHY HEAD W/CONTRAST/NONCONTRAST Jake Darnell MD [address] [place] [address] [address] [address] [id number] Referral ID Status Reason Start Date Expiration Date Visits Requested Visits Authorized [id number] Pending Review Auto-Generat ed Referral 03/11/2024 04/10/2025 1 1 Referral ID Status Reason Start Date Expiration Date V isits Requested Visits Authorized [id number] Closed Auto-Generate d Referral 03/22/2024 04/21/2024 1 1 Referral ID Status Reason Start Date Expiration Date V isits Requested Visits Authorized [id number] Closed Auto-Generate d Referral 03/22/2024 04/21/2024 1 1 Specialty Diagnoses / Procedures Referred By Burak chang Referred To Contact MR IMAGING Diagnoses 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) Procedures MRI BRAIN WO IVCON MRI BRAIN BRAIN STEM W/O CONTRAST MATERIAL Karen Mooney MD [address] [place] [address] [place] [address] Referral ID Status Reason Start Date Expiration Date Visits Requested Visits Authorized [id number] New Request Auto-Generat ed Referral 05/30/2024 06/29/2025 1 1 Referral ID Status Reason Start Date Expiration Date V isits Requested Visits Authorized [id number] Closed Auto-Generate d Referral 06/03/2024 2024 1 [...] or prosecute any alcohol or drug abuse patient.[facility] the event this information is protected by the Federal Confidentiality of Alcohol and Drug Abuse Patient Records regulations: The Federal rules restrict any use of the information to criminally investigate or prosecute any alcohol or drug abuse patient.[facility] the event this information is protected by the Federal Confidentiality of Alcohol and Drug Abuse Patient Records regulations: The Federal rules restrict any use of the information to criminally investigate or prosecute any alcohol or drug abuse patient.[facility] the event this information is protected by the Federal Confidentiality of Alcohol and Drug Abuse Patient Records regulations: The Federal rules restrict any use of the information to criminally investigate or prosecute any alcohol or drug abuse patient.[facility] the event this information is protected by the Federal Confidentiality of Alcohol and Drug Abuse Patient Records regulations: The Federal rules restrict any use of the information to criminally investigate or prosecute any alcohol or drug abuse patient.[facility] the event this information is protected by the Federal Confidentiality of Alcohol and Drug Abuse Patient Records regulations: The Federal rules restrict any use of the information to criminally investigate or prosecute any alcohol or drug abuse patient.[facility] the event this information is protected by the Federal Confidentiality of Alcohol and Drug Abuse Patient Records regulations: The Federal rules restrict any use of the information to criminally investigate or prosecute any alcohol or drug abuse patient.[facility] Hospital[facility] the event this information is protected by the Federal Confidentiality of Alcohol and Drug Abuse Patient Records regulations: The Federal rules restrict any use of the information to criminally investigate or prosecute any alcohol or drug abuse patient.[facility] Hospital[facility] the event this information is protected by the Federal Confidentiality of Alcohol and Drug Abuse Patient Records regulations: The Federal rules restrict any use of the information to criminally investigate or prosecute any alcohol or drug abuse patient.[facility] Hospital[facility] the event this information is protected by the Federal Confidentiality of Alcohol and Drug Abuse Patient Records regulations: The Federal rules restrict any use of the information to criminally investigate or prosecute any alcohol or drug abuse patient.[facility] Hospital[facility] the event this information is protected by the Federal Confidentiality of Alcohol and Drug Abuse Patient Records regulations: The Federal rules restrict any use of the information to criminally investigate or prosecute any alcohol or drug abuse patient.[facility] HospitalIn the event this information is protected by the Federal Confidentiality of Alcohol and Drug Abuse Patient Records regulations: The Federal rules restrict any use of the information to criminally investigate or prosecute any alcohol or drug abuse patient.[facility] HospitalIn the event this information is protected by the Federal Confidentiality of Alcohol and Drug Abuse Patient Records regulations: The Federal rules restrict any use of the information to criminally investigate or prosecute any alcohol or drug abuse patient.[facility] HospitalIn the event this information is protected by the Federal Confidentiality of Alcohol and Drug Abuse Patient Records regulations: The Federal rules restrict any use of the information to criminally investigate or prosecute any alcohol or drug abuse patient.[facility] HospitalIn the event this information is protected by the Federal Confidentiality of Alcohol and Drug Abuse Patient Records regulations: The Federal rules restrict any use of the information to criminally investigate or prosecute any alcohol or drug abuse patient.[facility] HospitalIn the event this information is protected by the Federal Confidentiality of Alcohol and Drug Abuse Patient Records regulations: The Federal rules restrict any use of the information to criminally investigate or prosecute any alcohol or drug abuse patient.[facility] HospitalIn the event this information is protected by the Federal Confidentiality of Alcohol and Drug Abuse Patient Records regulations: The Federal rules restrict any use of the information to criminally investigate or prosecute any alcohol or drug abuse patient.[facility] HospitalIn the event this information is protected by the Federal Confidentiality of Alcohol and Drug Abuse Patient Records regulations: The Federal rules restrict any use of the information to criminally investigate or prosecute any alcohol or drug abuse patient.[facility] HospitalIn the event this information is protected by the Federal Confidentiality of Alcohol and Drug Abuse Patient Records regulations: The Federal rules restrict any use of the information to criminally investigate or prosecute any alcohol or drug abuse patient.[facility] HospitalIn the event this information is protected by the Federal Confidentiality of Alcohol and Drug Abuse Patient Records regulations: The Federal rules restrict any use of the information to criminally investigate or prosecute any alcohol or drug abuse patient.[facility] HospitalIn the event this information is protected by the Federal Confidentiality of Alcohol and Drug Abuse Patient Records regulations: The Federal rules restrict any use of the information to criminally investigate or prosecute any alcohol or drug abuse patient.[facility] HospitalIn the event this information is protected by the Federal Confidentiality of Alcohol and Drug Abuse Patient Records regulations: The Federal rules restrict any use of the information to criminally investigate or prosecute any alcohol or drug abuse patient.[facility] HospitalIn the event this information is protected by the Federal Confidentiality of Alcohol and Drug Abuse Patient Records regulations: The Federal rules restrict any use of the information to criminally investigate or prosecute any alcohol or drug abuse patient.[facility] HospitalIn the event this information is protected by the Federal Confidentiality of Alcohol and Drug Abuse Patient Records regulations: The Federal rules restrict any use of the information to criminally investigate or prosecute any alcohol or drug abuse patient.[facility] HospitalIn the event this information is protected [...] or prosecute any alcohol or drug abuse patient.[facility] HospitalIn the event this information is protected by the Federal Confidentiality of Alcohol and Drug Abuse Patient Records regulations: The Federal rules restrict any use of the information to criminally investigate or prosecute any alcohol or drug abuse patient.[facility] HospitalIn the event this information is protected by the Federal Confidentiality of Alcohol and Drug Abuse Patient Records regulations: The Federal rules restrict any use of the information to criminally investigate or prosecute any alcohol or drug abuse patient.[facility] HospitalIn the event this information is protected by the Federal Confidentiality of Alcohol and Drug Abuse Patient Records regulations: The Federal rules restrict any use of the information to criminally investigate or prosecute any alcohol or drug abuse patient.[facility] HospitalIn the event this information is protected by the Federal Confidentiality of Alcohol and Drug Abuse Patient Records regulations: The Federal rules restrict any use of the information to criminally investigate or prosecute any alcohol or drug abuse patient.[facility] HospitalIn the event this information is protected by the Federal Confidentiality of Alcohol and Drug Abuse Patient Records regulations: The Federal rules restrict any use of the information to criminally investigate or prosecute any alcohol or drug abuse patient.[facility] HospitalIn the event this information is protected by the Federal Confidentiality of Alcohol and Drug Abuse Patient Records regulations: The Federal rules restrict any use of the information to criminally investigate or prosecute any alcohol or drug abuse patient.[facility] HospitalIn the event this information is protected by the Federal Confidentiality of Alcohol and Drug Abuse Patient Records regulations: The Federal rules restrict any use of the information to criminally investigate or prosecute any alcohol or drug abuse patient.[facility] HospitalIn the event this information is protected by the Federal Confidentiality of Alcohol and Drug Abuse Patient Records regulations: The Federal rules restrict any use of the information to criminally investigate or prosecute any alcohol or drug abuse patient.[facility] HospitalIn the event this information is protected by the Federal Confidentiality of Alcohol and Drug Abuse Patient Records regulations: The Federal rules restrict any use of the information to criminally investigate or prosecute any alcohol or drug abuse patient.[facility] HospitalIn the event this information is protected by the Federal Confidentiality of Alcohol and Drug Abuse Patient Records regulations: The Federal rules restrict any use of the information to criminally investigate or prosecute any alcohol or drug abuse patient.[facility] HospitalIn the event this information is protected by the Federal Confidentiality of Alcohol and Drug Abuse Patient Records regulations: The Federal rules restrict any use of the information to criminally investigate or prosecute any alcohol or drug abuse patient.[facility] HospitalIn the event this information is protected by the Federal Confidentiality of Alcohol and Drug Abuse Patient Records regulations: The Federal rules restrict any use of the information to criminally investigate or prosecute any alcohol or drug abuse patient.[facility] HospitalIn the event this information is protected by the Federal Confidentiality of Alcohol and Drug Abuse Patient Records regulations: The Federal rules restrict any use of the information to criminally investigate or prosecute any alcohol or drug abuse patient.[facility] HospitalIn the event this information is protected by the Federal Confidentiality of Alcohol and Drug Abuse Patient Records regulations: The Federal rules restrict any use of the information to criminally investigate or prosecute any alcohol or drug abuse patient.[facility] HospitalIn the event this information is protected by the Federal Confidentiality of Alcohol and Drug Abuse Patient Records regulations: The Federal rules restrict any use of the information to criminally investigate or prosecute any alcohol or drug abuse patient.[facility] HospitalIn the event this information is protected by the Federal Confidentiality of Alcohol and Drug Abuse Patient Records regulations: The Federal rules restrict any use of the information to criminally investigate or prosecute any alcohol or drug abuse patient.[facility] HospitalIn the event this information is protected by the Federal Confidentiality of Alcohol and Drug Abuse Patient Records regulations: The Federal rules restrict any use of the information to criminally investigate or prosecute any alcohol or drug abuse patient.[facility] HospitalIn the event this information is protected by the Federal Confidentiality of Alcohol and Drug Abuse Patient Records regulations: The Federal rules restrict any use of the information to criminally investigate or prosecute any alcohol or drug abuse patient.[facility] HospitalIn the event this information is protected by the Federal Confidentiality of Alcohol and Drug Abuse Patient Records regulations: The Federal rules restrict any use of the information to criminally investigate or prosecute any alcohol or drug abuse patient.[facility] HospitalIn the event this information is protected by the Federal Confidentiality of Alcohol and Drug Abuse Patient Records regulations: The Federal rules restrict any use of the information to criminally investigate or prosecute any alcohol or drug abuse patient.[facility] HospitalIn the event this information is protected by the Federal Confidentiality of Alcohol and Drug Abuse Patient Records regulations: The Federal rules restrict any use of the information to criminally investigate or prosecute any alcohol or drug abuse patient.[facility] HospitalIn the event this information is protected by the Federal Confidentiality of Alcohol and Drug Abuse Patient Records regulations: The Federal rules restrict any use of the information to criminally investigate or prosecute any alcohol or drug abuse patient.[facility] HospitalIn the event this information is protected by the Federal Confidentiality of Alcohol and Drug Abuse Patient Records regulations: The Federal rules restrict any use of the information to criminally investigate or prosecute any alcohol or drug abuse patient.[facility] HospitalIn the event this information is protected by the Federal Confidentiality of Alcohol and Drug Abuse Patient Records regulations: The Federal rules restrict any use of the information to criminally investigate or prosecute any alcohol or drug abuse patient.[facility] HospitalIn the event this information is protected by the Federal Confidentiality of Alcohol and Drug Abuse Patient Records regulations: The Federal rules restrict any use of the information to criminally investigate or prosecute any alcohol or drug abuse patient.[facility] HospitalIn the event this information is protected by the Federal Confidentiality of Alcohol and Drug Abuse Patient Records regulations: The Federal rules restrict any use of the information to criminally investigate or prosecute any alcohol or drug abuse patient.[facility] HospitalIn the event this information is protected by the Federal Confidentiality of Alcohol and Drug Abuse Patient Records regulations: The Federal rules restrict any use of the information to criminally investigate or prosecute any alcohol or drug abuse patient.[facility] HospitalIn the event this information is protected by the Federal Confidentiality of Alcohol and Drug Abuse Patient Records regulations: The Federal rules restrict any use of the information to criminally investigate or prosecute any alcohol or drug abuse patient.[facility] HospitalIn the event this information is protected by the Federal Confidentiality of Alcohol and Drug Abuse Patient Records regulations: The Federal rules restrict any use of the information to criminally investigate or prosecute any alcohol or drug abuse patient.[facility] HospitalIn the event this information is protected by the Federal Confidentiality of Alcohol and Drug Abuse Patient Records regulations: The Federal rules restrict any use of the information to criminally investigate or prosecute any alcohol or drug abuse patient.[facility] HospitalIn the event this information is protected by the Federal Confidentiality of Alcohol and Drug Abuse Patient Records regulations: The Federal rules restrict any use of the information to criminally investigate or prosecute any alcohol or drug abuse patient.[facility] Reason for Visit (unrecogniz ed section [...] NEW HIGH MDM 60 MINUTES Mariella Skinner, JANAE.INDUSTRIAL NURSE [address] [place] [address] Referral ID Status Reason Start Date Expiration Date V isits Requested Visits Authorized [id number] Closed PCP Requested Referral 11/13/2023 11/12/2024 1 1 Reason Comments Orders Reason Comments Refill Request Reason Comments Radiology US Specialty Diagnoses / Procedures Referred By Burak chang Referred To Contact BR IMAGING Diagnoses Abnormal mammogram Procedures US BREAST LTD RIGHT US BREAST UNI REAL TIME WITH IMAGE LIMITED Mariella Skinner APRN.INDUSTRIAL NURSE [address] [place] [address] Br Imaging [address] [place] [address] Referral ID Status Reason Start Date Expiration Date V isits Requested Visits Authorized [id number] Closed Auto-Generate d Referral 02/03/2024 12/03/2024 1 1 Specialty Diagnoses / Procedures Referred By Contac t Referred To Contact CT IMAGING Diagnoses Occlusion and stenosis of unspecified carotid artery Procedures CTA NECK W IVCON CT ANGIOGRAPHY NECK W/CONTRAST/NONCONTRAST Kavitha Herring DO [address] [place] [address] Ct Imaging [id number] Referral ID Status Reason Start Date Expiration Date V isits Requested Visits Authorized [id number] Closed Auto-Generate d Referral 03/01/2024 03/26/2024 1 1 Reason Comments Established Patient Reason Comments Smoking Cessation Reason Comments Consult Right breast consult Specialty Diagnoses / Procedures Referred By Contac t Referred To Contact General Surgery Diagnoses Abscess of breast, right Procedures CONSULT TO GENERAL SURGERY OFFICE/OUTPATIENT [facility] 60 MINUTES Mariella Skinner, WHEEL AND PINION INSPECTOR.INDUSTRIAL NURSE [address] [place] [address] Referral ID Status Reason Start Date Expiration Date V isits Requested Visits Authorized [id number] Closed PCP Requested Referral 02/24/2024 02/23/2025 [address] Specialty Diagnoses / Procedures Referred By Contac t Referred To Contact CT IMAGING Diagnoses Multiple and bilateral precerebral artery syndromes Procedures CTA NECK W IVCON CT ANGIOGRAPHY NECK W/CONTRAST/NONCONTRAST Jake Darnell MD [address] [place] [address] [address] [facility] [place] [address] Referral ID Status Reason Start Date Expiration Date V isits Requested Visits Authorized [id number] Closed Auto-Generate d Referral 03/22/2024 04/21/2024 1 1 Reason Comments Established Patient Follow Up Review testing Stenosis Carotid artery steno sis Reason Comments Cat Swamper - Other Reason Onset Date Comments Refill Request 04/18/2024 Reason Comments Patient Question Reason Comments Rx sent to wrong pharmacy; Pt asking for new medication Reason Comments ER F/U Seen in February for High BP at [facility] Reason Comments Established Patient Reason Comments BP Check Pt did take losartan today Reason Comments Radiology [place] Specialty Diagnoses / Procedures Referred By Contac t Referred To Contact MOLECULAR & FUNCTIONAL IMAGING Diagnoses Encounter for screening for cardiovascular disorders Primary hypertension Procedures NM CARDIAC PERF STRESS/EXERCISE MYOCARDIAL SPECT MULTIPLE STUDIES Kavitha Herring DO [address] [place] [address] Molecular & Functional Imaging [address] [place] [address] Referral ID Status Reason Start Date Expiration Date V isits Requested Visits Authorized [id number] Closed Auto-Generate d Referral 05/02/2024 06/01/2024 1 1 Reason Comments Future Appointment [place] any Reason Comments carotid artery stenosis Specialty Diagnoses / Procedures Referred By Burak chang Referred To Contact Neurology / NEUROSURGERY Diagnoses new Carotid artery disease per pt , lesion on brain needing stent Procedures EST NI PATIENT Karen Mooney MD [address] [facility] [place] [address] Karen Mooney MD [address] [place] [address] Referral ID Status Reason Start Date Expiration Date V isits Requested Visits Authorized [id number] New Request 05/30/2024 07/29/2024 1 1 Reason Onset Date Comments Refill Request 06/08/2024 Specialty Diagnoses / Procedures Referred By Burak chang Referred To Contact MR IMAGING Diagnoses 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) Procedures MRI BRAIN WO IVCON MRI BRAIN BRAIN STEM W/O CONTRAST MATERIAL Karen Mooney MD [address] [place] [address] Mr Imaging [place] [address] Referral ID Status Reason Start Date Expiration Date V isits Requested Visits Authorized [id number] Closed Auto-Generate d Referral 06/03/2024 2024 1 [...] Care Teams (unrecognized sec tion and content) Preschool Education Director Relationship Specialty Start Date End Date Stalin Montes De Oca, DO [address] [place] [address] PCP - General Family Practice 02/10/13 Preschool Education Director Relationship Specialty Start Date End Date Stalin Montes De Oca, DO [address] [place] [address] PCP - General Family Practice 02/10/13 Preschool Education Director Relationship Specialty Start Date End Date Stalin Montes De Oca, DO [address] [place] [address] PCP - General Family Practice 02/10/13 Preschool Education Director Relationship Specialty Start Date End Date Stalin Montes De Oca DO [address] [place] [address] PCP - General Family Medicine 02/10/13 Preschool Education Director Relationship Specialty Start Date End Date Stalin Montes De Oca DO [address] [place] [address] PCP - General Family Medicine 02/10/13 Preschool Education Director Relationship Specialty Start Date End Date Stalin Montes De Oca DO [address] [place] [address] PCP - General Family Medicine 02/10/13 Team Status: Active Member Role Status Dates Dr. Stalin Montes De Oca DO Family Provider Active Dr. Stalin Montes De Oca DO Primary Care Provider Active Team Status: Inactive Member Role Status Dates Dr. Stalin Montes De Oca DO Primary Care Provider Active Dr. Dinora Denis MD Emergency Provider Active Preschool Education Director Relationship Specialty Start Date End Date Stalin Montes De Oca DO [address] [place] [address] PCP - General Family Medicine 02/10/13 Preschool Education Director Relationship Specialty Start Date End Date Stalin Montes De Oca DO [address] [place] [address] PCP - General Family Medicine 02/10/13 Preschool Education Director Relationship Specialty Start Date End Date Stalin Montes De Oca DO [address] [place] [address] PCP - General Family Medicine 02/10/13 Preschool Education Director Relationship Specialty Start Date End Date Stalin Montes De Oca DO [address] [place] [address] PCP - General Family Medicine 02/10/13 Team Status: Inactive Member Role Status Dates Dr. Stalin Montes De Oca , DO Primary Care Provider Active Dr. Derian Pimentel , DO Emergency Provider Active Preschool Education Director Relationship Specialty Start Date End Date Stalin Montes De Oca DO [address] [place] [address] PCP - General Family Medicine 02/10/13 Preschool Education Director Relationship Specialty Start Date End Date Stalin Montes De Oca DO [address] [place] [address] PCP - General Family Medicine 02/10/13 Preschool Education Director Relationship Specialty Start Date End Date Stalin Montes De Oca DO [address] [place] [address] PCP - General Family Medicine 02/10/13 Preschool Education Director Relationship Specialty Start Date End Date Stalin Montes De Oca DO [address] [place] [address] PCP - General Family Medicine 02/10/13 Preschool Education Director Relationship Specialty Start Date End Date Stalin Montes De Oca DO [address] [place] [address] PCP - General Family Medicine 02/10/13 Preschool Education Director Relationship Specialty Start Date End Date Stalin Montes De Oca, [address] [place] [address] PCP - General Family Medicine 02/10/13 Preschool Education Director Relationship Specialty Start Date End Date Stalin Montes De Oca, [address] [place] [address] PCP - General Family Medicine 02/10/13 Preschool Education Director Relationship Specialty Start Date End Date Stalin Montes De Oca, [address] [place] [address] PCP - General Family Medicine 02/10/13 Preschool Education Director Relationship Specialty Start Date End Date Stalin Montes De Oca, [address] [place] [address] PCP - General Family Medicine 02/10/13 Preschool Education Director Relationship Specialty Start Date End Date Stalin Montes De Oca, [address] [place] [address] PCP - General Family Medicine 02/10/13 Preschool Education Director Relationship Specialty Start Date End Date Stalin Montes De Oca, [address] [place] [address] PCP - General Family Medicine 02/10/13 Preschool Education Director Relationship Specialty Start Date End Date Stalin Montes De Oca DO [address] [place] [address] PCP - General Family Medicine 02/10/13 Preschool Education Director Relationship Specialty Start Date End Date Stalin Montes De Oca, [address] [place] [address] PCP - General Family Medicine 02/10/13 Preschool Education Director Relationship Specialty Start Date End Date Stalin Montes De Oca DO [address] [place] [address] PCP - General Family Medicine 02/10/13 Preschool Education Director Relationship Specialty Start Date End Date Stalin Montes De Oca DO [address] [place] [address] PCP - General Family Medicine 02/10/13 Preschool Education Director Relationship Specialty Start Date End Date Stalin Montes De Oca DO [address] [place] [address] PCP - General Family Medicine 02/10/13 Preschool Education Director Relationship Specialty Start Date End Date Stalin Montes De Oca DO [address] [place] [address] PCP - General Family Medicine 02/10/13 Preschool Education Director Relationship Specialty Start Date End Date Stalin Montes De Oca DO [address] [place] [address] PCP - General Family Medicine 02/10/13 Preschool Education Director Relationship Specialty Start Date End Date Stalin Montes De Oca DO [address] [place] [address] PCP - General Family Medicine 02/10/13 Preschool Education Director Relationship Specialty Start Date End Date Stalin Montes De Oca DO [address] [place] [address] PCP - General Family Medicine 02/10/13 Preschool Education Director Relationship Specialty Start Date End Date Stalin Montes De Oca DO [address] [place] [address] PCP - General Family Medicine 02/10/13 Preschool Education Director Relationship Specialty Start Date End Date Stalin Montes De Oca DO [address] [place] [address] PCP - General Family Medicine 02/10/13 Preschool Education Director Relationship Specialty Start Date End Date Stalin Montes De Oca DO [address] [place] [address] PCP - General Family Medicine 02/10/13 Mary Toledo, WHEEL AND PINION INSPECTOR.INDUSTRIAL NURSE [address] [place] [address] Physicist [employer] Family [facility] 09/25/24 Mariella Skinner, WHEEL AND PINION INSPECTOR.INDUSTRIAL NURSE [address] [place] [address] Physicist [employer] Family [facility] 09/25/24 Preschool Education Director Relationship Specialty Start Date End Date Stalin Montes De Oca DO [address] [place] [address] PCP - General Family Medicine 02/10/13 Mray Toledo, WHEEL AND PINION INSPECTOR.INDUSTRIAL NURSE [address] [place] [address] Physicist [employer] Family [facility] 09/25/24 Mariella Skinner, WHEEL AND PINION INSPECTOR.INDUSTRIAL NURSE [address] [place] [address] Physicist [employer] Family [facility] 09/25/24 Preschool Education Director Relationship Specialty Start Date End Date Stalin Montes De Oca DO [address] [place] [address] PCP - General Family Medicine 02/10/13 Mary Toledo, WHEEL AND PINION INSPECTOR.INDUSTRIAL NURSE [address] [place] [address] Physicist [employer] Family [facility] 09/25/24 ShaileshMariella, WHEEL AND PINION INSPECTOR.INDUSTRIAL NURSE [address] [place] [address] [facility] Preschool Education Director Relationship Specialty Start Date End Date Stalin Montes De Oca DO [address] [place] [address] PCP - General Family Medicine 02/10/13 Mary Toledo, WHEEL AND PINION INSPECTOR.INDUSTRIAL NURSE [address] [place] [address] [facility] 09/[facility]/24 ShaileshMariella, WHEEL AND PINION INSPECTOR.INDUSTRIAL NURSE [address] [place] [address] [facility] 09[facility]25/24 Preschool Education Director Relationship Specialty Start Date End Date Stalin Montes De Oca DO [address] [place] [address] PCP - General Family Medicine 02/10/13 ShaileshMariella, WHEEL AND PINION INSPECTOR.INDUSTRIAL NURSE [address] [place] [address] [facility] 09/25/24 Preschool Education Director Relationship Specialty Start Date End Date Stalin Montes De Oca DO [address] [place] [address] PCP - General Family Medicine 02/10/13 ShaileshMariella, WHEEL AND PINION INSPECTOR.INDUSTRIAL NURSE [address] [facility], [place] [id number] [facility] 09[facility]/24 Team Status: Active Member Role Status Dates Dr. Stalin Montes De Oca DO Primary Care Provider Active Team Status: Inactive Member Role Status Dates Dr. Stalin Montes De Oca DO Primary Care Provider Active Start: March 07, 2025 End: March 07, 2025 Dr. Derian Pimentel DO Emergency Provider Active Start: March 07, 2025 End: March 07, 2025 Preschool Education Director Relationship Specialty Start Date End Date Stalin Montes De Oca DO [address] [place] [address] PCP - General Family Medicine 02/10/13 [facility] WHEEL AND PINION INSPECTOR.INDUSTRIAL NURSE [address] [place] [address] [facility] 09/25/24 Mariaelena Pollack, WHEEL AND PINION INSPECTOR.INDUSTRIAL NURSE [address] [place] [address] [facility] 04/03/25 Preschool Education Director Relationship Specialty Start Date End Date Stalin Montes De Oca DO [address] [place] [address] PCP - General Family Medicine 02/10/13 ShaileshMariella, WHEEL AND PINION INSPECTOR.INDUSTRIAL NURSE [address] [place] [address] [facility] 09/25/24 Mariaelena Pollack, WHEEL AND PINION INSPECTOR.INDUSTRIAL NURSE [address] [facility] [place] [address] [facility] 04/03/25 Goals (unrecognized section and content) Goals may be documented in a n alternate sectionGoals may be documented in an alternate sectionGoals may be documented in an alternate sectionGoals may be documented in an alternate section INFORMATION SOURCE (unrecogn ized section and content) DATE CREATED AUTHOR 03/03/2024 [facility] DATE CREATED AUTHOR AUTHOR'S ORGANIZ ATION 06/04/2024 [facility] DATE CREATED AUTHOR AUTHOR'S ORGANIZ ATION 03/16/2025 [facility] DATE CREATED AUTHOR AUTHOR'S ORGANIZ ATION 04/10/[address] [facility] FOR RECORDS PERTAINING TO PATIENTS WHO ARE [...] BE BASED ON THE PRIMARY CLINICAL RECORDS. [facility]. provides no warranty or guarantee of the accuracy or completeness of information in this document.
[2025-04-12] MEDS: 0.9% Normal Saline (1000mL) 1,000 ML 100 ML IV (04:48)
[2025-04-12 04:56] LABS: Bedside Glucose 105 mg/dL (74-106)
[2025-04-12 05:17] LABS: Absolute Lymphocyte Count 3.22 X10^3/uL (0.83-4.51); Absolute Neutrophil Count 3.9 X10^3/uL (2.0-7.7); Basophil# 0.02 X10^3/uL; Basophil% 0.3 % (0-1); Eosinophil# 0.25 X10^3/uL; Eosinophils% 3.2 % (0-5); Hematocrit 32.5 % (37-47); Hemoglobin 11.1 g/dL (12.0-15.0); Lymphocyte # 3.22 X10^3/ul (0.83-4.51); Mean Corp Hgb Conc 34.2 g/dL (32-36); Mean Corpuscular Hgb 30.8 pg (27.0-32.0); Mean Corpuscular Volume 90.3 fL (81-99); Mean Platelet Vol. 11.2 fl (6.2-12.0); Monocyte# 0.48 X10^3/uL; Monocyte% 6.1 % (0-10); NRBC Flagged by Analyzer 0 % (0-5); Neutrophil # 3.88 X10^3/uL (2.7-7.7); Neutrophil % 49.3 % (47-70); Platelet Count 211 K/mm3 (150-450); RBC Distribution Width CV 14.4 % (11.6-14.6); RBC Distribution Width SD 47.5 fl (35.1-43.9); White Blood Count 7.9 K/mm3 (4.4-11.0)
[2025-04-12 05:45] LABS: Troponin T High Sens 4 HR 18 ng/L (<=14)
[2025-04-12 06:21] LABS: Hemoglobin A1c 6.5 % (<=5.6)
[2025-04-12 06:39] LABS: ALB/GLOB Ratio 1.1 RATIO (0.9-2.4); AST(SGOT) 19 U/L (<=31); Alanine Aminotransfer ALT/SGPT 16 U/L (<=34); Albumin, Serum 3.8 g/dL (3.5-5.0); Alkaline Phosphatase 93 U/L (35-104); Anion Gap 13 (5-15); BUN 9 mg/dL (4-19); BUN/Creat Ratio 13.9 RATIO (10-20); Calcium,Total 9.5 mg/dL (7.6-11.0); Carbon Dioxide 22.5 mmol/L (21.0-32.0); Chloride 106 mmol/L (98-108); Creatinine, Serum 0.64 mg/dL (0.70-1.20); EST Glomerular Filtration Rate 107 (>60); Estimated Creatinine Clearance 97.78 ml/min (50-250); Globulin 3.6 g/dL (2.2-4.2); Glucose 106 mg/dL (70-99); Potassium 4.4 mmol/L (3.3-5.1); Protein, Total 7.4 g/dL (5.9-8.4); Sodium Level 141 mmol/L (133-145); Total Bilirubin 0.28 mg/dL (0.00-1.30)
[2025-04-12] MEDS: Losartan Potassium 50 MG Tablet PO (06:45)
[2025-04-12 07:05] LABS: Bedside Glucose 106 mg/dL (74-106)
--- NOTE | 2025-04-12 08:23 | PN.HOSP_ITS ---
Reason for Visit Reason for Visit: Diagnoses Chest pain, unspecified (04/12/25) Subjective Subjective Feeling well. States that she been having chest pain that was very intense. But since has resolved since arrival to the emergency room. Never anything like this before. Objective Data Objective Data Vital Signs: Vital Signs Temp Pulse Resp BP Pulse Ox O2 Del Method 36.4 C L 65 18 147/66 H 98 Room Air 04/12/25 05:31 04/12/25 06:44 04/12/25 05:31 04/12/25 06:44 04/12/25 05:31 04/12/25 05:40 Oxygen Delivery Method Room Air Weight: 77.2 kg Body Mass Index (BMI) 32.1 Lab / Micro Data 04/12/25 04:50 04/12/25 04:50 Labs: Laboratory Results - last 24 hr 04/11/25 23:20: WBC 12.0 H, RBC 3.62 L, Hgb 11.3 L, Hct 32.9 L, MCV 90.9, MCH 31.2, MCHC 34.3, RDW Std Deviation 48.2 H, RDW Coeff of Paco 14.6, Plt Count 231, MPV 11.6, Immature Gran % (Auto) 0.200, Neut % (Auto) 41.9 L, Lymph % (Auto) 47.9 H, [place] % (Auto) 7.3, Eos % (Auto) 2.4, Baso % (Auto) 0.3, Absolute Neuts (auto) 5.0, Absolute Lymphs (auto) 5.74 H, Nucleated RBC % 0, Atypical Lymphocytes 1+, Platelet Estimate ADEQUATE, RBC Morphology NORM C+C, D-Dimer Quant (PE/DVT) 0.28, Sodium 137, Potassium 3.2 L, Chloride 99, Carbon Dioxide 22.3, Anion Gap 16 H, BUN 11, Creatinine 0.73, Est GFR (MDRD) Non-Af 99, BUN/Creatinine Ratio 14.3, Glucose 120 H, Calcium 9.6, Troponin T High Sens < 6 04/12/25 02:20: Phosphorus 4.3, Magnesium 1.7, Troponin T Hi Sens 2 Hr 18 H 04/12/25 04:37: POC Glucose 105 04/12/25 04:50: WBC 7.9, RBC 3.60 L, Hgb 11.1 L, Hct 32.5 L, MCV 90.3, MCH 30.8, MCHC 34.2, RDW Std Deviation 47.5 H, RDW Coeff of Paco 14.4, Plt Count 211, MPV 11.2, Immature Gran % (Auto) 0.100, Neut % (Auto) 49.3, Lymph % (Auto) 41.0, [place] % (Auto) 6.1, Eos % (Auto) 3.2, Baso % (Auto) 0.3, Absolute Neuts (auto) 3.9, Absolute Lymphs (auto) 3.22, Nucleated RBC % 0, Sodium 141, Potassium 4.4, Chloride 106, Carbon Dioxide 22.5, Anion Gap 13, BUN 9, Creatinine 0.64 L, Estim Creat Clear Calc 97.78, Est GFR (MDRD) Non-Af 107, BUN/Creatinine Ratio 13.9, G lucose 106 H, Hemoglobin A1c 6.5 H, Calcium 9.5, Total Bilirubin 0.28, AST 19, ALT 16, Alkaline Phosphatase 93, Troponin T Hi Sens 4Hr 18 H, Total Protein 7.4, Albumin 3.8, Globulin 3.6, Albumin/Globulin Ratio 1.1 04/12/25 06:46: POC Glucose 106 Radiography Diagnostic Testing: Radiology Impression Chest X-Ray 04/12/25 00:40 IMPRESSION: No evidence for acute abnormality. Reading Location: [place] [address] Physical Exam Const alert and no apparent distress HEENT head/scalp atraumatic and moist oral mucous membranes Resp normal respiratory effort and no retractions Assessment & Plan Assessment/Plan (1) Chest pain: PLAN: Troponins only up to 18. Stress completed and was negative. Was normal but did show a mildly reduced ejection fraction. X-ray the patient I feel that she apparently had an esophageal spasm that caused her symptoms as she had no other symptomatology along with that did not radiate. Explained that they can feel very intense if it is indeed esophageal spasm but with the negative cardiac workup no additional workup necessary at this time. PLAN: Plan Hypokalemia: respolved Obesity class I: complicates care and recovery HTN: stable. losartan. metoprolol succinate.
[2025-04-12 11:52] LABS: Bedside Glucose 118 mg/dL (74-106)
--- NOTE | 2025-04-12 12:17 | STRESSREP ---
Stress Test Report Exercise myocardial perfusion stress test. 49-year-old lady with a history of chest pain and hypertension Stress protocol: Resting EKG demonstrates normal sinus rhythm with a rate of 57 bpm T wave inversions noted in lead III resting blood pressure is 128/82 mmHg. The patient exercised according to the regular Shahram protocol for a total duration of 4 minutes attaining a maximum heart rate of 151 bpm which was 89 per of maximum predicted heart rate; the maximum workload was 7 metabolic equivalents. At rest there were no ST or T wave changes noted to suggest ischemia and at peak exercise upsloping ST changes, and some downsloping ST depression noted in lead III only were noted which did not meet the criteria for ischemia. No clinical angina was noted the test was terminated due to the target heart rate being achieved/fatigue. The peak blood pressure was 184/84 mmHg. Rate-pressure product was 19,000. Myocardial perfusion protocol. 12.0 mCi of technetium 99m sestamibi was injected at rest. The patient exercised according to regular Shahram protocol for total duration of 4 minutes and at peak exercise 35.1 mCi of technetium 99m sestamibi was injected stress images were obtained stress and rest images were reconstructed in comparing the short axis vertical long and horizontal long axis. Gated images were also obtained. Perfusion SPECT analysis: The Review of the stress images demonstrate normal uptake of tracer noted in all areas of the myocardium. There is a medium size defect noted in the basal to mid inferior wall with reduced perfusion. The resting images demonstrate a similar pattern. The previous inferior infarct cannot be completely excluded GI uptake abnormality can also be present. No obvious reversibility is noted suggest ischemia. Gated SPECT analysis: The gated ejection fraction is 45%. Conclusion: Normal exercise myocardial perfusion stress test at a moderate work Mildly reduced ejection fraction. Previous basal to mid inferior infarct cannot be completely excluded
--- NOTE | 2025-04-12 12:31 | DS.PCM_ITS ---
Providers Date of Admission: 04/12/25 Primary Care Physician: Dr. Stalin Montes De Oca, DO Reason For Visit: CHEST PAIN Diagnosis Discharge Diagnosis (1) Chest pain: Status: Acute Code(s): R07.9 - Chest pain, unspecified Plan: Troponins only up to 18. Stress completed and was negative. Was normal but did show a mildly reduced ejection fraction. X-ray the patient I feel that she apparently had an esophageal spasm that caused her symptoms as she had no other symptomatology along with that did not radiate. Explained that they can feel very intense if it is indeed esophageal spasm but with the negative cardiac workup no additional workup necessary at this time. Plan Hypokalemia: respolved Obesity class I: complicates care and recovery HTN: stable. losartan. metoprolol succinate. Medications at Discharge Home Medications loratadine 10 mg tablet 10 mg PO PRN PRN Allergic Reaction 09/27/21 aspirin 81 mg tablet,delayed release 81 mg PO DAILY 03/09/24 cholecalciferol (vitamin D3) 1,250 mcg (50,000 unit) capsule 1,250 mcg PO QWEEK 03/09/24 atorvastatin 40 mg tablet 40 mg PO QHS cholesterol 03/07/25 losartan 50 mg tablet 50 mg PO DAILY 03/07/25 metoprolol succinate 25 mg tablet,extended release 24 hr 25 mg PO QHS 04/12/25 Hospital Course Operations None Procedures Stress test Summary of Care Provided Hospital Course: Patient presents with a midsternal chest pain that was very intense but abated by the time she arrived to the emergency room. Cardiac workup was unremarkable. She did undergo a stress test that showed normal perfusion stress test. Mildly reduced ejection fraction of 45%. Previous basal to mid inferior infarct cannot be completely excluded. Patient feels fine and will be discharged. I feel that she may have had an esophageal spasm that caused her symptoms. Reassurance was provided to her. Patient still does actively smoke. I did recommend clear that she should quit smoking which she is clearly aware of. But I told her to try quitting to change her behavior at home such as setting up with on a day when she is ready to quit smoking for several hours and then to keep pushing that number further and further back as she is able till she can completely quit cigarettes. She said that she will consider that. Weight / BMI Weight Weight: 77.2 kg Body Mass Index (BMI) 32.1 ABG / Lab / Microbiology Data 04/12/25 04:50 04/12/25 04:50 Laboratory: Laboratory Results - last 24 hr 04/11/25 23:20: WBC 12.0 H, RBC 3.62 L, Hgb 11.3 L, Hct 32.9 L, MCV 90.9, MCH 31.2, MCHC 34.3, RDW Std Deviation 48.2 H, RDW Coeff of Paco 14.6, Plt Count 231, MPV 11.6, Immature Gran % (Auto) 0.200, Neut % (Auto) 41.9 L, Lymph % (Auto) 47.9 H, [place] % (Auto) 7.3, Eos % (Auto) 2.4, Baso % (Auto) 0.3, Absolute Neuts (auto) 5.0, Absolute Lymphs (auto) 5.74 H, Nucleated RBC % 0, Atypical Lymphocytes 1+, Platelet Estimate ADEQUATE, RBC Morphology NORM C+C, D-Dimer Quant (PE/DVT) 0.28, Sodium 137, Potassium 3.2 L, Chloride 99, Carbon Dioxide 22.3, Anion Gap 16 H, BUN 11, Creatinine 0.73, Est GFR (MDRD) Non-Af 99, BUN/Creatinine Ratio 14.3, Glucose 120 H, Calcium 9.6, Troponin T High Sens < 6 04/12/25 02:20: Phosphorus 4.3, Magnesium 1.7, Troponin T Hi Sens 2 Hr 18 H 04/12/25 04:37: POC Glucose 105 04/12/25 04:50: WBC 7.9, RBC 3.60 L, Hgb 11.1 L, Hct 32.5 L, MCV 90.3, MCH 30.8, MCHC 34.2, RDW Std Deviation 47.5 H, RDW Coeff of Paco 14.4, Plt Count 211, MPV 11.2, Immature Gran % (Auto) 0.100, Neut % (Auto) 49.3, Lymph % (Auto) 41.0, [place] % (Auto) 6.1, Eos % (Auto) 3.2, Baso % (Auto) 0.3, Absolute Neuts (auto) 3.9, Absolute Lymphs (auto) 3.22, Nucleated RBC % 0, Sodium 141, Potassium 4.4, Chloride 106, Carbon Dioxide 22.5, Anion Gap 13, BUN 9, Creatinine 0.64 L, Estim Creat Clear Calc 97.78, Est GFR (MDRD) Non-Af 107, BUN/Creatinine Ratio 13.9, G lucose 106 H, Hemoglobin A1c 6.5 H, Calcium 9.5, Total Bilirubin 0.28, AST 19, ALT 16, Alkaline Phosphatase 93, Troponin T Hi Sens 4Hr 18 H, Total Protein 7.4, Albumin 3.8, Globulin 3.6, Albumin/Globulin Ratio 1.1 04/12/25 06:46: POC Glucose 106 04/12/25 11:24: POC Glucose 118 H Radiography Diagnostic Testing: Radiology Impression Chest X-Ray 04/12/25 00:40 IMPRESSION: No evidence for acute abnormality. Reading [facility] Inst[facility] Discharge Diet: No restrictions DC O2, CPAP, BIPAP Needs Home O2 Discharge instructions: No Meaningful Use Info Meaningful Use Meaningful Use Diagnoses (Choose all that apply): None applicable Ischemic Stroke Statin Dosing Therapy Reference: STATIN DOSE THERAPY REFERENCE: * Patients > 75 years receive moderate or high dose statin therapy. * Patients 75 years or YOUNGER should receive HIGH intensity statin dose unless contraindicated. You will be required to document reason for non-treatment if statin daily dose does not meet guidelines. HIGH DOSE STATIN THERAPY DAILY Atorvastatin > than or = to 40 mg Rosuvastatin > than or = to 20 mg Amlodipine + Atorvastatin > than or = to 2.5/40 mg Ezetimibe + Simvastatin 10/80 mg Simvastatin 80mg Discharge Plan Admission Admit Date/Time: 04/12/25 03:16 Primary Reason for Your Visit: Chest pain Attending Provider: Pj Yan Primary Care Provider: Stalin Montes De Oca Consulting Providers: Veronika Alves Instructions Additional Instructions / Restrictions: You had chest pain. Your stress test was normal. I feel that your chest pain was likely due to an esophageal spasm. Despite not being cardiac and possibly from your esophagus, does not mean that you cannot feel uncomfortable. If you have this in the future he likely will not need attention but if you are having other symptoms, such as shortness of breath, pain extending through your back up your jaw or down your arm, please seek attention at that time. Discharge Orders/Prescriptions Prescriptions: Continued loratadine 10 mg tablet 10 mg PO PRN PRN (Reason: Allergic Reaction) aspirin 81 mg tablet,delayed release (DR/EC) 81 mg PO DAILY cholecalciferol (vitamin D3) 1,250 mcg (50,000 unit) capsule 1,250 mcg PO QWEEK losartan 50 mg tablet 50 mg PO DAILY atorvastatin 40 mg tablet 40 mg PO QHS metoprolol succinate 25 mg tablet extended release 24 hr 25 mg PO QHS Referrals / Follow Up: Stalin Montes De Oca DO [Primary Care Provider] - Within 2 Weeks Disposition Disposition (needs filled in before D/C Order can be placed): Home, Self Care Charges/Coding Visit Charges Inpatient E&M: 10375 Disch Hosp
--- NOTE | 2025-04-12 13:13 | PHA.DC.MR.R ---
Pharmacy OR Med Reconciliation Pharmacy Service has performed discharge medication reconciliation for this patient. The patient's discharge medication list was reviewed for discrepancies and discrepancies were resolved. Medications at Discharge Home Medications loratadine 10 mg tablet 10 mg PO PRN PRN Allergic Reaction 09/27/21 aspirin 81 mg tablet,delayed release 81 mg PO DAILY heart health 03/09/24 cholecalciferol (vitamin D3) 1,250 mcg (50,000 unit) capsule 1,250 mcg PO QWEEK vitamin 03/09/24 atorvastatin 40 mg tablet 40 mg PO QHS cholesterol 03/07/25 losartan 50 mg tablet 50 mg PO DAILY blood pressure 03/07/25 metoprolol succinate 25 mg tablet,extended release 24 hr 25 mg PO QHS blood pressure 04/12/25
--- NOTE | 2025-04-12 14:21 | CASEMGMT ---
Patient triggered SDOH for utilities. SW met with patient. Introduced self and role at [facility]. Patient stated she actually is having troubles with paying rent. SW provided patient with information on [employer], [employer], and the [address] card. Doris Ty [employer]QUIPMENT [employer] JARVIS
--- NOTE | 2025-04-12 14:58 | CASEMGMT ---
Patient has order for discharge. RN CM in to discuss needs at discharge. Patient denies needs or help at discharge. Patient had no further questions or concerns.
== END 2025-04-12 15:16 | disposition home or self-care (01) ==
LOC: ED 04-12 03:16 → PCU 04-12 04:14
PROVIDERS: Admitting Provider Family Medicine; Emergency Provider Emergency Medicine; PCP Student in an Organized Health Care Education/Training Program
DX: R07.89 Other chest pain (principal); E11.9 Type 2 diabetes mellitus without complications; R00.2 Palpitations; I10 Essential (primary) hypertension; R79.89 Other specified abnormal findings of blood chemistry; E87.6 Hypokalemia; Z86.718 Personal history of other venous thrombosis and embolism; F17.210 Nicotine dependence, cigarettes, uncomplicated; E66.811 Obesity, class 1; D50.9 Iron deficiency anemia, unspecified; K21.9 Gastro-esophageal reflux disease without esophagitis; E78.5 Hyperlipidemia, unspecified; Z82.49 Family history of ischemic heart disease and other diseases of the circulatory system; Z68.35 Body mass index [BMI] 35.0-35.9, adult; Z79.899 Other long term (current) drug therapy; Z79.82 Long term (current) use of aspirin
CPT/HCPCS: J2785; 71045; 78452; 80048; 80053; 82962; 83036; 83735; 84100; 84484; 85025; 85379; 93005; 93017; 96360; 96361; 99221; 99285; A9500; A4216; G0378